=== PATIENT | female | born 1950 | race Caucasian/White ===

== ENCOUNTER 2020-01-25 13:22 | Outpatient (CLI) | payer MEDICARE, SELFPAY ==
--- NOTE | ~2020-01-25 | CT_ITS ---
EXAMINATION: CT abdomen pelvis w con INDICATION: Abdominal pain, other intestinal obstruction TECHNIQUE: Computed tomographic images of the abdomen and pelvis were obtained after the administrati on of 100 cc of Omnipaque 350 intravenous contrast. The dose-length product (DLP) was 259.13 mGy-cm. Automated exposure control and iterative reconstruction technique were employed. COMPARISON: 05/06/2018 FINDINGS: The lung bases are clear. The heart size is normal. The liver, spleen, pancreas, gallbladde r, and adrenal glands are normal. There is a 4 mm nonobstructing stone of the right kidney lower pole . The left kidney is unremarkable. There is calcified atherosclerosis of the aorta and many of the ot her arteries. No pathologically enlarged abdominal or pelvic lymph nodes are identified. There is no free intraperitoneal gas or evidence of bowel obstruction. There is a moderate volume of liquid stoo l in the colon. There is moderate lumbar spondylosis. A hemangioma is versus Paget's disease is again noted in T11 vertebral body. IMPRESSION: 1. Liquid stool in the colon which can be seen in the setting of diarrhea. 2. Nonobstructing right nephrolithiasis. Reviewed, dictated and finalized at location F.
[2020-01-25 14:03] LABS: Estimated Glomerular Filt Rate 50
== END 2020-01-25 13:23 | disposition home or self-care (01) ==
PROVIDERS: PCP Family Medicine; Visit Provider Obstetrics & Gynecology
DX: R10.9 Unspecified abdominal pain (principal); K56.699 Other intestinal obstruction unspecified as to partial versus complete obstruction; N20.0 Calculus of kidney
CPT/HCPCS: 36415; 74177; Q9967

== ENCOUNTER → 2020-03-23 10:51 | Outpatient (CLI) | payer MEDICARE, SELFPAY ==
--- NOTE | ~2020-03-23 | US_ITS ---
EXAMINATION: US renal BI DATE: 03/23/2020 11:19 INDICATION: Acute renal insufficiency. TECHNIQUE: Multiple ultrasound grayscale images of the kidneys were obtained. COMPARISON: CT abdomen and pelvis 01/25/2020 FINDINGS: The right kidney measures 8.0 x 4.3 x 5.4 cm. The left kidney measures 8.7 x 5.5 x 4.4 cm. The kidney s demonstrate normal parenchymal echogenicity. There is no hydronephrosis. The bladder is normal. IMPRESSION: 1. Mild atrophy of the kidneys. No hydronephrosis. Reviewed, dictated and finalized at location B.
--- NOTE | ~2020-03-23 | US_ITS ---
EXAMINATION: US thyroid DATE: 03/23/2020 11:19 INDICATION: Goiter. Hypothyroidism. TECHNIQUE: Multiple ultrasound images of the thyroid were obtained. COMPARISON: None. FINDINGS: The right thyroid lobe measures 3.3 x 1.2 x 1.1 cm. The left thyroid lobe measures 3.3 x 0.8 x 0.9 c m. In right thyroid lobe, there is a 6 mm solid, hypoechoic, [id number] nodule with ill-defined margin without echogenic foci (TI-RADS TR4). IMPRESSION: 1. Small thyroid nodule, likely not clinically significant. No follow-up is needed. Reviewed, dictated and finalized at location B. IMPRESSION: 1. Small thyroid nodule, likely not clinically significant. No follow-up is nee ded.
== END ==
PROVIDERS: Visit Provider Internal Medicine Endocrinology, Diabetes & Metabolism
DX: N28.9 Disorder of kidney and ureter, unspecified (principal); E04.1 Nontoxic single thyroid nodule
CPT/HCPCS: 76536; 76775

== ENCOUNTER 2020-12-20 12:28 | Outpatient (CLI) | payer MEDICARE, SELFPAY ==
--- NOTE | 2020-12-20 16:55 | WPDPFTINT ---
PFT Procedure Performed PFT Procedure Performed Spirometry with Pre/Post Bronchodilator Plethysmography (Lung Vol) Diffusing Cap (DLCO) Flow Vol Loop PFT Interpretation This is a pulmonary function test with pre and post-bronchodilator spirometry, plethysmography and diffusing capacity. The test was performed and results interpreted in accordance with the 2019 and 2005 ATS/ERS Task Force guidelines respectively using the Global Lung Function Initiative-2012 reference equations. Patient demonstrated good effort and cooperation. Reproducibility criteria were met. The quality of the pre bronchodilator spirometry maneuver was Grade A and post bronchodilator spirometry maneuver was Grade A. Findings: Spirometry: the contour the inspiratory and expiratory flow tracing are normal. The pre bronchodilator FVC is 2.81 L, 107% predicted. The pre bronchodilator FEV1 is 2.10, 102% predicted. The FEV1: FVC ratio is 75%. The post bronchodilator FVC is 2.79 L, representing no change. The post bronchodilator FEV1 is 2.19 L, representing a 4% increase. Plethysmography: The total lung capacity is 4.20 L, 91% predicted. The functional residual capacity is 1.69 L, 65% predicted. The residual volume is 1.40 L, 70% predicted. Diffusing capacity: The absolute diffusion capacity is 15.4, 79% predicted. The diffusing capacity corrected for alveolar volume is 3.85, 86% predicted. Impression: The spirometry is normal without evidence of an obstructive abnormality. There is no significant improvement after inhaling a single dose of albuterol. The lung volumes are normal. The diffusing capacity is normal. There are no prior studies for comparison
== END 2020-12-20 12:29 | disposition home or self-care (01) ==
PROVIDERS: PCP Family Medicine; Visit Provider Family Medicine
DX: J45.909 Unspecified asthma, uncomplicated (principal)
CPT/HCPCS: 94060; 94726; 94729

== ENCOUNTER 2021-01-30 15:10 | Outpatient (CLI) | payer MEDICARE, SELFPAY ==
--- NOTE | ~2021-01-30 | DEXA_ITS ---
Bone Density Report Name: Maria C Piña Age: 70 Sex: Female Ethnicity: White Date of : 1950 Indication: postmenopausal; inflammatory bowel disease; hysterectomy; Referring Provider: Shyanne Lepe Study: Bone densitometry was performed. Exam Date: January 30, 2021 Accession number: [id number] Bone Density: Region BMD T-score Z-score Classification AP Spine (L1-L4) 0.901 -1.3 0.7 Osteopenia Femoral Neck (Left) 0.558 -2.6 -0.9 Osteoporosis Total Hip (Left) 0.762 -1.5 -0.1 Osteopenia Total Hip Bilateral Avg 0.747 -1.6 -0.2 Osteopenia Femoral Neck (Right) 0.568 -2.5 -0.8 Osteoporosis Total Hip (Right) 0.730 -1.7 -0.3 Osteopenia World Health Organization criteria for BMD impression classify patients as: Normal (T-score at or above -1.0), Osteopenia (T-score between -1.0 and -2.5), or Osteoporosis (T-score at or below -2.5). 10-year Fracture Risk: FRAX not reported because: Some T-score for Spine Total or Hip Total or Femoral Neck at or below -2.5 Clinical Information Provided by Patient: Has used the following medications: Vitamin D, Calcium Has the following medical conditions: Inflammatory bowel diseases, Hysterectomy Patient maximum height was 61 Menopause Age: 35 No regular weight bearing exercise Drinks caffeinated beverages Onset of menses at age 5 Number of children 10 Impression: The patient has osteoporosis, based on the Left Femoral Neck T-score. Discussion: INCREASED RISK OF FRACTURE. BONE DENSITY IS UNDESIRABLY LOW AT ONE OR MORE SKELETAL SITES, CONSISTENT WITH POSTMENOPAUSAL OSTEOPOROSIS. This patient's lowest T-score meets the World Health Organization's (WHO) criteria for osteoporosis at one or more sites (T-score -2.5 or below). In untreated patients, the risk of osteoporotic fracture increases approximately two-fold for each 1.0 SD decrease in T-score. Low bone density is not the only risk factor for fracture; also consider factors such as patient's age, frailty or poor health, risk of falling, risk of injury, previous osteoporotic fracture, family history of osteoporosis, cigarette smoking, low body weight, etc. Not everyone with low bone mineral density has osteoporosis; osteomalacia and other metabolic bone disorders should also be considered. Patients who have osteoporosis should be evaluated for specific diseases and conditions (secondary causes) that may cause or contribute to bone loss. The [place] [employer] Clinical Endocrinologists (AACE) and National Osteoporosis Foundation (NOF) recommend pharmacologic intervention for all postmenopausal women whose T-score is in this range. The patient should follow a healthful lifestyle (good nutrition with adequate calcium and vitamin D, and appropriate weight-bearing exercise). Follow-Up: Consider a repeat BMD and Vertebral Fracture Ass
--- NOTE | ~2021-01-30 | MM_ITS ---
EXAMINATION: MM screening ramya BI w gene HISTORY: Screening mammogram TECHNIQUE: Craniocaudal and mediolateral oblique 3-D tomosynthesis images were obtained and synthetic 2-D images were generated. CAD analysis was submitted and interpreted. COMPARISON: No prior mammogram is available for comparison at this institution. BREAST PARENCHYMAL COMPOSITION: FINDINGS: There is no evidence of suspicious mass, calcification, or architectural distortion to sugg est malignancy in either breast. There has been no suspicious interval change. IMPRESSION: 1. No mammographic evidence of malignancy. 2. Recommend routine screening mammography in one year. BI-RADS Category 1: Negative Reviewed, dictated and finalized at location A.
== END 2021-01-30 15:11 | disposition home or self-care (01) ==
LOC: ANHIMG 15:13
PROVIDERS: PCP Family Medicine; Visit Provider Family Medicine
DX: Z12.31 Encounter for screening mammogram for malignant neoplasm of breast (principal); Z78.0 Asymptomatic menopausal state; M85.88 Other specified disorders of bone density and structure, other site; M81.0 Age-related osteoporosis without current pathological fracture; M85.852 Other specified disorders of bone density and structure, left thigh; M85.851 Other specified disorders of bone density and structure, right thigh
CPT/HCPCS: 77063; 77067; 77080

== ENCOUNTER → 2021-07-06 09:01 | Outpatient (CLI) | payer MEDICARE, SELFPAY ==
[2021-07-06 17:10] LABS: SARS-CoV-2 RNA PCR Negative
== END ==
PROVIDERS: PCP Family Medicine; Visit Provider Family Medicine
DX: R68.89 Other general symptoms and signs (principal); Z20.822 Contact with and (suspected) exposure to COVID-19
CPT/HCPCS: C9803; U0003; U0005

== ENCOUNTER 2021-07-10 14:42 | Outpatient (CLI) | payer MEDICARE, SELFPAY ==
--- NOTE | ~2021-07-10 | XR_ITS ---
EXAMINATION: XR chest 2V 07/10/2021 15:05 INDICATION: Cough PROCEDURE: 2 view chest COMPARISON: No prior studies for comparison. FINDINGS: The lungs are clear. The cardiomediastinal silhouette is within normal limits. There are no pleural effusions. There is no pneumothorax suspected. IMPRESSION: 1: NO ACUTE CARDIOPULMONARY DISEASE. Reviewed, dictated and finalized at location B. L PROGRAMMER
== END 2021-07-10 14:43 | disposition home or self-care (01) ==
PROVIDERS: PCP Family Medicine; Visit Provider Family Medicine
DX: R05.9 Cough, unspecified (principal)
CPT/HCPCS: 71046

== ENCOUNTER 2021-07-31 14:48 | Outpatient (CLI) | payer MEDICARE, SELFPAY ==
--- NOTE | ~2021-07-31 | CT_ITS ---
EXAMINATION: CT diagnostic chest wo con DATE: 07/31/2021 15:09 INDICATION: Cough. Shortness of breath. Asthma. TECHNIQUE: Computed tomography (CT) of the chest was performed without intravenous contrast. Automate d exposure control and iterative reconstruction technique were employed. Exam dose: 161.57 mGy-cm to leandro exam DLP. COMPARISON: 07/10/2021 2 view chest FINDINGS: No pulmonary infiltrate or consolidation or pulmonary mass lesion is detected. Normal heart size. No pericardial or pleural effusion. No hilar or mediastinal mass lesion or lymphadenopathy. No thoracic aortic aneurysm. There is atherosclerotic calcification of the thoracic aorta and great v essels and coronary artery calcification. Very small sliding hiatal hernia. Normal morphology of the adrenal glands. Status post anterior and posterior lower cervical spine surgical fusion. There is cortical thickening and patchy lucency and sclerosis with some accentuated trabecula of T11 which may be due to Paget's disease; differential diagnosis includes metastatic disease. IMPRESSION: No active pulmonary disease Very small sliding hiatal hernia Cortical thickening and patchy lucency and sclerosis and accentuated trabeculae of T11, possibly due to Paget's disease; differential diagnosis includes metastatic disease Reviewed, dictated and finalized at Location A. Reviewed, dictated and finalized at location B. SPORT ASSISTANT IMPRESSION: No active pulmonary disease Very small sliding hiatal hernia Cortical thickening and patchy lucency and sclerosis and accentuated trabeculae of T11, possibly due to Paget's disease; differential diagnosis includes metas tatic disease
== END 2021-07-31 14:49 | disposition home or self-care (01) ==
LOC: ANHIMG 14:53
PROVIDERS: PCP Family Medicine; Visit Provider Internal Medicine Critical Care Medicine
DX: R05.9 Cough, unspecified (principal); J45.909 Unspecified asthma, uncomplicated; K44.9 Diaphragmatic hernia without obstruction or gangrene; M89.9 Disorder of bone, unspecified
CPT/HCPCS: 71250

== ENCOUNTER 2021-10-16 08:03 | Outpatient (CLI) | payer MEDICARE, SELFPAY ==
--- NOTE | 2021-10-16 11:59 | WPDMETH ---
Methacholine Procedure Perform Procedure Performed Methacholine Challenge Methacholine Challenge Methacholine challenge testing was performed with increasing doses of nebulized methacholine according to ATS/ERS 2017 guidelines. Following administration of 7.26 mcg of nebulized methacholine (level 2 provocative dose), the measured FEV1 decreased by approximately 24% from the baseline measurement. Post administration of nebulized short-acting bronchodilator, the FEV1 returned back to baseline value. Impression: Positive methacholine challenge testing. Moderate airway hyperresponsiveness.
== END 2021-10-16 08:04 | disposition home or self-care (01) ==
LOC: ANHPFT 08:04
PROVIDERS: PCP Family Medicine; Visit Provider Internal Medicine Critical Care Medicine
DX: R05.9 Cough, unspecified (principal); R94.2 Abnormal results of pulmonary function studies
CPT/HCPCS: 94070; J7674

== ENCOUNTER 2021-10-23 08:25 | Outpatient (CLI) | payer MEDICARE, SELFPAY ==
--- NOTE | ~2021-10-23 | NM_ITS ---
EXAMINATION: NM chantel stress w perfusion DATE: 10/23/2021 10:56 INDICATION: Dyspnea on exertion. TECHNIQUE: Rest images were obtained following intravenous administration of 10.2 mCi Tc99m tetrofosm in (Myoview). The patient was infused intravenously with Lexiscan (regadenoson). Then, 32 mCi Tc99m t etrofosmin (Myoview) was administered intravenously, and stress images were obtained. Data was recons tructed into short axis and horizontal and vertical long axis SPECT images. Gated SPECT images were a lso obtained. COMPARISON: Myocardial perfusion imaging 01/24/2010, chest CT 07/31/2021 FINDINGS: There is no definite reversible or fixed perfusion abnormality to suggest ischemia or infar ction. There is no segmental wall motion abnormality. Left ventricular ejection fraction measures > 70%. IMPRESSION: 1. No definite ischemia or infarct. 2. Normal left ventricular ejection fraction measuring >70%. Reviewed, dictated and finalized at location A.
--- NOTE | 2021-10-23 08:50 | EST_ITS ---
Patient Info Name: Maria C Piña Age: 71 years : 1950 Gender: Female Ht: 61 in Wt: 150 lbs BSA: 1.73 m2 Exam Date: 10/23/2021 9:26 AM Exam Location: [facility] Stress Patient Status: Outpatient Admit Date: 10/23/2021 Staff Ordering Physician: Debbie White MD Attending Provider: Debbie White MD Exercise Technologist: Haven Ochoa RDCS Exercise Physician: Manjit Holcomb DO Exam Type: CA stress chantel w NM Study Info Indications R06.02 - Shortness of breath A regadenoson stress test was performed. Summary 1. 1. Negative lexiscan stress test for ischemic ST changes by ECG criteria. 2. 2. Baseline hypertension. 3. 3. Nuclear scan to follow and will be reported separately. Please correlate with it. 4. 4. Patient informed of the above results. Protocol: Lexiscan Stress ECG Details Stage: REST Duration (min): 1 min : 7 sec HR (bpm): 66 SBP (mmHg): 150 DBP (mmHg): 78 Stage: REST Duration (min): 9 min : 35 sec HR (bpm): 68 SBP (mmHg): 150 DBP (mmHg): 78 Stage: STAGE 1 Duration (min): 1 min : 0 sec HR (bpm): 91 SBP (mmHg): 149 DBP (mmHg): 67 Stage: RECOVERY Duration (min): 1 min : 0 sec HR (bpm): 92 SBP (mmHg): 160 DBP (mmHg): 70 Stage: RECOVERY Duration (min): 2 min : 0 sec HR (bpm): 87 SBP (mmHg): 160 DBP (mmHg): 70 Stage: RECOVERY Duration (min): 3 min : 0 sec HR (bpm): 84 SBP (mmHg): 151 DBP (mmHg): 71 Stage: RECOVERY Duration (min): 4 min : 0 sec HR (bpm): 84 SBP (mmHg): 151 DBP (mmHg): 71 Stage: RECOVERY Duration (min): 4 min : 49 sec HR (bpm): 81 SBP (mmHg): 134 DBP (mmHg): 73 Rest HR: 68 bpm Peak HR: 97 bpm Rest Sys BP: 150 mmHg Peak Sys BP: 160 mmHg Max Pred HR: 151 bpm % Max Pred HR: 64 % Target HR: 128 bpm Max RPP: 15,520 bpm*mmHg Termination Reason: Completed protocol Cardiac Symptoms: Shortness of breath, Headache Total Time: 1 min : 0 sec Rest Li BP: 78 mmHg Peak Li BP: 70 mmHg Total Dose: 0.4 mg Resting ECG Sinus rhythm. Stress ECG No ST changes. Arrhythmias None. Report Signatures
== END 2021-10-23 08:26 | disposition home or self-care (01) ==
LOC: ANHCARD 08:27
PROVIDERS: PCP Family Medicine; Visit Provider Internal Medicine Critical Care Medicine
DX: R06.02 Shortness of breath (principal)
CPT/HCPCS: 78452; 93017; A9502; J2785

== ENCOUNTER 2022-01-16 09:36 | Outpatient (CLI) | payer MEDICARE, SELFPAY ==
--- NOTE | ~2022-01-16 | NM_ITS ---
EXAMINATION: NM bone scan whole body DATE: 01/16/2022 13:28 INDICATION: Abnormal findings on diagnostic imaging. Abnormal T11. TECHNIQUE: 25 mCi Tc-99m HDP was administered intravenously. Delayed whole-body scintigrams were obt ained. COMPARISON: Chest CT 07/31/2021, CT abdomen and pelvis 05/05/2018 FINDINGS: There is increased activity at right first metatarsophalangeal joint without radiographic c omparison, likely osteoarthritis. There is joint-centered and disc-centered increased activity in lum bar spine correlating with spondylosis by CT. There is no abnormal activity in T11. IMPRESSION: 1. No abnormal activity in T11 to correlate with the chronic cortical and trabecular thickening invol ving the vertebral body and posterior elements, likely Paget disease. Reviewed, dictated and finalized at location A. IMPRESSION: 1. No abnormal activity in T11 to correlate with the chronic cortical and trabe cular thickening involving the vertebral body and posterior elements, likely Pa get disease.
== END 2022-01-16 09:37 | disposition home or self-care (01) ==
LOC: ANHIMG 09:38
PROVIDERS: PCP Family Medicine; Visit Provider Internal Medicine Critical Care Medicine
DX: R93.7 Abnormal findings on diagnostic imaging of other parts of musculoskeletal system (principal)
CPT/HCPCS: 78306; A9561

== ENCOUNTER 2022-02-07 10:09 | Outpatient (CLI) | payer MEDICARE, SELFPAY ==
--- NOTE | ~2022-02-07 | MM_ITS ---
EXAMINATION: MM screening ramay BI w gene HISTORY: Screening TECHNIQUE: Craniocaudal and mediolateral oblique 3-D tomosynthesis images were obtained and synthetic 2-D images were generated. CAD analysis was submitted and interpreted. COMPARISON: 01/30/2021 BREAST PARENCHYMAL COMPOSITION: There are scattered areas of fibroglandular density. FINDINGS: There is no evidence of suspicious mass, calcification, or architectural distortion to sugg est malignancy in either breast. There has been no suspicious interval change. IMPRESSION: 1. No mammographic evidence of malignancy. 2. Recommend routine screening mammography in one year. BI-RADS Category 1: Negative Reviewed, dictated and finalized at location A.
== END 2022-02-07 10:10 | disposition home or self-care (01) ==
PROVIDERS: PCP Family Medicine; Visit Provider Family Medicine
DX: Z12.31 Encounter for screening mammogram for malignant neoplasm of breast (principal)
CPT/HCPCS: 77063; 77067

== ENCOUNTER 2022-06-12 10:56 | Outpatient (CLI) | payer MEDICARE, SELFPAY ==
[2022-06-12 19:36] LABS: Alanine Aminotransferase 22 U/L (6-35); Albumin Level 4.4 g/dL (3.5-5.1); Alkaline Phosphatase 73 U/L (38-126); Anion Gap 12 mmol/L (8-16); Aspartate Amino Transferase 30 U/L (14-36); Bilirubin,Total 0.4 mg/dL (0.2-1.3); Blood Urea Nitrogen 32 mg/dL (7-17); Calcium 9.4 mg/dL (8.4-10.2); Carbon Dioxide 25 mmol/L (22-30); Chloride 101 mmol/L (98-107); Estimated Glomerular Filt Rate 41; Glucose 83 mg/dL (65-110); Potassium 4.1 mmol/L (3.4-5.0); Sodium 138 mmol/L (137-145)
== END 2022-06-12 10:57 | disposition home or self-care (01) ==
LOC: ANHGOSHLAB 11:04
PROVIDERS: PCP Family Medicine; Visit Provider Family Medicine
DX: E78.5 Hyperlipidemia, unspecified (principal); Z79.899 Other long term (current) drug therapy; E03.9 Hypothyroidism, unspecified
CPT/HCPCS: 36415; 80053; 84443

== ENCOUNTER → 2022-06-12 11:12 | Outpatient (CLI) | payer MEDICARE, SELFPAY ==
--- NOTE | ~2022-06-12 | XR_ITS ---
XR chest 2V DATE: 06/12/2022 11:23 INDICATION: Cough. History of asthma, Covid. TECHNIQUE: 2 views COMPARISON: 07/10/2021 2 view chest 07/31/2021 CT chest FINDINGS: Normal heart size. There is mild aortic calcification and unfolding. No hilar or mediastina l enlargement. No pulmonary infiltrate or consolidation, pleural effusion or pulmonary vascular congestion or pneumo thorax. Anterior and posterior lower cervical spine surgical fusion. There is mild levoscoliosis and degenerative spurring of the thoracic spine. Diffuse osteopenia. IMPRESSION: No active cardiopulmonary disease Reviewed, dictated and finalized at location A.
== END ==
PROVIDERS: PCP Family Medicine; Visit Provider Family Medicine
DX: R05.9 Cough, unspecified (principal)
CPT/HCPCS: 71046

== ENCOUNTER 2022-10-16 11:05 | Outpatient (CLI) | payer MEDICARE, SELFPAY ==
[2022-10-16 18:37] LABS: Alanine Aminotransferase 21 U/L (6-35); Albumin Level 4.6 g/dL (3.5-5.1); Alkaline Phosphatase 64 U/L (38-126); Anion Gap 6 mmol/L (8-16); Aspartate Amino Transferase 39 U/L (14-36); Bilirubin,Total 0.5 mg/dL (0.2-1.3); Blood Urea Nitrogen 28 mg/dL (7-17); Calcium 9.7 mg/dL (8.4-10.2); Carbon Dioxide 28 mmol/L (22-30); Chloride 104 mmol/L (98-107); Estimated Glomerular Filt Rate 40; Glucose 88 mg/dL (65-110); Potassium 4.9 mmol/L (3.4-5.0); Sodium 138 mmol/L (137-145)
== END 2022-10-16 11:06 | disposition home or self-care (01) ==
LOC: ANHGOSHLAB 11:06
PROVIDERS: PCP Family Medicine; Visit Provider Family Medicine
DX: N18.31 Chronic kidney disease, stage 3a (principal)
CPT/HCPCS: 36415; 80053

== ENCOUNTER → 2022-10-23 12:40 | Outpatient (CLI) | payer MEDICARE, SELFPAY ==
--- NOTE | ~2022-10-23 | MR_ITS ---
MRI of the right shoulder Technique: Axial proton-density fat-sat images, coronal proton density fat-sat and T2 fat-sat images, and sagittal T1-weighted and T2 fat-sat images were acquired. Clinical History: Pain Findings: There is mild degenerative change at the AC joint. Small subacromial spur present. Coracocl avicular, coracoacromial, and coracohumeral ligaments are intact. There is probable low-grade focal articular surface partial tearing at the distal supraspinatus tendo n insertion. There is background advanced supraspinatus and infraspinatus tendinosis. There is advanc ed subscapularis tendinosis, without partial or full-thickness tear. Tendon of the long head of the b iceps is intact, with probable intra-articular tendinosis. No labral tear identified. Inferior glenohumeral ligament is intact. No significant joint effusion or degenerative change seen a t the glenohumeral joint. There is fluid distention of the subacromial/subdeltoid bursa. No muscle at rophy or edema. Impression: Subacromial/subdeltoid bursitis. Advanced rotator cuff tendinosis with suspected focal, very low-grade partial thickness tear at the a rticular surface of the distal supraspinatus tendon insertion. Reviewed, dictated and finalized at location . Impression: Subacromial/subdeltoid bursitis. Advanced rotator cuff tendinosis with suspected focal, very low-grade partial t hickness tear at the articular surface of the distal supraspinatus tendon inser tion.
== END ==
PROVIDERS: PCP Family Medicine; Visit Provider Family Medicine
DX: M75.51 Bursitis of right shoulder (principal)
CPT/HCPCS: 73221

== ENCOUNTER 2023-01-02 08:44 | Outpatient (CLI) | payer MEDICARE, SELFPAY ==
[2023-01-02 19:28] LABS: Basophils Percent Auto 0.9 % (0.2-1.2); Eosinophils Absolute Auto 0.1 K/mm3 (0-0.3); Eosinophils Percent Auto 2.6 % (0-4.4); Hematocrit 41.4 % (37.0-47.0); Immature Granulocyte Absolute 0.01 K/mm3 (0.00-0.031); Immature Granulocyte Percent A 0.2 % (0-0.5); Lymphocytes Absolute Auto 1.72 K/mm3 (0.9-3.2); Lymphocytes Percent Auto 36.7 % (18.3-44.2); Mean Corpuscular HGB Conc 31.4 g/dl (32-36); Mean Corpuscular Hemoglobin 30.5 pg (26-34); Mean Corpuscular Volume 97.2 fl (80-100); Mean Platelet Volume 12.7 fl (7.4-10.4); Monocytes Absolute Auto 0.4 K/mm3 (0.1-0.6); Monocytes Percent Auto 9.2 % (2.6-8.5); Neutrophils Absolute Auto 2.4 K/mm3 (1.3-6.7); Neutrophils Percent Auto 50.4 % (45.5-73.1); Platelet Count Result 179 k/mm3 (150-375); Red Blood Count 4.26 M/mm3 (4.2-5.4); Red Cell Distribution Width 14.4 % (11.5-14.5); White Blood Count 4.7 K/mm3 (4.5-10.0)
[2023-01-02 19:37] LABS: Alanine Aminotransferase 21 U/L (6-35); Albumin Level 4.3 g/dL (3.5-5.1); Alkaline Phosphatase 68 U/L (38-126); Anion Gap 5 mmol/L (8-16); Aspartate Amino Transferase 34 U/L (14-36); Bilirubin,Total 0.6 mg/dL (0.2-1.3); Blood Urea Nitrogen 23 mg/dL (7-17); Calcium 8.9 mg/dL (8.4-10.2); Carbon Dioxide 32 mmol/L (22-30); Chloride 101 mmol/L (98-107); Cholesterol 215 mg/dL (0-200); Estimated Glomerular Filt Rate 55; Glucose 86 mg/dL (65-110); HDL Direct 54 mg/dL; Potassium 4.5 mmol/L (3.4-5.0); Sodium 138 mmol/L (137-145); Triglycerides 185 mg/dL (<150)
[2023-01-02 20:00] LABS: Vitamin D 25 Hydroxy 53.6 ng/mL
[2023-01-02 20:03] LABS: LDL Cholesterol Direct 104 mg/dL
== END 2023-01-02 08:45 | disposition home or self-care (01) ==
LOC: ANHGOSHLAB 08:45
PROVIDERS: PCP Family Medicine; Visit Provider Family Medicine
DX: E53.8 Deficiency of other specified B group vitamins (principal); E03.9 Hypothyroidism, unspecified; N18.30 Chronic kidney disease, stage 3 unspecified; E78.5 Hyperlipidemia, unspecified; E55.9 Vitamin D deficiency, unspecified
CPT/HCPCS: 36415; 80053; 80061; 82306; 82607; 85025

== ENCOUNTER → 2023-01-08 14:39 | Outpatient (CLI) | payer MEDICARE, SELFPAY ==
--- NOTE | ~2023-01-08 | XR_ITS ---
EXAM: XR lumbar spine 2-3V DATE: 01/08/2023 15:04 HISTORY: no injury lbp for 10 days . COMPARISON: CT abdomen pelvis 05/05/2018. FINDINGS: 5 nonrib-bearing lumbar-type vertebral bodies. Pedicles intact. 5 mm anterolisthesis at L4 -5. Mild concave endplate deformities as can be seen with osteoporosis. Multilevel degenerative disc narrowing and marginal osteophytosis, moderate at L3-4, L4-5, and severe at L5-S1. Moderate lower lum bar facet sclerosis and hypertrophy. No fracture or dislocation. Aortic calcification without evident aneurysm. Possible T11 vertebral body hemangioma. IMPRESSION: Grade 1 anterolisthesis at L4-5. Multilevel degenerative disc disease. Multilevel facet a rthropathy. Reviewed, dictated and finalized at location K. IMPRESSION: Grade 1 anterolisthesis at L4-5. Multilevel degenerative disc disea se. Multilevel facet arthropathy.
== END ==
PROVIDERS: PCP Family Medicine; Visit Provider Family Medicine
DX: M54.16 Radiculopathy, lumbar region (principal); M51.36 Other intervertebral disc degeneration, lumbar region
CPT/HCPCS: 72100

== ENCOUNTER → 2023-01-10 15:12 | Outpatient (CLI) | payer MEDICARE, SELFPAY ==
--- NOTE | ~2023-01-10 | CT_ITS ---
EXAMINATION: CT abdomen pelvis wo con DATE: 01/10/2023 15:35 INDICATION: Left flank pain TECHNIQUE: Computed tomography (CT) of the abdomen and pelvis was performed without intravenous contr ast. The dose-length product (DLP) was 705.00 mGy-cm. Automated exposure control and iterative recons truction technique were employed. COMPARISON: 01/25/2020 FINDINGS: The lung bases are clear. The heart size is normal. The liver, spleen, pancreas, gallbladde r, and adrenal glands are normal. Nonobstructing stones of the right kidney measure up to 5 mm. Nonob structing left kidney stones measure up to 2 mm. No stones are identified in the ureters or bladder. No hydronephrosis or hydroureter. No pathologically enlarged abdominal or pelvic lymph nodes are iden tified. No free intraperitoneal gas or evidence of bowel obstruction. A large volume of colonic stool is present. There is mild lumbar spondylosis. IMPRESSION: 1. Constipation. 2. Bilateral nonobstructing nephrolithiasis. Reviewed, dictated and finalized at location B.
== END ==
PROVIDERS: PCP Family Medicine; Visit Provider Nurse Practitioner Family
DX: K59.00 Constipation, unspecified (principal); N20.0 Calculus of kidney
CPT/HCPCS: 74176

== ENCOUNTER → 2023-01-27 12:17 | Outpatient (CLI) | payer MEDICARE, SELFPAY ==
--- NOTE | ~2023-01-27 | XR_ITS ---
XR abdomen/kub 1V 01/27/2023 12:33 INDICATION: Bilateral kidney stones TECHNIQUE: KUB COMPARISON: 05/03/2019 FINDINGS: Bowel gas pattern is normal. There is no evidence of free air, mass, organomegaly, ascites or obstruction. There are right renal stones. The bones appear intact. IMPRESSION: 1: Right nephrolithiasis. Reviewed, dictated and finalized at location [] IMPRESSION: 1: Right nephrolithiasis.
== END ==
PROVIDERS: PCP Family Medicine; Visit Provider Urology
DX: N20.0 Calculus of kidney (principal)
CPT/HCPCS: 74018

== ENCOUNTER 2023-02-07 10:35 | Outpatient (CLI) | payer MEDICARE, SELFPAY ==
--- NOTE | 2023-02-07 10:39 | ECG_ITS ---
Measurements Intervals [place] Rate: 80 P: 49 ND: 179 QRS: 25 QRSD: 94 T: 72 QT: 361 QTc: 419 Interpretive Statements BASELINE ARTIFACT/POOR DATA QUALITY SINUS RHYTHM GROSSLY NORMAL ECG NO PREVIOUS ECG AVAILABLE FOR COMPARISON Electronically Signed On 02-07-2023 17:14:23 CDT by Thierno Starks M.D.
== END 2023-02-07 10:36 | disposition home or self-care (01) ==
LOC: ANHSURGERY 10:38
PROVIDERS: PCP Family Medicine; Visit Provider Orthopaedic Surgery
DX: E78.00 Pure hypercholesterolemia, unspecified (principal); Z01.818 Encounter for other preprocedural examination
CPT/HCPCS: 93005

== ENCOUNTER 2023-02-12 06:30 | Day surgery (SDC) | payer MEDICARE, SELFPAY ==
--- NOTE | 2023-02-03 10:21 | PC.NURSE ---
Report to the Outpatient Waiting Room, entrance under the green pavilion located off [facility], at time 0830 on date02/12/23 . Planned Procedure Time: _1030 . Time changes happen often and if your time is changed the preop area will call you the afternoon before. - You and your visitor will be asked to self-screen and do not enter if you have any COVID symptoms. - A mask is optional within the hospital at this time. Patients may have clear liquids (water, carbonated beverages, clear teas, apple juice) until 3 hours prior to surgery with a maximum of 20 ounces. - No food from midnight until time of surgery - Infants may have breast milk until 4 hours before surgery, formula 6 hours prior to surgery. - Children will be allowed to drink immediately following surgery. If applicable, please bring a bottle or sippy cup to assist with drinking. Juice, water, soda, and popsicles are readily available. For infants on formula, please bring formula the day of surgery. Pacifiers are allowed. Take the following medications with a SIP of water the morning of surgery: ____SYNTHROID,INHALER IF NEEDED DO NOT STOP ANY OF YOUR OTHER PRESCRIPTION MEDICATIONS PRIOR TO SURGERY ?EXCEPT THE FOLLOWING Medications to discontinue per physician ALL VITAMINS 3 DAYS PRE OP.LAST DOSE02/08/23_.ALEVE PER DR BOOKER Please no make-up, nail urdu, hairspray, perfume, deodorant, or body powder the day of surgery. No jewelry (including any body piercings) or valuables the day of surgery, leave them at home. Please take a shower or bath the night before, or the morning of, surgery with an antibacterial soap. Wear comfortable, loose fitting clothing. Children are encouraged to wear pajamas. - Jewelry must be removed prior to entering the operating room. Rings and piercings that are not removed may be cut off. - The hospital will not accept responsibility for valuables. - Please leave all valuables, including medications, at home the day of surgery. If you are going home after surgery, a licensed concrete mixing truck driver must drive you home. - NO public transportation without another adult if you receive anesthesia. - We recommend that an adult stay with you for 24 hours following discharge. - We also recommend that you do not drive, make important decision, drink alcoholic beverages, or take any drugs that were not prescribed by your health care provider for at least 24 hours after your discharge time. For Pediatric surgeries, we recommend two adults accompany the child home. Follow any additional instructions given to you from your surgeon. If you or anyone in your household have experienced Covid symptoms in the past week, please notify your surgeon or the nurse liaison at the phone number below for possible testing. Telephone instructions given to __PATIENT and asked if any additional questions and then verbalized understanding. Patient advised to call surgeon office or pre surgery nurse liaison [phone] if any additional questions.
[2023-02-03 10:31] VITALS: BMI 29.1
[2023-02-12] VITALS (11 sets, daily range): BP systolic 108–140; BP diastolic 51–94; PULSE 65–78; RESP 11–19; TEMP 36.2; O2SAT 91–99
--- NOTE | 2023-02-12 07:22 | WPDHPUPDATE1 ---
History and Physical Update Update Date/Time: 02/12/23 07:22 History and Physical has been reviewed, including an updated exam of the patient. There are NO changes in the patient's condition. Risks, benefits, and alternatives have been discussed and questions answered. Patient agrees to proceed with procedure.
--- NOTE | 2023-02-12 08:04 | WPDANESEPPF ---
Anes - Initial Pre Proc Eval Procedure: Operation Date: 02/12/23 10:30 Proposed Procedures p Right Rotator Cuff Repair - Alexander Cabrera MD Date/Time: 02/12/23 08:04 Surgeon: Alexander Cabrera MD Pre Op Diagnosis: Right Rotator Cuff tear Patient Data Age: 72 Gender: F Height: 1.55 m Weight: 69.95 kg Allergies Allergy/AdvReac Type Severity Reaction Status Date / Time amoxicillin Allergy Unknown Anaphylaxis Verified 02/12/23 09:20 pecan nut Allergy Unknown Swelling Verified 02/12/23 09:20 of Lip/Tongue/Throat tree nut Allergy Unknown Swelling Verified 02/12/23 09:20 of Lip/Tongue/Throat Home Medications Medication Instructions Recorded Confirmed Type linaclotide 290 mcg capsule 290 mcg DAILY 08/01/19 02/12/23 History (Linzess) amitriptyline 25 mg tablet 25 mg PO QHS IBS 12/04/20 02/12/23 History fluticasone propionate 50 1 spray intranasal BID 12/04/20 02/12/23 History mcg/actuation nasal spray,suspension loratadine 10 mg tablet (Allergy 10 mg PO HS 12/04/20 02/12/23 History Relief (loratadine)) albuterol sulfate 90 mcg/actuation 1 puff inhalation Q4H PRN 08/06/21 02/12/23 Rx aerosol inhaler shortness of breath or wheezing #8.5 grams omeprazole 20 mg capsule,delayed 20 mg PO BID 11/19/21 02/12/23 History release calcium carbonate 600 mg-vitamin 1 tablet PO BID 12/12/21 02/12/23 History D3 10 mcg (400 unit) tablet (Calcium 600 + D(3)) zoledronic acid 5 mg/100 mL in 1 ea IV [id number] 12/12/21 02/12/23 History mannitol 5 %-water intravenous piggybck (Reclast) Synthroid 50 mcg tablet 50 mcg PO DAILY #90 tabs 08/26/22 02/12/23 Rx (levothyroxine) simvastatin 20 mg tablet 20 mg PO QHS #90 tabs 11/28/22 02/12/23 Rx chlorhexidine gluconate 4 % 1 applic topical ONCE #237 mL 01/28/23 02/12/23 Rx topical liquid (Hibiclens) clindamycin 1 %-benzoyl peroxide 5 1 applic topical DAILY #25 grams 01/28/23 02/12/23 Rx % topical gel naproxen sodium 220 mg capsule 220 mg PO BID PRN Pain 02/03/23 02/12/23 History (Matilde) Patient hx anesthesia problems: none Family hx anesthesia problems: none Results Review: All pre-operative results and documents have been reviewed as part of the pre-operative evaluation. [facility] Past Medical History Medical History Abnormal CT of thoracic spine (~10/2021) abnormality noted at T11 - ruled out with bone scan Adhesive capsulitis of shoulder CKD (chronic kidney disease) stage 3, GFR 30-59 ml/min Dyslipidemia Environmental allergies GERD without esophagitis History of COVID-19 (~05/2022) History of Helicobacter pylori infection History of small bowel obstruction Hypothyroidism (acquired) Irritable bowel syndrome with constipation Lumbar degenerative disc disease Numbness of right foot Right shoulder pain Rotator cuff tear Rotator cuff tendonitis Surgical History Surgical History History of arthroscopy of left knee (~2009) 2009 - meniscus repair History of 1977, 1983 History of cervical spinal surgery (~2011) 2010, 2011 - x3 History of hysterectomy (~1985) 1985 History of laparoscopy (~05/2018) 05/2018 - small bowel obstruction History of lumbosacral spine surgery (~2016) 2017 - numbness on the lateral side of right lower extremity since the L-spine surgery. Family History Family History Mother Acute myocardial infarction Cerebrovascular accident Family history of malignant neoplasm of breast in first degree relative Family history of hypercholesterolemia Sibling Family history of malignant neoplasm of breast in first degree relative Father Family history of kidney disease Family history of throat cancer Social History Social History Smoking status: Never smoker S
[2023-02-12] MEDS: LACTATED RINGERS 1,000 ML 30 ML IV CONT ×2 (09:08→12:29)
[2023-02-12] MEDS: CELECOXIB 200 MG CAPSULE PO (09:09)
[2023-02-12] MEDS: ACETAMINOPHEN 500 MG TABLET 1000 MG PO (09:09)
--- NOTE | 2023-02-12 10:23 | WPDANESPNB ---
Anes - Peripheral Nerve Block Date/Time: 02/12/23 10:23 I have discussed with the patient/family/POA the placement of a peripheral nerve block for post-operative pain management, including associated risks, benefits, complications, and side effects. Alternative methods of post-operative analgesia were detailed. Questions were solicited and answers provided to the satisfaction of the patient/family/POA. Time-Out: A pre-procedural Time-Out was completed immediately before starting the procedure and confirmed: Patient Identification, Site, Procedure, Patient Position and the Availability of Requisite Equipment. Clinical Indications: Acute post-operative pain management requested by the operative surgeon. Nerve Block Insertion Note Anes-nerve block: interscalene right Patient position: supine Skin prep: chlorhexidine Needle: 22 gauge, stimulating, insulated echogenic needle. Needle length: 50 mm Technique: ultrasound Injectate: bupivacaine 0.5% with epi 5 mcg/ml (30cc- no epi) Observations: tolerated well Complications: none Procedure start time:: 1033 Procedure end time:: 1038
[2023-02-12] MEDS: ceFAZolin 2 GM/D5W 50 ML 2 GM/50 ML BAG IVPB (10:44)
--- NOTE | 2023-02-12 12:44 | W.PM.PROC2 ---
Procedure Note - Detailed Date of Procedure 02/12/23 Pre-op Diagnosis Right Rotator Cuff tear Post-op Diagnosis Same Procedure Performed REPAIR RIGHT ROTATOR CUFF Surgeon Alexander Cabrera MD Anesthesia General Description of Procedure THE PATIENT WAS TAKEN TO THE OPERATING ROOM AND THEN INTUBATED AND PLACED IN THE BEACH CHAIR POSITION. THE RIGHT UPPER EXTREMITY WAS PREPPED AND DRAPED IN THE NORMAL STERILE FASHION. AN INCISION WAS MADE IN BETWEEN THE DEANA-LATERAL ACROMION AND THE AC JOINT. THE FASCIA WAS IDENTIFIED. NEXT A MINI OPEN INCISION WAS MADE THROUGH THE DELTOID MUSCLE EXPOSING THE SUBACROMIAL SPACE. A LIMITED ACROMIOPLASTY WAS PREFORMED. THE ROTATOR CUFF WAS IDENTIFIED. THERE WAS A FULL THICKNESS TEAR. IT MEASURED APPROXIMATELY 2 CM X 2 CM. THE GREATER TUBEROSITY WAS DEBRIDED TO BLEEDING BONE. 3 ARTHREX 5.5 SUTURE ANCHORS WERE PLACED IN TO GOOD BONE AND HAD VERY GOOD BITES. YINKA-REE TYPE REPAIRS WERE DONE TO THE ROTATOR CUFF AND THERE WAS GOOD APPROXIMATION TO THE GREATER TUBEROSITY. THE REPAIR WAS EXCELLENT. THERE WAS NO IMPINGEMENT ON THE REPAIR FROM THE ACROMION WITH RANGE OF MOTION. THE WOUND WAS IRRIGATED WITH COPIOUS AMOUNTS OF ANTIBIOTIC SOLUTION, STERILE BETADINE AND H2O2 SOLUTION. THE DELTOID MUSCLE WAS REPAIRED WITH #2 FIBER WIRE AND 0 VICRYL SUTURE. THE SUBCUTANEOUS LAYER WAS APPROXIMATED WITH 2-0 VICRYL. THE SKIN WAS APPROXIMATED WITH 3-0 QUIL AND DERMABOND. STERILE DRESSING WAS APPLIED. PATIENT WAS EXTUBATED. Estimated Blood Loss -25.0 Complications No immediate complications Condition Stable Disposition PACU
--- NOTE | 2023-02-12 13:15 | SUR.PHASEI ---
Addendum entered by Nicki Corona RN 02/12/23 13:16: pt o2 sats 99% on 6L simple mask Original Note: dr bass at bedside pt c/o sob. dr bass said it is from the [facility] and said to take deep breaths and use the incentive spirometer in OP
[2023-02-12] MEDS: fentaNYL CITRATE INJ (*CRX) 100 MCG/2 ML VIAL 25 MCG IV PUSH ×3 (13:33→13:39)
[2023-02-12] MEDS: oxyCODONE HCL (*CRX) 5 MG TAB IR PO (14:58)
[2023-02-12] MEDS: ONDANSETRON HCL ODT 4 MG TABLET PO (16:03)
== END 2023-02-12 16:04 | disposition home or self-care (01) ==
PROVIDERS: PCP Family Medicine; Visit Provider Orthopaedic Surgery
PROC: (CPT 23420; principal; 2023-02-12 10:30)
DX: M75.101 Unspecified rotator cuff tear or rupture of right shoulder, not specified as traumatic (principal); G89.18 Other acute postprocedural pain; E78.5 Hyperlipidemia, unspecified; N18.30 Chronic kidney disease, stage 3 unspecified; K21.9 Gastro-esophageal reflux disease without esophagitis; E03.9 Hypothyroidism, unspecified; K58.1 Irritable bowel syndrome with constipation; Z79.51 Long term (current) use of inhaled steroids
CPT/HCPCS: 23412; 64415; 93005; A9270; C1713; J0330; J0690; J1100; J2250; J2405; J2704; J3010; J7120

== ENCOUNTER 2023-04-07 14:50 | Outpatient (CLI) | payer MEDICARE, SELFPAY ==
--- NOTE | ~2023-04-07 | DEXA_ITS ---
Bone Density Report Name: VEENA LYONS Age: 72 Sex: Female Ethnicity: White Date of : 1950 Indication: postmenopausal; screening for osteoporosis; asthma or emphysema; hysterectomy; Referring Provider: SIMÓN ROMERO Study: Bone densitometry was performed. Exam Date: April 07, 2023 Accession number: [id number] Bone Density: Region BMD T-score Z-score Classification AP Spine(L1-L4) 1.009 -0.3 1.8 Normal Femoral Neck (Left) 0.619 -2.1 -0.3 Osteopenia Total Hip (Left) 0.812 -1.1 0.5 Osteopenia Femoral Neck (Right) 0.609 -2.2 -0.3 Osteopenia Total Hip (Right) 0.788 -1.3 0.3 Osteopenia Total Hip Mean 0.800 -1.2 0.4 Osteopenia World Health Organization criteria for BMD impression classify patients as: Normal (T-score at or above -1.0), Osteopenia (T-score between -1.0 and -2.5), or Osteoporosis (T-score at or below -2.5). 10-year Fracture Risk: FRAX not reported because: Treated for osteoporosis Clinical Information Provided by Patient: Is being treated for osteoporosis Has used the following medications: Prolia (i.e. denosumab), Vitamin D, Calcium Has the following medical conditions: Asthma or Emphysema, Hysterectomy Patient maximum height was 61 Menopause Age: 35 Drinks caffeinated beverages Onset of menses at age 12 Number of children 3 Impression: The patient has low bone mass, based on the Right Femoral Neck T-score. Discussion: It is important to ask patients whether they are taking their medications and to encourage continued and appropriate compliance with their osteoporosis therapies to reduce fracture risk. It is also important to review their risk factors and encourage appropriate calcium and vitamin D intakes, exercise, fall prevention and other lifestyle measures. Follow-Up: Consider a repeat BMD and Vertebral Fracture Assessment (VFA) exam in 2 years or sooner if medically necessary, to reassess this patient's status. Reported by: [facility] on 04/07/2023 3:24:00 PM. Reviewed, dictated and finalized at location AJuan RYAN
--- NOTE | ~2023-04-07 | MM_ITS ---
EXAMINATION: MM screening ramya BI w gene HISTORY: Screening mammogram, family history of breast cancer in her mother and sister. TECHNIQUE: Craniocaudal and mediolateral oblique 3-D tomosynthesis images were obtained and synthetic 2-D images were generated. CAD analysis was submitted and interpreted. COMPARISON: 02/07/2022, 01/30/2021 BREAST PARENCHYMAL COMPOSITION: The breasts are heterogeneously dense, which may obscure small masses . FINDINGS: No suspicious mass, calcification, or architectural distortion are identified in either micky ast to suggest malignancy. There has been no suspicious interval change. IMPRESSION: 1. No mammographic evidence of malignancy. 2. Recommend routine screening mammography in one year. BI-RADS Category 1: Negative Reviewed, dictated and finalized at location A.
== END 2023-04-07 14:51 | disposition home or self-care (01) ==
LOC: ANHIMG 14:54
PROVIDERS: PCP Family Medicine; Visit Provider Obstetrics & Gynecology
DX: Z12.31 Encounter for screening mammogram for malignant neoplasm of breast (principal); Z78.0 Asymptomatic menopausal state; M85.852 Other specified disorders of bone density and structure, left thigh; M85.851 Other specified disorders of bone density and structure, right thigh
CPT/HCPCS: 77063; 77067; 77080

== ENCOUNTER → 2023-05-21 11:03 | Outpatient (CLI) | payer MEDICARE, SELFPAY ==
--- NOTE | ~2023-05-21 | XR_ITS ---
Supine and upright views of the abdomen Clinical history: Bilateral kidney stones COMPARISON: 01/27/2023 Findings: Bowel gas pattern is nonspecific. No evidence for obstruction or free air. 4 mm right renal stone noted. No definite left renal stone seen. Osseous structures are intact. Impression: 4 mm right renal stone. No definite left renal stone seen. Reviewed, dictated and finalized at [facility]. Impression: 4 mm right renal stone. No definite left renal stone seen.
== END ==
PROVIDERS: PCP Family Medicine; Visit Provider Urology
DX: N20.0 Calculus of kidney (principal)
CPT/HCPCS: 74018

== ENCOUNTER 2023-06-26 12:31 | Outpatient (CLI) | payer MEDICARE, SELFPAY ==
[2023-06-26 19:16] LABS: Basophils Percent Auto 0.8 % (0.2-1.2); Eosinophils Absolute Auto 0.1 K/mm3 (0-0.3); Eosinophils Percent Auto 2.1 % (0-4.4); Hematocrit 41.5 % (37.0-47.0); Immature Granulocyte Absolute 0.02 K/mm3 (0.00-0.031); Immature Granulocyte Percent A 0.4 % (0-0.5); Lymphocytes Absolute Auto 1.45 K/mm3 (0.9-3.2); Lymphocytes Percent Auto 29.8 % (18.3-44.2); Mean Corpuscular HGB Conc 31.3 g/dl (32-36); Mean Corpuscular Hemoglobin 30.2 pg (26-34); Mean Corpuscular Volume 96.3 fl (80-100); Mean Platelet Volume 12.2 fl (7.4-10.4); Monocytes Absolute Auto 0.5 K/mm3 (0.1-0.6); Monocytes Percent Auto 10.9 % (2.6-8.5); Neutrophils Absolute Auto 2.7 K/mm3 (1.3-6.7); Platelet Count Result 177 k/mm3 (150-375); Red Blood Count 4.31 M/mm3 (4.2-5.4); Red Cell Distribution Width 13.8 % (11.5-14.5); White Blood Count 4.9 K/mm3 (4.5-10.0)
[2023-06-26 19:36] LABS: Alanine Aminotransferase 23 U/L (6-35); Albumin Level 4.5 g/dL (3.5-5.1); Alkaline Phosphatase 65 U/L (38-126); Anion Gap 12 mmol/L (8-16); Aspartate Amino Transferase 40 U/L (14-36); Bilirubin,Total 0.5 mg/dL (0.2-1.3); Blood Urea Nitrogen 20 mg/dL (7-17); Calcium 9.5 mg/dL (8.4-10.2); Carbon Dioxide 25 mmol/L (22-30); Chloride 104 mmol/L (98-107); Creatine Kinase 113 U/L (30-135); Estimated Glomerular Filt Rate 49; Glucose 77 mg/dL (65-110); Potassium 4.5 mmol/L (3.4-5.0); Sodium 141 mmol/L (137-145)
[2023-06-26 19:41] LABS: Erythrocyte Sedimentation Rate 19 mm/hr (0-20)
[2023-06-26 19:43] LABS: CRP 0.6 mg/dL (<1.0)
== END 2023-06-26 12:32 | disposition home or self-care (01) ==
LOC: ANHGOSHLAB 12:34
PROVIDERS: PCP Family Medicine; Visit Provider Family Medicine
DX: M79.10 Myalgia, unspecified site (principal); N18.30 Chronic kidney disease, stage 3 unspecified; E03.9 Hypothyroidism, unspecified
CPT/HCPCS: 36415; 80053; 82550; 84443; 85025; 85652; 86140

== ENCOUNTER 2023-07-07 15:52 | Outpatient (CLI) | payer MEDICARE, SELFPAY ==
[2023-07-07 17:01] LABS: Influenza A QL RT-PCR Negative (Negative); Influenza B QL RT-PCR Negative (Negative); RSV RNA, RT-PCR Negative (Negative); SARS-CoV-2 RNA PCR Negative (Negative)
== END 2023-07-07 15:53 | disposition home or self-care (01) ==
LOC: ANHLAB 15:53
PROVIDERS: PCP Family Medicine; Visit Provider Family Medicine
DX: J06.9 Acute upper respiratory infection, unspecified (principal); Z20.822 Contact with and (suspected) exposure to COVID-19
CPT/HCPCS: 87637

== ENCOUNTER 2023-12-22 10:30 | Outpatient (CLI) | payer MEDICARE, SELFPAY ==
[2023-12-22 14:07] LABS: Basophils Percent Auto 0.7 % (0.2-1.2); Eosinophils Absolute Auto 0.2 K/mm3 (0-0.3); Eosinophils Percent Auto 3.9 % (0-4.4); Hematocrit 39.6 % (37.0-47.0); Hemoglobin 12.4 g/dL (12.0-15.0); Immature Granulocyte Absolute 0.02 K/mm3 (0.00-0.031); Immature Granulocyte Percent A 0.4 % (0-0.5); Lymphocytes Percent Auto 30.7 % (18.3-44.2); Mean Corpuscular HGB Conc 31.3 g/dl (32-36); Mean Corpuscular Hemoglobin 30.6 pg (26-34); Mean Corpuscular Volume 97.8 fl (80-100); Mean Platelet Volume 12.6 fl (7.4-10.4); Monocytes Absolute Auto 0.6 K/mm3 (0.1-0.6); Monocytes Percent Auto 13.2 % (2.6-8.5); Neutrophils Absolute Auto 2.3 K/mm3 (1.3-6.7); Neutrophils Percent Auto 51.1 % (45.5-73.1); Platelet Count Result 154 k/mm3 (150-375); Red Blood Count 4.05 M/mm3 (4.2-5.4); Red Cell Distribution Width 13.9 % (11.5-14.5); White Blood Count 4.6 K/mm3 (4.5-10.0)
[2023-12-22 14:39] LABS: Alanine Aminotransferase 22 U/L (6-35); Albumin Level 4.5 g/dL (3.5-5.1); Alkaline Phosphatase 65 U/L (38-126); Anion Gap 7 mmol/L (4-12); Aspartate Amino Transferase 46 U/L (14-36); Bilirubin,Total 0.6 mg/dL (0.2-1.3); Blood Urea Nitrogen 22 mg/dL (7-17); Calcium 9.4 mg/dL (8.4-10.2); Carbon Dioxide 26 mmol/L (22-30); Chloride 103 mmol/L (98-107); Cholesterol 157 mg/dL (0-200); Estimated Glomerular Filt Rate 55; Glucose 75 mg/dL (65-110); HDL Direct 44 mg/dL; Potassium 4.1 mmol/L (3.4-5.0); Sodium 136 mmol/L (137-145); Triglycerides 214 mg/dL (<150)
[2023-12-22 14:50] LABS: LDL Cholesterol Direct 73 mg/dL
[2023-12-22 15:04] LABS: Creatinine Urine 166.4 mg/dL
[2023-12-22 15:09] LABS: Microalbumin Urine Random 8.4 mg/L (0-16.7)
== END 2023-12-22 10:31 | disposition home or self-care (01) ==
PROVIDERS: PCP Family Medicine; Visit Provider Nurse Practitioner Family
DX: E03.9 Hypothyroidism, unspecified (principal); E11.9 Type 2 diabetes mellitus without complications; E78.5 Hyperlipidemia, unspecified; N18.31 Chronic kidney disease, stage 3a; Z00.00 Encounter for general adult medical examination without abnormal findings
CPT/HCPCS: 36415; 80053; 80061; 82043; 84443; 85025

== ENCOUNTER 2024-02-16 12:37 | Outpatient (CLI) | payer MEDICARE, SELFPAY ==
--- NOTE | ~2024-02-16 | CT_ITS ---
Non-contrast CT scan of the Abdomen and Pelvis Clinical indication: Bilateral kidney stones Technique: 2.5 mm axial scans were obtained through the abdomen and pelvis without intravenous or or al contrast. Dose reduction technique was used on this scan by utilizing automated exposure control a nd iterative reconstruction technique. The dose-length product (DLP) was 320.38 mGy-cm. Findings: Images through the lung bases reveal no abnormalities. No definite renal calculi. Probable renal vascular calcifications. The kidneys and the ureters are no ndilated. The liver, spleen, pancreas, gallbladder, and adrenals appear normal. There are atherosclerotic calci fications of the aorta. There is no evidence of bowel obstruction. Images through the pelvis were performed. There is no evidence of ascites or lymphadenopathy. Urinary bladder unremarkable. No pelvic mass seen. No ascites. 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 Impression: Probable renal vascular calcifications rather than renal calculi. Paget's disease of T11. Reviewed, dictated and finalized at [facility]. Impression: Probable renal vascular calcifications rather than renal calculi. Paget's disease of T11.
== END 2024-02-16 12:38 ==
LOC: GOSHIMG 12:37
PROVIDERS: PCP Family Medicine; Visit Provider Urology
DX: N20.0 Calculus of kidney (principal); M88.1 Osteitis deformans of vertebrae
CPT/HCPCS: 74176

== ENCOUNTER 2024-07-29 00:48 | Day surgery (SDC) | payer MEDICARE, SELFPAY ==
[2024-07-28 11:55] VITALS: BMI 28.5
[2024-07-29] VITALS (27 sets, daily range): BP systolic 110–156; BP diastolic 52–119; PULSE 67–80; RESP 11–31; TEMP 36.3–37; O2SAT 93–100; BMI 28.5
--- NOTE | 2024-07-29 | ECHO_ITS ---
Patient Info Name: Maria C Piña Age: 73 years : 1950 Gender: Female Ht: 61 in Wt: 150 lbs BSA: 1.73 m2 HR: 79 bpm BP: 140 / 72 mmHg Technical Quality: Poor Exam Date: 07/29/2024 3:25 PM Exam Location: Echo Lab Patient Status: Outpatient Admit Date: 07/29/2024 Staff Ordering Physician: Daniel Logan MD (neha/juan a) Copy Chief: Hussain Izquierdo RDCS Attending Provider: Daniel Logan MD (louise) Exam Type: CA echo dop color flow w con Study Info Indications - CHEST PAIN Complete two-dimensional, color flow and Doppler transthoracic echocardiogram is performed with contrast to opacify the left ventricle and to improve the deliniation of the left ventricle endocardial borders. Contrast/Agitated Saline Contrast/Ag. Saline: Definity Amount: 2.00 ml Existing IV Access: Yes Reason for Poor Study: poor echocardiographic windows Summary 1. The left ventricle is normal in size and systolic function. The left ventricular ejection fraction is visually estimated to be 60-65%. 2. The right ventricle is normal in size and systolic. 3. No significant valvular disease in this study. 4. Technically difficult study as patient is nauseated. Left Ventricle The left ventricle is normal in size and systolic function. The left ventricular ejection fraction is visually estimated to be 60-65%. Right Ventricle The right ventricle is normal in size and systolic. Left Atria The left atrium is normal size. Right Atria The right atrium is normal size. Atrial Septum The atrial septum visually appears intact. Aortic Valve The aortic valve is trileaflet and opens well. There is no aortic regurgitation. Pulmonic Valve The pulmonic valve is not well visualized. There is no color Doppler evidence of pulmonic valve regurgitation. Mitral Valve The mitral valve is grossly normal. Tricuspid Valve The tricuspid valve is grossly normal. Pericardium/Pleural Pericardium is normal in appearance with no evidence for significant pericardial effusion. Inferior Vena Cava Normal inferior vena cava with <50% collapse upon inspiration consistent with elevated right atrial pressure, 10 mmHg. Aorta The aortic root at the sinus of Valsalva measures 2.7cm in diameter. Left Ventricular Outflow Tract Name Value Normal LVOT 2D LVOT Diameter 1.94 cm LVOT Doppler LVOT Peak Gradient 4 mmHg LVOT Mean Gradient 2 mmHg LVOT VTI 20.15 cm LVOT VTI/AV VTI Ratio 0.87 LVOT Stroke Volume 59.52 ml LVOT CO 4.27 l/min LVOT CI 2.46 L/min/m2 Pulmonic Valve Name Value Normal RVOT Doppler RVOT Peak Gradient 3 mmHg PV Doppler PV Peak Gradient 3 mmHg Mitral Valve Name Value Normal MV Doppler MV Decel [place] 297.30 cm/s2 MV PHT 0 s MV Area (PHT) 4.94 cm2 4.00-5.00 MV Diastolic Function MV E Peak Velocity 45.66 cm/s MV A Peak Velocity 77.75 cm/s MV E/A 0.59 MV Decel Time 0 s MV Annular TDI MV E/e' (Septal) 8.31 <=8.00 MV E/e' (Lateral) 5.00 <=8.00 MV E/e' (Average) 6.65 Tricuspid Valve Name Value Normal Estimated PAP/RSVP RA Pressure 10 mmHg <=5 Aorta Name Value Normal Ascending Aorta Ao Root Diameter (MM) 3.05 cm Ao Root Diam Index (MM) 1.76 cm/m2 Aortic Valve Name Value Normal AV Doppler AV Peak Velocity 123.30 cm/s AV Peak Gradient 6 mmHg AV Mean Gradient 4 mmHg AV VTI 23.21 cm AV Area (Cont Eq VTI) 2.57 cm2 >=3.00 AV Area (Cont Eq Branedn) 2.32 cm2 AV Regurgitation 2D LVOT Area 2.95 cm2 Ventricles Name Value Normal LV Dimensions 2D/MM IVS Diastolic Thickness (2D) 1.27 cm 0.60-1.00 LVID Diastole (2D) 4.06 cm 3.80-5.20 LVIW Diastolic Thickness (2D) 1.22 cm 0.60-0.90 LVID Systole (2D) 2.31 cm 2.20-3.50 LVOT Diameter 1.94 cm LV Mass (2D Cubed) 178.90 g 67.00-162.00 LV Mass Index (2D Cubed) 0.01 g/cm2 0.00-0.01 Relative Wall Thickness (2D) 0.60 LV Fractional Shortening/Ejection Fraction 2D/MM LV Fractional Shortening (2D) 36 % 27-45 LV EF (2D Te[place]) 65 % 54-74 LV Diastolic Volume (4C MOD) 74.22 ml LV EF (4C MOD) 74 % LV Diastolic Volume (2C MOD) 59.54 ml LV EF (2C MOD) 72 % LV Diastolic Volume (BP MOD) 67.13 ml 46.00-106.00 LV Diastolic Volume Index (BP MOD) 0.04 l/m2 0.03-0.06 LV Systolic Volume (BP MOD) 17.28 ml 14.00-42.00 LV Systolic Volume Index (BP MOD) 0.01 l/m2 0.01-0.02 LV EF (BP MOD) 74 % 54-74 LV Diastolic Length (4C) 6.65 cm LV Systolic Length (4C) 5.34 cm LV Stroke Volume (4C MOD) 55.13 ml Atria Name Value Normal LA Dimensions LA Dimension (MM) 3.92 cm 2.70-3.80 LA Volume (4C A-L) 38.43 ml LA Volume (BP A-L) 47.06 ml RA Dimensions RA Area (4C) 9.79 cm2 <=18.00 Report Signatures
[2024-07-29 10:06] LABS: Basophils Percent Auto 0.4 % (0.2-1.2); Eosinophils Absolute Auto 0.1 K/mm3 (0-0.3); Eosinophils Percent Auto 1.8 % (0-4.4); Hematocrit 38.6 % (37.0-47.0); Hemoglobin 12.5 g/dL (12.0-15.0); Immature Granulocyte Absolute 0.04 K/mm3 (0.00-0.031); Immature Granulocyte Percent A 0.5 % (0-0.5); Lymphocytes Absolute Auto 2.09 K/mm3 (0.9-3.2); Lymphocytes Percent Auto 27.2 % (18.3-44.2); Mean Corpuscular HGB Conc 32.4 g/dl (32-36); Mean Corpuscular Hemoglobin 31.9 pg (26-34); Mean Corpuscular Volume 98.5 fl (80-100); Mean Platelet Volume 11.5 fl (7.4-10.4); Monocytes Absolute Auto 0.7 K/mm3 (0.1-0.6); Monocytes Percent Auto 8.9 % (2.6-8.5); Neutrophils Absolute Auto 4.7 K/mm3 (1.3-6.7); Neutrophils Percent Auto 61.2 % (45.5-73.1); Platelet Count Result 180 k/mm3 (150-375); Red Blood Count 3.92 M/mm3 (4.2-5.4); Red Cell Distribution Width 14.5 % (11.5-14.5); White Blood Count 7.7 K/mm3 (4.5-10.0)
[2024-07-29 10:17] LABS: Anion Gap 5 mmol/L (4-12); Blood Urea Nitrogen 30 mg/dL (7-17); Calcium 9.5 mg/dL (8.4-10.2); Carbon Dioxide 31 mmol/L (22-30); Chloride 103 mmol/L (98-107); Estimated CRCL calculation 40 ml/min; Estimated Glomerular Filt Rate 55; Glucose 79 mg/dL (65-110); Potassium 3.7 mmol/L (3.4-5.0); Sodium 139 mmol/L (137-145)
--- NOTE | 2024-07-29 10:42 | WPDHPUPDATE1 ---
History and Physical Update Update Date/Time: 07/29/24 10:32 History and Physical has been reviewed, including an updated exam of the patient. There are NO changes in the patient's condition. Risks, benefits, and alternatives have been discussed and questions answered. Patient agrees to proceed with procedure.
--- NOTE | 2024-07-29 10:42 | WPDMODSED ---
Moderate Sedation Note-Pt Data Patient Data Allergies Allergy/AdvReac Type Severity Reaction Status Date / Time amoxicillin Allergy Severe Anaphylaxis Verified 07/29/24 09:52 pecan nut Allergy Unknown Swelling Verified 07/29/24 09:52 of Lip/Tongue/Throat tree nut Allergy Unknown Swelling Verified 07/29/24 09:52 of Lip/Tongue/Throat Home Medications ?Medication ?Instructions ?Recorded ?Confirmed ?Type amitriptyline 25 mg tablet 25 mg PO QHS IBS 12/04/20 07/28/24 History fluticasone propionate 50 1 spray intranasal BID 12/04/20 07/28/24 History mcg/actuation nasal spray,suspension loratadine 10 mg tablet (Allergy 10 mg PO HS 12/04/20 07/28/24 History Relief (loratadine)) omeprazole 20 mg capsule,delayed 20 mg PO BID 11/19/21 07/29/24 History release calcium 600 mg (as 1 tablet PO BID 12/12/21 07/28/24 History carbonate)-vitamin D3 10 mcg (400 unit) tablet (Calcium 600 + D(3)) Synthroid 50 mcg tablet 50 mcg PO DAILY #90 tabs 02/27/24 07/29/24 Rx (levothyroxine) aspirin 81 mg tablet,delayed 81 mg PO DAILY 07/28/24 07/28/24 History release methotrexate sodium 2.5 mg tablet 2.5 mg PO WEEKLY 07/28/24 07/28/24 History metoprolol succinate 25 mg 25 mg PO DAILY 07/28/24 07/28/24 History tablet,extended release 24 hr prednisone 5 mg tablet 5 mg PO DAILY 07/28/24 07/29/24 History rosuvastatin 5 mg tablet (Crestor) 20 mg PO DAILY 07/28/24 07/28/24 History Sedation/Anesthesia: No previous sedation/anesthesia problems (including family history). [facility] Past Medical History Medical History Abnormal CT of thoracic spine (~10/2021) abnormality noted at T11 - ruled out with bone scan Adhesive capsulitis of shoulder CKD (chronic kidney disease) stage 3, GFR 30-59 ml/min Dyslipidemia Environmental allergies GERD without esophagitis History of COVID-19 (~05/2022) History of Helicobacter pylori infection History of small bowel obstruction Hypothyroidism (acquired) Irritable bowel syndrome with constipation Lumbar degenerative disc disease Numbness of right foot Right shoulder pain Rotator cuff tear Rotator cuff tendonitis Surgical History Surgical History (Reviewed 06/25/24 @ 13:06 by Fabienne Gill [facility]) History of arthroscopy of left knee (~2009) 2009 - meniscus repair History of 1977, 1983 History of cervical spinal surgery (~2011) 2010, 2011 - x3 History of hysterectomy (~1985) 1985 History of laparoscopy (~05/2018) 05/2018 - small bowel obstruction History of lumbosacral spine surgery (~2016) 2016 - numbness on the lateral side of right lower extremity since the L-spine surgery. S/P right rotator cuff repair Family History Family History (Reviewed 06/25/24 @ 13:06 by Fabienne Gill [facility]) Mother Acute myocardial infarction Cerebrovascular accident Family history of malignant neoplasm of breast in first degree relative Family history of hypercholesterolemia Sibling Family history of malignant neoplasm of breast in first degree relative Father Family history of kidney disease Family history of throat cancer Social History Social History (Reviewed 06/25/24 @ 13:06 by Fabienne Gill [facility]) Smoking status: Never smoker Second hand tobacco smoke exposure: No Alcohol intake: never Substance use: never Substance use type: does not use Lack of Transportation: No Lack of Food: Never True Current Housing: I Have Housing Concerned About Future Housing: No Difficulty Paying Gas/Electric Bills: No Difficulty Paying for Meds: No Currently Unemployed: No Education: High School Diploma/GED Difficulty w/ Childcare or Family Care: No Living arrangements: with family Occupation/Education: retired Gender identity (if verbalized by the patient): Female Sexual Orientation (if Verbalized by the Patient): Straight or Heterosexual Spiritual care concerns: No Agree to blood products: Yes Mod Sed Physical Exam Physical Exam Pre Procedural Exam: Normal: Heart Rate and Heart Rhythm Hours since solid foods: 16 Hours since liquid intake: 16 Mallampati Classification: class II Internal Medicine - PN: Obj Da Vital Signs Vital Signs: Vital Signs - 24 hr 07/29/24 10:20 Temperature 37.0 C Pulse Rate 67 Respiratory Rate 14 Blood Pressure 130/64 Pulse Oximetry 98 Oxygen Delivery Room Air Labs 07/29/24 09:59 07/29/24 09:59 Labs: Laboratory Results - last 24 hr 07/29/24 09:59 WBC 7.7 RBC 3.92 L Hgb 12.5 Hct 38.6 MCV 98.5 MCH 31.9 MCHC 32.4 RDW 14.5 Plt Count 180 MPV 11.5 H Immature Gran % (Auto) 0.5 Neut % (Auto) 61.2 Lymph % (Auto) 27.2 [place] % (Auto) 8.9 H Eos % (Auto) 1.8 Baso % (Auto) 0.4 Lymph # (Auto) 2.09 [place] # (Auto) 0.7 H Eos # (Auto) 0.1 Baso # (Auto) 0.0 Abs Immat Gran (auto) 0.04 H Absolute Neuts (auto) 4.7 Absolute Nucleated RBC 0.000 Nucleated RBC % 0.0 Sodium 139 Potassium 3.7 Chloride 103 Carbon Dioxide 31 H Anion Gap 5 BUN 30 H Creatinine 1.00 Estim Creat Clear Calc 40 Estimated GFR 55 L Glucose 79 Calcium 9.5 ASA Classification/Sedation ASA Classification/Sedation ASA Class: III Emergent: No Risks: Risks, benefits and alternatives explained and patient/family accepted plan for sedation. Patient re-evaluated immediately prior to sedation.
[2024-07-29 12:20] LABS: Activated Clotting Time 285 SEC (74-137)
[2024-07-29] MEDS: NITROGLYCERIN SL 0.4 MG TABLET SUBLINGUAL ×2 (12:50→13:44)
[2024-07-29] MEDS: MORPHINE SULFATE (*CRX) 4 MG/ML INJ (12:55)
[2024-07-29] MEDS: NITROGLYCERIN SL 0.4 MG TABLET (12:59)
--- NOTE | 2024-07-29 12:59 | P.PCNCC_ITS ---
Cardiac Cath Procedure Note Date of procedure:: 07/29/24 Performing physician:: CATHETERIZATION LABORATORY REPORT Procedure Date: 07/29/2024 Referring Physician: Dr. Logan Anesthesia: Versed and Fentanyl were ordered and given in my presence at 1117, procedure ended at 1219. Supervision of nurse, Adebayo Alexander monitored moderate sedation with 2mg Versed and 150mcg Fentanyl was provided for 62 minutes. Pre-op Diagnosis: Angina CCS III Post-op Diagnosis: Angina CCS III Procedure(s): Left heart catheterization with coronary angiography Access Site: Right radial artery. Hemostasis with TR band Brief History and Clinical Indications: All risks, benefits and alternatives to left heart catheterization with or without percutaneous coronary intervention was discussed at length with the patient. Risk of complications including but not limited to bleeding, infection, arrhythmia, stroke, worsening kidney function, blood loss, groin hematoma, limb loss, emergency coronary artery bypass grafting, and even were discussed with the patient and all questions were answered. The patient understood and wished to proceed. 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 Findings: LEFT HEART CATHETERIZATION FINDINGS: 1. Left main: The left main coronary artery is widely patent without any significant obstructive disease. 2. Left anterior descending: The LAD provides 1 medium-sized diagonal branch. The diagonal branch has luminal irregularities. The LAD in its mid body trifurcates into a dual LAD system and a septal branch. The upper LAD system has luminal irregularities. The lower LAD system is a small caliber vessel that tapers in the apex and in its ostium there appears to be a 70% stenosis. IFR is 0.96 3. Left circumflex: The left circumflex artery provides 4 OM branches. OM1 and 2 are miniscule. OM3 is a large caliber vessel with luminal irregularities. OM4 is a large caliber vessel with 40-50% stenosis in its mid-body. The proximal left circumflex has a focal 80% stenosis. 4. Right coronary artery: The RCA is a large dominant vessel. There is diffuse calcific 20% stenosis throughout its body. In the distal vessel there is a 50- 60% stenosis leading into a right PDA that has a 80% stenosis in its ostium. 5. Left ventricle: A. End-diastolic pressure 31 mmHg. B. LV gram shows preserved LVEF. C. No significant gradient across aortic valve on catheter pullback. 6. Opening AO pressure 142/75 and closing AO pressure 133/85 Description of Procedure: Informed consent signed and placed in the chart. Patient transferred to stucco laborer room. Prepped and draped in usual sterile fashion. 2% lidocaine injected subcutaneously in right wrist area. 22-gauge venipuncture catheter used to access the right radial artery with the Seldinger technique. 6-FR slender sheath placed in right radial artery. Nitroglycerin 200mcg, Verapamil 2.5mg, and Heparin 5000U was given intraarterial through the sheath. J wire advanced under fluoroscopy 5F TIG diagnostic catheter engaged Left Main Coronary Artery. 5F TIG diagnostic catheter engaged Right Coronary Artery Multiple orthogonal angiogram obtained and reviewed 5F Pigtail diagnostic catheter crossed aortic valve to obtain LVEDP, LV angiogram deferred. Hemostasis was achieved by application of TR band. Procedure Description for PCI: Heparin was used for anticoagulation (ACT maintained above 250) Patient loaded with heparin at 70 units/kg. 6F EBU 3.0 guide catheter was used to intubate the LMCA 0.014 OmniWire coronary wire was passed in to the dital LMCA where it was normalized. The wire was then negotiated into the lower of the two LAD system where iFR was obtained and measured to be 0.96. The wire was pulled back and no drift was noted. The wire was then negotiated into the OM4 and the iFR was 0.78. The proximal left circumflex lesion was pre-dilated with a 3.0 x 10mm balloon inflated to high RENETTA A 4.0 x 15mm Abimael [place]'S JAVID was successfully deployed into proximal left circumflex. Post PCI IVUS image showed excellent apposition and expansion. No significant edge dissections were noted. Intracoronary NTG 400mcg was administered on two separate occasions. Follow-up angiograms showed an excellent result Coronary wire and guide-catheter were removed Pre-procedure - HERO 3 flow Post-procedure - HERO 3 flow No angiographic complications identified. Assessment: Successful IVUS guided PCI of the proximal left circumflex with a 4.0 x 15mm Abimael [place]S JAVID with excellent angiographic results. LAD lesion was interrogated and deemed insignificant with an iFR of 0.96 Post Operative Condition: Stable No significant blood loss Disposition: Home Plan: Patient experienced significant pain and is being monitored in the recovery unit at this time. Aspirin 81 mg p.o. daily indefinitely Ticagrelor 90 mg p.o. b.i.d. for a minimum of 6 months Continue rosuvastatin 20 mg every evening Would add isosorbide mononitrate 30 mg p.o. daily Daniel Logan Interventional Cardiology
[2024-07-29] MEDS: SODIUM CHLORIDE 0.9% IV 1,000 ML 125 ML IV CONT (13:44)
--- NOTE | 2024-07-29 15:14 | ECG_ITS ---
Test Date: 2024-07-29 15:18:56 Measurements Intervals [place] Rate: 79 P: 23 PA: 185 QRS: -5 QRSD: 88 T: 55 QT: 345 QTc: 397 Interpretive Statements SINUS RHYTHM MODERATE VOLTAGE CRITERIA FOR LVH, CONSIDER NORMAL VARIANT [MEETS CRITERIA IN ONE OF: R(aVL), S(V1), R(V5), R(V5/V6)+S(V1)] No previous ECG available for comparison Electronically Signed On 07-29-2024 16:00:17 CONSOLE OPERATOR by Daniel Logan M.D.
[2024-07-29] MEDS: PERFLUTREN LIPID MICROSPHERES 1.5 ML VIAL DILUTED TO 10 ML TOTAL VOLUME IV PUSH (16:05)
--- NOTE | 2024-07-29 16:18 | IVDEFINITY ---
Prior to administration of IV Definity the patient was educated on the risks and benefits of the imaging enhancing agent including potential adverse side effects. The patient verbalized understanding. Allergies were verified. No exclusion criteria were identified and at least one of the following inclusion criteria were met: 1) physician request, 2) patient technically difficult to image (per the [place] [employer] Echocardi[employer] guidelines of two or more segments not discernable within the apical view), or 3) questionable left ventricular function. ?
[2024-07-29] MEDS: ACETAMINOPHEN 325 MG TABLET 650 MG PO (16:45)
--- NOTE | 2024-07-29 17:02 | P.CONCA_ITS ---
Assessment and Plan Assessment and plan (1) Chest pain: Code(s): R07.9 - Chest pain, unspecified Status: Acute (2) CAD (coronary artery disease): Code(s): I25.10 - Atherosclerotic heart disease of [place] coronary artery without angina pectoris Status: Acute (3) Dyslipidemia: Code(s): E78.5 - Hyperlipidemia, unspecified Status: Acute Plan 73-year-old woman with hypertension and hyperlipidemia who presented for outpatient left heart catheterization secondary to refractory and progressive angina and found to have critical left circumflex stenosis that is IFR positive who is now status post PCI to the proximal left circumflex Chest pain -likely secondary to PCI and should resolve -if patient's chest discomfort persists and does not continue to improve, may warrant re-evaluation in cardiac catheterization lab CAD status post PCI to left circ with residual significant distal RCA into right PDA disease -on Toprol 25 mg p.o. daily and Imdur 30 mg p.o. daily -aspirin 81 mg p.o. daily indefinitely -ticagrelor 90 mg p.o. b.i.d. for minimum of 6 months Hypertension -continue Imdur 30 mg p.o. daily and Toprol 25 mg p.o. daily Hyperlipidemia -continue rosuvastatin 20 mg every evening History of Present Illness History of Present Illness Consult date/time: 07/29/24 17:02 Requesting physician: Alex Johnson MD Reason For Visit: Angina Narrative: 73-year-old woman with hypertension and hyperlipidemia who presented for outpatient left heart catheterization secondary to refractory and progressive angina and found to have critical left circumflex stenosis that is IFR positive who is now status post PCI to the proximal left circumflex. During the procedure she developed chest discomfort that continued on in recovery and manage with sublingual nitroglycerin and morphine with significant improvement of her chest discomfort and jaw pain. After she had her lunch, she went up to use the restroom and felt extreme nausea associated with vomiting. She received Zofran 4 mg IV push with resolution of her symptoms. Upon evaluation, her jaw pain pain has resolved and her chest discomfort has remained about the same. During this time, an electrocardiogram was performed which did not show any significant ST T wave abnormalities and is similar to her previous ECG in June. An echocardiogram was also performed showing preserved biventricular systolic function. At this time the decision was made to admit the patient for overnight observation. Review of Systems 2 Constitutional: Constitutional: Reports as per HPI Cardiovascular: Cardiovascular: Reports as per HPI Respiratory: Respiratory: Reports as per HPI [facility] Past Medical History Medical History Abnormal CT of thoracic spine (~10/2021) abnormality noted at T11 - ruled out with bone scan Adhesive capsulitis of shoulder CKD (chronic kidney disease) stage 3, GFR 30-59 ml/min Dyslipidemia Environmental allergies GERD without esophagitis History of COVID-19 (~05/2022) History of Helicobacter pylori infection History of small bowel obstruction Hypothyroidism (acquired) Irritable bowel syndrome with constipation Lumbar degenerative disc disease Numbness of right foot Right shoulder pain Rotator cuff tear Rotator cuff tendonitis Surgical History Surgical History History of arthroscopy of left knee (~2009) 2009 - meniscus repair History of 1977, 1983 History of cervical spinal surgery (~2011) 2010, 2011 - x3 History of hysterectomy (~1985) 1985 History of laparoscopy (~05/2018) 05/2018 - small bowel obstruction History of lumbosacral spine surgery (~2016) 2017 - numbness on the lateral side of right lower extremity since the L- spine surgery. S/P right rotator cuff repair Family History Family History Mother Acute myocardial infarction Cerebrovascular accident Family history of malignant neoplasm of breast in first degree relative Family history of hypercholesterolemia Sibling Family history of malignant neoplasm of breast in first degree relative Father Family history of kidney disease Family history of throat cancer Social History Social History Smoking status: Never smoker Second hand tobacco smoke exposure: No Alcohol intake: never Drinks per week: 1 Substance use: never Substance use type: does not use Lack of Transportation: No Lack of Food: Never True Current Housing: I Have Housing Concerned About Future Housing: No Difficulty Paying Gas/Electric Bills: No Difficulty Paying for Meds: No Currently Unemployed: No Education: High School Diploma/GED Difficulty w/ Childcare or Family Care: No Living arrangements: with family Occupation/Education: retired Gender identity (if verbalized by the patient): Female Sexual Orientation (if Verbalized by the Patient): Straight or Heterosexual Spiritual care concerns: No Agree to blood products: Yes Meds Home Medications and Allergies Home Medications ?Medication ?Instructions ?Recorded ?Confirmed ?Type amitriptyline 25 mg tablet 25 mg PO QHS IBS 12/04/20 07/28/24 History fluticasone propionate 50 1 spray intranasal BID 12/04/20 07/28/24 History mcg/actuation nasal spray,suspension loratadine 10 mg tablet (Allergy 10 mg PO HS 12/04/20 07/28/24 History Relief (loratadine)) omeprazole 20 mg capsule,delayed 20 mg PO BID 11/19/21 07/29/24 History release calcium 600 mg (as 1 tablet PO BID 12/12/21 07/28/24 History carbonate)-vitamin D3 10 mcg (400 unit) tablet (Calcium 600 + D(3)) Synthroid 50 mcg tablet 50 mcg PO DAILY #90 tabs 02/27/24 07/29/24 Rx (levothyroxine) aspirin 81 mg tablet,delayed 81 mg PO DAILY 07/28/24 07/28/24 History release methotrexate sodium 2.5 mg tablet 2.5 mg PO WEEKLY 07/28/24 07/28/24 History metoprolol succinate 25 mg 25 mg PO DAILY 07/28/24 07/28/24 History tablet,extended release 24 hr prednisone 5 mg tablet 5 mg PO DAILY 07/28/24 07/29/24 History rosuvastatin 5 mg tablet (Crestor) 20 mg PO DAILY 07/28/24 07/28/24 History isosorbide mononitrate 30 mg 30 mg PO DAILY #90 tabs 07/29/24 Rx tablet,extended release 24 hr ticagrelor 90 mg tablet 90 mg PO Q12H #90 tabs 07/29/24 Rx Allergies Allergy/AdvReac Type Severity Reaction Status Date / Time amoxicillin Allergy Severe Anaphylaxis Verified 07/29/24 09:52 pecan nut Allergy Unknown Swelling Verified 07/29/24 09:52 of Lip/Tongue/Throat tree nut Allergy Unknown Swelling Verified 07/29/24 09:52 of Lip/Tongue/Throat Vital Signs Vital Signs - 24 hr 07/29/24 10:20 07/29/24 12:45 07/29/24 12:45 Temperature 37.0 C Pulse Rate 67 78 Pulse Rate [Right Radial] 78 Respiratory Rate 14 31 H Blood Pressure 130/64 140/73 Pulse Oximetry 98 99 Oxygen Delivery Room Air Room Air 07/29/24 13:00 07/29/24 13:00 07/29/24 13:00 Temperature Pulse Rate 74 Pulse Rate [Right Radial] 79 71 Respiratory Rate 15 Blood Pressure 152/78 H Pulse Oximetry 98 Oxygen Delivery Room Air 07/29/24 13:15 07/29/24 13:15 07/29/24 13:30 Temperature Pulse Rate 71 73 Pulse Rate [Right Radial] 71 Respiratory Rate 14 11 L Blood Pressure 119/68 128/85 Pulse Oximetry 96 98 Oxygen Delivery Room Air Room Air 07/29/24 13:30 07/29/24 13:45 07/29/24 13:45 Temperature Pulse Rate 76 Pulse Rate [Right Radial] 70 76 Respiratory Rate 23 H Blood Pressure 114/76 Pulse Oximetry 98 Oxygen Delivery Room Air 07/29/24 14:00 07/29/24 14:00 07/29/24 14:15 Temperature Pulse Rate 80 Pulse Rate [Right Radial] 80 77 Respiratory Rate 19 Blood Pressure 110/68 Pulse Oximetry 99 Oxygen Delivery Room Air 07/29/24 14:15 07/29/24 14:30 07/29/24 14:30 Temperature Pulse Rate 77 79 Pulse Rate [Right Radial] 80 Respiratory Rate 17 14 Blood Pressure 137/64 125/72 Pulse Oximetry 97 96 Oxygen Delivery Room Air Room Air 07/29/24 14:45 07/29/24 14:45 07/29/24 15:00 Temperature Pulse Rate 79 Pulse Rate [Right Radial] 79 80 Respiratory Rate 20 Blood Pressure 128/73 Pulse Oximetry 97 Oxygen Delivery Room Air 07/29/24 15:00 07/29/24 15:15 07/29/24 15:15 Temperature Pulse Rate 79 80 Pulse Rate [Right Radial] 72 Respiratory Rate 13 16 Blood Pressure 140/72 138/75 Pulse Oximetry 97 95 Oxygen Delivery Room Air Room Air 07/29/24 15:30 07/29/24 15:30 07/29/24 15:45 Temperature Pulse Rate 75 72 Pulse Rate [Right Radial] 75 Respiratory Rate 16 20 Blood Pressure 136/73 141/70 H Pulse Oximetry 94 93 Oxygen Delivery Room Air Room Air 07/29/24 15:45 07/29/24 16:00 07/29/24 16:15 Temperature Pulse Rate Pulse Rate [Right Radial] 71 72 73 Respiratory Rate Blood Pressure Pulse Oximetry Oxygen Delivery 07/29/24 16:30 Temperature Pulse Rate Pulse Rate [Right Radial] 74 Respiratory Rate Blood Pressure Pulse Oximetry Oxygen Delivery Exam 2 Const: General: comfortable Eyes: EOM: EOMs intact bilaterally Neck: Neck: no JVD Resp: Effort & Inspection: normal respiratory effort Cardio: Rate: regular rate Rhythm: regular rhythm Neuro: Speech: normal speech Extrem: General: no edema Psych: Affect: normal affect Results Labs and Meds 07/29/24 09:59 07/29/24 09:59 Lab results: CBC 07/29/24 Range/Units 09:59 WBC 7.7 (4.5-10.0) K/mm3 RBC 3.92 L (4.2-5.4) M/mm3 Hgb 12.5 (12.0-15.0) g/dL Hct 38.6 (37.0-47.0) % Plt Count 180 (150-375) k/mm3 Lymph # (Auto) 2.09 (0.9-3.2) K/mm3 [place] # (Auto) 0.7 H (0.1-0.6) K/mm3 Eos # (Auto) 0.1 (0-0.3) K/mm3 Baso # (Auto) 0.0 (0.0-0.1) K/mm3 Comprehensive Metabolic Panel 07/29/24 Range/Units 09:59 Sodium 139 (137-145) mmol/L Potassium 3.7 (3.4-5.0) mmol/L Chloride 103 (98-107) mmol/L Carbon Dioxide 31 H (22-30) mmol/L BUN 30 H (7-17) mg/dL Creatinine 1.00 (0.7-1.0) mg/dL Glucose 79 (65-110) mg/dL Calcium 9.5 (8.4-10.2) mg/dL Patient Weight 07/29/24 23:59 Weight 68.4 kg
--- NOTE | 2024-07-29 17:55 | PC.NURSE ---
Pt received from clay processing labourer via wheelchair. Report received bedside by DESIREE Rojas
[2024-07-29] MEDS: PANTOPRAZOLE 40 MG TABLET PO (20:28)
[2024-07-29] MEDS: CALCIUM/VITAMIN D 500 MG/5 MCG (200 I.U.) TABLET PO (20:28)
[2024-07-29] MEDS: ROSUVASTATIN 20 MG TABLET PO (20:29)
[2024-07-29] MEDS: LORATADINE 10 MG TABLET PO (20:29)
[2024-07-29] MEDS: AMITRIPTYLINE HCL 25 MG TABLET PO (20:29)
[2024-07-29] MEDS: TICAGRELOR 90 MG TABLET PO (20:29)
[2024-07-30] VITALS: BP 122/57; PULSE 71; RESP 15; TEMP 36.6; O2SAT 99
[2024-07-30 04:00] VITALS: BP 146/67; PULSE 63; RESP 15; TEMP 36.7; O2SAT 100
[2024-07-30] MEDS: ACETAMINOPHEN 325 MG TABLET 650 MG PO (05:28)
[2024-07-30] MEDS: LEVOTHYROXINE SODIUM 50 MCG TABLET PO (05:29)
[2024-07-30] MEDS: MORPHINE SULFATE (*CRX) 2 MG/ML INJ IV PUSH ×2 (05:48→16:16)
[2024-07-30 06:43] LABS: Hematocrit 37.9 % (37.0-47.0); Hemoglobin 11.9 g/dL (12.0-15.0); Mean Corpuscular HGB Conc 31.4 g/dl (32-36); Mean Corpuscular Hemoglobin 31.6 pg (26-34); Mean Corpuscular Volume 100.8 fl (80-100); Mean Platelet Volume 11.6 fl (7.4-10.4); Platelet Count Result 164 k/mm3 (150-375); Red Blood Count 3.76 M/mm3 (4.2-5.4); Red Cell Distribution Width 14.7 % (11.5-14.5); White Blood Count 6.3 K/mm3 (4.5-10.0)
[2024-07-30 06:51] LABS: Anion Gap 4 mmol/L (4-12); Blood Urea Nitrogen 22 mg/dL (7-17); Calcium 9.3 mg/dL (8.4-10.2); Carbon Dioxide 25 mmol/L (22-30); Chloride 105 mmol/L (98-107); Estimated CRCL calculation 45 ml/min; Estimated Glomerular Filt Rate > 60; Glucose 75 mg/dL (65-110); Magnesium 2.5 mg/dL (1.6-2.3); Potassium 4.5 mmol/L (3.4-5.0); Sodium 134 mmol/L (137-145)
[2024-07-30 08:00] VITALS: BP 140/58; PULSE 64; RESP 16; TEMP 36.6; O2SAT 100
--- NOTE | 2024-07-30 09:02 | P.DS_ITS ---
DS: Admitting Diagnosis Discharge Date 07/30/2024 Admitting Diagnosis -Obstructive CAD (80% stenosis proximal LCX, 70% stenosis OM4, 50% stenosis distal RCA, 80% stenosis ostial RPDA, 70% stenosis mid to distal LAD with IFR negative) s/p PCI to proximal LCX (CCS class 3 angina) and -Chest pain post PCI: Most likely secondary to recent PCI, EKG without new ST-T changes normal troponins downtrending DS: Discharge Diagnosis Discharge Diagnosis Plan -Obstructive CAD (80% stenosis proximal LCX, 70% stenosis OM4, 50% stenosis distal RCA, 80% stenosis ostial RPDA, 70% stenosis mid to distal LAD with IFR negative) s/p PCI to proximal LCX (CCS class 3 angina) and -Chest pain post PCI: Most likely secondary to recent PCI, EKG without new ST-T changes normal troponins downtrending Plan: -Continue DAPT with aspirin 81 mg daily and ticagrelor 90 mg b.i.d. for 6 months post PCI. Then continue aspirin 81 mg daily indefinitely -Continue statin -Continue Imdur -Continue beta-ethan -Plan plan for staged PCI to distal RCA and RPDA on Friday with Dr. Logan -Discharge home today S patient wants to go home and return for PCI on Friday as outpatient DS: Summary Hospital Course Reason for hospitalization: -Obstructive CAD (80% stenosis proximal LCX, 70% stenosis OM4, 50% stenosis dis leandro RCA, 80% stenosis ostial RPDA, 70% stenosis mid to distal LAD with IFR negative) s/p PCI to proximal LCX (CCS class 3 angina) and -Chest pain post PCI: Most likely secondary to recent PCI, EKG without new ST-T changes normal troponins downtrending Hospital Course: Ms. Lombardi is a 73 year old female who presented as an outpatient for [facility] for abby luation of CCS class 3 anginal symptoms. Diagnostic catheterization on 07/29 showed obstructive multivessel disease with 80% stenosis in the proximal left circumflex, 70% stenosis in OM4, 70% stenosis in the mid to distal LAD with IFR 0.96, 50% stenosis in distal RCA, and 80% stenosis in ostial RPDA. PCI to proximal LCX was performed with placement of JAVID. Prior to discharge, patient reported pain in her left chest radiating to the left jaw of intensity 5/10. An EKG did not show any ST elevations. She was administered nitro and morphine for relief of her pain. She states that Nitro gave her a headache and morphine relieved her pain. She reports an ache in her left chest this morning without madai pain. She is scheduled for PCI to RCA on Friday with Dr. Logan. She was started on DAPT with asa and Ticagrelor post PCI which she should take for a minimum of 6 months post PCI. She is on statin, metoprolol which she will continue. Her TTE from 07/29 shows normal LVEF. On the day of discharge, she denied any chest pain. She reported a dull ache in the left chest which resolved. No nausea, emesis, SOB, diaphoresis, jaw pain, palpitations, dizziness, leg swelling, or syncope. Troponin (mildly elevated secondary to recent PCI) and confirmed to be downtrending. EKG showed SR without any new ST-T changes. Since chest pain is resolved patient opted to go home and come back for RCA PCI on Friday as outpatient. She was discharged in stable condition. Status at Discharge Cognitive/behavioral status at discharge: Stable. Time Spent with Patient Time attestation: Total time spent providing and/or coordinating discharge services: 30min Exam Narrative: General: Alert oriented x3 no acute distress Chest: bilateral clear to auscultation, no rhonchi or rales Cardiac: S1-S2+, regular rate and rhythm, no murmurs Extremities: No edema, no rash DS: Data Data Completed and Pending Labs on day of discharge: Labs from last 24 hours 07/30/24 07/29/24 07/29/24 05:45 12:03 09:59 WBC 6.3 7.7 RBC 3.76 L 3.92 L Hgb 11.9 L 12.5 Hct 37.9 38.6 MCV 100.8 H 98.5 MCH 31.6 31.9 MCHC 31.4 L 32.4 RDW 14.7 H 14.5 Plt Count 164 180 MPV 11.6 H 11.5 H Immature Gran % (Auto) 0.5 Neut % (Auto) 61.2 Lymph % (Auto) 27.2 Barron % (Auto) 8.9 H Eos % (Auto) 1.8 Baso % (Auto) 0.4 Lymph # (Auto) 2.09 [place] # (Auto) 0.7 H Eos # (Auto) 0.1 Baso # (Auto) 0.0 Abs Immat Gran (auto) 0.04 H Absolute Neuts (auto) 4.7 Absolute Nucleated RBC 0.000 Nucleated RBC % 0.0 Activ Coag Time Kaolin 285 H Sodium 134 L 139 Potassium 4.5 3.7 Chloride 105 103 Carbon Dioxide 25 31 H Anion Gap 4 5 BUN 22 H 30 H Creatinine 0.90 1.00 Estim Creat Clear Calc 45 40 Estimated GFR > 60 55 L Glucose 75 79 Calcium 9.3 9.5 Magnesium 2.5 H Discharge Plan Discharge Patient Disposition: Home, Self-Care Discharge Instructions: [facility] [address] [place] [address] DISCHARGE INSTRUCTIONS - POST PCI Activity 1. No driving until 24 hours. . 2. No lifting, pushing or pulling more than 10 pounds for 1 week. 3. No strenuous exercise or activity (including sexual activity) until you are released to do so. 4. May shower but no tub baths or swimming pool for 1 week. Avoid commercial hot tubs. They are too hot. Medications DO NOT STOP YOUR MEDICATIONS ONLY YOUR ASSISTANT PROFESSOR OF COMMUNICATION CAN STOP THE FOLLOWING MEDICATIONS - PLEASE CALL THE OFFICE WITH QUESTIONS. *Aspirin *Ticagrelor (Brilinta) *Atorvastatin *Lisinopril or ARB *Metoprolol tartrate or succinate *Clopidogrel (Plavix) *Prasugrel (Effient) Important Reminders 1. Keep your stent card in your wallet at all times 2. Follow a heart healthy diet paying extra attention to cholesterol and fats. 3. Stay hydrated. 4. If you have chest pain unrelieved by rest or nitroglycerin (if prescribed) call 911 immediately. 5. If you miss one dose of Brilinta (if prescribed) take a tablet at the next time due. If you miss 2 doses take a tablet when you remember and resume at the next time due. For you next cardiac cath on Friday08/02/24 Please come back to [facility] Entr[facility] on Friday08/02/24 @8:30am for another cardiac catheterization with Dr. Logan. Nothing to eat or drink after midnight on Friday. Please take your morning Aspirin and Brilinta before you come with a small sip of water. *For any other questions please call the office at [phone]. Office hours are 8AM 4:30PM Friday through Friday. Patient Language: Persian Stand Alone Forms: General Discharge Instructions Follow-up/Referrals: Daniel Logan MD [Physician] - (in 4 weeks) Discharge Medications: New ticagrelor 90 mg tablet 90 mg PO Q12H Qty: 90 3RF isosorbide mononitrate 30 mg tablet extended release 24 hr 30 mg PO DAILY Qty: 90 3RF Continued omeprazole 20 mg capsule,delayed release(DR/EC) 20 mg PO BID calcium carbonate-vitamin D3 [Calcium 600 + D(3)] 600 mg-10 mcg (400 unit) tablet 1 tablet PO BID loratadine [Allergy Relief (loratadine)] 10 mg tablet 10 mg PO HS amitriptyline 25 mg tablet 25 mg PO QHS fluticasone propionate 50 mcg/actuation spray,suspension 1 spray intranasal BID Rx Instructions: administer into each nostril aspirin 81 mg tablet,delayed release (DR/EC) 81 mg PO DAILY methotrexate sodium 2.5 mg tablet 15 mg PO WEEKLY metoprolol succinate 25 mg tablet extended release 24 hr 25 mg PO DAILY prednisone 5 mg tablet 5 mg PO DAILY rosuvastatin [Crestor] 5 mg tablet 20 mg PO DAILY levothyroxine [Synthroid] 50 mcg tablet 50 mcg PO DAILY Qty: 90 1RF No Action folic acid 1 mg tablet 1 mg PO WEEKLY
[2024-07-30 09:47] VITALS: PULSE 67
[2024-07-30] MEDS: METOPROLOL SUCCINATE EXT REL 25 MG TABCR PO (09:47)
[2024-07-30] MEDS: CALCIUM/VITAMIN D 500 MG/5 MCG (200 I.U.) TABLET PO (09:48)
[2024-07-30] MEDS: TICAGRELOR 90 MG TABLET PO (09:48)
[2024-07-30] MEDS: PANTOPRAZOLE 40 MG TABLET PO (09:48)
[2024-07-30] MEDS: ASPIRIN 81 MG ENTERIC TABLET PO (09:48)
[2024-07-30] MEDS: predniSONE 5 MG TABLET PO (09:49)
[2024-07-30] MEDS: ISOSORBIDE MONONITRATE 30 MG TAB.ER.24H PO (09:49)
--- NOTE | 2024-07-30 09:50 | ECG_ITS ---
Test Date: 2024-07-30 10:07:21 Measurements Intervals [place] Rate: 67 P: 26 DE: 183 QRS: 11 QRSD: 91 T: 60 QT: 388 QTc: 410 Interpretive Statements SINUS RHYTHM Compared to ECG 07/29/2024 15:18:56 No significant changes Electronically Signed On 07-30-2024 12:22:39 SECURITIES VAULT SUPERVISOR by Maddison De Leon M.D.
[2024-07-30 10:49] LABS: Troponin I 0.387 ng/mL (0.000-0.034)
[2024-07-30] MEDS: NITROGLYCERIN SL 0.4 MG TABLET SUBLINGUAL (11:21)
[2024-07-30 12:00] VITALS: BP 119/69; PULSE 79; RESP 16; TEMP 37.2; O2SAT 92
[2024-07-30 12:59] VITALS: PULSE 76
[2024-07-30 13:29] LABS: Troponin I 0.299 ng/mL (0.000-0.034)
--- NOTE | 2024-07-30 14:02 | PC.NURSE ---
care coordination has been in touch with [facility] for meds to beds program delivery, pt to pay copay over the phone, meds will be delivered after 3, pt and family notified
--- NOTE | 2024-07-30 15:36 | PC.NURSE ---
awaiting delivery of meds to beds medications
--- NOTE | 2024-07-30 16:33 | PC.NURSE ---
pt left ambulatory with belongings, son will drive her home, meds to beds medications reviewed, iv removed intact
== END 2024-07-30 16:34 | disposition home or self-care (01) ==
LOC: ANHCATHLAB 14:03 → ANHIMU 16:53
PROVIDERS: Internal Medicine Cardiovascular Disease; Internal Medicine Interventional Cardiology; PCP Family Medicine; Visit Provider Internal Medicine
PROC: 4A023N7 Measurement of Cardiac Sampling and Pressure, Left Heart, Percutaneous Approach (ICD-10-PCS; CPT 93452; principal; 2024-07-29 11:00)
PROC: 4A033BC Measurement of Arterial Pressure, Coronary, Percutaneous Approach (ICD-10-PCS; CPT 93571; 2024-07-29 11:00)
PROC: 4A033BC Measurement of Arterial Pressure, Coronary, Percutaneous Approach (ICD-10-PCS; CPT 75580; 2024-07-29 11:00)
PROC: (CPT 92928; 2024-07-29 11:00)
DX: I25.10 Atherosclerotic heart disease of native coronary artery without angina pectoris (principal); I97.88 Other intraoperative complications of the circulatory system, not elsewhere classified; I25.42 Coronary artery dissection; Y84.0 Cardiac catheterization as the cause of abnormal reaction of the patient, or of later complication, without mention of misadventure at the time of the procedure; E78.5 Hyperlipidemia, unspecified; E03.9 Hypothyroidism, unspecified; K21.9 Gastro-esophageal reflux disease without esophagitis; N18.30 Chronic kidney disease, stage 3 unspecified; M51.369 Other intervertebral disc degeneration, lumbar region without mention of lumbar back pain or lower extremity pain; Z79.82 Long term (current) use of aspirin; Z79.52 Long term (current) use of systemic steroids; Z98.890 Other specified postprocedural states; Z98.1 Arthrodesis status; Z87.19 Personal history of other diseases of the digestive system; Z80.3 Family history of malignant neoplasm of breast; Z80.1 Family history of malignant neoplasm of trachea, bronchus and lung; Z82.49 Family history of ischemic heart disease and other diseases of the circulatory system
CPT/HCPCS: 36415; 80048; 83735; 84484; 85025; 85027; 92978; 93005; 93458; 93571; 93572; A9270; C1753; C1769; C1874; C1887; C1894; C7532; C8929; C9600; J1644; J2003; J2250; J2270; J2305; J2405; J3010; J7030; J7040; J7512

== ENCOUNTER → 2024-08-02 00:51 | Day surgery (SDC) | payer MEDICARE, SELFPAY ==
[2024-08-02] VITALS (24 sets, daily range): BP systolic 112–178; BP diastolic 64–95; PULSE 64–87; RESP 14–20; TEMP 36.6–36.8; O2SAT 90–100; BMI 28.7
[2024-08-02 09:06] LABS: Mean Corpuscular HGB Conc 32.4 g/dl (32-36); Mean Corpuscular Hemoglobin 31.7 pg (26-34); Mean Corpuscular Volume 97.6 fl (80-100); Mean Platelet Volume 11.6 fl (7.4-10.4); Platelet Count Result 167 k/mm3 (150-375); Red Blood Count 3.79 M/mm3 (4.2-5.4); Red Cell Distribution Width 14.3 % (11.5-14.5)
[2024-08-02 09:16] LABS: Anion Gap 6 mmol/L (4-12); Blood Urea Nitrogen 25 mg/dL (7-17); Calcium 9.2 mg/dL (8.4-10.2); Carbon Dioxide 27 mmol/L (22-30); Chloride 104 mmol/L (98-107); Estimated CRCL calculation 37 ml/min; Estimated Glomerular Filt Rate 49; Glucose 88 mg/dL (65-110); Potassium 4.3 mmol/L (3.4-5.0); Sodium 137 mmol/L (137-145)
--- NOTE | 2024-08-02 10:29 | P.SEDATION_ITS ---
Moderate Sedation Note-Pt Data Patient Data Allergies Allergy/AdvReac Type Severity Reaction Status Date / Time amoxicillin Allergy Severe Anaphylaxis Verified 08/02/24 08:51 pecan nut Allergy Unknown Swelling Verified 08/02/24 08:51 of Lip/Tongue/Throat tree nut Allergy Unknown Swelling Verified 08/02/24 08:51 of Lip/Tongue/Throat Home Medications ?Medication ?Instructions ?Recorded ?Confirmed ?Type amitriptyline 25 mg tablet 25 mg PO QHS IBS 12/04/20 07/30/24 History fluticasone propionate 50 1 spray intranasal BID 12/04/20 07/30/24 History mcg/actuation nasal spray,suspension loratadine 10 mg tablet (Allergy 10 mg PO HS 12/04/20 07/30/24 History Relief (loratadine)) omeprazole 20 mg capsule,delayed 20 mg PO BID 11/19/21 08/02/24 History release calcium 600 mg (as 1 tablet PO BID 12/12/21 07/30/24 History carbonate)-vitamin D3 10 mcg (400 unit) tablet (Calcium 600 + D(3)) Synthroid 50 mcg tablet 50 mcg PO DAILY #90 tabs 02/27/24 08/02/24 Rx (levothyroxine) aspirin 81 mg tablet,delayed 81 mg PO DAILY 07/28/24 08/02/24 History release methotrexate sodium 2.5 mg tablet 15 mg PO WEEKLY 07/28/24 07/30/24 History metoprolol succinate 25 mg 25 mg PO DAILY 07/28/24 08/02/24 History tablet,extended release 24 hr prednisone 5 mg tablet 5 mg PO DAILY 07/28/24 07/30/24 History rosuvastatin 5 mg tablet (Crestor) 20 mg PO DAILY 07/28/24 08/02/24 History folic acid 1 mg tablet 1 mg PO WEEKLY 07/29/24 08/02/24 History isosorbide mononitrate 30 mg 30 mg PO DAILY #90 tabs 07/29/24 08/02/24 Rx tablet,extended release 24 hr ticagrelor 90 mg tablet 90 mg PO Q12H #90 tabs 07/29/24 08/02/24 Rx Sedation/Anesthesia: No previous sedation/anesthesia problems (including family history). [facility] Past Medical History Medical History Abnormal CT of thoracic spine (~10/2021) abnormality noted at T11 - ruled out with bone scan Adhesive capsulitis of shoulder CKD (chronic kidney disease) stage 3, GFR 30-59 ml/min Dyslipidemia Environmental allergies GERD without esophagitis History of COVID-19 (~05/2022) History of Helicobacter pylori infection History of small bowel obstruction Hypothyroidism (acquired) Irritable bowel syndrome with constipation Lumbar degenerative disc disease Numbness of right foot Right shoulder pain Rotator cuff tear Rotator cuff tendonitis Surgical History Surgical History History of arthroscopy of left knee (~2009) 2009 - meniscus repair History of 1977, 1983 History of cervical spinal surgery (~2011) 2010, 2011 - x3 History of hysterectomy (~1985) 1985 History of laparoscopy (~05/2018) 05/2018 - small bowel obstruction History of lumbosacral spine surgery (~2016) 2017 - numbness on the lateral side of right lower extremity since the L- spine surgery. S/P right rotator cuff repair Family History Family History Mother Acute myocardial infarction Cerebrovascular accident Family history of malignant neoplasm of breast in first degree relative Family history of hypercholesterolemia Sibling Family history of malignant neoplasm of breast in first degree relative Father Family history of kidney disease Family history of throat cancer Social History Social History Smoking status: Never smoker Second hand tobacco smoke exposure: No Alcohol intake: never Drinks per week: 1 Substance use: never Substance use type: does not use Lack of Transportation: No Lack of Food: Never True Current Housing: I Have Housing Concerned About Future Housing: No Difficulty Paying Gas/Electric Bills: No Difficulty Paying for Meds: No Currently Unemployed: No Education: High School Diploma/GED Difficulty w/ Childcare or Family Care: No Living arrangements: with family Occupation/Education: retired Gender identity (if verbalized by the patient): Female Sexual Orientation (if Verbalized by the Patient): Straight or Heterosexual Spiritual care concerns: No Agree to blood products: Yes Mod Sed Physical Exam Physical Exam Pre Procedural Exam: Normal: Heart Rate and Heart Rhythm Hours since solid foods: 15 Hours since liquid intake: 15 Mallampati Classification: class II Internal Medicine - PN: Obj Da Vital Signs Vital Signs: Vital Signs - 24 hr 08/02/24 09:08 Temperature 36.8 C Pulse Rate 87 Respiratory Rate 16 Blood Pressure 126/78 Pulse Oximetry 97 Oxygen Delivery Room Air Labs 08/02/24 08:58 08/02/24 08:58 Labs: Laboratory Results - last 24 hr 08/02/24 08:58 WBC 6.0 RBC 3.79 L Hgb 12.0 Hct 37.0 MCV 97.6 MCH 31.7 MCHC 32.4 RDW 14.3 Plt Count 167 MPV 11.6 H Sodium 137 Potassium 4.3 Chloride 104 Carbon Dioxide 27 Anion Gap 6 BUN 25 H Creatinine 1.10 H Estim Creat Clear Calc 37 Estimated GFR 49 L Glucose 88 Calcium 9.2 ASA Classification/Sedation ASA Classification/Sedation ASA Class: II Emergent: No Risks: Risks, benefits and alternatives explained and patient/family accepted plan for sedation. Patient re-evaluated immediately prior to sedation.
--- NOTE | 2024-08-02 10:29 | WPDHPUPDATE1 ---
History and Physical Update Update Date/Time: 08/02/24 09:29 History and Physical has been reviewed, including an updated exam of the patient. There are NO changes in the patient's condition. Risks, benefits, and alternatives have been discussed and questions answered. Patient agrees to proceed with procedure.
[2024-08-02 11:58] LABS: Activated Clotting Time 297 SEC (74-137)
[2024-08-02] MEDS: MORPHINE SULFATE (*CRX) 4 MG/ML INJ IV PUSH ×5 (12:50→18:20)
[2024-08-02] MEDS: SODIUM CHLORIDE 0.9% IV 1,000 ML 125 ML IV CONT (13:00)
--- NOTE | 2024-08-02 13:42 | WPDCARDPROC ---
Cardiac Cath Procedure Note Date of procedure:: 08/02/24 Performing physician:: CATHETERIZATION LABORATORY REPORT Procedure Date: 08/02/2024 Referring Physician: Dr. Lepe Anesthesia: Versed and Fentanyl were ordered and given in my presence at 1055, procedure ended at 1224. Supervision of nurse, Adebayo Alexander monitored moderate sedation with 4mg Versed and 300mcg Fentanyl was provided for 89 minutes. Pre-op Diagnosis: Obstructive CAD Post-op Diagnosis: Obstructive CAD Procedure(s): Left heart catheterization with coronary angiography Percutaneous Coronary Intervention IVUS Access Site: Right radial artery Brief History and Clinical Indications: All risks, benefits and alternatives to left heart catheterization with or without percutaneous coronary intervention was discussed at length with the patient. Risk of complications including but not limited to bleeding, infection, arrhythmia, stroke, worsening kidney function, blood loss, groin hematoma, limb loss, emergency coronary artery bypass grafting, and even were discussed with the patient and all questions were answered. The patient understood and wished to proceed. Time out called, patient name, date of , medical record number, allergies, procedure performed, identify Manager Food Beverage, patient and staff member concurred with accurate data, procedure carried on. Findings: LEFT HEART CATHETERIZATION FINDINGS: 1. Left main: The left main coronary artery is widely patent without any significant obstructive disease. 2. Left anterior descending: The LAD pressures off into a dual LAD system. There is a 70% stenosis at the ostium of smaller LAD which has been interrogated previously with IFR and shown to be negative for obstructive flow. The diagonal branches have luminal irregularities. 3. Left circumflex: The left circumflex artery has a patent stent. The first OM branch is small and insignificant. The 2nd OM branch has luminal irregularities. The 3rd OM branch is tortuous and has a eccentric 80% stenosis. 4. Right coronary artery: The RCA is a dominant vessel with 50% stenosis in the distal RCA leading into a 99% ostial RPDA stenosis. 5. Left ventricle: The aortic valve was not crossed 6. Opening AO pressure 126/77 and closing AO pressure 168/63 Description of Procedure: Informed consent signed and placed in the chart. Patient transferred to laboratory technology teacher room. Prepped and draped in usual sterile fashion. 2% lidocaine injected subcutaneously in right wrist area. 22-gauge venipuncture catheter used to access the right radial artery with the Seldinger technique. 6-FR slender sheath placed in right radial artery. Nitroglycerin 200mcg, Verapamil 2.5mg, and Heparin 5000U was given intraarterial through the sheath. J wire advanced under fluoroscopy 5F JL3.5 diagnostic catheter engaged Left Main Coronary Artery. 6F JR4 Guide catheter engaged Right Coronary Artery Multiple orthogonal angiogram obtained and reviewed Hemostasis was achieved by application of TR band. Procedure Description for PCI: Given patient's persistent symptoms and angiographically worsening OM stenosis, decision was made to interrogate the OM stenosis. Heparin was used for anticoagulation (ACT maintained above 250) Patient loaded with heparin at 70 units/kg. 6F EBU 3.0 guide catheter was unable to engage left main coronary artery and was switched out for EBU 3.5 guide catheter which successfully engaged the left main coronary artery. 0.014 Runthough coronary wire was not able to enter tortuous OM3 branch and after multiple times, decision was made to abandon interrogated the OM stenosis. At this time attention was turned to the distal RCA and ostial RPDA lesion. 6F JR4 Guide catheter was used to engage the right coronary artery. 0.014 Runthrough coronary wire traverse into the distal rPDA. A second coronary wire, Samurai wire, was used to protect the rPL vessel. The pre-dilation balloon was unable to cross the lesion and was only able to traverse the lesion once the 2nd coronary wire, Samurai wire, was removed. The lesion was pre-dilated with a 2.0 x 10 mm balloon inflated to high RENETTA A 2.5 x 15mm Abimael Love JAVID was successfully deployed into distal RCA into the right PDA with excellent angiographic results. Intracoronary NTG was administered Follow-up angiograms showed an excellent result Coronary wire and guide-catheter were removed under fluoroscopy. At this time, patient was still experiencing chest discomfort that started during wiring attempts of the OM branch. Therefore, a JL 3.5 diagnostic catheter was used was used to engage the left main coronary artery to ensure noted complications. Angiogram showed loss of OM2 branch. The diagnostic catheter was exchanged out for a JL 3.5 guide catheter and OM2 branch was wired initially with a run-through wire. We attempted to bring I this catheter into the vessel however this was met with resistance and aborted. Second run-through wire was reshaped and negotiated into the OM2 branch and there appeared to be mormonism of blood flow. The IVUS catheter was re-attempted with no success. At this time, there was concern that the wires may not be in the true lumen and thus the wires were removed under fluoroscopy. IC nitroglycerin was administered. Final angiography was performed revealing a dissection plane at ostium of the OM2 branch the most likely extends into the distal vessel. There is unobstructed flow into the distal vessel where it terminates. Assessment: Successful PCI to the distal RCA into the RPDA Coronary artery dissection the OM2 branch Post Operative Condition: Stable No significant blood loss Disposition: Transfer to high-level care Plan: Given patient's persistent pain and coronary artery dissection, the plan was made with patient and family to transfer to [facility] for treatment of coronary artery dissection. Daniel Logan Interventional Cardiology
[2024-08-02] MEDS: NITROGLYCERIN SL 0.4 MG TABLET SUBLINGUAL (14:00)
[2024-08-02] MEDS: ONDANSETRON INJ 4 MG/2 ML VIAL IV PUSH (14:00)
[2024-08-02] MEDS: hydrALAZINE HCL 20 MG/ML VIAL 10 MG IV PUSH (15:30)
--- NOTE | 2024-08-02 20:22 | SUR.PHASEII ---
1830: TRANSFER PACKET GIVEN TO [facility]. PT. LOADED UP ON STRETCHER BY [facility] AFTER REPORT GIVEN TO THEM AND PT. GIVEN PAIN MED. FAMILY PRESENT AT BEDSIDE. PT. TRANSFERRED TO [facility], ROOM 1310 FOR ADVANCED CARDIAC CARE PER DR. SUE'S ORDER. VSS. EMPTY TR BAND REMAINS OVER R. RADIAL PUNCTURE SITE. NO ACTIVE OOZE OR BLEEDING NOTED. FOLLOW UP REPORT UPDATE CALLED TO PAULIE RAMÍREZ AT [facility] AT [phone] SINCE REPORT WAS CALLED AT 1620. NOTIFIED BED CONTROL AT [phone] THAT PT. HAS JUST LEFT ENROUTE. FAMILY IN POSSESSION OF PT'S BELONGINGS.
--- NOTE | 2024-08-04 21:35 | P.TS_ITS ---
Transfer Discharge Sum: Prov Provider Date of admission: 08/02/2024 Primary care physician: Attila Lepe MD Attending physician on admission: Daniel Logan Attending physician on discharge: Daniel Logan Discharging clinician: Daniel Logan Anticipated date of transfer: 08/02/24 Receiving physician/facility: Dr. Billings at [facility] DS: Admitting Diagnosis Discharge Date 08/02/2024 Admitting Diagnosis Acute Coronary Syndrome DS: Discharge Diagnosis Discharge Diagnosis Plan 73-year-old woman with hypothyroidism who presented for staged PCI of the distal RCA/rPDA in setting of crescendo angina refractory to medical therapy and given concerns of an OM branch stenosis expressed by patient and family and would appear to be angiographic worsening of the stenosis, decision was made to interrogate and possibly stent the OM stenosis. She is now status post successful PCI to the distal RCA into the right PDA vessel however her cardiac catheterization was complicated by an OM branch dissection during attempts to navigate the tortuosity in the left circumflex system. Coronary dissection - given intermittent occlusive flow and persistent chest discomfort, decision was made to transfer to higher level of care - nitroglycerin and morphine for pain control Transfer Discharge Sum: Med Medications Active and Home Medications: Home Medications amitriptyline 25 mg tablet 25 mg PO QHS IBS 12/04/20 [History Confirmed 07/30/24] fluticasone propionate 50 mcg/actuation nasal spray,suspension 1 spray intranasal BID 12/04/20 [History Confirmed 07/30/24] loratadine 10 mg tablet (Allergy Relief (loratadine)) 10 mg PO HS 12/04/20 [History Confirmed 07/30/24] omeprazole 20 mg capsule,delayed release 20 mg PO BID 11/19/21 [History Confirmed 08/02/24] calcium 600 mg (as carbonate)-vitamin D3 10 mcg (400 unit) tablet (Calcium 600 + D(3)) 1 tablet PO BID 12/12/21 [History Confirmed 07/30/24] Synthroid 50 mcg tablet (levothyroxine) 50 mcg PO DAILY #90 tabs 02/27/24 [Rx Confirmed 08/02/24] aspirin 81 mg tablet,delayed release 81 mg PO DAILY 07/28/24 [History Confirmed 08/02/24] methotrexate sodium 2.5 mg tablet 15 mg PO WEEKLY 07/28/24 [History Confirmed 07/30/24] metoprolol succinate 25 mg tablet,extended release 24 hr 25 mg PO DAILY 07/28/24 [History Confirmed 08/02/24] prednisone 5 mg tablet 5 mg PO DAILY 07/28/24 [History Confirmed 07/30/24] rosuvastatin 5 mg tablet (Crestor) 20 mg PO DAILY 07/28/24 [History Confirmed 08/02/24] folic acid 1 mg tablet 1 mg PO WEEKLY 07/29/24 [History Confirmed 08/02/24] isosorbide mononitrate 30 mg tablet,extended release 24 hr 30 mg PO DAILY #90 tabs 07/29/24 [Rx Confirmed 08/02/24] ticagrelor 90 mg tablet 90 mg PO Q12H #90 tabs 07/29/24 [Rx Confirmed 08/02/24] Active Medications Morphine Sulfate (Morphine Sulfate (*Crx) 4 Mg/Ml Inj) 4 mg IV PUSH Q30M PRN PRN Reason: Pain Rated 7-10 Last Admin: 08/02/24 18:20 Dose: 4 mg Transfer Discharge Sum: Hosp Hospital Course Hospital course: Maria C Piña is a 73 year old female with hypothyroidism who presented for staged PCI of the distal RCA/rPDA in setting of crescendo angina refractory to medical therapy along with concerns of an OM lesions which may require further interrogation. Given her persistent anginal symptoms despite successful PCI of her left circumflex lesion, her left coronary system was evaluated first to ensure patency of previously placed stent. It was confirmed that the previously placed stent in the left circumflex is patent, further angiographic views of the left coronary system were obtained to ensure no other potential culprits to her refractory angina. Within the OM3 system, there is a distal obstructive lesion which seemed to be angiographically worsened compared to previous and given patient and her family's expressed concerns of this lesion, attempts were made to negotiate a coronary wire into the OM3 system and navigate through the stenosis. However, given the significant tortuosity at the bifurcation leading into the OM3 branch, the coronary wire continually took the course of the OM2 branch. At this point, patient developed angina and thus further attempts were aborted. Final angiography performed once wire was removed did not review any obstructive lesions or dissections. Attention was then turned to the right coronary system where the right coronary artery was engaged in the coronary wire was negotiated into the right PDA followed by successful PCI to a critical 99% ostial RPDA lesion. At this time, patient continued to have worsening angina and thus the left coronary system was re-evaluated. The OM2 system was occluded on re-evaluation. A guide catheter was used to engage the left main coronary artery and a coronary wire traversed into the OM2 system. The coronary wire was met with some resistance and thus a 2nd coronary wire was placed into the OM2 system with much less resistance and reached the distal end of the vessel. At this time and IVUS catheter was brought into the left circumflex system however would not pass into the OM2 vessel. A small 2.0 balloon was also not able to pass into the OM2 vessel. At this time, decision was made to transfer patient to a higher level of care at facility more capable of treating coronary dissections. Patient was brought into the cardiac cath recovery unit where she was given nitroglycerin and morphine for pain control. She was also given blood pressure medications for systolic blood pressure control. Time Spent with Patient Time attestation: Total time spent providing and/or coordinating transfer services: Total time spent: Greater than 30 minutes Exam Const: General: uncomfortable HENMT: Mouth: Yes moist mucous membranes Eyes: EOM: EOMs intact bilaterally Neck: Neck: no JVD Resp: Effort & Inspection: normal respiratory effort Auscultation: clear to auscultation bilaterally Cardio: Rate: regular rate Rhythm: regular rhythm GI: GI Palp: Yes Soft to palpation Extrem: General: no edema
--- OUTSIDE RECORDS SUMMARY | 2024-08-09 03:13 | XMS_ITS | Patient Health Summary ---
Author Organization [facility] Address [address] [place] [address] Care Team Providers Care Director Of Supply Chain Name Role Phone Unavailable Primary Care Provider Unavailabl e Note from [facility],non-owned Affiliates and Associated Physician Practices is amultiple site organization consisting of ambulatory clinics and hospital sitesin [place], [place], [place] and [place]. This disclosure is being madepursuant to the Care Everywhere program and may not contain all information available regarding this patient. Last updated 18.[facility] Social History Tobacco Use Types Packs/Day Years Used Date Smoking Tobacco: Never Assessed Sex and Gender Information Value Date Recorded Sex Assigned at Not on file Gender Identity Not on file Sexual Orientation Not on file Procedures * DERMATOPATHOLOGY(Performed 10/21/2023) Performed for Neoplasm of uncertain behavior of skin Results * DERMATOPATHOLOGY (10/21/2023 3:33 AM CDT) Case Report Dermatopathology Report ? Case: [id number] ? Authorizing Provider: ??Yannick Mckeon MD ? Collected: ? 10/21/2023 03:33 AM ? Ordering Location: ? [facility] - ??Received: ?10/22/2023 11:02 AM ? DermPath Lab ? Pathologist: ? Gabrielle Conde MD ? Specimens: ?? A) - Skin, right superior lateral buccal cheek ? B) - Skin, right superior upper back ? C) - Skin, left proximal dorsal forearm ? 4 3:25 PM CDT DERMATOPATHOLOGY LABORATORY Final Diagnosis Specimen A. SKIN, right superior lateral buccal cheek: HYPERPLASTIC (HYPERTROPHIC) ACTINIC KERATOSIS; EXTENDING TO THE BASE OF THE SPECIMEN (L57.0) EPIDERMAL NECROSIS SUGGESTIVE OF EXCORIATION (L98.499) (see microscopic description and comment) Specimen B. SKIN, right superior upper back: BASAL CELL CARCINOMA, NODULAR TYPE (C44.519) Specimen C. SKIN, left proximal dorsal forearm: SEBORRHEIC KERATOSIS, INFLAMED (L82.0) 4 3:25 PM CDT DERMATOPATHOLOGY LABORATORY Clinical History A: Irritated Seborrheic Keratosis vs Squamous Cell Carcinoma B: Basal Cell Carcinoma C: Seborrheic Keratoses vs Melanoma 4 3:25 PM CDT DERMATOPATHOLOGY LABORATORY Gross Description Specimen A: Received is one formalin filled container labeled with the patient's name and designated right superior lateral buccal cheek. The specimen consists of a shave biopsy measuring 5x4x1 mm. Jar 0. Specimen B: Received is one formalin filled container labeled with the patient's name and designated right superior upper back. The specimen consists of a shave biopsy measuring 5x5x1 mm. Jar 0. Specimen C: Received is one formalin filled container labeled with the patient's name and designated left proximal dorsal forearm. The specimen consists of a shave biopsy measuring 6x4x1 mm. Jar 0. 4 3:25 PM [facility] DERMATOPATHOLOGY LABORATORY Microscopic Description Specimen A. SKIN, right superior lateral buccal cheek: There is hyperkeratosis alternating with parakeratosis. There is epidermal hyperplasia with disorderly maturation of keratinocytes with nuclear pleomorphism confined to the lower half of the epidermis. This process extends to the base of the specimen. The epidermis is focally necrotic and covered with a scale-crust. There is fibrin at the base. COMMENT: A squamous cell carcinoma cannot be ruled out. Specimen B. SKIN, right superior upper back: Within the dermis there are aggregates of basaloid cells with a high nuclear to cytoplasmic ratio and peripheral palisading. Specimen C. SKIN, left proximal dorsal forearm: There is hyperkeratosis, parakeratosis, papillomatosis, and acanthosis of the epidermis. There is a lymphohistiocytic infiltrate within the papillary dermis that is focally lichenoid. 4 3:25 PM [facility] DERMATOPATHOLOGY LABORATORY Disclaimer An external and internal positive and negative controls are appropriate for the histochemical, immunohistochemical and immunofluorescence stain(s) in this case (if any), except where stated explicitly. The performance characteristics of the stain(s) cited in this report were developed and its performance characteristic determined by the Dermatopathology Laboratory at [facility], directed by Dr. Mary Carmen Alicia. These tests need not be, and therefore are not, approved by the [place] Food and Drug Administration. The tests are used for clinical purposes. Billing Codes Specimen Charges Stain Charges 77219 [id number] 25010 1 1 1 4 3:25 PM [facility] DERMATOPATHOLOGY LABORATORY Embedded Images 3:25 PM [facility] DERMATOPATHOLOGY LABORATORY Pathology/Cytology TISSUE SPECIMEN FROM SKIN / Unknown 10/21/2023 3:33 AM CDT 10/22/2023 11:02 AM CDT Miscellaneous samples (specimen) TISSUE SPECIMEN FROM SKIN / Unknown 10/21/2023 3:33 AM CDT 10/22/2023 11:02 AM CDT Miscellaneous samples (specimen) TISSUE SPECIMEN FROM SKIN / Unknown 10/21/2023 3:33 AM CDT 10/22/2023 11:02 AM CDT Yannick Mckeon MD LAB - PATHOLOGY/CYTO LOGY ORDERABLES DERMATOPATHOLOGY LABORATORY [facility] - Department of Dermatology [facility] Medicine [address] [place] [address]
--- OUTSIDE RECORDS SUMMARY | 2024-08-09 03:13 | XMS_ITS | Clinical Summary ---
Author Organization [facility] Address [address] [place] [address] Care Team Providers Care Television Station Manager Name Role Phone Unavailable Primary Care Provider Unavailabl e Source Comments [facility],non-owned Affiliates and Associated Physician Practices is amultiple site organization consisting of ambulatory clinics and hospital sitesin [place], [place]. This disclosure is being madepursuant to the Care Everywhere program and may not contain all information available regarding this patient. Last updated 18.[facility] Social History Tobacco Use Types Packs/Day Years Used Date Smoking Tobacco: Never Assessed Sex and Gender Information Value Date Recorded Sex Assigned at Not on file Gender Identity Not on file Sexual Orientation Not on file Plan of Treatment Health Maintenance Due Date Last Done Comments BONE DENSITY TESTING 1950 COLOGUARD (AGES 45-75) - COL ON CA SCREENING 1952 COLON MONITORING 1952 COLONOSCOPY - COLON CA SCREENING 1952 CT COLONOGRAPHY - COLON CA SCREENING 1952 Colorectal Cancer Screening 1952 FIT - COLON CA SCREENING 1952 FLEX SIG - COLON CA SCREENING 1952 LIPID TESTING 1952 MAMMOGRAM 1952 HEPATITIS C SCREENING 09/22/1970 DTAP/TDAP/TD VACCINES (1 - Tdap) 1971 ZOSTER VACCINE (1 of 2) 2002 PNEUMOCOCCAL VACCINE 65+ (1 of 1 - PCV) 2017 DEPRESSION SCREENING 08/11/2023 MEDICARE AWV ? CALENDAR YEAR 2023 COVID-19 VACCINE (1 - 2023-2 5 season) 2024 INFLUENZA VACCINE (#1) 2024 Respiratory Syncytial Virus (RSV) Vaccine Pt: or over 60 yrs (1 - 1-dose 75+ series) 2027 HEPATITIS B VACCINE Aged Out No longe r eligible based on patient's age to complete this topic HIB VACCINE Aged Out No longer eligi ble based on patient's age to complete this topic HPV VACCINE Aged Out No longer eligi ble based on patient's age to complete this topic MENINGOCOCCAL VACCINE Aged Out No campos shelby eligible based on patient's age to complete this topic
--- OUTSIDE RECORDS SUMMARY | 2024-08-09 03:13 | XMS_ITS | Referral Summary ---
Author Organization [facility] Address [address] [place] [address] Care Team Providers Care Stenographer Print Shop Name Role Phone Unavailable Primary Care Provider Unavailabl e Source Comments [facility],non-owned Affiliates and Associated Physician Practices is amultiple site organization consisting of ambulatory clinics and hospital sitesin [place], [place], [place] and [place]. This disclosure is being madepursuant to the Care Everywhere program and may not contain all information available regarding this patient. Last updated 18.[facility] [employer] Social History Tobacco Use Types Packs/Day Years Used Date Smoking Tobacco: Never Assessed Sex and Gender Information Value Date Recorded Sex Assigned at Not on file Gender Identity Not on file Sexual Orientation Not on file Plan of Treatment Not on file
--- OUTSIDE RECORDS SUMMARY | 2024-08-09 03:13 | XMS_ITS | Encounter Summary ---
Author Organization [facility] Address [address] [address] Care Team Providers Care Machine Lay Out Worker Name Role Phone Unavailable Primary Care Provider Unavailabl e Encounter Details Date Type Department Care Team (Late st Contact Info) Description 10/21/2023 Lab Requisition [facility] - DermPath Lab [address] [place] [address] Yannick Mckeon MD [facility] [address] [place] [id number] Neoplasm of uncertain behavior of skin Social History Tobacco Use Types Packs/Day Years Used Date Smoking Tobacco: Never Assessed Sex and Gender Information Value Date Recorded Sex Assigned at Not on file Gender Identity Not on file Sexual Orientation Not on file documented as of this encounter Plan of Treatment Not on file documented as of this encounter Procedures Procedure Name Priority Date/Time Associated Diagnosis Comments DERMATOPATHOLOGY Routine 10/21/2023 3:33 AM CDT Neoplasm of uncertain behavior of skin documented in this encounter Results * DERMATOPATHOLOGY (10/21/2023 3:33 AM CDT) Case Report Dermatopathology Report ? Case: [id number] ? Authorizing Provider: ??Yannick Mckeon MD ? [...] Cell Carcinoma C: Seborrheic Keratoses vs Melanoma 3:[address] [facility] Gross Description Specimen A: Received [...] shave biopsy measuring 6x4x1 mm. Jar 0. 3:[address] [facility] Microscopic Description Specimen A. SKIN, [...] the papillary dermis that is focally lichenoid. 3:[address] [facility] Disclaimer An external and internal positive and negative controls are appropriate for the histochemical, immunohistochemical and immunofluorescence stain(s) in this case (if any), except where stated explicitly. The performance characteristics of the stain(s) cited in this report were developed and its performance characteristic determined by the Dermatopathology Laboratory at [facility], directed by Dr. Mary Carmen Alicia. These tests need not be, and therefore are not, approved by the [place] Food and Drug Administration. The tests are used for clinical purposes. Billing Codes Specimen Charges Stain Charges 31789 27178 19202 1 1 1 4 3:25 PM CDT DERMATOPATHOLOGY LABORATORY Embedded Images 4 3:25 PM CDT DERMATOPATHOLOGY LABORATORY Pathology/Cytology TISSUE SPECIMEN FROM SKIN / Unknown 10/21/2023 3:33 AM CDT 10/22/2023 11:02 AM CDT Miscellaneous samples (specimen) TISSUE SPECIMEN FROM SKIN / Unknown 10/21/2023 3:33 AM CDT 10/22/2023 11:02 AM CDT Miscellaneous samples (specimen) TISSUE SPECIMEN FROM SKIN / Unknown 10/21/2023 3:33 AM CDT 10/22/2023 11:02 AM CDT Yannick Mckeon MD LAB - PATHOLOGY/CYTO LOGY ORDERABLES DERMATOPATHOLOGY LABORATORY [facility] - Department of Dermatology [facility] Medicine [address] [place] [address] [phone] documented in this encounter Visit Diagnoses Diagnosis Neoplasm of uncertain behavior of skin documented in this encounter
--- OUTSIDE RECORDS SUMMARY | 2024-08-09 03:13 | XMS_ITS ---
Author Organization [facility] Address Unknown Encounter Date(s): 10/01/22 - 10/01/22 [facility]
--- OUTSIDE RECORDS SUMMARY | 2024-08-09 03:15 | XMS_ITS | Continuity of Care Document ---
Author Organization [facility] Address [address] [place] [address] Phone Care Team Providers Care Rn Acls Name Role Phone Inman OD, Randolph Unavailable Unavailable Advance Directives Directive Yes / No Effective Date File Name No Information Encounters Encounter Description Practice Location Reason(s) For Visit Diagnoses Date Provider Providers Copied on Encounter [facility], [address], [place], [place], [id number], [place] tel:[phone] [facility] No Information [id number] 1 Inman OD Randolph. [address] , [address], [place], [address], [place]. tel:[phone] Family History Family Member Type Diagnosis Age At Onset No Information Payers Payer name Insurance type Covered democrat ID Authoriza tion(s) No Information Social History Type Description Quantity Date Captured Comments Sex Female Smoking Status No Information Chief Complaint And Reason For Visit No Information Reason For Referral Reason For Referral No Information History Of Present Illness Encounter Date Complaint History Of Prese nt Illness No Information Functional Status Date Functional Assessmen t No Information Instructions Date Instruction Additional Infor mation No Information Assessments Type Assessment Date No Information Patient Care Teams Name Effective Dates (start - stop) Status Members No Information
--- OUTSIDE RECORDS SUMMARY | 2024-08-09 03:15 | XMS_ITS | Encounter Summary ---
Author Organization [facility] Address [address] [place] [address] Care Team Providers Care City Route Driver Name Role Phone Attila Lepe MD Primary Care Provider Reason for Referral * Procedure (Routine) - Closed Specialty Diagnoses / Procedures Referred By Contac t Referred To Contact Cardiology Diagnoses Angina pectoris, unstable (CMS/HCC) (HCC) Daniel Logan MD [address] [place] [id number] Phone: tel: fax: [facility] Medical [facility] Cardiology [facility] State [address] [address] Phone: tel: fax: Referral ID Status Reason Start Date Expiration Date V isits Requested Visits Authorized [id number] Closed Specialty Services Required 07/29/2024 08/28/2025 1 1 Scheduling Instructions PROCEDURE/TEST ORDERED: planned pci LOCATION: DATE OF SERVICE:08/02 INSURANCE: [employer] Medicare DIAGNOSIS:CAD ORDERING PROVIDER: PERLA ADDITIONAL DETAILS: Question Answer Please select the performing region: [facility] Medical Group [[id number]] Please select the performing department: [facility] CARD CH MRYVL [[id number]] # of visits: 1 ORMANCE ANALYST * Procedure (Routine) - Closed Specialty Diagnoses / Procedures Referred By Contac t Referred To Contact Cardiology Diagnoses Angina pectoris, unstable (CMS/HCC) (HCC) Daniel Logan MD [address] [address] Phone: tel: fax: [facility] Cardiology [address] [place] [address] Phone: tel: fax: Referral ID Status Reason Start Date Expiration Date V isits Requested Visits Authorized [id number] Closed Specialty Services Required 07/23/2024 01/24/2025 1 1 Question Answer Please select the performing region: [facility] Medical Group [[id number]] Please select the performing department: [facility] MRYVL [[id number]] # of visits: 1 Comments PROCEDURE/TEST ORDERED:[facility] LOCATION: DATE OF SERVICE: 07/29 INSURANCE:medicare DIAGNOSIS:angina ORDERING PROVIDER:PERLA ADDITIONAL DETAILS: ORMANCE ANALYST Encounter Details Date Type Department Care Team (Late st Contact Info) Description 07/22/2024 Telephone [facility] Cardiology [facility] [address] [address] Daniel Logan MD [facility] [place] [address] Social History Tobacco Use Types Packs/Day Years Used Date Smoking Tobacco: Never Smokeless Tobacco: Never Alcohol Use Standard Drinks/Week Comments No 0 (1 standard drink = 0.6 oz pure alcohol) caffeine-diet coke, tea, and coffee Comments Unknown Sex and Gender Information Value Date Recorded Sex Assigned at Not on file Legal Sex Female 1:23 AM PERFORMANCE ANALYST Gender Identity Not on file Sexual Orientation Not on file documented as of this encounter Miscellaneous Notes * Addendum Note - Dipak Girard RN - 07/29/2024 3:11 PM CSTAddended by: DIPAK GIRARD on: 07/29/2024 03:11 PM Modules accepted: Orders ORMANCE ANALYST * Telephone Encounter - Dipak Girard RN - 07/29/2024 3:08 PM PERFORMANCE ANALYST Per WK, pt needs to be scheduled for planned PCI on 08/02 at with WK. Pt scheduled for 08/02 at 1000. Instructions faxed to lab aid to review with pt. Will forward to WK as FYI. ORMANCE ANALYST * Addendum Note - Trish Villarreal RN - 07/22/2024 2:12 PM CSTAddended by: TRISH VILLARREAL on: 07/22/2024 02:12 PM Modules accepted: Orders ORMANCE ANALYST * Telephone Encounter - Trish Villarreal RN - 07/22/2024 2:09 PM PERFORMANCE ANALYST WK-FYI Per WK scheduled pt for LHC at on 07/29 at 1100. Reviewed instructions and pt verbalized understanding. ORMANCE ANALYST documented in this encounter Plan of Treatment Scheduled Referrals Name Type Priority Associated Diagnoses Order Schedule Ambulatory referral to Cardiology Outpatient Referral Routine Angina pectoris, unstable (CMS/HCC) (HCC) Expected: 07/29/2024 (Approximate), Expires: 07/22/2025 Ambulatory referral to Cardiology Outpatient Referral Routine Angina pectoris, unstable (CMS/HCC) (HCC) Expected: 08/12/2024 (Approximate), Expires: 07/29/2025 documented as of this encounter Visit Diagnoses Diagnosis Angina pectoris, unstable (CMS/HCC) (HCC)- Primary Intermediate coronary syndrome documented in this encounter Care Teams City Route Driver Relationship Specialty Start Date End Date Attila Lepe MD [facility] [address] [place] [address] PCP - General Family Practice 07/22/24 documented as of this encounter
--- OUTSIDE RECORDS SUMMARY | 2024-08-09 03:15 | XMS_ITS | Encounter Summary ---
Author Organization [facility] Care Team Providers Care Acid Polymerization Operator Name Role Phone Daniel Wilson MD Primary Care Provider No, Physician Primary Care Provider [phone] Attila Lepe MD Primary Care Provider Attila Lepe MD Primary Care Provider Grover Wren MD Unavailable [phone] Encounter Details Date Type Department Care Team (Latest Contact Info) Description 02/01/2017 Orders Only [facility] CLINCONV ProviderObdulia MD [address] [place] [address] Social History Tobacco Use Types Packs/Day Years Used Date Smoking Tobacco: Never Alcohol Use Standard Drinks/Week Comments No 0 (1 standard drink = 0.6 oz pur e alcohol) Comments Unknown Sex and Gender Information Value Date Recorded Sex Assigned at Not on file Legal Sex Female 1:23 AM TECHNICAL SYSTEMS ARCHITECT Gender Identity Not on file Sexual Orientation Not on file documented as of this encounter Plan of Treatment Not on file documented as of this encounter Procedures Procedure Name Priority Date/Time Associated Diagnosis Comments SCAN - LABS 03/03/2017 12:00 AM CDT documented in this encounter Results * SCAN - LABS (03/03/2017 12:00 AM CDT) Narrative 03/03/2017 12:00 AM CDT Ordered by an unspecified provider. Historical Provider Final Res ult documented in this encounter Visit Diagnoses Not on filedocumented in this encounter Care Teams Acid Polymerization Operator Relationship Specialty Start Date End Date Daniel Wilson MD [address] [place] [address] PCP - General 12/05/16 05/12/17 No, Physician PCP - General 05/13/17 07/20/24 Attila Lepe MD [address] [facility] [address] [place] [address] PCP - General Family Practice 07/21/24 07/21/24 Attila Lepe MD [address] [facility] [address] [place] [address] PCP - General Family Practice 07/22/24 rGover Wren MD [address] [place] [address] Consulting Physician Cardiology 08/05/24 documented as of this encounter
--- OUTSIDE RECORDS SUMMARY | 2024-08-09 03:15 | XMS_ITS | Encounter Summary ---
Author Organization [facility] Healthcare Address [address] [place] [address] Care Team Providers Care Harbor Police Launch Commander Name Role Phone No, Physician Primary Care Provider [phone] Encounter Details Date Type Department Care Team (Late st Contact Info) Description 06/17/2017 6:30 PM CHIEF NURSE Lab [address] [address] Scleritis, unspecified laterality Social History Tobacco Use Types Packs/Day Years Used Date Smoking Tobacco: Never Smokeless Tobacco: Never Alcohol Use Standard Drinks/Week Comments No 0 (1 standard drink = 0.6 oz pure alcohol) caffeine-diet coke, tea, and coffee Comments Unknown Sex and Gender Information Value Date Recorded Sex Assigned at Not on file Legal Sex Female 1:23 AM CHIEF NURSE Gender Identity Not on file Sexual Orientation Not on file documented as of this encounter Plan of Treatment Not on file documented as of this encounter Procedures Procedure Name Priority Date/Time Associated Diagnosis Comments ANTI-NEUTROPHILIC CYTOPLASMIC ANTIBODY Routine 06/17/2017 6:41 PM CHIEF NURSE Scleritis, unspecified laterality documented in this encounter Results * ANCA (06/17/2017 6:41 PM CHIEF NURSE) C-ANCA Negative Negative [facility] P-ANCA Negative Negative [facility] Comment: Negative for cANCA and pANCA patterns by immunofluorescence. ADDITIONAL INFORMATION This test was developed and its performance characteristics determined by [facility] in a manner consistent with CLIA requirements. This test has not been cleared or approved by the U.S. Food and Drug Administration. Test Performed by: [facility] - [address] [address] Blood specimen (specimen) 06/17/2017 6:41 PM CHIEF NURSE 06/17/2017 6:56 PM CHIEF NURSE us Giacomo Black MD LAB BLOOD ORDERABLES [place] hyl[place] Result [facility] [address] [place] [address] documented in this encounter Visit Diagnoses Diagnosis Scleritis, unspecified laterality documented in this encounter Care Teams Harbor Police Launch Commander Relationship Specialty Start Date End Date No, Physician PCP - General 05/13/17 07/20/24 documented as of this encounter
--- OUTSIDE RECORDS SUMMARY | 2024-08-09 03:15 | XMS_ITS | Encounter Summary ---
Author Organization [facility] Address [address] [place] [address] Care Team Providers Care English And Reading Instructor Name Role Phone No, Physician Primary Care Provider [phone] Encounter Details Date Type Department Care Team (Late st Contact Info) Description 05/19/2017 Orders Only [facility] [address] [facility] [address] [place] [address] [facility] [address] [place] [address] Abnormal serum angiotensin-converting enzyme level (Primary Dx) Social History Tobacco Use Types Packs/Day Years Used Date Smoking Tobacco: Never Smokeless Tobacco: Never Alcohol Use Standard Drinks/Week Comments No 0 (1 standard drink = 0.6 oz pure alcohol) caffeine-diet coke, tea, and coffee Comments Unknown Sex and Gender Information Value Date Recorded Sex Assigned at Not on file Legal Sex Female 1:23 AM VARNISH MIXER Gender Identity Not on file Sexual Orientation Not on file documented as of this encounter Plan of Treatment Not on file documented as of this encounter Visit Diagnoses Diagnosis Abnormal serum angiotensin-converting enzyme level- Primary documented in this encounter Care Teams English And Reading Instructor Relationship Specialty Start Date End Date No, Physician PCP - General 05/13/17 07/20/24 documented as of this encounter
--- OUTSIDE RECORDS SUMMARY | 2024-08-09 03:15 | XMS_ITS | Encounter Summary ---
Author Organization [facility] Healthcare Address [address] [place] [address] Care Team Providers Care Energy Conservation Director Name Role Phone Attila Lepe MD Primary Care Provider Reason for Visit * Reason Onset Date Comments Medical Records Request 07/21/2024 Encounter Details Date Type Department Care Team (Late st Contact Info) Description 07/21/2024 Telephone [facility] Cardiology [address] [place] [address] Temitope Romano MA Medical Records Request Social History Tobacco Use Types Packs/Day Years Used Date Smoking Tobacco: Never Smokeless Tobacco: Never Alcohol Use Standard Drinks/Week Comments No 0 (1 standard drink = 0.6 oz pure alcohol) caffeine-diet coke, tea, and coffee Comments Unknown Sex and Gender Information Value Date Recorded Sex Assigned at Not on file Legal Sex Female 1:23 AM ASSET COORDINATOR Gender Identity Not on file Sexual Orientation Not on file documented as of this encounter Miscellaneous Notes * Telephone Encounter - Temitope Romano MA - 07/21/2024 3:25 PM CST Thank you. Fax sent requesting records from PCP T COORDINATOR * Telephone Encounter - Nani Lopez - 07/21/2024 1:34 PM CST Patient returning call. Updated PCP and patient has orders and records with her and will bring to her appt with WK tomorrow 07/22. Contact [phone] T COORDINATOR * Telephone Encounter - Temitope Romano MA - 07/21/2024 1:17 PM CST Left msg. Calling to see if pt has a PCP or if she can bring records to her appt tomorrow T COORDINATOR documented in this encounter Plan of Treatment Not on file documented as of this encounter Visit Diagnoses Not on filedocumented in this encounter Care Teams Energy Conservation Director Relationship Specialty Start Date End Date Attila Lepe MD [address] [facility] [address] [place] [address] PCP - General Family Practice 07/21/24 07/21/24 documented as of this encounter
--- OUTSIDE RECORDS SUMMARY | 2024-08-09 03:15 | XMS_ITS | Encounter Summary ---
Author Organization [facility] Healthcare Address [address] [place] [address] Care Team Providers Care Crane Follower Name Role Phone No, Physician Primary Care Provider [phone] Encounter Details Date Type Department Care Team (Late st Contact Info) Description 12/02/2017 3:45 PM CDT Lab [address] [address] Social History Tobacco Use Types Packs/Day Years Used Date Smoking Tobacco: Never Smokeless Tobacco: Never Alcohol Use Standard Drinks/Week Comments No 0 (1 standard drink = 0.6 oz pure alcohol) caffeine-diet coke, tea, and coffee Comments Unknown Sex and Gender Information Value Date Recorded Sex Assigned at Not on file Legal Sex Female 1:23 AM HEALTH PROMOTION EDUCATOR Gender Identity Not on file Sexual Orientation Not on file documented as of this encounter Plan of Treatment Not on file documented as of this encounter Visit Diagnoses Not on filedocumented in this encounter Care Teams Crane Follower Relationship Specialty Start Date End Date No, Physician PCP - General 05/13/17 07/20/24 documented as of this encounter
--- OUTSIDE RECORDS SUMMARY | 2024-08-09 03:15 | XMS_ITS | Encounter Summary ---
Author Organization [facility] Healthcare Address [address] [place] [address] Care Team Providers Care Division Engineer Name Role Phone Daniel Wilson MD Primary Care Provider [phone] Encounter Details Date Type Department Care Team (Late st Contact Info) Description 03/03/2017 3:47 PM CDT Hospital Encounter [facility] Jennifer Vann PA [address] [facility] [address] [place] [address] Melena; Lower abdominal pain; Calculus of kidney; Fatty (change of) liver, not elsewhere classified Social History Tobacco Use Types Packs/Day Years Used Date Smoking Tobacco: Never Alcohol Use Standard Drinks/Week Comments No 0 (1 standard drink = 0.6 oz pur e alcohol) Comments Unknown Sex and Gender Information Value Date Recorded Sex Assigned at Not on file 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 0 0 12/16/2016 8 fluticasone (FLONASE) 50 mcg/actuation nasal spray spray 1 spray by intranasal route every day in each nostril 1 spray 6 12/16/2016 7 gabapentin (NEURONTIN) 100 mg capsule 100 mg. 0 0 12/16/2016 7 methylPREDNISolo ne (MEDROL, KEYSHA,) 4 mg tablet Take per package instructions 1 0 12/16/2016 7 pilocarpine (SALAGEN, PILOCARPINE,) 5 mg tablet take 1 tablet by oral route 3 times every day 60 0 12/16/2016 7 documented as of this encounter Plan of Treatment Not on file documented as of this encounter Procedures Procedure Name Priority Date/Time Associated Diagnosis Comments CT ABDOMEN PELVIS W CONTRAST Routine 03/03/2017 12:00 AM CDT documented in this encounter Results * CT Abdomen Pelvis W Contrast (03/03/2017 12:00 AM CDT) Anatomical Region Laterality Modality Body N/A Computed Tomogra phy 03/03/2017 Impressions 03/03/2017 5:22 PM CDT ??3 mm nonobstructing stone lower right kidney. Negative appendix. T11 hemangioma Mild hepatic steatosis Automated exposure control was used as a dose optimization technique for this examination. THIS IS AN ELECTRONICALLY VERIFIED REPORT 03/03/2017 5:19 PM: ??Polly Thapa M.D. ?? Polly Thapa M.D. :as 05:19 PM 05:19 PM CALLI [EOD] Narrative 03/03/2017 5:22 PM CDT EXAMINATION: ??CT abdomen and pelvis with contrast HISTORY: ??Abdomen pain right lower quadrant left lower quadrant, hematochezia for 3 days TECHNIQUE: ??Axial CT images of the abdomen and pelvis obtained after administration of 100 mL Omnipaque 350 into the right antecubital fossa without complication.. ??No oral contrast. Comparison: ??None Findings: ??Visualized lung bases clear. ??Images of abdomen demonstrate mild hepatic steatosis. ??Gallbladder, pancreas, spleen, adrenal glands, left kidney have a normal appearance. 3 mL nonobstructing stone lower pole right kidney. ?? Aortic atherosclerosis. ??Loops of bowel normal in caliber. ??Negative appendix. No free fluid or free air. ??No destructive osseous lesion. ??Hemangioma T11 para Procedure Note Provider, MD Obdulia - 12/27/2020 EXAMINATION: CT abdomen and pelvis with contrast HISTORY: Abdomen pain right lower quadrant left lower quadrant,hematochezia for 3 days TECHNIQUE: Axial CT images of the abdomen and pelvis obtained after administration of 100 mL Omnipaque 350 into the right antecubital fossa without complication.. No oral contrast. Comparison: None Findings: Visualized lung bases clear. Images of abdomen demonstratemild hepatic steatosis. Gallbladder, pancreas, spleen, adrenal glands, leftkidney have a normal appearance. 3 mL nonobstructing stone lower pole rightkidney. Aortic atherosclerosis. Loops of bowel normal in caliber. Negativeappendix. No free fluid or free air. No destructive osseous lesion. [id number] para IMPRESSION: 3 mm nonobstructing stone lower right kidney. Negative appendix. T11 hemangioma Mild hepatic steatosis Automated exposure control was used as a dose optimization technique forthis examination. THIS IS AN ELECTRONICALLY VERIFIED REPORT 03/03/2017 5:19 PM: Polly Thapa M.D. Polly Thapa M.D. :as 05:19 PM 05:19 PM CALLI [EOD] Jennifer LAU IMG CT PROCEDURES Final Result documented in this encounter Visit Diagnoses Diagnosis Melena Blood in stool Lower abdominal pain Abdominal pain, other specified site Calculus of kidney Fatty (change of) liver, not elsewhere classified documented in this encounter Care Teams Division Engineer Relationship Specialty Start Date End Date Daniel Wilson MD [address] [facility] [address] [place] [address] PCP - General 12/05/16 05/12/17 documented as of this encounter
--- OUTSIDE RECORDS SUMMARY | 2024-08-09 03:15 | XMS_ITS | Encounter Summary ---
Author Organization [facility] Address [address] [place] [address] Phone Care Team Providers Care School Bus Attendant Name Role Phone No, Physician Primary Care Provider [phone] Attila Lepe MD Primary Care Provider Attila Lepe MD Primary Care Provider Grover Wren MD Unavailable [phone] Encounter Details Date Type Department Care Team (Late st Contact Info) Description 12/02/2017 Orders Only [facility] ProviderObdulia MD [address] [place] [id number] Social History Tobacco Use Types Packs/Day Years Used Date Smoking Tobacco: Never Smokeless Tobacco: Never Alcohol Use Standard Drinks/Week Comments No 0 (1 standard drink = 0.6 oz pure alcohol) caffeine-diet coke, tea, and coffee Comments Unknown Sex and Gender Information Value Date Recorded Sex Assigned at Not on file 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 us Historical Provider LAB BLOOD ORDERABLES Marion l Result documented in this encounter Visit Diagnoses Not on filedocumented in this encounter Care Teams School Bus Attendant Relationship Specialty Start Date End Date No, Physician PCP - General 05/13/17 07/20/24 Attila Lepe MD [address] [facility] [address] [place], [place] [id number] PCP - General Family Practice 07/21/24 07/21/24 Attila Lepe MD [address] [facility] [address] [place], [place] [id number] PCP - General Family Practice 07/22/24 Grover Wren MD [address] [facility] [address] [place] [address] Consulting Physician Cardiology 08/05/24 documented as of this encounter
--- OUTSIDE RECORDS SUMMARY | 2024-08-09 03:15 | XMS_ITS | Encounter Summary ---
Author Organization [facility] Address [address] [facility] [address] [place] [address] Care Team Providers Care Noteman Name Role Phone No, Physician Primary Care Provider [phone] Encounter Details Date Type Department Care Team (Late st Contact Info) Description 06/19/2017 Telephone [facility] [address] [facility] [address] [place] [address] Chastity Carrera MD [address] [facility] [address] [place] [address] Social History Tobacco Use Types Packs/Day Years Used Date Smoking Tobacco: Never Smokeless Tobacco: Never Alcohol Use Standard Drinks/Week Comments No 0 (1 standard drink = 0.6 oz pure alcohol) caffeine-diet coke, tea, and coffee Comments Unknown Sex and Gender Information Value Date Recorded Sex Assigned at Not on file 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 Frankie bhakta office called would like a copy of pts recent ANCA and MRI- I informed them the anca is in process and mri is ordered but not completed yet. They will call back in a week to follow up. If received request it to be faxed to [phone] office # is [phone] ATION THERAPIST documented in this encounter Plan of Treatment Not on file documented as of this encounter Visit Diagnoses Not on filedocumented in this encounter Care Teams Noteman Relationship Specialty Start Date End Date No, Physician PCP - General 05/13/17 07/20/24 documented as of this encounter
--- OUTSIDE RECORDS SUMMARY | 2024-08-09 03:15 | XMS_ITS | Encounter Summary ---
Author Organization [facility] Healthcare Address [address] [place] [address] Care Team Providers Care Print Decorator Name Role Phone No, Physician Primary Care Provider [phone] Encounter Details Date Type Department Care Team (Latest Contact Info) Description 05/13/2017 3:33 PM CDT - 05/13/2017 11:59 PM CDT Hospital Encounter [facility] INTERIM [phone] Damon Black MD [address] [facility] [address] [place] [address] Iritis; Positive BRANDIE (antinuclear antibody) Discharge Disposition: Discharge to home or self care Social History Tobacco Use Types Packs/Day Years Used Date Smoking Tobacco: Never Smokeless Tobacco: Never Alcohol Use Standard Drinks/Week Comments No 0 (1 standard drink = 0.6 oz pure alcohol) caffeine-diet coke, tea, and coffee Comments Unknown Sex and Gender Information Value Date Recorded Sex Assigned at Not on file Legal Sex Female 1:23 AM [employer] Gender Identity Not on file Sexual Orientation Not on file documented as of this encounter Medications at Time of Discharge pilocarpine (SALAGEN, PILOCARPINE,) 5 mg tablet 1 tablet (5 mg total) 2 (two) times a day for 12 days. 05/13/2017 05/25/2017 cyclobenzaprine ER (AMRIX) 15 mg 24 hr capsule 15 mg. 0 0 12/16/2016 12/02/2017 gabapentin (NEURONTIN) 100 mg capsule Take 3 capsules (300 mg total) by mouth nightly. 05/13/2017 06/02/2017 naproxen (NAPROSYN,ALEVE) 220 mg tablet Take by mouth 2 (two) times a day with meals. 08/02/2024 documented as of this encounter Discharge Disposition Disposition Code Departure Means Destination Discharge to home or self care documented in this encounter Plan of Treatment Not on file documented as of this encounter Procedures Procedure Name Priority Date/Time Associated Diagnosis Comments XR FOOT RIGHT 3 OR MORE VIEWS Schedule Routine, Read Routine (OP Routine) 05/13/2017 9:35 PM CDT Iritis Positive BRANDIE (antinuclear antibody) XR FOOT LEFT 3 OR MORE VIEWS Schedule Routine, Read Routine (OP Routine) 05/13/2017 9:35 PM CDT Iritis Positive BRANDIE (antinuclear antibody) XR HAND LEFT 3 OR MORE VIEWS Schedule Routine, Read Routine (OP Routine) 05/13/2017 9:35 PM CDT Iritis Positive BRANDIE (antinuclear antibody) XR SACROILIAC JOINTS 3 OR MORE VIEWS Schedule Routine, Read Routine (OP Routine) 05/13/2017 9:35 PM CDT Iritis XR CHEST PA LATERAL 2 VIEWS Schedule Routine, Read Routine (OP Routine) 05/13/2017 9:35 PM CDT Iritis Positive BRANDIE (antinuclear antibody) XR HAND RIGHT 3 OR MORE VIEWS Schedule Routine, Read Routine (OP Routine) 05/13/2017 9:34 PM CDT Iritis Positive BRANDIE (antinuclear antibody) documented in this encounter Results * XR Hand Left 3 or More Views (05/13/2017 9:35 PM CDT) Anatomical Region Laterality Modality Upper Extremities, Hand Left Radiogra psychiatricc Imaging 05/13/2017 9:35 PM CDT Narrative 05/13/2017 9:35 PM CDT EXAM: ??LEFT HAND 3 VIEWS CLINICAL HISTORY: Left hand pain. COMPARISON: None available. FINDINGS: There is generalized osteopenia. ??Moderate generalized osteoarthritic changes are appreciated. ??These are greatest in the distal interphalangeal joints. There is no evidence of acute fracture or malalignment. There is no evidence of bone destruction or erosion. ?? The overlying soft tissues are unremarkable. IMPRESSION: Degenerative changes as discussed above. Electronically signed by: Beto Roman M.D. Radiologist: BETO ROMAN M.D. ?? Attending: ??DAMON BLACK Requesting: DAMON BLACK Requesting Fax: ?? Requesting ID: [id number] Attending Fax: ?? Attending ID: ?? [id number] Completed Time: ?? 05/13/2017 4:35 PM Dictated Time: ?N/A Transcribed Time: 05/13/2017 5:53 PM Signed by: ?BETO ROMAN ??Carol on 05/13/2017 5:53 PM Report To 1 ID: Report To 1 Name: , Report To 1 FAX: Report To 2 ID: Report To 2 Name: , Report To 2 FAX: Report To 3 ID: Report To 3 Name: , Report To 3 FAX: NextGen Order #: [id number] Procedure Note Miscellaneous, Not In File / Provider, MD Obdulia - 05/13/2017 EXAM: LEFT HAND 3 VIEWS CLINICAL HISTORY: Left hand pain. COMPARISON: None available. FINDINGS: There is generalized osteopenia. Moderate generalized osteoarthritic changes are appreciated. These are greatest in the distal interphalangeal joints. There is no evidence of acute fracture or malalignment. There is no evidence of bone destruction or erosion. The overlying soft tissues are unremarkable. IMPRESSION: Degenerative changes as discussed above. Electronically signed by: Beto Roman M.D. Radiologist: BETO ROMAN M.D. Attending: DAMON BLACK Requesting: DAMON BLACK Requesting Requesting ID: [id number] Attending Attending ID: [id number] Completed Time: 05/13/2017 4:35 PM Dictated Time: N/A Transcribed Time: 05/13/2017 5:53 PM Signed by: BETO ROMAN M.D. on 05/13/2017 5:53 PM Report To 1 ID: Report To 1 Name: , Report To 1 FAX: Report To 2 ID: Report To 2 Name: , Report To 2 FAX: Report To 3 ID: Report To 3 Name: , Report To 3 FAX: Next[facility] Order #: [id number] Damon Black MD IMG XR PROCEDURES Edited Result - Final * XR Chest Pa Lateral 2 Views (05/13/2017 9:35 PM CDT) Anatomical Region Laterality Modality Body, Chest N/A Radiographic Melissa ging 05/13/2017 9:35 PM CDT Narrative 05/13/2017 9:35 PM CDT Two view chest radiograph CLINICAL HISTORY: Iritis. ??Positive antinuclear antibody. COMPARISON: None available. FINDINGS: The heart size and pulmonary vasculature are within normal limits. There is thoracic aortic atherosclerosis. The lungs are clear. No confluent infiltrates or effusions are seen. There is no evidence of pneumothorax. Mild degenerative changes are noted within the thoracic spine. ??The patient is status post anterior and posterior cervical spinal fusion procedure. IMPRESSION: No evidence of acute cardiopulmonary disease. Electronically signed by: Beto Roman M.D. Radiologist: BETO ROMAN M.D. ?? Attending: ??DAMON BLACK Requesting: DAMON BLACK Requesting Fax: ?? Requesting ID: [id number] Attending Fax: ?? Attending ID: ?? [id number] Completed Time: ?? 05/13/2017 4:35 PM Dictated Time: ?N/A Transcribed Time: 05/13/2017 5:50 PM Signed by: ?BETO ROMAN on 05/13/2017 5:50 PM Report To 1 ID: Report To 1 Name: , Report To 1 FAX: Report To 2 ID: Report To 2 Name: , Report To 2 FAX: Report To 3 ID: Report To 3 Name: , Report To 3 FAX: NextGen Order #: [id number] Procedure Note Miscellaneous, Not In File / Provider, MD Obdulia - 05/13/2017 Two view chest radiograph CLINICAL HISTORY: Iritis. Positive antinuclear antibody. COMPARISON: None available. FINDINGS: The heart size and pulmonary vasculature are within normal limits. There is thoracic aortic atherosclerosis. The lungs are clear. No confluent infiltrates or effusions are seen. There is no evidence of pneumothorax. Mild degenerative changes are noted within the thoracic spine. The patient is status post anterior and posterior cervical spinal fusion procedure. IMPRESSION: No evidence of acute cardiopulmonary disease. Electronically signed by: Beto Roman M.D. Radiologist: BETO ROMAN M.D. Attending: DAMON BLACK Requesting: DAMON BLACK Requesting Requesting ID: [id number] Attending Attending ID: [id number] Completed Time: 05/13/2017 4:35 PM Dictated Time: N/A Transcribed Time: 05/13/2017 5:50 PM Signed by: BETO ROMAN M.D. on 05/13/2017 5:50 PM Report To 1 ID: Report To 1 Name: , Report To 1 FAX: Report To 2 ID: Report To 2 Name: , Report To 2 FAX: Report To 3 ID: Report To 3 Name: , Report To 3 FAX: NextGen Order #: [id number] Damon Black MD IMG XR PROCEDURES Edited Result - Final * XR Sacroiliac Joints 3 or More Views (05/13/2017 9:35 PM CDT) Anatomical Region Laterality Modality Pelvis, Body N/A Radiographic Melissa ging 05/13/2017 9:35 PM CDT Narrative 05/13/2017 9:35 PM CDT EXAM: 4 view exam of the bilateral sacroiliac joints CLINICAL HISTORY: Iritis. ??Positive antinuclear antibody. ??Evaluate for sacroiliitis. COMPARISON: None available. FINDINGS: There is mild generalized osteopenia. ??There is mild bilateral sacroiliac joint degenerative change. ??There is no evidence of sacroiliitis. ??Lower lumbar spondylotic changes are noted. ?? There is no evidence of acute fracture or malalignment. There is no evidence of bone destruction or erosion. ?? The overlying soft tissues are unremarkable. IMPRESSION: Degenerative changes as above. Electronically signed by: Beto Roman M.D. Radiologist: BETO ROMAN M.D. ?? Attending: ??DAMON BLACK Requesting: DAMON BLACK Requesting Fax: ?? Requesting ID: [id number] Attending Fax: ?? Attending ID: ?? [id number] Completed Time: ?? 05/13/2017 4:35 PM Dictated Time: ?N/A Transcribed Time: 05/13/2017 5:48 PM Signed by: ?BETO ROMAN ??Carol on 05/13/2017 5:48 PM Report To 1 ID: Report To 1 Name: , Report To 1 FAX: Report To 2 ID: Report To 2 Name: , Report To 2 FAX: Report To 3 ID: Report To 3 Name: , Report To 3 FAX: NextGen Order #: [id number] Procedure Note Miscellaneous, Not In File / Provider, MD Obdulia - 05/13/2017 EXAM: 4 view exam of the bilateral sacroiliac joints CLINICAL HISTORY: Iritis. Positive antinuclear antibody. Evaluate for sacroiliitis. COMPARISON: None available. FINDINGS: There is mild generalized osteopenia. There is mild bilateral sacroiliac joint degenerative change. There is no evidence of sacroiliitis. Lower lumbar spondylotic changes are noted. There is no evidence of acute fracture or malalignment. There is no evidence of bone destruction or erosion. The overlying soft tissues are unremarkable. IMPRESSION: Degenerative changes as above. Electronically signed by: Beto Roman M.D. Radiologist: BETO ROMAN M.D. Attending: DAMON BLACK Requesting: DAMON BLACK Requesting Requesting ID: [id number] Attending Attending ID: [id number] Completed Time: 05/13/2017 4:35 PM Dictated Time: N/A Transcribed Time: 05/13/2017 5:48 PM Signed by: BETO ROMAN M.D. on 05/13/2017 5:48 PM Report To 1 ID: Report To 1 Name: , Report To 1 FAX: Report To 2 ID: Report To 2 Name: , Report To 2 FAX: Report To 3 ID: Report To 3 Name: , Report To 3 FAX: NextGen Order #: [id number] Damon Black MD IMG XR PROCEDURES Edited Result - Final * XR Foot Left 3 or More Views (05/13/2017 9:35 PM CDT) Anatomical Region Laterality Modality Lower Extremities, Foot Left Radiogra phic Imaging 05/13/2017 9:35 PM CDT Narrative 05/13/2017 9:35 PM CDT EXAM: ??LEFT FOOT 3 VIEWS CLINICAL HISTORY: Left foot pain. ??Iritis. ??Positive antinuclear antibody. COMPARISON: None available. FINDINGS: There is generalized osteopenia. ??There is mild to moderate 1st metatarsophalangeal joint space narrowing and hypertrophic spur formation. ??Mild degenerative changes are noted throughout the remainder of the left foot. ??Small plantar and posterior calcaneal spurs are noted. ?? There is no evidence of acute fracture or malalignment. There is no evidence of bone destruction or erosion. ?? The overlying soft tissues are unremarkable. IMPRESSION: Degenerative changes as above. Electronically signed by: Beto Roman M.D. Radiologist: BETO ROMAN M.D. ?? Attending: ??DAMON BLACK Requesting: DAMON BLACK Requesting Fax: ?? Requesting ID: [id number] Attending Fax: ?? Attending ID: ?? [id number] Completed Time: ?? 05/13/2017 4:35 PM Dictated Time: ?N/A Transcribed Time: 05/13/2017 5:47 PM Signed by: ?BETO ROMAN on 05/13/2017 5:47 PM Report To 1 ID: Report To 1 Name: , Report To 1 FAX: Report To 2 ID: Report To 2 Name: , Report To 2 FAX: Report To 3 ID: Report To 3 Name: , Report To 3 FAX: NextGen Order #: [id number] Procedure Note Miscellaneous, Not In File / Provider, MD Obdulia - 05/13/2017 EXAM: LEFT FOOT 3 VIEWS CLINICAL HISTORY: Left foot pain. Iritis. Positive antinuclear antibody. COMPARISON: None available. FINDINGS: There is generalized osteopenia. There is mild to moderate 1st metatarsophalangeal joint space narrowing and hypertrophic spur formation. Mild degenerative changes are noted throughout the remainder of the left foot. Small plantar and posterior calcaneal spurs are noted. There is no evidence of acute fracture or malalignment. There is no evidence of bone destruction or erosion. The overlying soft tissues are unremarkable. IMPRESSION: Degenerative changes as above. Electronically signed by: Beto Roman M.D. Radiologist: BETO ROMAN M.D. Attending: DAMON BLACK Requesting: DAMON BLACK Requesting Requesting ID: [id number] Attending Attending ID: [id number] Completed Time: 05/13/2017 4:35 PM Dictated Time: N/A Transcribed Time: 05/13/2017 5:47 PM Signed by: BETO ROMAN M.D. on 05/13/2017 5:47 PM Report To 1 ID: Report To 1 Name: , Report To 1 FAX: Report To 2 ID: Report To 2 Name: , Report To 2 FAX: Report To 3 ID: Report To 3 Name: , Report To 3 FAX: NextGen Order #: [id number] Damon Black MD IMG XR PROCEDURES Edited Result - Final * XR Foot Right 3 or More Views (05/13/2017 9:35 PM CDT) Anatomical Region Laterality Modality Lower Extremities, Foot Right Radiogra psychiatricc Imaging 05/13/2017 9:35 PM CDT Narrative 05/13/2017 9:35 PM CDT EXAM: ??RIGHT FOOT 3 VIEWS CLINICAL HISTORY: Iritis. ??Positive AMA anterior nuclear antibody. Foot pain. COMPARISON: None available. FINDINGS: There is generalized osteopenia. ??There is moderate to severe 1st metatarsophalangeal joint space narrowing and hypertrophic spur formation. ??Mild to moderate midfoot degenerative changes are noted. Mild degenerative changes are noted throughout the remainder of the right foot. ??Small plantar and posterior calcaneal spurs are noted. ?? There is no evidence of acute fracture or malalignment. There is no evidence of bone destruction or erosion. ?? The overlying soft tissues are unremarkable. IMPRESSION: Degenerative changes as above. Electronically signed by: Beto Roman M.D. Radiologist: BETO ROMAN M.D. ?? Attending: ??DAMON BLACK Requesting: DAMON BLACK Requesting Fax: ?? Requesting ID: [id number] Attending Fax: ?? Attending ID: ?? [id number] Completed Time: ?? 05/13/2017 4:35 PM Dictated Time: ?N/A Transcribed Time: 05/13/2017 5:45 PM Signed by: ?BETO ROMAN ??Carol on 05/13/2017 5:45 PM Report To 1 ID: Report To 1 Name: , Report To 1 FAX: Report To 2 ID: Report To 2 Name: , Report To 2 FAX: Report To 3 ID: Report To 3 Name: , Report To 3 FAX: NextGen Order #: [id number] Procedure Note Miscellaneous, Not In File / Provider, MD Obdulia - 05/13/2017 EXAM: RIGHT FOOT 3 VIEWS CLINICAL HISTORY: Iritis. Positive AMA anterior nuclear antibody. Foot pain. COMPARISON: None available. FINDINGS: There is generalized osteopenia. There is moderate to severe 1st metatarsophalangeal joint space narrowing and hypertrophic spur formation. Mild to moderate midfoot degenerative changes are noted. Mild degenerative changes are noted throughout the remainder of the right foot. Small plantar and posterior calcaneal spurs are noted. There is no evidence of acute fracture or malalignment. There is no evidence of bone destruction or erosion. The overlying soft tissues are unremarkable. IMPRESSION: Degenerative changes as above. Electronically signed by: Beto Roman M.D. Radiologist: BETO ROMAN M.D. Attending: DAMON BLACK Requesting: DAMON BLACK Requesting Requesting ID: [id number] Attending Attending ID: [id number] Completed Time: 05/13/2017 4:35 PM Dictated Time: N/A Transcribed Time: 05/13/2017 5:45 PM Signed by: BETO ROMAN M.D. on 05/13/2017 5:45 PM Report To 1 ID: Report To 1 Name: , Report To 1 FAX: Report To 2 ID: Report To 2 Name: , Report To 2 FAX: Report To 3 ID: Report To 3 Name: , Report To 3 FAX: NextGen Order #: [id number] Damon Black MD IMG XR PROCEDURES Edited Result - Final * XR Hand Right 3 or More Views (05/13/2017 9:34 PM CDT) Anatomical Region Laterality Modality Upper Extremities, Hand Right Radiogra psychiatricc Imaging 05/13/2017 9:34 PM CDT Narrative 05/13/2017 9:34 PM CDT EXAM: ??RIGHT HAND 3 VIEWS CLINICAL HISTORY: Right hand pain. ??Iritis. ??Positive anti-nuclear antibody. COMPARISON: None available. FINDINGS: There is generalized osteopenia. ??Moderate generalized osteoarthritic changes are appreciated. ?? There is no evidence of acute fracture or malalignment. There is no evidence of bone destruction or erosion. ?? The overlying soft tissues are unremarkable. IMPRESSION: Degenerative changes as discussed above. Electronically signed by: Beto Roman M.D. Radiologist: BETO ROMAN M.D. ?? Attending: ??DAMON BLACK Requesting: DAMON BLACK Requesting Fax: ?? Requesting ID: [id number] Attending Fax: ?? Attending ID: ?? [id number] Completed Time: ?? 05/13/2017 4:34 PM Dictated Time: ?N/A Transcribed Time: 05/13/2017 5:52 PM Signed by: ?BETO ROMAN?Carol on 05/13/2017 5:52 PM Report To 1 ID: Report To 1 Name: , Report To 1 FAX: Report To 2 ID: Report To 2 Name: , Report To 2 FAX: Report To 3 ID: Report To 3 Name: , Report To 3 FAX: NextGen Order #: [id number] Procedure Note Miscellaneous, Not In File / Provider, MD Obdulia - 05/13/2017 EXAM: RIGHT HAND 3 VIEWS CLINICAL HISTORY: Right hand pain. Iritis. Positive anti-nuclear antibody. COMPARISON: None available. FINDINGS: There is generalized osteopenia. Moderate generalized osteoarthritic changes are appreciated. There is no evidence of acute fracture or malalignment. There is no evidence of bone destruction or erosion. The overlying soft tissues are unremarkable. IMPRESSION: Degenerative changes as discussed above. Electronically signed by: Beto Roman M.D. Radiologist: BETO ROMAN M.D. Attending: DAMON BLACK Requesting: DAMON BLACK Requesting Requesting ID: [id number] Attending Attending ID: [id number] Completed Time: 05/13/2017 4:34 PM Dictated Time: N/A Transcribed Time: 05/13/2017 5:52 PM Signed by: BETO ROMAN M.D. on 05/13/2017 5:52 PM Report To 1 ID: Report To 1 Name: , Report To 1 FAX: Report To 2 ID: Report To 2 Name: , Report To 2 FAX: Report To 3 ID: Report To 3 Name: , Report To 3 FAX: NextGen Order #: [id number] Damon Black MD IMG XR PROCEDURES Edited Result - Final documented in this encounter Visit Diagnoses Diagnosis Iritis Unspecified iridocyclitis Positive BRANDIE (antinuclear antibody) Other and unspecified nonspecific immunological findings documented in this encounter Care Teams Print Decorator Relationship Specialty Start Date End Date No, Physician PCP - General 05/13/17 07/20/24 documented as of this encounter
--- OUTSIDE RECORDS SUMMARY | 2024-08-09 03:15 | XMS_ITS | Referral Summary ---
Author Organization [facility] Address [address] [place] [address] Care Team Providers Care Roofer Apprentice Name Role Phone Attila Lepe MD Primary Care Provider Grover Wren MD Unavailable Encounters Date Type Department Care Team Description 08/06/2024 Orders Only [facility] Medical [facility] Cardiology [address] [facility] [address] [place] [phone] Daniel Logan MD 08/06/2024 Telephone [facility] Cardiology [address] [facility] [address] [place] [address] Barbara العراقي NP Scheduling Appointments 08/05/2024 Orders Only [facility] Cardiology [address] [facility] [address] [place] [address] Keisha Dueñas MD 08/05/2024 Telephone [facility] Cardiology [address] [facility] [address] [place] [address] Daniel Logan MD follow up appt 08/02/2024 7:19 PM ROOM INSPECTOR - 08/05/2024 2:07 PM ROOM INSPECTOR Hospital Encounter [facility] [address] [place] [address] Ayesha Billings MD Shimotani, Dorian Genki, DO Li, Alex, MD 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); Coronary artery 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]; Retroperitoneal hemorrhage [R58]; S/P drug eluting coronary stent placement Discharge Disposition: Discharge to home or self care 08/02/2024 Surgery [facility] [place] [address] Grover Wren MD LEFT HEART CATHETERIZATION WITH CORONARY ANGIOGRAPHY AND WITH OR WITHOUT LEFT VENTRICULOGRAM [id number] 08/02/2024 Orders Only [place] [address] [place] [address] Ayesha Billings MD 07/22/2024 Telephone [facility] Cardiology [address] [place] [phone] Daniel Logan MD 07/22/2024 1:00 PM ROOM INSPECTOR Office Visit [facility] Cardiology [address] [facility] [address] [place] [address] Daniel Logan MD Angina pectoris, unstable (CMS/HCC) (HCC) (Primary Dx); Need for lipid screening 07/21/2024 Telephone [facility] Cardiology [address] [place] [address] Temitope Romano MA Medical Records Request from Last 3 Months Allergies Active Allergy Reactions Criticality Noted Date Comments Amoxicillin Nut - Unspecified Potassium Tree Nut Other (See comments) Low 07/22/2024 Reaction: Medications cyclobenzaprine (FLEXERIL) 10 mg tablet Take 1 tablet (10 mg total) by mouth nightly as needed. 8 Active levothyroxine (SYNTHROID) 50 mcg tablet Take 1 tablet (50 mcg total) by mouth dough catcher before breakfast Active amitriptyline (ELAVIL) 25 mg tablet Take 1 tablet (25 mg total) by mouth nightly Active loratadine 10 mg capsule Take 10 mg by mouth daily as needed Active fluticasone propionate (FLONASE) 50 mcg/actuation nasal spray Administer 1 spray into each nostril daily as needed Active cholecalciferol (VITAMIN D-3) 1,000 unit capsule Take 1 capsule (1,000 Units total) by mouth 2 (two) times a day Active omeprazole (PriLOSEC) 20 mg capsule Take 1 capsule (20 mg total) by mouth 2 (two) times a day Active traMADoL (ULTRAM) 50 mg tablet Take 1 tablet (50 mg total) by mouth every 6 (six) hours as needed for pain Active acetaminophen (TYLENOL) 325 mg suppository Insert 1 suppository (325 mg total) into the rectum every 4 (four) hours as needed for pain Active predniSONE (DELTASONE) 5 mg tablet Take 1 tablet (5 mg) by mouth daily as needed Active aspirin 81 mg enteric coated tablet Take 1 tablet (81 mg total) by mouth daily 90 tablet 3 4 025 Active metoprolol XL (TOPROL-XL) 25 mg extended release tablet Take 1 tablet (25 mg total) by mouth daily 90 tablet 3 4 025 Active rosuvastatin (CRESTOR) 20 mg tablet Take 1 tablet (20 mg total) by mouth nightly 90 tablet 3 4 025 Active folic acid (FOLVITE) 1 mg tablet Take 1 tablet (1 mg total) by mouth daily Active clopidogreL (PLAVIX) 75 mg tabletIndicatio ns:myocardial infarction prevention,card iovascular disease Take 1 tablet (75 mg total) by mouth daily 30 tablet 4 Active naproxen (NAPROSYN,ALEVE ) 220 mg tablet Take by mouth 2 (two) times a day with meals. Discontin ued(Thera py completed ) LINZESS 290 mcg capsule Take 290 mcg by mouth daily. 8 Discontin ued(Thera py completed ) gabapentin (NEURONTIN) 100 mg capsule Take 2 capsules (200 mg total) by mouth nightly. 90 capsule 1 8 Discontin ued(Thera py completed ) rosuvastatin (CRESTOR) 5 mg tablet Take 4 tablets (20 mg total) by mouth daily Discontin ued(Alter catia therapy) zoledronic wugn-yujffafT-s ater (RECLAST) 5 mg/100 mL piggyback Infuse 100 mL (5 mg total) into a venous catheter 12/23/2 024 Discontin ued(Thera py completed ) Active Problems Problem Noted Date Diagnosed Date Coronary artery dissection 08/04/2024 Retroperitoneal hemorrhage 08/04/2024 Occlusion of left circumflex coronary artery Primary osteoarthritis involving multiple joints 12/02/2017 DDD (degenerative disc disease), cervical 2017 DDD (degenerative disc disease), lumbar 12/03/19 18 Irritable bowel syndrome with constipation 12/02 Assessment & Plan (12/02/2017 9:20 PM CDT): See discussion above Pain of right orbit 06/17/2017 Class 1 obesity due to exces s calories without serious comorbidity with body mass index (BMI) of 30.0 to 30.9 in adult 05/13/2017 Assessment & Plan (12/02/2017 9:20 PM CDT): An optimal BMI (body mass index) is between 20 and 25. Encourage weight loss. Each pound of weight lost unloads 3-4 pounds per square inch pressure from weight bearing joints. Diet and exercise are the keys to weight management. Assessment & Plan (06/17/2017 8:38 PM ROOM INSPECTOR): An optimal BMI (body mass index) is between 20 and 25. Encourage weight loss. Each pound of weight lost unloads 3-4 pounds per square inch pressure from weight bearing joints. Diet and exercise are the keys to weight management. Assessment & Plan (05/13/2017 3:08 PM CDT): An optimal body mass index is between 20 and 25. Encourage weight loss. Each pound of weight lost unloads 3-4 pounds per square inch pressure from weight bearing joints. Diet and exercise are the keys to weight management. Positive BRANDIE (antinuclear antibody) 05/13/2017 Assessment & Plan (12/02/2017 9:19 PM CDT): History of positive BRANDIE (1:160) with remaining lab unrevealing. She was initially referred to our office with reported scleritis, though inflammatory eye findings were not confirmed when evaluated by Dr. Benny Coates ([facility]). Records have been requested. She has continued orbital pain (previous orbital imaging unrevealing), and now complains of increased facial pain and headache. She reports she was treated at some time in the past for similar symptoms with suspected trigeminal neuralgia (after diagnosis was suggested as possible here). She has chronic IBS with constipation treated with Linzess by Dr. Uday Tafoya. Repeated evaluations for inflammatory bowel disease have been unremarkable. Will update lab and imaging as per orders. Further therapeutic plans pend same. She may benefit from a neurology consultation pend same. Assessment & Plan (05/13/2017 3:08 PM CDT): See discussion above Scleritis 05/13/2017 Assessment & Plan (12/02/2017 9:21 PM CDT): See comments above. Assessment & Plan (06/17/2017 8:37 PM ROOM INSPECTOR): Patient with positive BRANDIE (1:160) and continued right orbital pain as well as generalized musculoskeletal pain. She has previous iritis/uveitis (improved on recent exam per ophthalmology, Dr. Leblanc). 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 She has continued right orbital tenderness (palpebral fissure). Recommend MRI brain/orbit (though previous CT sinus suggested no abnormalities). Will check ANCA. Further plans pend above. 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 Of note are her prominent complaints of diffuse arthralgias, chronic back and neck pain (with multiple previous surgical interventions), and recurrent rectal bleeding (colonoscopy documented ulcers terminal ileum with path NOT diagnostic of IBD: lymphoid hyperplasia without inflammation). Discussed with patient the nonspecificity of BRANDIE as an isolated marker as well as differential diagnosis of systemic inflammatory diseases associated with inflammatory eye issues. Will pursue comprehensive lab evaluation including BRANDIE Panel as per orders. Imaging of the chest (rule out sarcoidosis), hands and feet as well as sacroiliac joints (rule out spondyloarthropathy) are included. Further plans pend above. Multiple environmental allergies 12/16/2016 Overview (01/03/2017): Multiple environmental allergies Social History Tobacco Use Types Packs/Day Years Used Date Smoking Tobacco: Never Smokeless Tobacco: Never Alcohol Use Standard Drinks/Week Comments No 0 (1 standard drink = 0.6 oz pure alcohol) caffeine-diet coke, tea, and coffee [facility] Utilities Answer Date Recorded In the past 12 months has e [employer], [employer], oil, or water [employer] threatened to shut off services in your home? No 08/03/2024 Social Connection and Isolat ion Panel [NHANES] Answer Date Recorded In a typical week, how many times do you talk on the phone with family, friends, or neighbors? More than three times a week 08/03/2024 How often do you get togethe r with friends or relatives? More than three times a week 08/03/2024 How often do you attend chur ch or jainism services? More than 4 times per year 08/03/2024 Do you belong to any clubs o r organizations such as orthodox groups, unions, fraternal or athletic groups, or school groups? No 08/03/2024 How often do you attend meet ings of the clubs or organizations you belong to? Never 08/03/2024 Are you , , di vorced, , never , or living with a partner? 08/03/2024 Overall Financial Resource Strain (CARDIA) Answe r Date Recorded How hard is it for you to pa y for the very basics like food, housing, medical care, and heating? Not very hard 08/03/2024 Hunger Vital Sign Answer Date Recorded Within the past 12 months, y ou worried that your food would run out before you got the money to buy more. Never true 08/03/20 24 Within the past 12 months, t he food you bought just didn't last and you didn't have money to get more. Never true 08/03/2024 PRAPARE - Transportation Answer Date Re corded In the past 12 months, has l ack of transportation kept you from medical appointments or from getting medications? No 07/12 In the past 12 months, has l ack of transportation kept you from meetings, work, or from getting things needed for daily living? No 08/03/2024 Housing Stability Vital Sign Answer Humberto e Recorded In the last 12 months, was t here a time when you were not able to pay the mortgage or rent on time? No 08/03/2024 In the past 12 months, how m any times have you moved where you were living? 0 08/03/2024 At any time in the past 12 [facility], were you homeless or living in a snf (including now)? No 08/03/2024 Personal Safety Answer Date Recorded Have you ever been in or are you currently in a harmful physical or emotional relationship or is someone making you feel afraid or unsafe? Denies 08/03/2024 Comments Unknown Sex and Gender Information Value Date Recorded Sex Assigned at Not on file Legal Sex Female 1:23 AM ROOM INSPECTOR Gender Identity Not on file Sexual Orientation Not on file Last Filed Vital Signs Vital Sign Reading Time Taken Comments Blood Pressure 114/51 08/05/2024 12:15 PM ROOM INSPECTOR Pulse 97 08/05/2024 12:10 PM ROOM INSPECTOR Temperature 36.4 ??C (97.6 ??F) 08/05/2024 12:[address] Respiratory Rate 20 08/05/2024 12:10 PM ROOM INSPECTOR Oxygen Saturation 100% 08/05/2024 12:10 PM ROOM INSPECTOR Inhaled Oxygen Concentration - - Weight 69.9 kg (154 lb 1.6 oz) 08/05/2024 4:46 A M ROOM INSPECTOR Height 154.9 cm (5' 1 ) 08/02/2024 7:46 PM ROOM INSPECTOR Body Mass Index 29.12 08/02/2024 7:46 PM ROOM INSPECTOR Plan of Treatment Not on file Medical Devices Implanted Type Area Stitch Burnisher Device Identifier Shelf Expiration Date Model / Serial / Lot [employer]o Synergy Xd Monorail 2.25mm 32mm 144cm Delivery System 1 Access [id number] - S0 - [id number] Implanted:Qty: 1 on 08/02/2024 by Grover Wren MD at [facility] Stent [employer] 01/26/2026 [id number] / 0 / [id number] [employer] Angio-Seal Vip 6fr Closere Device [id number] - S0 - [id number] Implanted:Qty: 1 on 08/02/2024 by Grover Wren MD at [facility] Vascular Closure Device [employer] Wenceslao 03/15/2025 [id number] / 0 / [id number] Procedures Procedure Name Priority Date/Time Associated Diagnosis Comments EGFR Routine 08/05/2024 4:30 AM ROOM INSPECTOR DIFFERENTIAL AUTO Routine 08/05/2024 4:3 0 AM ROOM INSPECTOR BASIC METABOLIC PANEL Routine 08/05/2024 4:30 AM ROOM INSPECTOR CBC WITH AUTO DIFFERENTIAL Routine 08/05/2024 4:30 AM ROOM INSPECTOR HEMOGLOBIN A1C Routine 08/04/2024 8:14 AM ROOM INSPECTOR EGFR Routine 08/04/2024 8:14 AM ROOM INSPECTOR DIFFERENTIAL AUTO Routine 08/04/2024 8:1 4 AM ROOM INSPECTOR MAGNESIUM Routine 08/04/2024 8:14 AM ROOM INSPECTOR BASIC METABOLIC PANEL Routine 08/04/2024 8:14 AM ROOM INSPECTOR CBC WITH AUTO DIFFERENTIAL Routine 08/04/2024 8:14 AM ROOM INSPECTOR CBC WITHOUT DIFFERENTIAL Routine 10:[address] ABDOMEN PELVIS W WO CONTRAST ED Urgent/IP Urgent 08/03/2024 4:58 AM ROOM INSPECTOR EGFR Routine 08/03/2024 4:52 AM ROOM INSPECTOR DIFFERENTIAL AUTO STAT 08/03/2024 4:5 2 AM ROOM INSPECTOR CBC WITH AUTO DIFFERENTIAL STAT 08/03/2024 4:52 AM ROOM INSPECTOR BASIC METABOLIC PANEL Routine 08/03/2024 4:52 AM ROOM INSPECTOR LIPID PANEL Routine 08/03/2024 4:[address] CHEST ABDOMEN PELVIS WO CONTRAST ED Urgent/IP Urgent 08/03/2024 2:05 AM ROOM INSPECTOR TYPE AND SCREEN STAT 08/03/2024 1:29 AM ROOM INSPECTOR EGFR STAT 08/03/2024 1:12 AM ROOM INSPECTOR DIFFERENTIAL AUTO STAT 08/03/2024 1:1 2 AM ROOM INSPECTOR PROTIME-INR STAT 08/03/2024 1:12 AM ROOM INSPECTOR RENAL FUNCTION PANEL STAT 08/03/2024 1:12 AM ROOM INSPECTOR CBC WITH AUTO DIFFERENTIAL STAT 08/03/2024 1:12 AM ROOM INSPECTOR B CHECK SAMPLE STAT 08/03/2024 1:11 AM ROOM INSPECTOR ECG 12-LEAD Routine 08/03/2024 12:52 AM ROOM INSPECTOR PROTIME-INR Routine 08/02/2024 10:24 PM ROOM INSPECTOR LEFT HEART CATHETERIZATION WITH CORONARY ANGIOGRAPHY AND WITH AND WITHOUT LEFT VENTRICULOGRAM Routine 08/02/2024 9:48 PM ROOM INSPECTOR ECG 12-LEAD STAT 08/02/2024 7:38 PM ROOM INSPECTOR CARDIOLOGY DOCUMENT SCAN Routine 12:45 PM ROOM INSPECTOR CARDIOLOGY DOCUMENT SCAN Routine 024 1:11 PM ROOM INSPECTOR ELECTROCARDIOGRAM REPORT Routine 024 3:53 PM ROOM INSPECTOR Angina pectoris, unstable (CMS/HCC) (HCC) POCT LIPID PANEL Routine 07/22/2024 2:54 PM ROOM INSPECTOR Need for lipid screening from Last 3 Months Results * eGFR (08/05/2024 4:30 AM ROOM INSPECTOR) eGFR 71 >=60 mL/min/1. 73 m2 Comment: Interpretive Data Reference Interval Normal ?>/= 90 mL/min/1.73m2 Mildly decreased* ? 60 - 89 mL/min/1.73m2 Mildly to moderately decreased ?45 - 59 mL/min/1.73m2 Moderately to severely decreased ??30 - 44 mL/min/1.73m2 Severely decreased ?15 - 29 mL/min/1.73m2 Kidney Failure ?< 15 ??mL/min/1.73m2 *Relative to young adult level Estimated glomerular filtration rate is determined by the 2020 CKD-EPI equation recommended by the National Kidney Foundation (A Unifying Approach to GFR Estimation: Recommendations of the NKF-ASK Task Force on Reassessing the Inclusion of Race in Diagnosing Kidney Disease, JASN 2020). The CKD-EPI equation should not be used for patients with unstable renal function and has not been validated in children and those over 70. Current interpretive data was last reviewed 2021. Blood 08/05/2024 4:30 AM ROOM INSPECTOR 08/05/2024 6:17 AM ROOM INSPECTOR us Chilo Rodriguez NP LAB BLOOD ORDERABLES [facility] [address] Department [place] [address] * (ABNORMAL) Differential, auto (08/05/2024 4:30 AM ROOM INSPECTOR) Neutrophil abs 5.7 1.5 - 6.5 K/cumm Imm gran abs 0.0 0.0 - 0.1 K/cumm [facility] Lymphocyte abs 1.5 0.8 - 3.3 K/cumm [facility] Monocyte abs 0.9(H) 0.2 - 0.8 K/cumm [facility] Eosinophil abs 0.1 0.0 - 0.5 K/cumm [facility] Basophil abs 0.0 0.0 - 0.1 K/cumm [facility] Neutrophil pct 68.3 % [facility] Comment: Interpretive Data Percent cell count reference ranges are not reported, since discordance with absolute values may lead to misinterpretation of CBC data. Current Interpretive Data was last revised on 2017. Imm gran pct 0.5 % [facility] Comment: Interpretive Data Percent cell count reference ranges are not reported, since discordance with absolute values may lead to misinterpretation of CBC data. Current Interpretive Data was last revised on 2017. Lymphocyte pct 18.3 % [facility] Comment: Interpretive Data Percent cell count reference ranges are not reported, since discordance with absolute values may lead to misinterpretation of CBC data. Current Interpretive Data was last revised on 2017. Monocyte pct 11.0 % [facility] Comment: Interpretive Data Percent cell count reference ranges are not reported, since discordance with absolute values may lead to misinterpretation of CBC data. Current Interpretive Data was last revised on 2017. Eosinophil pct 1.7 % [facility] Comment: Interpretive Data Percent cell count reference ranges are not reported, since discordance with absolute values may lead to misinterpretation of CBC data. Current Interpretive Data was last revised on 2017. Basophil pct 0.2 % [facility] Comment: Interpretive Data Percent cell count reference ranges are not reported, since discordance with absolute values may lead to misinterpretation of CBC data. Current Interpretive Data was last revised on 2017. Blood 08/05/2024 4:30 AM ROOM INSPECTOR 08/05/2024 6:17 AM ROOM INSPECTOR us Chilo Rodriguez NP LAB BLOOD ORDERABLES Final Resul t [facility] [address] Department [place] [address] * (ABNORMAL) CBC with auto differential (08/05/2024 4:30 AM ROOM INSPECTOR) WBC 8.4 3.8 - 9.9 K/cumm Hgb 9.0(L) 11.9 - 15.5 g/dL [facility] Hct 28.6(L) 35.6 - 45.5 % [facility] Plt 158 150 - 400 K/cumm [facility] MPV 12.0 9.1 - 12.3 fL [facility] RBC 2.84(L) 3.90 - 5.20 M/cumm [facility] MCV 100.7(H) 81.3 - 96.4 fL [facility] MCH 31.7 27.1 - 33.3 pg [facility] MCHC 31.5(L) 32.3 - 35.7 g/dL [facility] RDW CV 14.8 11.1 - 14.9 % [facility] RDW SD 54.7(H) 35.7 - 48.1 fL [facility] NRBC abs 0.00 0.00 - 0.01 K/cumm [facility] Blood 08/05/2024 4:30 AM ROOM INSPECTOR 08/05/2024 6:17 AM ROOM INSPECTOR us Chilo Rodriguez NP LAB BLOOD ORDERABLES Final Resul t [facility] [address] Department [place] [address] * (ABNORMAL) Basic metabolic panel (08/05/2024 4:30 AM ROOM INSPECTOR) Sodium 140 135 - 145 mmol/L Potassium, pl 3.3 3.3 - 4.9 mmol/L [facility] Chloride 107 97 - 110 mmol/L [facility] CO2 21(L) 22 - 32 mmol/L [facility] Anion gap 12 2 - 15 mmol/L [facility] BUN 11 6 - 25 mg/dL [facility] Creatinine 0.87 0.60 - 1.10 mg/dL [facility] Glucose 95 70 - 199 mg/dL [facility] Comment: Interpretive Data Fasting glucose >/= 126 mg/dl is diagnostic for diabetes. ?? Fasting is defined as no caloric intake for at least 8 hours. Fasting glucose between 100 mg/dl to 125 mg/dl is diagnostic of prediabetes. In a patient with classic symptoms of hyperglycemia or hyperglycemic crisis, a random glucose >/= 200 mg/dl is diagnostic for diabetes. In the absence of unequivocal hyperglycemia, results should be confirmed by repeat testing. The classification and Diagnosis of Diabetes Diabetes Care 202; 46: S19-S40. Current interpretive data was last revised 2022. Calcium 8.2(L) 8.5 - 10.3 mg/dL [facility] Blood 08/05/2024 4:30 AM ROOM INSPECTOR 08/05/2024 6:17 AM ROOM INSPECTOR us Chilo Rodriguez NP LAB BLOOD ORDERABLES Final Resul t [facility] [address] Department [place] [address] * eGFR (08/04/2024 8:14 AM ROOM INSPECTOR) eGFR 75 >=60 mL/min/1. 73 m2 Comment: Interpretive Data Reference Interval Normal ?>/= 90 mL/min/1.73m2 Mildly decreased* ? 60 - 89 mL/min/1.73m2 Mildly to moderately decreased ?45 - 59 mL/min/1.73m2 Moderately to severely decreased ??30 - 44 mL/min/1.73m2 Severely decreased ?15 - 29 mL/min/1.73m2 Kidney Failure ?< 15 ??mL/min/1.73m2 *Relative to young adult level Estimated glomerular filtration rate is determined by the 2020 CKD-EPI equation recommended by the National Kidney Foundation (A Unifying Approach to GFR Estimation: Recommendations of the NKF-ASK Task Force on Reassessing the Inclusion of Race in Diagnosing Kidney Disease, JASN 2020). The CKD-EPI equation should not be used for patients with unstable renal function and has not been validated in children and those over 70. Current interpretive data was last reviewed 2021. Blood 08/04/2024 8:14 AM ROOM INSPECTOR 08/04/2024 8:32 AM ROOM INSPECTOR us Chilo Rodriguez NP LAB BLOOD ORDERABLES Final Resul t [facility] [address] Department [place] [address] * (ABNORMAL) Differential, auto (08/04/2024 8:14 AM ROOM INSPECTOR) Neutrophil abs 7.7(H) 1.5 - 6.5 K/cumm Imm gran abs 0.1 0.0 - 0.1 K/cumm [facility] Lymphocyte abs 1.0 0.8 - 3.3 K/cumm [facility] Monocyte abs 1.2(H) 0.2 - 0.8 K/cumm [facility] Eosinophil abs 0.1 0.0 - 0.5 K/cumm [facility] Basophil abs 0.0 0.0 - 0.1 K/cumm [facility] Neutrophil pct 76.9 % [facility] Comment: Interpretive Data Percent cell count reference ranges are not reported, since discordance with absolute values may lead to misinterpretation of CBC data. Current Interpretive Data was last revised on 2017. Imm gran pct 0.7 % [facility] Comment: Interpretive Data Percent cell count reference ranges are not reported, since discordance with absolute values may lead to misinterpretation of CBC data. Current Interpretive Data was last revised on 2017. Lymphocyte pct 9.5 % [facility] Comment: Interpretive Data Percent cell count reference ranges are not reported, since discordance with absolute values may lead to misinterpretation of CBC data. Current Interpretive Data was last revised on 2017. Monocyte pct 12.3 % [facility] Comment: Interpretive Data Percent cell count reference ranges are not reported, since discordance with absolute values may lead to misinterpretation of CBC data. Current Interpretive Data was last revised on 2017. Eosinophil pct 0.5 % [facility] Comment: Interpretive Data Percent cell count reference ranges are not reported, since discordance with absolute values may lead to misinterpretation of CBC data. Current Interpretive Data was last revised on 2017. Basophil pct 0.1 % [facility] Comment: Interpretive Data Percent cell count reference ranges are not reported, since discordance with absolute values may lead to misinterpretation of CBC data. Current Interpretive Data was last revised on 2017. Blood 08/04/2024 8:14 AM ROOM INSPECTOR 08/04/2024 8:33 AM ROOM INSPECTOR us Chilo Rodriguez NP LAB BLOOD ORDERABLES Final Resul t [facility] [address] Department [place] [address] * (ABNORMAL) CBC with auto differential (08/04/2024 8:14 AM ROOM INSPECTOR) WBC 10.0(H) 3.8 - 9.9 K/cumm Hgb 9.5(L) 11.9 - 15.5 g/dL [facility] Hct 29.9(L) 35.6 - 45.5 % [facility] Plt 153 150 - 400 K/cumm [facility] MPV 12.1 9.1 - 12.3 fL [facility] RBC 3.00(L) 3.90 - 5.20 M/cumm [facility] MCV 99.7(H) 81.3 - 96.4 fL [facility] MCH 31.7 27.1 - 33.3 pg [facility] MCHC 31.8(L) 32.3 - 35.7 g/dL [facility] RDW CV 14.6 11.1 - 14.9 % [facility] RDW SD 53.2(H) 35.7 - 48.1 fL [facility] NRBC abs 0.00 0.00 - 0.01 K/cumm [facility] Blood 08/04/2024 8:14 AM ROOM INSPECTOR 08/04/2024 8:33 AM ROOM INSPECTOR Chilo Rodriguez NP LAB BLOOD ORDERABLES Final Resul t Performing Organization Address [facility] de Phone Number [facility] [address] [place] [address] * Magnesium (08/04/2024 8:14 AM ROOM INSPECTOR) [facility] Magnesium 1.9 1.4 - 2.5 mg/dL Blood 08/04/2024 8:14 AM ROOM INSPECTOR 08/04/2024 8:32 AM ROOM INSPECTOR Deenasury Jennifer WHITFIELD LAB BLOOD ORDERABLES Final Resul t Performing Organization Address [facility] Phone Number [facility] [address] [place] [address] * Hemoglobin A1c (08/04/2024 8:14 AM ROOM INSPECTOR) [facility] Hgb A1C 4.9 4.0 - 5.6 % Estimated Average Glucose 94 mg/dL [facility] Comment: The ADA recommends reporting an estimated Average Glucose (eAG) with all Hemoglobin A1c results using the equation derived from a study of 507 normal and diabetic adults. ??Minority populations were underrepresented and children were not included. ?? (Diabetes Care 31:8630-5077, 2008). ??The eAG is not equivalent to a fasting glucose. Blood 08/04/2024 8:14 AM ROOM INSPECTOR 08/04/2024 10:08 AM ROOM INSPECTOR Charan Huggins MD LAB BLOOD ORDERABLES Final Resul t Performing Organization Address [facility] de Phone Number [facility] [address] [facility] [place] [address] * Basic metabolic panel (08/04/2024 8:14 AM ROOM INSPECTOR) Pathologist [facility] Sodium 135 135 - 145 mmol/L Potassium, pl 3.7 3.3 - 4.9 mmol/L [facility] Chloride 103 97 - 110 mmol/L [facility] CO2 22 22 - 32 mmol/L [facility] Anion gap 10 2 - 15 mmol/L [facility] BUN 12 6 - 25 mg/dL [facility] Creatinine 0.83 0.60 - 1.10 mg/dL [facility] Glucose 109 70 - 199 mg/dL [facility] Comment: Interpretive Data Fasting glucose >/= 126 mg/dl is diagnostic for diabetes. ?? Fasting is defined as no caloric intake for at least 8 hours. Fasting glucose between 100 mg/dl to 125 mg/dl is diagnostic of prediabetes. In a patient with classic symptoms of hyperglycemia or hyperglycemic crisis, a random glucose >/= 200 mg/dl is diagnostic for diabetes. In the absence of unequivocal hyperglycemia, results should be confirmed by repeat testing. The classification and Diagnosis of Diabetes Diabetes Care 2021; 46: S19-S40. Current interpretive data was last revised 2022. Calcium 8.6 8.5 - 10.3 mg/dL [facility] Blood 08/04/2024 8:14 AM ROOM INSPECTOR 08/04/2024 8:32 AM ROOM INSPECTOR us Chilo Rodriguez NP LAB BLOOD ORDERABLES Final Resul t [facility] [address] Department [place] [address] * (ABNORMAL) CBC without differential (08/03/2024 10:00 AM ROOM INSPECTOR) WBC 9.6 3.8 - 9.9 K/cumm Hgb 10.4(L) 11.9 - 15.5 g/dL [facility] Hct 32.8(L) 35.6 - 45.5 % [facility] Plt 183 150 - 400 K/cumm [facility] MPV 11.9 9.1 - 12.3 fL [facility] RBC 3.26(L) 3.90 - 5.20 M/cumm [facility] MCV 100.6(H) 81.3 - 96.4 fL [facility] MCH 31.9 27.1 - 33.3 pg [facility] MCHC 31.7(L) 32.3 - 35.7 g/dL [facility] RDW CV 14.9 11.1 - 14.9 % [facility] RDW SD 54.3(H) 35.7 - 48.1 fL [facility] NRBC abs 0.00 0.00 - 0.01 K/cumm [facility] Blood 08/03/2024 10:0 0 AM ROOM INSPECTOR 08/03/2024 10:14 AM ROOM INSPECTOR us Grover Wren MD LAB BLOOD ORDERABLES Marion l Result [facility] [address] Department [place] [address] * CT Abdomen Pelvis W WO Contrast (08/03/2024 4:58 AM ROOM INSPECTOR) Anatomical Region Laterality Modality Body N/A Computed Tomogra phy 08/03/2024 4:47 AM ROOM INSPECTOR Impressions 08/03/2024 8:44 AM ROOM INSPECTOR 1. ??Unchanged moderate amount of infiltrative hemorrhage in the proximal right thigh and right groin region dissecting superiorly in the right retroperitoneum. ??No evidence of active extravasation or pseudoaneurysm. 2. ??Ill-defined 1.3 cm hypodensity in the region the pancreatic head is incompletely assessed. ??This could represent a pancreatic cystic lesion or a solid mass. ??There is no upstream pancreatic duct dilation. ??This finding can be further evaluated with a routine outpatient MRCP examination. 3. ??Images disease of the T11 vertebra. ADDENDUM - This addendum is being placed on the report for a discrepancy on an inpatient (2B). Indeterminate 1.3 cm hypodense lesion in the pancreatic head warrants further evaluation with outpatient MRCP examination. These findings were communicated to ROSEANN Rodriguez on 08/03/2024 at 8:43 AM. Electronically signed by: See Doan M.D. Narrative 08/03/2024 8:44 AM ROOM INSPECTOR EXAMINATION: ??Computed tomography of the abdomen and pelvis without and with intravenous contrast HISTORY: Retroperitoneal hematoma following cardiac catheterization TECHNIQUE: ??Computed tomographic images of the abdomen and pelvis were obtained prior to and following the uneventful administration of 125 mL Opti-Ray 350 intravenous contrast intravenous contrast according to the standard protocol. COMPARISON: 08/03/2024 at 2:03 AM FINDINGS: ?? Coronary artery calcifications. ??Normal heart size. ??No pericardial effusion. ??Clear lung bases. Vicarious excretion of contrast material in the gallbladder. ??Patent hepatic arteries. ??No focal hepatic lesions. ??Ill-defined 1.3 cm hypodense focus in the pancreatic head (series 13, image 198), not definitely seen on prior portal venous phase CT of the abdomen/pelvis from 12/21/2017. ??No upstream pancreatic duct dilation. ??Normal spleen, adrenal glands, and kidneys. ??Singh catheter in the urinary bladder, which also contains some gas. ??Surgically absent uterus. ??No adnexal masses. No dilated loops of small or large bowel. Irregularity of the common femoral artery along its posterior wall with tiny intraluminal filling defect (series 6, image 125), likely representing expected puncture site findings. ??No pseudoaneurysm. Unchanged moderate amount of infiltrative hemorrhage anterior proximal right thigh and dissecting superiorly in the right retroperitoneum to the right perinephric region. ??No definite evidence of active extravasation on delayed images. ??Hemorrhage extrinsically compresses the right external iliac and common femoral veins, though these vessels appear to remain patent. No suspicious osseous lesions. 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 Procedure Note See Doan MD - 08/03/2024 EXAMINATION: Computed tomography of the abdomen and pelvis without and with intravenous contrast HISTORY: Retroperitoneal hematoma following cardiac catheterization TECHNIQUE: Computed tomographic images of the abdomen and pelvis were obtained prior to and following the uneventful administration of 125 mL Opti-Ray 350 intravenous contrast intravenous contrast according to the standard protocol. COMPARISON: 08/03/2024 at 2:03 AM FINDINGS: Coronary artery calcifications. Normal heart size. No pericardial effusion. Clear lung bases. Vicarious excretion of contrast material in the gallbladder. Patent hepatic arteries. No focal hepatic lesions. Ill-defined 1.3 cm hypodense focus in the pancreatic head (series 13, image 198), not definitely seen on prior portal venous phase CT of the abdomen/pelvis from 12/21/2017. No upstream pancreatic duct dilation. Normal spleen, adrenal glands, and kidneys. Singh catheter in the urinary bladder, which also contains some gas. Surgically absent uterus. No adnexal masses. No dilated loops of small or large bowel. Irregularity of the common femoral artery along its posterior wall with tiny intraluminal filling defect (series 6, image 125), likely representing expected puncture site findings. No pseudoaneurysm. Unchanged moderate amount of infiltrative hemorrhage anterior proximal right thigh and dissecting superiorly in the right retroperitoneum to the right perinephric region. No definite evidence of active extravasation on delayed images. Hemorrhage extrinsically compresses the right external iliac and common femoral veins, though these vessels appear to remain patent. No suspicious osseous lesions. 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 IMPRESSION: 1. Unchanged moderate amount of infiltrative hemorrhage in the proximal right thigh and right groin region dissecting superiorly in the right retroperitoneum. No evidence of active extravasation or pseudoaneurysm. 2. Ill-defined 1.3 cm hypodensity in the region the pancreatic head is incompletely assessed. This could represent a pancreatic cystic lesion or a solid mass. There is no upstream pancreatic duct dilation. This finding can be further evaluated with a routine outpatient MRCP examination. 3. Images disease of the T11 vertebra. ADDENDUM - This addendum is being placed on the report for a discrepancy on an inpatient (2B). Indeterminate 1.3 cm hypodense lesion in the pancreatic head warrants further evaluation with outpatient MRCP examination. These findings were communicated to ROSEANN Rodriguez on 08/03/2024 at 8:43 AM. Electronically signed by: See Doan M.D. Joselito LAU G CT PROCEDURES Final Result * eGFR (08/03/2024 4:52 AM ROOM INSPECTOR) eGFR 67 >=60 mL/min/1. 73 m2 Comment: Interpretive Data Reference Interval Normal ?>/= 90 mL/min/1.73m2 Mildly decreased* ? 60 - 89 mL/min/1.73m2 Mildly to moderately decreased ?45 - 59 mL/min/1.73m2 Moderately to severely decreased ??30 - 44 mL/min/1.73m2 Severely decreased ?15 - 29 mL/min/1.73m2 Kidney Failure ?< 15 ??mL/min/1.73m2 *Relative to young adult level Estimated glomerular filtration rate is determined by the 2020 CKD-EPI equation recommended by the National Kidney Foundation (A Unifying Approach to GFR Estimation: Recommendations of the NKF-ASK Task Force on Reassessing the Inclusion of Race in Diagnosing Kidney Disease, JASN 2020). The CKD-EPI equation should not be used for patients with unstable renal function and has not been validated in children and those over 70. Current interpretive data was last reviewed 2021. Blood 08/03/2024 4:52 AM ROOM INSPECTOR 08/03/2024 4:52 AM ROOM INSPECTOR us Ayesha Billings MD LAB BLOOD ORDERABLES Final Res ult [facility] [address] Department [place] [address] * (ABNORMAL) Differential, auto (08/03/2024 4:52 AM ROOM INSPECTOR) Neutrophil abs 9.9(H) 1.5 - 6.5 K/cumm Imm gran abs 0.1 0.0 - 0.1 K/cumm [facility] Lymphocyte abs 0.7(L) 0.8 - 3.3 K/cumm [facility] Monocyte abs 1.0(H) 0.2 - 0.8 K/cumm [facility] Eosinophil abs 0.0 0.0 - 0.5 K/cumm [facility] Basophil abs 0.0 0.0 - 0.1 K/cumm [facility] Neutrophil pct 84.6 % [facility] Comment: Interpretive Data Percent cell count reference ranges are not reported, since discordance with absolute values may lead to misinterpretation of CBC data. Current Interpretive Data was last revised on 2017. Imm gran pct 0.5 % [facility] Comment: Interpretive Data Percent cell count reference ranges are not reported, since discordance with absolute values may lead to misinterpretation of CBC data. Current Interpretive Data was last revised on 2017. Lymphocyte pct 5.6 % [facility] Comment: Interpretive Data Percent cell count reference ranges are not reported, since discordance with absolute values may lead to misinterpretation of CBC data. Current Interpretive Data was last revised on 2017. Monocyte pct 8.8 % [facility] Comment: Interpretive Data Percent cell count reference ranges are not reported, since discordance with absolute values may lead to misinterpretation of CBC data. Current Interpretive Data was last revised on 2017. Eosinophil pct 0.3 % [facility] Comment: Interpretive Data Percent cell count reference ranges are not reported, since discordance with absolute values may lead to misinterpretation of CBC data. Current Interpretive Data was last revised on 2017. Basophil pct 0.2 % [facility] Comment: Interpretive Data Percent cell count reference ranges are not reported, since discordance with absolute values may lead to misinterpretation of CBC data. Current Interpretive Data was last revised on 2017. Blood 08/03/2024 4:52 AM ROOM INSPECTOR 08/03/2024 4:52 AM ROOM INSPECTOR Joselito LAU LAB BLOOD ORDERABLES Final Resu lt [facility] [address] Department [place] [address] * (ABNORMAL) CBC with auto differential (08/03/2024 4:52 AM ROOM INSPECTOR) WBC 11.7(H) 3.8 - 9.9 K/cumm Hgb 11.1(L) 11.9 - 15.5 g/dL [facility] Hct 34.4(L) 35.6 - 45.5 % [facility] Plt 199 150 - 400 K/cumm [facility] MPV 11.9 9.1 - 12.3 fL [facility] RBC 3.36(L) 3.90 - 5.20 M/cumm [facility] MCV 102.4(H) 81.3 - 96.4 fL [facility] MCH 33.0 27.1 - 33.3 pg [facility] MCHC 32.3 32.3 - 35.7 g/dL [facility] RDW CV 14.7 11.1 - 14.9 % [facility] RDW SD 54.5(H) 35.7 - 48.1 fL [facility] NRBC abs 0.00 0.00 - 0.01 K/cumm [facility] Blood 08/03/2024 4:52 AM ROOM INSPECTOR 08/03/2024 4:52 AM ROOM INSPECTOR us Joselito LAU LAB BLOOD ORDERABLES Final Resu lt [facility] [address] Department [place] [address] * Lipid panel (08/03/2024 4:52 AM ROOM INSPECTOR) Cholesterol 137 30 - 199 mg/dL Comment: Interpretive Data Ages < or = 19 years ??Acceptable: ? <170 mg/dL ??Borderline high: ??170-199 mg/dL ??High: ? >or= 200 mg/dL Ages > or = 20 years ??Desirable: ?<200 mg/dL ??Borderline high: ??200-239 mg/dL ??High: ? >or= 240 mg/dL Literature References: 1. Expert Panel on Integrated Guidelines for Cardiovascular Health and Risk Reduction in Children and Adolescents. Pediatrics 2011;128:S213 2. NCEP Expert Panel. Circulation 2004;110:227 Current Interpretive Data was last revised on 2018. Triglycerides 135 <=149 mg/dL [facility] Comment: Interpretive Data Ages < or = 9 years ??Acceptable: ? <75 mg/dL ??Borderline high: ??75-99 mg/dL ??High: ? >or= 100 mg/dL Ages 10 to 20 years ??Acceptable: ? <90 mg/dL ??Borderline high: ??90-129 mg/dL ??High: ? >or= 130 mg/dL Ages > or = 20 years ??Desirable: ?<150 mg/dL ??Borderline high: ??150-199 mg/dL ??High: ? 200-499 mg/dL ?Very high: ?? >or= 499 mg/dL Literature References: 1. Expert Panel on Integrated Guidelines for Cardiovascular Health and Risk Reduction in Children and Adolescents. Pediatrics 2011;128:S213 2. NCEP Expert Panel. Circulation 2004;110:227 Current Interpretive Data was last revised on 2018. HDL 53 >=40 mg/dL [facility] Comment: Interpretive Data Ages < or = 19 years ??Acceptable: ? >45 mg/dL ??Borderline low: ?? 40-45 mg/dL ??Low: ? <40 mg/dL Ages > or = 20 years ??Desirable: ?>or= 60 mg/dL ??Low: ? <40 mg/dL Literature References: 1. Expert Panel on Integrated Guidelines for Cardiovascular Health and Risk Reduction in Children and Adolescents. Pediatrics 2011;128:S213 2. NCEP Expert Panel. Circulation 2004;110:227 Current Interpretive Data was last revised on 2018. LDL, calculated 61 <=129 mg/dL [facility] Comment: Interpretive Data Ages < or = 19 years ??Acceptable: ? <110 mg/dL ??Borderline high: ??110-129 mg/dL ??High: ?>or= 130 mg/dL Ages > or = 20 years ??Optimal: ? <100 mg/dL ??Near optimal: ?100-129 mg/dL ??Borderline high: ?? 130-159 mg/dL ??High: ?>160 mg/dL Calculated using the Beny LDL-C estimating equation. This equation was implemented on 2024. Prior to this date LDL-C was estimated using the Friedewald equation. Literature References: 1. Expert Panel on Integrated Guidelines for Cardiovascular Health and Risk Reduction in Children and Adolescents. Pediatrics 2011;128:S213 2. NCEP Expert Panel. Circulation 2004;110:227 3. Beny Cedillo et al. BRIANA Cardiol. 2020 December 09;5(5):540-548. doi: 10.1001/jamacardio.2020.0013 Current Interpretive Data was last revised on 2024. Non-HDL Cholesterol 84 mg/dL [facility] Comment: Interpretive Data Ages < or = 19 years ??Acceptable: ?<120 mg/dL ??Borderline high: ??120-144 mg/dL ??High: ?>145 mg/dL Ages > or = 20 years ??When triglycerides are >200 mg/dL, Non-HDL cholesterol is a secondary target of ? therapy with treatment goals that are 30 mg/dL greater than the LDL cholesterol target. ? Literature References: 1. Expert Panel on Integrated Guidelines for Cardiovascular Health and Risk Reduction in Children and Adolescents. Pediatrics 2011;128:S213 2. NCEP Expert Panel. Circulation 2004;110:227 Current Interpretive Data was last revised on 2018. Chol/HDL ratio 3 [facility] Blood 08/03/2024 4:52 AM ROOM INSPECTOR 08/03/2024 4:52 AM ROOM INSPECTOR us Grover Wren MD LAB BLOOD ORDERABLES Marion hylton Result [facility] [address] Department [place] [address] * (ABNORMAL) Basic metabolic panel (08/03/2024 4:52 AM ROOM INSPECTOR) Sodium 136 135 - 145 mmol/L Potassium, pl 4.7 3.3 - 4.9 mmol/L [facility] Chloride 105 97 - 110 mmol/L [facility] CO2 18(L) 22 - 32 mmol/L [facility] Anion gap 13 2 - 15 mmol/L [facility] BUN 16 6 - 25 mg/dL [facility] Creatinine 0.92 0.60 - 1.10 mg/dL [facility] Glucose 105 70 - 199 mg/dL [facility] Comment: Interpretive Data Fasting glucose >/= 126 mg/dl is diagnostic for diabetes. ?? Fasting is defined as no caloric intake for at least 8 hours. Fasting glucose between 100 mg/dl to 125 mg/dl is diagnostic of prediabetes. In a patient with classic symptoms of hyperglycemia or hyperglycemic crisis, a random glucose >/= 200 mg/dl is diagnostic for diabetes. In the absence of unequivocal hyperglycemia, results should be confirmed by repeat testing. The classification and Diagnosis of Diabetes Diabetes Care 2021; 46: S19-S40. Current interpretive data was last revised 2022. Calcium 8.4(L) 8.5 - 10.3 mg/dL [facility] Blood 08/03/2024 4:52 AM ROOM INSPECTOR 08/03/2024 4:52 AM ROOM INSPECTOR us Grover Wren MD LAB BLOOD ORDERABLES Marion hylton Result [facility] [address] Department [place] [address] * CT Chest Abdomen Pelvis WO Contrast (08/03/2024 2:05 AM ROOM INSPECTOR) Anatomical Region Laterality Modality Body N/A Computed Tomogra phy 08/03/2024 2:02 AM ROOM INSPECTOR Impressions 08/03/2024 8:51 AM ROOM INSPECTOR Moderate volume of infiltrative hemorrhage involving the right proximal thigh, right groin region, and right retroperitoneum, related to recent cardiac catheterization via the right femoral artery. ??It is not possible to assess for active extravasation or pseudoaneurysm on this noncontrast examination. Electronically signed by: See Doan M.D. Narrative 08/03/2024 8:51 AM ROOM INSPECTOR EXAMINATION: ??Computed tomography of the chest, abdomen, and pelvis without intravenous contrast HISTORY: Groin pain/swelling following cardiac catheterization TECHNIQUE: ??Computed tomographic images of the chest, abdomen, and pelvis were obtained without intravenous contrast according to the standard protocol. COMPARISON: 12/21/2017, 05/25/2017 FINDINGS: ?? Chest: Normal heart size. ??Coronary calcifications. ??Normal heart size. ??No pericardial effusion. ??Small hiatal hernia. ??Normal thoracic esophagus. ??No axillary, supraclavicular, mediastinal, or hilar lymphadenopathy. ??4 mm groundglass pulmonary nodule at the left lung apex (series 3, image 25). ??Similar additional subcentimeter groundglass pulmonary nodules are the apices. ??These are new from 2017. ??No consolidation, pleural effusion, or pneumothorax. Atelectasis adjacent to the descending thoracic aorta. Abdomen/Pelvis: No suspicious focal liver lesions. ??No biliary duct dilation. Vicarious contrast excretion in the gallbladder. ??Retained contrast material in the kidneys and collecting systems. ??No biliary duct dilation. ??Unremarkable noncontrast appearance of the pancreas, spleen, end adrenal glands. ??No suspicious renal lesions. ??Singh catheter and gas within the urinary bladder lumen. ??Surgically absent uterus. No dilated loops of small or large bowel. ??Atherosclerotic calcifications of the abdominal aorta and its branches. ??Normal stomach and duodenum. ??No abdominal, pelvic, or inguinal lymphadenopathy. Infiltrative moderate volume hemorrhage in the proximal right thigh, right groin region, and right retroperitoneum dissecting up to the level of the right kidney inferior pole. ??Pagetoid changes of the T11 vertebra. ??Incompletely imaged combined anterior posterior instrumented fusion of the cervical spine. ??Grade 1 anterolisthesis of L4 and L5. Procedure Note See Doan MD - 08/03/2024 EXAMINATION: Computed tomography of the chest, abdomen, and pelvis without intravenous contrast HISTORY: Groin pain/swelling following cardiac catheterization TECHNIQUE: Computed tomographic images of the chest, abdomen, and pelvis were obtained without intravenous contrast according to the standard protocol. COMPARISON: 12/21/2017, 05/25/2017 FINDINGS: Chest: Normal heart size. Coronary calcifications. Normal heart size. No pericardial effusion. Small hiatal hernia. Normal thoracic esophagus. No axillary, supraclavicular, mediastinal, or hilar lymphadenopathy. 4 mm groundglass pulmonary nodule at the left lung apex (series 3, image 25). Similar additional subcentimeter groundglass pulmonary nodules are the apices. These are new from 2017. No consolidation, pleural effusion, or pneumothorax. Atelectasis adjacent to the descending thoracic aorta. Abdomen/Pelvis: No suspicious focal liver lesions. No biliary duct dilation. Vicarious contrast excretion in the gallbladder. Retained contrast material in the kidneys and collecting systems. No biliary duct dilation. Unremarkable noncontrast appearance of the pancreas, spleen, end adrenal glands. No suspicious renal lesions. Singh catheter and gas within the urinary bladder lumen. Surgically absent uterus. No dilated loops of small or large bowel. Atherosclerotic calcifications of the abdominal aorta and its branches. Normal stomach and duodenum. No abdominal, pelvic, or inguinal lymphadenopathy. Infiltrative moderate volume hemorrhage in the proximal right thigh, right groin region, and right retroperitoneum dissecting up to the level of the right kidney inferior pole. Pagetoid changes of the T11 vertebra. Incompletely imaged combined anterior posterior instrumented fusion of the cervical spine. Grade 1 anterolisthesis of L4 and L5. IMPRESSION: Moderate volume of infiltrative hemorrhage involving the right proximal thigh, right groin region, and right retroperitoneum, related to recent cardiac catheterization via the right femoral artery. It is not possible to assess for active extravasation or pseudoaneurysm on this noncontrast examination. Electronically signed by: See Doan M.D. Joselito LAU [facility] [place] PROCEDURES Final Result * Type and screen (08/03/2024 1:29 AM ROOM INSPECTOR) ABO Rh A Negative David, indirect Negative [facility] Blood 08/03/2024 1:29 AM ROOM INSPECTOR 08/03/2024 1:38 AM ROOM INSPECTOR N[facility]ative [facility] - 08/03/2024 2:26 AM ROOM INSPECTOR Has the patient had Daratumumab or Isatuximab in the past 6 months?->Unknown Joselito LAU LAB BLOOD BANK TEST ORDERABLES Final Result Performing Organization Address [facility] Co de Phone Number [facility] [address] [place] [address] * (ABNORMAL) eGFR (08/03/2024 1:12 AM ROOM INSPECTOR) eGFR 59(L) >=60 mL/min/1. 73 m2 Comment: Interpretive Data Reference Interval Normal ?>/= 90 mL/min/1.73m2 Mildly decreased* ? 60 - 89 mL/min/1.73m2 Mildly to moderately decreased ?45 - 59 mL/min/1.73m2 Moderately to severely decreased ??30 - 44 mL/min/1.73m2 Severely decreased ?15 - 29 mL/min/1.73m2 Kidney Failure ?< 15 ??mL/min/1.73m2 *Relative to young adult level Estimated glomerular filtration rate is determined by the 2020 CKD-EPI equation recommended by the National Kidney Foundation (A Unifying Approach to GFR Estimation: Recommendations of the NKF-ASK Task Force on Reassessing the Inclusion of Race in Diagnosing Kidney Disease, JASN 2020). The CKD-EPI equation should not be used for patients with unstable renal function and has not been validated in children and those over 70. Current interpretive data was last reviewed 2021. Blood 08/03/2024 1:12 AM ROOM INSPECTOR 08/03/2024 1:38 AM ROOM INSPECTOR Joselito LAU LAB BLOOD ORDERABLES Final Resu lt Performing Organization Address [facility] Co de Phone Number [facility] [address] Department [place] [address] * (ABNORMAL) Differential, auto (08/03/2024 1:12 AM ROOM INSPECTOR) Neutrophil abs 9.4(H) 1.5 - 6.5 K/cumm Imm gran abs 0.1 0.0 - 0.1 K/cumm [facility] Lymphocyte abs 0.5(L) 0.8 - 3.3 K/cumm [facility] Monocyte abs 0.6 0.2 - 0.8 K/cumm [facility] Eosinophil abs 0.0 0.0 - 0.5 K/cumm [facility] Basophil abs 0.0 0.0 - 0.1 K/cumm [facility] Neutrophil pct 88.8 % [facility] Comment: Interpretive Data Percent cell count reference ranges are not reported, since discordance with absolute values may lead to misinterpretation of CBC data. Current Interpretive Data was last revised on 2017. Imm gran pct 0.7 % [facility] Comment: Interpretive Data Percent cell count reference ranges are not reported, since discordance with absolute values may lead to misinterpretation of CBC data. Current Interpretive Data was last revised on 2017. Lymphocyte pct 5.0 % [facility] Comment: Interpretive Data Percent cell count reference ranges are not reported, since discordance with absolute values may lead to misinterpretation of CBC data. Current Interpretive Data was last revised on 2017. Monocyte pct 5.2 % [facility] Comment: Interpretive Data Percent cell count reference ranges are not reported, since discordance with absolute values may lead to misinterpretation of CBC data. Current Interpretive Data was last revised on 2017. Eosinophil pct 0.1 % [facility] Comment: Interpretive Data Percent cell count reference ranges are not reported, since discordance with absolute values may lead to misinterpretation of CBC data. Current Interpretive Data was last revised on 2017. Basophil pct 0.2 % [facility] Comment: Interpretive Data Percent cell count reference ranges are not reported, since discordance with absolute values may lead to misinterpretation of CBC data. Current Interpretive Data was last revised on 2017. Blood 08/03/2024 1:12 AM ROOM INSPECTOR 08/03/2024 1:38 AM ROOM INSPECTOR Joselito LAU LAB BLOOD ORDERABLES Final Resu lt Performing Organization Address [facility] Co de Phone Number [facility] [address] [place] [address] * (ABNORMAL) CBC with auto differential (08/03/2024 1:12 AM ROOM INSPECTOR) WBC 10.5(H) 3.8 - 9.9 K/cumm Hgb 10.8(L) 11.9 - 15.5 g/dL [facility] Hct 34.2(L) 35.6 - 45.5 % [facility] Plt 198 150 - 400 K/cumm [facility] MPV 11.7 9.1 - 12.3 fL [facility] RBC 3.36(L) 3.90 - 5.20 M/cumm [facility] MCV 101.8(H) 81.3 - 96.4 fL [facility] MCH 32.1 27.1 - 33.3 pg [facility] MCHC 31.6(L) 32.3 - 35.7 g/dL [facility] RDW CV 14.8 11.1 - 14.9 % [facility] RDW SD 54.9(H) 35.7 - 48.1 fL [facility] NRBC abs 0.00 0.00 - 0.01 K/cumm [facility] Blood 08/03/2024 1:12 AM ROOM INSPECTOR 08/03/2024 1:38 AM ROOM INSPECTOR Joselito LAU LAB BLOOD ORDERABLES Final Resu lt [facility] [address] Department of the grafter [place], [place] [id number] * (ABNORMAL) Protime-INR (08/03/2024 1:12 AM ROOM INSPECTOR) PT 13.4(H) 9.7 - 13.0 sec INR 1.24(H) 0.90 - 1.20 [facility] Comment: Interpretive data Oral anticoagulant therapeutic ranges: Venous thromboembolism prophylaxis or treatment: 2.0-3.0 CARDIOLOGY Standard range: 2.0-3.0 High-intensity range: 2.5-3.5 Refer to indication-specific guidelines for appropriate target ranges for prosthetic heart valve replacement. Current interpretive data was last revised on 2019. Blood 08/03/2024 1:12 AM ROOM INSPECTOR 08/03/2024 1:39 AM ROOM INSPECTOR us Joselito LAU LAB BLOOD ORDERABLES Final Resu lt [facility] [address] Department [place] [address] * (ABNORMAL) Renal function panel (08/03/2024 1:12 AM ROOM INSPECTOR) Sodium 135 135 - 145 mmol/L Potassium, pl 4.1 3.3 - 4.9 mmol/L [facility] Chloride 105 97 - 110 mmol/L [facility] CO2 16(L) 22 - 32 mmol/L [facility] Anion gap 14 2 - 15 mmol/L [facility] BUN 16 6 - 25 mg/dL [facility] Creatinine 1.02 0.60 - 1.10 mg/dL [facility] Glucose 173 70 - 199 mg/dL [facility] Comment: Interpretive Data Fasting glucose >/= 126 mg/dl is diagnostic for diabetes. ?? Fasting is defined as no caloric intake for at least 8 hours. Fasting glucose between 100 mg/dl to 125 mg/dl is diagnostic of prediabetes. In a patient with classic symptoms of hyperglycemia or hyperglycemic crisis, a random glucose >/= 200 mg/dl is diagnostic for diabetes. In the absence of unequivocal hyperglycemia, results should be confirmed by repeat testing. The classification and Diagnosis of Diabetes Diabetes Care 202; 46: S19-S40. Current interpretive data was last revised 2022. Calcium 8.1(L) 8.5 - 10.3 mg/dL [facility] Phosphorus, pl 4.7(H) 2.3 - 4.5 mg/dL [facility] Albumin 3.8 3.5 - 5.0 g/dL [facility] Blood 08/03/2024 1:12 AM ROOM INSPECTOR 08/03/2024 1:38 AM ROOM INSPECTOR Joselito LAU LAB BLOOD ORDERABLES Final Resu lt Performing Organization Address [facility] Co de Phone Number [facility] [address] [place] [address] * Check Sample (08/03/2024 1:11 AM ROOM INSPECTOR) ABO Rh A Negative [facility] OTHER 08/03/2024 1:11 AM ROOM INSPECTOR 08/03/2024 2:42 AM ROOM INSPECTOR Michael Thomas DO LAB BLOOD ORDERABLES F inal Result Performing Organization Address [facility] de Phone Number [facility] [address] [place] [address] [facility] * ECG 12 lead (08/03/2024 12:52 AM ROOM INSPECTOR) 08/03/2024 12:5 2 AM ROOM INSPECTOR Narrative [facility] - 08/03/2024 3:47 PM ROOM INSPECTOR Vent Rate: 91 bpm RR Interval: 656 msec [place] Interval: 167 msec QRS Duration: 88 msec QT Interval: 345 msec QTC Interval: 394 msec P-R-T [place]: 43 - 17 - 99 degrees IMPRESSION: SINUS RHYTHM ST DEVIATION AND MODERATE T-WAVE ABNORMALITY, CONSIDER LATERAL ISCHEMIA ABNORMAL ECG Electronically Signed By: Beto Richmond MD Joselito LAU ECG ORDERABLES Final Result Performing Organization Address [facility] Co de Phone Number [facility] [employer] [facility] * (ABNORMAL) Protime-INR (08/02/2024 10:24 PM ROOM INSPECTOR) PT 14.0(H) 9.7 - 13.0 sec INR 1.29(H) 0.90 - 1.20 [facility] Comment: Interpretive data Oral anticoagulant therapeutic ranges: Venous thromboembolism prophylaxis or treatment: 2.0-3.0 CARDIOLOGY Standard range: 2.0-3.0 High-intensity range: 2.5-3.5 Refer to indication-specific guidelines for appropriate target ranges for prosthetic heart valve replacement. Current interpretive data was last revised on 2019. Blood 08/02/2024 10:2 4 PM ROOM INSPECTOR 08/02/2024 11:15 PM ROOM INSPECTOR us Grover Wren MD LAB BLOOD ORDERABLES Marion hylton Result [facility] [address] Department [place] [address] * LEFT HEART CATHETERIZATION WITH CORONARY ANGIOGRAPHY AND WITH AND WITHOUT LEFT VENTRICULOGRAM (08/02/2024 9:48 PM ROOM INSPECTOR) Anatomical Region Laterality Modality X-Ray Angiograph y Impressions 08/02/2024 9:50 PM ROOM INSPECTOR Iatrogenic coronary artery dissection status post recanalization and placement of a 2.25 x 32 synergy drug-eluting stent with proximal post dilation to 2.75 mm. THERAPEUTIC RECOMMENDATIONS: Continue aspirin 81 mg daily indefinitely. Continue ?? Plavix 75 mg daily for at least 1 year. Hemostasis was achieved using a TR band. Aggressive risk factor modification and medical therapy for secondary prevention of coronary artery disease. The case was reviewed and discussed with the referring physician and patient. [facility] PCI RISK CALCULATOR PCI INDICATIONS NSTEMI or ACS PCI STATUS [] ??Elective ??[] ??Urgent ?? [x] ??Emergency ??[] ??Salvage CARDIOVASCULAR INSTABILITY [x] ??Persistent Ischemic Symptoms (Chest Pain, STEMI) [] ??Hemodynamic Instability [] ??Ventricular Arrhythmias [] ??Acute Heart Failure [] ??Cardiogenic Shock [] ??Salvage or Refractory Cardiogenic Shock CARDIAC ARREST [x] ??NO ??[] ??YES AND RESPONSIVE [] ??YES AND UNRESPONSIVE FRAILTY [] ??Moderately Frail ?? [] ??Severely Frail ? [] ??Very Severely Frail ?? [] Terminally Ill OTHER PATIENT CHARACTERISTICS [] ??At Least Moderate Aortic Stenosis [] ??Surgical Turn Down CONGESTIVE HEART FAILURE (NYHA Classification) [] ??I ?[] ??II ??[] ??III ??[] ??IV ?? STRESS TEST: EXTENT OF ISCHEMIA [] ??Low Risk (<1% annual risk of or PA) [] ??Intermediate Risk (1-3% annual risk of or PA [] ??High Risk (>3% annual risk of or PA) LESION CHARACTERISTICS (HIGH RISK Type C LESIONS) [x] ??Diffuse Length (> 2 cm) [x] ??Excessive Tortuosity of Proximal Segment [] ??Extremely Angulated Segments > 90 degrees [x] ??Bifurcation Lesion (with the inability to protect major side branches) [] ??Degenerated Vein Grafts with Friable Segments [] ??Chronic Total Occlusion (> 3 mos) and/or bridging collaterals OTHER HIGH RISK CHARACTERISTICS [] ??In-Stent Thrombosis [] ??Heavily Calciified [] ??High Risk Coronary Segment (LEFT MAIN OR PROX LAD) Narrative 08/02/2024 9:50 PM ROOM INSPECTOR PERCUTANEOUS CORONARY INTERVENTION REPORT Patient: Maria C Piña : ?? 1950 Date of Service: 08/02/2024 Attending: ??Grover Wren MD PATIENT CLINICAL PROFILE: ??Maria C Piña is a 73 y.o. female Who had an iatrogenic coronary artery dissection ??of the obtuse marginal branchduring an intervention at an outside facility and is transferred for attempted recanalization. PROCEDURE: The risks, benefits and alternatives of the procedures and moderate sedation were explained to the patient and informed consent was obtained. The patient was brought to the paint laboratory technician and placed on the table. Right radial site and bilateral groins were prepped and draped in the usual sterile fashion. The right radial artery site was infiltrated with 2 % lidocaine. The vessel was accessed using a Cook needle and the modified Seldinger technique and a 6 Fr slender sheath was advanced over the wire into the vessel. Unfractionated heparin was administered to a goal ACT of 250-300 seconds and maintained at this level throughout the procedure. Left Coronary Artery Angiogram was performed using a EBU 3.5 Catheter. Coronary Intervention performed on lesion #1 ??obtuse marginal branch At the end of the procedure, hemostasis was obtained via TR band Patient was transferred to [place] [facility] in stable condition. CORONARY INTERVENTION REPORT: The left main was engaged using an extra backup 3.5 guide catheter. ??Using a corsair XS microcatheter for support, a bibiana blue ??wire was advanced distally in the obtuse marginal branch. ??Angioplasty was performed using a 2.0 x 30 balloon for a prolonged inflation. ?? A 6 Icelandic GuideLiner coast was advanced in the vessel for additional support. ??Intravascular ultrasound was performed for vessel assessment. ??A 2.25 x ??32 synergy drug-eluting stent was advanced and deployed. ??The proximal portion of the stent was then post dilated using a 2.75 x 15 noncompliant balloon. ?? Nitroglycerin was administered intracoronary. ??This yielded a good angiographic result. COMPLICATIONS: none Estimated Blood Loss: 10 cc Specimens: none DIAGNOSTIC Grover Wren MD CV CARDIAC CATH PROCEDURE S Final Result * ECG 12 lead (08/02/2024 7:38 PM ROOM INSPECTOR) 08/02/2024 7:38 PM ROOM INSPECTOR Narrative [facility] - 08/03/2024 3:40 PM ROOM INSPECTOR Vent Rate: 79 bpm RR Interval: 758 msec [place] Interval: 182 msec QRS Duration: 87 msec QT Interval: 361 msec QTC Interval: 395 msec P-R-T [place]: 32 - 12 - 70 degrees IMPRESSION: SINUS RHYTHM NONSPECIFIC T-WAVE ABNORMALITY BORDERLINE ECG Electronically Signed By: Beto Richmond MD Grover Wren MD ECG ORDERABLES Final Res ult [facility] * Cardiology Document Scan (08/02/2024 12:45 PM ROOM INSPECTOR) Anatomical Region Laterality Modality Other Daniel Logan MD CV CARDIAC SERVICES PROCEDURES F inal Result * Cardiology Document Scan (07/30/2024 1:11 PM ROOM INSPECTOR) Anatomical Region Laterality Modality Other Keisha Dueñas MD CV CARDIAC SERVICES PROCEDU RES Final Result * Electrocardiogram Report (07/22/2024 3:53 PM ROOM INSPECTOR) Daniel Logan MD ECG ORDERABLES Final Result * POCT lipid panel (07/22/2024 2:54 PM ROOM INSPECTOR) Cholesterol, POC 204 mg/dL Comment:GLU = 84 HDL, POC 52 mg/dL Triglycerides, POC 277 mg/dL LDL Cholesterol POC 97 mg/dL Chol/HDL Ratio, POC 1.9 Non-HDL Cholesterol, POC 152 mg/dL Cholesterol Total, POC 204 mg/dL Capillary blood 07/22/2024 2 :54 PM ROOM INSPECTOR Daniel Logan MD POINT OF CARE TEST ORDERABLES Fi nal Result from Last 3 Months Insurance MEDICARE [facility] MEDIC[facility] Address: [address] [address] [place] [address] [facility] MEDICARE [facility] MEDICARE Address: [address] [place] [address] [employer] MEDICARE Advance Directives For more information, please contact: [phone] * Full Code (Latest Code Status on File) Date Activated Date Inactivated Comments 08/02/2024 7:29 PM 08/05/2024 6:07 PM Care Teams Roofer Apprentice Relationship Specialty Start Date End Date Attila Lepe MD [address] [facility] [address] [place] [address] PCP - General Family Practice 07/22/24 Grover Wren MD [address] [place] [address] Consulting Physician Cardiology 08/05/24
--- OUTSIDE RECORDS SUMMARY | 2024-08-09 03:15 | XMS_ITS | Encounter Summary ---
Author Organization [facility] Address [address] [place] [address] Care Team Providers Care Basting Marker Name Role Phone No, Physician Primary Care Provider [phone] Encounter Details Date Type Department Care Team (Late st Contact Info) Description 06/27/2017 Telephone [facility] [address], [place] [address] Denise Rowley MA Social History Tobacco Use Types Packs/Day Years Used Date Smoking Tobacco: Never Smokeless Tobacco: Never Alcohol Use Standard Drinks/Week Comments No 0 (1 standard drink = 0.6 oz pure alcohol) caffeine-diet coke, tea, and coffee Comments Unknown Sex and Gender Information Value Date Recorded Sex Assigned at Not on file Legal Sex Female 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
--- OUTSIDE RECORDS SUMMARY | 2024-08-09 03:15 | XMS_ITS | Encounter Summary ---
Author Organization [facility] Healthcare Address [address] [place] [address] Care Team Providers Care Retail Cosmetics Sales Beauty Advisor Name Role Phone Daniel Wilson MD Primary Care Provider Encounter Details Date Type Department Care Team (Latest Contact Info) Description 12/16/2016 1:21 PM CDT - 12/16/2016 11:59 PM CDT Hospital Encounter [facility] [phone] Jacob Bustillo MD [address] [place] [address] Discharge Disposition: Discharge to home or self care Social History Tobacco Use Types Packs/Day Years Used Date Smoking Tobacco: Never Alcohol Use Standard Drinks/Week Comments No 0 (1 standard drink = 0.6 oz pur e alcohol) Comments Unknown Sex and Gender Information Value Date Recorded Sex Assigned at Not on file Legal Sex Female 1:23 AM [employer] Gender Identity Not on file Sexual Orientation [...] 12/16/2016 7 documented as of this encounter Discharge Disposition Disposition Code Departure Means Destination Discharge to home or self care documented in this encounter Plan of Treatment Not on file documented as of this encounter Procedures Procedure Name Priority Date/Time Associated Diagnosis Comments CT FACIAL BONES W CONTRAST Routine 12/16/2016 6:53 PM CDT documented in this encounter Results * CT Facial Bones W Contrast (12/16/2016 6:53 PM CDT) Anatomical Region Laterality Modality Head and Neck N/A Computed Tomogra phy 12/16/2016 6:53 PM CDT Narrative 12/16/2016 6:[address] maxillofacial stealth without contrast, 12/16/2016 HISTORY: Right sinus and facial pain including the right ear, allergic rhinitis COMPARISON: None Axial high-resolution images and coronal reconstructions are reviewed. Sinuses: clear, except for a small right inferior maxillary mucus retention cyst. ??No air-fluid levels. Ostiomeatal units/nasal cavity and septum: There is mild leftward nasal septal deviation with a small spur, a small right arielle bullosa but patent ostiomeatal units without Shantel cells. Brain/Orbits: No asymmetry. Skull base/Mastoids: Clear mastoids. No lytic or sclerotic bony abnormality. ??There is no asymmetry or abnormality of the external auditory canals, middle ear cavities or inner ear structures. Other included structures: No asymmetry. IMPRESSION: Small inferior right maxillary sinus mucus retention cyst. ??No air-fluid levels. ??Clear appearance of the right ureter and mastoid region. ??Bony variant anatomy as above. Electronically signed by: Angelito West M.D. Radiologist: ANGELITO WEST ?? Attending: ??JACOB BUSTILLO M.D. Requesting: JACOB BUSTILLO M.D. Requesting Fax: ?? Requesting ID: [id number] Attending Fax: ?? Attending ID: ?? [id number] Completed Time: ?? 12/16/2016 1:53 PM Dictated Time: ?N/A Transcribed Time: 12/16/2016 2:17 PM Signed by: ?ANGELITO WEST ?? on 12/16/2016 2:17 PM Report To 1 ID: Report To 1 Name: , Report To 1 FAX: Report To 2 ID: Report To 2 Name: , Report To 2 FAX: Report To 3 ID: Report To 3 Name: , Report To 3 FAX: NextGen Order #: [id number] Procedure Note Miscellaneous, Not In File / Provider, MD Obdulia - 01/04/2017 CT maxillofacial stealth without contrast, 12/16/2016 HISTORY: Right sinus and facial pain including the right ear, allergic rhinitis COMPARISON: None Axial high-resolution images and coronal reconstructions are reviewed. Sinuses: clear, except for a small right inferior maxillary mucus retention cyst. No air-fluid levels. Ostiomeatal units/nasal cavity and septum: There is mild leftward nasal septal deviation with a small spur, a small right arielle bullosa but patent ostiomeatal units without Shantel cells. Brain/Orbits: No asymmetry. Skull base/Mastoids: Clear mastoids. No lytic or sclerotic bony abnormality. There is no asymmetry or abnormality of the external auditory canals, middle ear cavities or inner ear structures. Other included structures: No asymmetry. IMPRESSION: Small inferior right maxillary sinus mucus retention cyst. No air-fluid levels. Clear appearance of the right ureter and mastoid region. Bony variant anatomy as above. Electronically signed by: Angelito West M.D. Radiologist: ANGELITO WEST Attending: JACOB BUSTILLO M.D. Requesting: JACOB BUSTILLO M.D. Requesting Requesting ID: [id number] Attending Attending ID: [id number] Completed Time: 12/16/2016 1:53 PM Dictated Time: N/A Transcribed Time: 12/16/2016 2:17 PM Signed by: ANGELITO WEST on 12/16/2016 2:17 PM Report To 1 ID: Report To 1 Name: , Report To 1 FAX: Report To 2 ID: Report To 2 Name: , Report To 2 FAX: Report To 3 ID: Report To 3 Name: , Report To 3 FAX: NextGen Order #: [id number] Jacob Bustillo MD IMG CT PROCEDURES Final Re sult documented in this encounter Visit Diagnoses Not on filedocumented in this encounter Care Teams Retail Cosmetics Sales Beauty Advisor Relationship Specialty Start Date End Date Daniel Wilson MD [address] [facility] [address] [address] PCP - General 12/05/16 05/12/17 documented as of this encounter
--- OUTSIDE RECORDS SUMMARY | 2024-08-09 03:15 | XMS_ITS | Encounter Summary ---
Author Organization [facility] Address [address] [facility] [address] [place] [address] Care Team Providers Care Cableman Name Role Phone No, Physician Primary Care Provider [phone] Encounter Details Date Type Department Care Team (Late st Contact Info) Description 12/29/2017 Telephone [facility] [address] [facility] [address] [place] [address] Giacomo Black MD [address] [place] [address] [address] [place] [address] Social History Tobacco Use Types Packs/Day Years Used Date Smoking Tobacco: Never Smokeless Tobacco: Never Alcohol Use Standard Drinks/Week Comments No 0 (1 standard drink = 0.6 oz pure alcohol) caffeine-diet coke, tea, and coffee Comments Unknown Sex and Gender Information Value Date Recorded Sex Assigned at Not on file Legal Sex Female 1:23 AM CORPORATE CONTROLLER Gender Identity Not on file Sexual Orientation Not on file documented as of this encounter Miscellaneous Notes * Telephone Encounter - Giacomo Black MD - 12/29/2017 2:15 PM CDT Noted - see me in 6 months or sooner if needed * Telephone Encounter - Deysi Morillo - 12/29/2017 11:26 AM CDT Patient aware. She does not want to take Prednisone at this time. * Telephone Encounter - Deysi Morillo - 12/29/2017 10:47 AM CDT LMOVM to CB * Telephone Encounter - Deysi Morillo - 12/29/2017 10:47 AM CDT ----- Message from Giacomo Black MD sent at 12/28/2017 3:18 PM CDT ----- MRI brain scan as well as CT abdomen and pelvis both unremarkable. Reports from Dr. Coates indicatehe saw no ongoing evidence of inflammation. BRANDIE 1:80 is nonspecific finding especially with all of the other nuclear antibody markers negative. We could consider a brief steroid trial to see if it alleviates her headache (orbital and facial pain). documented in this encounter Plan of Treatment Not on file documented as of this encounter Visit Diagnoses Not on filedocumented in this encounter Care Teams Cableman Relationship Specialty Start Date End Date No, Physician PCP - General 05/13/17 07/20/24 documented as of this encounter
--- OUTSIDE RECORDS SUMMARY | 2024-08-09 03:15 | XMS_ITS | Encounter Summary ---
Author Organization [facility] Facility Care Team Providers Care Field Broomer Name Role Phone Daniel Wilson MD Primary Care Provider No, Physician Primary Care Provider [phone] Attila Lepe MD Primary Care Provider Attila Lepe MD Primary Care Provider Grover Wren MD Unavailable Encounter Details Date Type Department Care Team (Latest Contact Info) Description 03/17/2017 Orders Only [facility] ProviderObdulia MD [address] [place] [id number] Social History Tobacco Use Types Packs/Day Years Used Date Smoking Tobacco: Never Alcohol Use Standard Drinks/Week Comments No 0 (1 standard drink = 0.6 oz pur e alcohol) Comments Unknown Sex and Gender Information Value Date Recorded Sex Assigned at Not on file 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 Historical Provider Final Res ult documented in this encounter Visit Diagnoses Not on filedocumented in this encounter Care Teams Field Broomer Relationship Specialty Start Date End Date Daniel Wilson MD [address] [place] [address] PCP - General 12/05/16 05/12/17 No, Physician PCP - General 05/13/17 07/20/24 Attila Lepe MD [address] [facility] [address] [place] [address] PCP - General Family Practice 07/21/24 07/21/24 Attila Lepe MD [address] [facility] [address] [place] [address] PCP - General Family Practice 07/22/24 Grover Wren MD [address] [place] [address] Consulting Physician Cardiology 08/05/24 documented as of this encounter
--- OUTSIDE RECORDS SUMMARY | 2024-08-09 03:15 | XMS_ITS | Encounter Summary ---
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 - 06/28/2017 11:59 PM EXPELLER OPERATOR Hospital Encounter [facility] [phone] Damon Black MD [address] [facility] [address] [place] [address] Pain of right orbit; Scleritis, unspecified laterality Discharge Disposition: Discharge to home or self care Social History Tobacco Use Types Packs/Day Years Used Date Smoking Tobacco: Never Smokeless Tobacco: Never Alcohol Use Standard Drinks/Week Comments No 0 (1 standard drink = 0.6 oz pure alcohol) caffeine-diet coke, tea, and coffee Comments Unknown Sex and Gender Information Value Date Recorded Sex Assigned at Not on file Legal Sex Female 1:23 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 0 0 12/16/2016 12/02/2017 gabapentin (NEURONTIN) 100 mg capsule Take 3 capsules (300 mg total) by mouth nightly. 90 capsule 1 06/02/2017 09/05/2017 naproxen (NAPROSYN,ALEVE) 220 mg tablet Take by mouth 2 (two) times a day with meals. 08/02/2024 documented as of this encounter Discharge Disposition Disposition Code Departure Means Destination Discharge to home or self care documented in this encounter Plan of Treatment Not on file documented as of this encounter Procedures Procedure Name Priority Date/Time Associated Diagnosis Comments MRI FACE W WO CONTRAST Schedule Routine, Read Routine (OP Routine) 06/28/2017 5:24 PM EXPELLER OPERATOR documented in this encounter Results * MRI Face W WO Contrast (06/28/2017 5:24 PM EXPELLER OPERATOR) Anatomical Region Laterality Modality Head and Neck N/A Magnetic Resonan ce 06/28/2017 5:24 PM EXPELLER OPERATOR Narrative 06/28/2017 7:53 PM EXPELLER OPERATOR EXAMINATION: Magnetic resonance imaging (MRI) of the orbits without and with contrast HISTORY: Scleritis. ??Right eye pain. TECHNIQUE: Multiplanar multi-weighted MRI of the orbits was performed without and with intravenous contrast using the standard orbital protocol. Contrast information: 15 mL Dotarem COMPARISON: None FINDINGS: Symmetric globes without proptosis. Normal size and signal of extraocular muscles. No intra- or extraconal mass. Normal intraconal fat. No abnormal enhancement. Intact orbital flores. Normal lacrimal glands. Normal Meckel's cave bilaterally. Normal carotid flow voids. Normal optic chiasm. Normal suprasellar cistern. There are scattered T2 FLAIR hyperintensities within the bilateral hemispheric white matter, which are nonspecific but compatible with chronic small vessel ischemic changes. ??No hydrocephalus or evidence of intracranial mass effect. IMPRESSION: No acute abnormality involving the bilateral orbits. Electronically signed by: LISHA ANDERSON MD Radiologist: LISHA ANDERSON ?? Attending: ??DAMON BLACK Requesting: DAMON BLACK Requesting Fax: ?? Requesting ID: [id number] Attending Fax: ?? Attending ID: ?? [id number] Completed Time: ?? 06/28/2017 11:24 AM Dictated Time: ?N/A Transcribed Time: 06/28/2017 1:53 PM Signed by: ?LISHA ANDERSON ?? on 06/28/2017 1:53 PM Report To 1 ID: Report To 1 Name: , Report To 1 FAX: Report To 2 ID: Report To 2 Name: , Report To 2 FAX: Report To 3 ID: Report To 3 Name: , Report To 3 FAX: NextGen Order #: [id number] Procedure Note Miscellaneous, Not In File - 06/28/2017 EXAMINATION: Magnetic resonance imaging (MRI) of the orbits without and with contrast HISTORY: Scleritis. Right eye pain. TECHNIQUE: Multiplanar multi-weighted MRI of the orbits was performed without and with intravenous contrast using the standard orbital protocol. Contrast information: 15 mL Dotarem COMPARISON: None FINDINGS: Symmetric globes without proptosis. Normal size and signal of extraocular muscles. No intra- or extraconal mass. Normal intraconal fat. No abnormal enhancement. Intact orbital flores. Normal lacrimal glands. Normal Meckel's cave bilaterally. Normal carotid flow voids. Normal optic chiasm. Normal suprasellar cistern. There are scattered T2 FLAIR hyperintensities within the bilateral hemispheric white matter, which are nonspecific but compatible with chronic small vessel ischemic changes. No hydrocephalus or evidence of intracranial mass effect. IMPRESSION: No acute abnormality involving the bilateral orbits. Electronically signed by: LISHA ANDERSON MD Radiologist: LISHA ANDERSON Attending: DAMON BLACK Requesting: DAMON BLACK Requesting Requesting ID: [id number] Attending Attending ID: [id number] Completed Time: 06/28/2017 11:24 AM Dictated Time: N/A Transcribed Time: 06/28/2017 1:53 PM Signed by: LISHA ANDERSON on 06/28/2017 1:53 PM Report To 1 ID: Report To 1 Name: , Report To 1 FAX: Report To 2 ID: Report To 2 Name: , Report To 2 FAX: Report To 3 ID: Report To 3 Name: , Report To 3 FAX: NextGen Order #: [id number] Damon Black MD IMG MRI PROCEDURES Edited Result - Final documented in this encounter Visit Diagnoses Diagnosis Pain of right orbit Scleritis, unspecified laterality documented in this encounter Care Teams Risk Management Manager Relationship Specialty Start Date End Date No, Physician PCP - General 05/13/17 07/20/24 documented as of this encounter
--- OUTSIDE RECORDS SUMMARY | 2024-08-09 03:15 | XMS_ITS | Encounter Summary ---
Author Organization [facility] Address [address] [place] [address] Care Team Providers Care Registered Client Associate Name Role Phone No, Physician Primary Care Provider [phone] Reason for Referral * Diagnostic Imaging (Routine) - Closed Specialty Diagnoses / Procedures Referred By Contac t Referred To Contact Radiology Diagnoses Scleritis, unspecified laterality Procedures MRI Brain W WO Contrast Giacomo Black MD Phone: tel: fax: Referral ID Status Reason Start Date Expiration Date Visits Re quested Visits Authorized [id number] Closed 12/02/2017 05/31/2018 1 1 Reason for Visit * Diagnostic Imaging (Routine) - Closed Specialty Diagnoses / Procedures Referred By Contac t Referred To Contact Radiology Diagnoses Scleritis, unspecified laterality Procedures MRI Brain W WO Contrast Giacomo Black MD Phone: tel: fax: Referral ID Status Reason Start Date Expiration Date Visits Re quested Visits Authorized [id number] Closed 12/02/2017 05/31/2018 1 1 Encounter Details Date Type Department Care Team (Latest Contact Info) Description 12/21/2017 10:15 AM CDT - 12/21/2017 11:59 PM CDT Hospital Encounter [facility] [address] [place] [address] Giacomo Black MD [address] [facility] [address] [place] [address] Scleritis, unspecified laterality Discharge Disposition: Discharge to [...] on file Legal Sex 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 12/02/2017 gabapentin (NEURONTIN) 100 mg capsule Take 2 capsules (200 mg total) by mouth nightly. 90 capsule 1 12/02/2017 08/02/2024 LINZESS 290 mcg capsule Take 290 mcg by mouth daily. 11/28/2017 07/22/2024 naproxen (NAPROSYN,ALEVE) 220 mg tablet Take by mouth 2 (two) times a day with meals. 08/02/2024 documented as of this encounter Discharge Disposition Disposition Code Departure Means Destination Discharge to home or self care documented in this encounter Plan of Treatment Not on file documented as of this encounter Procedures Procedure Name Priority Date/Time Associated Diagnosis Comments MRI BRAIN W WO CONTRAST Schedule Routine, Read Routine (OP Routine) 12/21/2017 11:36 AM CDT Scleritis, unspecified laterality documented in this encounter Results * MRI Brain W WO Contrast (12/21/2017 11:36 AM CDT) Anatomical Region Laterality Modality Head and Neck N/A Magnetic Resonan ce Impressions 12/22/2017 8:57 AM CDT No acute intracranial abnormality. Electronically signed by: Sam Avila MD Narrative 12/22/2017 8:57 AM CDT EXAMINATION: Magnetic resonance imaging (MRI) of the brain without and with contrast HISTORY: Scleritis. ??Orbital pain. ??Facial pain. ??Headache. TECHNIQUE: Multiplanar multi-weighted MRI of the brain was performed without and with intravenous contrast using the standard protocol. Contrast information: 15 mL Dotarem COMPARISON: 06/28/2017. FINDINGS: Generalized cerebral volume loss. ??Appropriate ventricular size. Mild degree of patchy FLAIR hyperintensity in the hemispheric white matter, nonspecific but likely related to chronic small vessel ischemia. ??All of these findings are unchanged. No midline shift or mass effect. No acute or chronic intracranial hemorrhage. No parenchymal restricted diffusion. No abnormal extra-axial collections. No abnormal enhancement. Normal scalp and calvaria. Unremarkable pituitary and sella. ??Minimal degree of right maxillary sinus mucosal thickening. ??Clear mastoid air cells. Major vascular flow voids are preserved. ??Bilateral lens replacements. ??Otherwise unremarkable orbits. Procedure Note Sam Avila MD - 12/22/2017 EXAMINATION: Magnetic resonance imaging (MRI) of the brain without and with contrast HISTORY: Scleritis. Orbital pain. Facial pain. Headache. TECHNIQUE: Multiplanar multi-weighted MRI of the brain was performed without and with intravenous contrast using the standard protocol. Contrast information: 15 mL Dotarem COMPARISON: 06/28/2017. FINDINGS: Generalized cerebral volume loss. Appropriate ventricular size. Mild degree of patchy FLAIR hyperintensity in the hemispheric white matter, nonspecific but likely related to chronic small vessel ischemia. All of these findings are unchanged. No midline shift or mass effect. No acute or chronic intracranial hemorrhage. No parenchymal restricted diffusion. No abnormal extra-axial collections. No abnormal enhancement. Normal scalp and calvaria. Unremarkable pituitary and sella. Minimal degree of right maxillary sinus mucosal thickening. Clear mastoid air cells. Major vascular flow voids are preserved. Bilateral lens replacements. Otherwise unremarkable orbits. IMPRESSION: No acute intracranial abnormality. Electronically signed by: Sam Avila MD Giacomo Black MD [facility] [place] PROCEDURES Final Result documented in this encounter Visit Diagnoses Diagnosis Scleritis, unspecified laterality documented in this encounter Administered Medications Inactive Administered Medications - up to 3 most recent administrations Medication Order MAR Action Action Date Dose Rate Site gadoterate meglumine (DOTAREM) 0.5 mmol/mL injection 15 mL 15 mL, intravenous, Once in imaging, contrast, Starting on 12/21/17 at 1136, For 1 dose Given 12/21/2017 11:37 AM CDT 15 mL documented in this encounter Orders Medications Ordered That Pedrito ht Not Have Been Administered Count Last Ordered Date First Ordered Date gadoterate meglumine (DOTARE M) 0.5 mmol/mL injection 15 mL 1 12/21/2017 documented in this encounter Care Teams Registered Client Associate Relationship Specialty Start Date End Date No, Physician PCP - General 05/13/17 07/20/24 documented as of this encounter
--- OUTSIDE RECORDS SUMMARY | 2024-08-09 03:15 | XMS_ITS | Encounter Summary ---
Author Organization [facility] Address [address] [facility] [address] [place] [address] Care Team Providers Care Payment Specialist Name Role Phone No, Physician Primary Care Provider [phone] Reason for Visit * Reason Onset Date Comments Test Results 05/20/2017 Encounter Details Date Type Department Care Team (Late st Contact Info) Description 05/20/2017 Telephone [facility] [address] [facility] [address] [place] [id number] Giacomo Black MD [address] [facility] [address] [place] [address] Test Results Social History Tobacco Use Types Packs/Day Years Used Date Smoking Tobacco: Never Smokeless Tobacco: Never Alcohol Use Standard Drinks/Week Comments No 0 (1 standard drink = 0.6 oz pure alcohol) caffeine-diet coke, tea, and coffee Comments Unknown Sex and Gender Information Value Date Recorded Sex Assigned at Not on file 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 CT faxed to scheduling. * Telephone Encounter - Deysi Morillo - 05/20/2017 10:29 AM CDT LMOVM to CB * Telephone Encounter - Deysi Morillo - 05/20/2017 10:29 AM CDT ----- Message from Giacomo Black MD sent at 05/19/2017 6:25 PM CDT ----- BRANDIE again positive (1:160) - other labs are all satisfactory - LALITHA test (which is a marker for sarcoidosis) is borderline high but this is very nonspecific and chest x-ray did not suggest sarcoid - recommend ct chest to better exclude sarcoidosis (autoimmune disease of lymph nodes) - after ct will schedule followup ov documented in this encounter Plan of Treatment Not on file documented as of this encounter Visit Diagnoses Not on filedocumented in this encounter Care Teams Payment Specialist Relationship Specialty Start Date End Date No, Physician PCP - General 05/13/17 07/20/24 documented as of this encounter
--- OUTSIDE RECORDS SUMMARY | 2024-08-09 03:15 | XMS_ITS | Encounter Summary ---
Author Organization [facility] Address [address] [facility] [address] [place] [address] Care Team Providers Care Shortage Worker Name Role Phone No, Physician Primary Care Provider [phone] Reason for Visit * Reason Comments Abnormal Antibody Titer Scleritis/Positi ve BRANDIE Encounter Details Date Type Department Care Team (Late st Contact Info) Description 05/13/2017 1:30 PM CDT Office Visit [facility] [address] [facility] [address] [place] [address] Damon Black MD [address] [facility] [address] [place] [address] Scleritis, unspecified laterality (Primary Dx); Positive BRANDIE (antinuclear antibody); Class 1 obesity without serious comorbidity with body mass index (BMI) of 30.0 to 30.9 in adult, unspecified obesity type Social History Tobacco Use Types Packs/Day Years Used Date Smoking Tobacco: Never Smokeless Tobacco: Never Alcohol Use Standard Drinks/Week Comments No 0 (1 standard drink = 0.6 oz pure alcohol) caffeine-diet coke, tea, and coffee Comments Unknown Sex and Gender Information Value Date Recorded Sex Assigned at Not on file 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 Gender Identity Not on file Sexual Orientation Not on file documented as of this encounter Last Filed Vital Signs Vital Sign Reading Time Taken Comments Blood Pressure 150/88 05/13/2017 1:50 PM CDT Pulse 80 05/13/2017 1:50 PM CDT Temperature 37 ??C (98.6 ??F) 05/13/2017 1:50 PM CDT Respiratory Rate 16 05/13/2017 1:50 PM CDT Oxygen Saturation - - Inhaled Oxygen Concentration - - Weight 74.4 kg (164 lb) 05/13/2017 1:50 PM CDT Height 154.9 cm (5' 1 ) 05/13/2017 1:50 PM CDT Body Mass Index 30.99 05/13/2017 1:50 PM CDT documented in this encounter Patient Instructions * Patient Instructions* Damon Black MD - 05/13/2017 1:30 PM CDT Diagnoses and all orders for this visit: 1. 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 Of note are her prominent complaints of diffuse arthralgias, chronic back and neck pain (with multiple previous surgical interventions), and recurrent rectalbleeding (colonoscopy documented ulcers terminal ileum with path NOT diagnostic of IBD: lymphoid hyperplasia without inflammation). Discussed with patient the nonspecificity of BRANDIE as an isolated marker as well as differential diagnosis of systemic inflammatory diseases associated with inflammatoryeye issues. Will pursue comprehensive lab evaluation including BRANDIE Panel as per orders. Imaging of the chest (rule out sarcoidosis), hands and feet as well as sacroiliac joints (rule out spondyloarthropathy) are included. Further plans pend above. Orders: - PABLO BRANDIE PANEL, CARDIOLIPIN ANTIBODY PANEL, PROMETHIUS INFLAMMATORY BOWEL DISEASE PANEL, CELIAC DISEASE PANEL, QUANTITATIVE IMMUNOGLUBULINS, SERUM IMMUNOFIXATION, hla b27 - Miscellaneous Test; Future - C3 complement; Future - C4 complement; Future - CBC with auto differential; Future - Comprehensive metabolic panel; Future - CRP (acute phase); Future - Cyclic citrul peptide antibody, IgG; Future - Creatine kinase (CK), total; Future - Erythrocyte sedimentation rate; Future - Rheumatoid factor; Future - TB test, quantiferon gold; Future - Uric acid; Future - Urinalysis reflex to microscopic and culture; Future - Angiotensin converting enzyme; Future - XR Chest Pa Lateral 2 Views; Future - XR Hand Left 3 or More Views; Future - XR Hand Right 3 or More Views; Future - XR Foot Left 3 or More Views; Future - XR Foot Right 3 or More Views; Future - XR Sacroiliac Joints 3 or More Views; Future 2. Positive BRANDIE (antinuclear antibody) Assessment & Plan: See discussion above Orders: - PABLO BRANDIE PANEL, CARDIOLIPIN ANTIBODY PANEL, PROMETHIUS INFLAMMATORY BOWEL DISEASE PANEL, CELIAC DISEASE PANEL, QUANTITATIVE IMMUNOGLUBULINS, SERUM IMMUNOFIXATION, hla b27 - Miscellaneous Test; Future - C3 complement; Future - C4 complement; Future - CBC with auto differential; Future - Comprehensive metabolic panel; Future - CRP (acute phase); Future - Cyclic citrul peptide antibody, IgG; Future - Creatine kinase (CK), total; Future - Erythrocyte sedimentation rate; Future - Rheumatoid factor; Future - TB test, quantiferon gold; Future - Uric acid; Future - Urinalysis reflex to microscopic and culture; Future - Angiotensin converting enzyme; Future - XR Chest Pa Lateral 2 Views; Future - XR Hand Left 3 or More Views; Future - XR Hand Right 3 or More Views; Future - XR Foot Left 3 or More Views; Future - XR Foot Right 3 or More Views; Future 3. Class 1 obesity without serious comorbidity with body mass index (BMI) of 30.0 to 30.9 in adult,unspecified obesity type Assessment & Plan: An optimal body mass index is between 20 and 25. Encourage weight loss. Each pound of weight lost unloads 3-4 pounds per square inch pressure from weight bearing joints. Diet and exercise are the keys to weight management. Other orders - pilocarpine (SALAGEN, PILOCARPINE,) 5 mg tablet; 1 tablet (5 mg total) 2 (two) times a day for 12days. - gabapentin (NEURONTIN) 100 mg capsule; Take 3 capsules (300 mg total) by mouth nightly. documented in this encounter Ordered Prescriptions Prescription Sig Dispense Quantity Refills Last Filled Start Date End Date gabapentin (NEURONTIN) 100 mg capsule Take 3 capsules (300 mg total) by mouth nightly. 05/13/2017 pilocarpine (SALAGEN, PILOCARPINE,) 5 mg tablet 1 tablet (5 mg total) 2 (two) times a day for 12 days. 05/13/2017 7 documented in this encounter Progress Notes * Damon Black MD - 05/13/2017 1:30 PM CDT Images from the original note were not included. [facility] Damon Black MD [facility] [address] 05/13/2017 Maria C Pat 1950 Abnormal Antibody Titer (Scleritis/Positive BRANDIE ) HPI: Mraia C Pat is a 66 y.o. female patient being seen as a Rheumatology consultation requested by Frankie Leblanc MD with a chief complaint of Abnormal Antibody Titer (Scleritis/Positive BRANDIE ) Patient with dry eyes and dry mouth referred by Dr. Frankie eLblanc for rheumatology evaluation after shewas noted to have positive BRANDIE (1:160). She has had a colonoscopy 03/2017 with several ulcers terminal ileum suspicious for possible Crohn's Disease. Her iritis was treated with topical corticosteroids (discontinued) with marginal response. She has continued to note blood in bowel movement. She denies diarrhea. She describes musculoskeletal pain with occasional swelling PIP hands and feet. No rash, mouth sores, chest pain, dysuria/hematuria. She notes intermittent nausea/vomiting. No Raynaud's. No seizures or syncope. MEDICATIONS Current Outpatient Prescriptions Medication Sig Dispense Refill ??? cyclobenzaprine ER (AMRIX) 15 mg 24 hr capsule 15 mg. 0 0 ??? gabapentin (NEURONTIN) 100 mg capsule Take 3 capsules (300 mg total) by mouth nightly. ??? naproxen (NAPROSYN,ALEVE) 220 mg tablet Take by mouth 2 (two) times a day with meals. ??? pilocarpine (SALAGEN, PILOCARPINE,) 5 mg tablet 1 tablet (5 mg total) 2 (two) times a day for 12 days. No current facility-administered medications for this visit. ALLERGIES Amoxicillin; Nut - unspecified; and Potassium Patient Active Problem List Diagnosis ??? Multiple environmental allergies ??? Class 1 obesity without serious comorbidity with body mass index (BMI) of 30.0 to 30.9 in adult ??? Positive BRANDIE (antinuclear antibody) ??? Scleritis PAST MEDICAL HISTORY Past Medical History: Diagnosis Date ??? HX OTHER MEDICAL PUD; Comments: TITI 08/09/2015 - Past Surgical History: Procedure Laterality Date ??? SECTION x2 ??? DISCECTOMY Discectomy ??? HYSTERECTOMY Hysterectomy ??? OTHER SURGICAL HISTORY PUD: hospitalization ??? OTHER SURGICAL HISTORY Neck surgery x3 ??? OTHER SURGICAL HISTORY Left 2011 laproscopic knee Social History Social History ??? Marital status: Spouse name: N/A ??? Number of children: N/A ??? Years of education: N/A Occupational History ??? Not on file. Social History Main Topics ??? Smoking status: Never Smoker ??? Smokeless tobacco: Never Used ??? Alcohol use No Comment: caffeine-diet coke, tea, and coffee ??? Drug use: No ??? Sexual activity: Not on file Other Topics Concern ??? Not on file Social History Narrative ??? No narrative on file Review of Systems Constitutional: Positive for diaphoresis. Negative for activity change, fatigue, fever and unexpected weight change. HENT: Negative for congestion, mouth sores (dry mouth), sinus pressure and tinnitus. Voice change: hoarseness. Eyes: Positive for pain (dry eyes). Negative for visual disturbance. Respiratory: Negative for cough, chest tightness, shortness of breath and wheezing. Cardiovascular: Negative for chest pain, palpitations and leg swelling. Gastrointestinal: Positive for abdominal pain (heartburn), blood in stool and constipation. Negative for nausea and vomiting. Genitourinary: Negative for dysuria, hematuria and urgency. Musculoskeletal: Positive for arthralgias (2 hour AM stiffness). Negative for back pain, joint swelling and myalgias. Skin: Negative for rash. Neurological: Positive for dizziness. Negative for tremors and headaches. Hematological: Negative for adenopathy. Bruises/bleeds easily. Psychiatric/Behavioral: Negative for dysphoric mood. The patient is not nervous/anxious. Vitals: 05/13/17 1350 BP: 150/88 BP Location: Right arm Patient Position: Sitting Pulse: 80 Resp: 16 Temp: 37 ??C (98.6 ??F) TempSrc: Oral Weight: 74.4 kg (164 lb) Height: 154.9 cm (5' 1 ) Body mass index is 30.99 kg/m??. Physical Exam Constitutional: She is oriented to person, place, and time. She appears well- developed and well-nourished. HENT: Head: Normocephalic and atraumatic. Right Ear: External ear normal. Left Ear: External ear normal. Nose: Nose normal. Mouth/Throat: Oropharynx is clear and moist. Eyes: Conjunctivae and EOM are normal. Pupils are equal, round, and reactive to light. Fundoscopic exam: The right eye shows no exudate, no hemorrhage and no papilledema. The left eye shows no exudate, no hemorrhage and no papilledema. Neck: Normal range of motion. Neck supple. No thyromegaly present. Cardiovascular: Normal rate and regular rhythm. Exam reveals no gallop and no friction rub. No murmur heard. Pulmonary/Chest: Effort normal and breath sounds normal. She has no wheezes. She has no rales. Abdominal: Soft. Bowel sounds are normal. She exhibits no mass. There is no tenderness. There is norebound. Musculoskeletal: She exhibits tenderness (30 joint exam with mild tenderness PIP and hypertrophic DIP without synovitis). She exhibits no edema. Lymphadenopathy: She has no cervical adenopathy. Neurological: She is alert and oriented to person, place, and time. She has normal reflexes. No cranial nerve deficit. Skin: Skin is warm and dry. No rash noted. Psychiatric: She has a normal mood and affect. Vitals reviewed. LABS: Lab Results Component Value Date GLUCOSE 142 07/02/2016 CALCIUM 9.9 07/02/2016 CO2 23 07/02/2016 CREATININE 0.95 07/02/2016 Lab Results Component Value Date ALT 17 09/09/2015 AST 27 09/09/2015 ALKPHOS 109 09/09/2015 BILITOT 0.6 09/09/2015 Lab Results Component Value Date HGB 13.9 07/02/2016 HCT 40.9 07/02/2016 MCV 91.7 07/02/2016 Diagnoses and all orders for this visit: 1. 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 Of note are her prominent complaints of diffuse arthralgias, chronic back and neck pain (with multiple previous surgical interventions), and recurrent rectalbleeding (colonoscopy documented ulcers terminal ileum with path NOT diagnostic of IBD: lymphoid hyperplasia without inflammation). Discussed with patient the nonspecificity of BRANDIE as an isolated marker as well as differential diagnosis of systemic inflammatory diseases associated with inflammatoryeye issues. Will pursue comprehensive lab evaluation including BRANDIE Panel as per orders. Imaging of the chest (rule out sarcoidosis), hands and feet as well as sacroiliac joints (rule out spondyloarthropathy) are included. Further plans pend above. Orders: - PABLO BRANDIE PANEL, CARDIOLIPIN ANTIBODY PANEL, PROMETHIUS INFLAMMATORY BOWEL DISEASE PANEL, CELIAC DISEASE PANEL, QUANTITATIVE IMMUNOGLUBULINS, SERUM IMMUNOFIXATION, hla b27 - Miscellaneous Test; Future - C3 complement; Future - C4 complement; Future - CBC with auto differential; Future - Comprehensive metabolic panel; Future - CRP (acute phase); Future - Cyclic citrul peptide antibody, IgG; Future - Creatine kinase (CK), total; Future - Erythrocyte sedimentation rate; Future - Rheumatoid factor; Future - TB test, quantiferon gold; Future - Uric acid; Future - Urinalysis reflex to microscopic and culture; Future - Angiotensin converting enzyme; Future - XR Chest Pa Lateral 2 Views; Future - XR Hand Left 3 or More Views; Future - XR Hand Right 3 or More Views; Future - XR Foot Left 3 or More Views; Future - XR Foot Right 3 or More Views; Future - XR Sacroiliac Joints 3 or More Views; Future - Differential, auto 2. Positive BRANDIE (antinuclear antibody) Assessment & Plan: See discussion above Orders: - PABLO BRANDIE PANEL, CARDIOLIPIN ANTIBODY PANEL, PROMETHIUS INFLAMMATORY BOWEL DISEASE PANEL, CELIAC DISEASE PANEL, QUANTITATIVE IMMUNOGLUBULINS, SERUM IMMUNOFIXATION, hla b27 - Miscellaneous Test; Future - C3 complement; Future - C4 complement; Future - CBC with auto differential; Future - Comprehensive metabolic panel; Future - CRP (acute phase); Future - Cyclic citrul peptide antibody, IgG; Future - Creatine kinase (CK), total; Future - Erythrocyte sedimentation rate; Future - Rheumatoid factor; Future - TB test, quantiferon gold; Future - Uric acid; Future - Urinalysis reflex to microscopic and culture; Future - Angiotensin converting enzyme; Future - XR Chest Pa Lateral 2 Views; Future - XR Hand Left 3 or More Views; Future - XR Hand Right 3 or More Views; Future - XR Foot Left 3 or More Views; Future - XR Foot Right 3 or More Views; Future - Differential, auto 3. 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 Of note are her prominent complaints of diffuse arthralgias, chronic back and neck pain (with multiple previous surgical interventions), and recurrent rectalbleeding (colonoscopy documented ulcers terminal ileum with path NOT diagnostic of IBD: lymphoid hyperplasia without inflammation). Discussed with patient the nonspecificity of BRANDIE as an isolated marker as well as differential diagnosis of systemic inflammatory diseases associated with inflammatoryeye issues. Will pursue comprehensive lab evaluation including BRANDIE Panel as per orders. Imaging of the chest (rule out sarcoidosis), hands and feet as well as sacroiliac joints (rule out spondyloarthropathy) are included. Further plans pend above. Other orders - pilocarpine (SALAGEN, PILOCARPINE,) 5 mg tablet; 1 tablet (5 mg total) 2 (two) times a day for 12days. - gabapentin (NEURONTIN) 100 mg capsule; Take 3 capsules (300 mg total) by mouth nightly. documented in this encounter Miscellaneous Notes * Assessment & Plan Note - Damon Black MD - 05/13/2017 3:08 PM CDT Associated Problem(s): Class 1 obesity due to excess calories without serious comorbidity with bodymass index (BMI) of 30.0 to 30.9 in adult An optimal body mass index is between 20 and 25. Encourage weight loss. Each pound of weight lost unloads 3-4 pounds per square inch pressure from weight bearing joints. Diet and exercise are the keys to weight management. 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 Of note are her prominent complaints of diffuse arthralgias, chronic back and neck pain (with multiple previous surgical interventions), and recurrent rectalbleeding (colonoscopy documented ulcers terminal ileum with path NOT diagnostic of IBD: lymphoid hyperplasia without inflammation). Discussed with patient the nonspecificity of BRANDIE as an isolated marker as well as differential diagnosis of systemic inflammatory diseases associated with inflammatoryeye issues. Will pursue comprehensive lab evaluation including BRANDIE Panel as per orders. Imaging of the chest (rule out sarcoidosis), hands and feet as well as sacroiliac joints (rule out spondyloarthropathy) are included. Further plans pend above. documented in this encounter Plan of Treatment Not on file documented as of this encounter Procedures Procedure Name Priority Date/Time Associated Diagnosis Comments EGFR Routine 05/13/2017 3:07 PM CDT Scleritis, unspecified laterality Positive BRANDIE (antinuclear antibody) DIFFERENTIAL AUTO Routine 05/13/2017 3:0 7 PM CDT Scleritis, unspecified laterality Positive BRANDIE (antinuclear antibody) C4 COMPLEMENT Routine 05/13/2017 3:07 PM CDT Scleritis, unspecified laterality Positive BRANDIE (antinuclear antibody) TB TEST, QUANTIFERON GOLD Routine 05/13/2017 3:07 PM CDT Scleritis, unspecified laterality Positive BRANDIE (antinuclear antibody) URINALYSIS AND REFLEX TO MICROSCOPIC AND CULTURE Routine 05/13/2017 3:07 PM CDT Scleritis, unspecified laterality Positive BRANDIE (antinuclear antibody) CBC WITH AUTO DIFFERENTIAL Routine 05/13/2017 3:07 PM CDT Scleritis, unspecified laterality Positive BRANDIE (antinuclear antibody) CYCLIC CITRUL PEPTIDE ANTIBODY, IGG Routine 05/13/2017 3:07 PM CDT Scleritis, unspecified laterality Positive BRANDIE (antinuclear antibody) URINALYSIS, MICROSCOPIC ONLY Routine 05/13/2017 3:07 PM CDT Scleritis, unspecified laterality Positive BRANDIE (antinuclear antibody) ERYTHROCYTE SEDIMENTATION RATE Routine 05/13/2017 3:07 PM CDT Scleritis, unspecified laterality Positive BRANDIE (antinuclear antibody) RHEUMATOID FACTOR Routine 05/13/2017 3:0 7 PM CDT Scleritis, unspecified laterality Positive BRANDIE (antinuclear antibody) ANGIOTENSIN CONVERTING ENZYME Routine 05/13/2017 3:07 PM CDT Scleritis, unspecified laterality Positive BRANDIE (antinuclear antibody) C3 COMPLEMENT Routine 05/13/2017 3:07 PM CDT Scleritis, unspecified laterality Positive BRANDIE (antinuclear antibody) CRP (ACUTE PHASE) Routine 05/13/2017 3:0 7 PM CDT Scleritis, unspecified laterality Positive BRANDIE (antinuclear antibody) URIC ACID Routine 05/13/2017 3:07 PM CDT Scleritis, unspecified laterality Positive BRANDIE (antinuclear antibody) CREATINE KINASE (CK), TOTAL Routine 05/13/2017 3:07 PM CDT Scleritis, unspecified laterality Positive BRANDIE (antinuclear antibody) COMPREHENSIVE METABOLIC PANEL Routine 05/13/2017 3:07 PM CDT Scleritis, unspecified laterality Positive BRANDIE (antinuclear antibody) documented in this encounter Results * XR Sacroiliac Joints 3 or More [...] Degenerative changes as above. Electronically signed by: Jacque Roman M.D. Radiologist: JACQUE ROMAN M.D. ?? Attending: ??DAMON BLACK Requesting: DAMON BLACK Requesting Fax: ?? Requesting ID: [id number] Attending Fax: ?? Attending ID: ?? [id number] Completed Time: ?? 05/13/2017 4:35 PM Dictated Time: ?N/A Transcribed Time: 05/13/2017 5:48 PM Signed by: ?JACQUE ROMAN ??Carol on 05/13/2017 5:48 PM Report To 1 ID: Report To 1 Name: , Report To 1 FAX: Report To 2 ID: Report To 2 Name: , Report To 2 FAX: Report To 3 ID: Report To 3 Name: , Report To 3 FAX: NextGen Order #: [id number] Procedure Note Miscellaneous, Not In File / [...] Degenerative changes as above. Electronically signed by: Jacque Roman M.D. Radiologist: JACQUE ROMAN M.D. Attending: DAMON BLACK Requesting: DAMON BLACK Requesting Requesting ID: [id number] Attending Attending ID: [id number] Completed Time: 05/13/2017 4:35 PM Dictated Time: N/A Transcribed Time: 05/13/2017 5:48 PM Signed by: JACQUE ROMAN M.D. on 05/13/2017 5:48 PM Report To 1 ID: Report To 1 Name: , Report To 1 FAX: Report To 2 ID: Report To 2 Name: , Report To 2 FAX: Report To 3 ID: Report To 3 Name: , Report To 3 FAX: NextGen Order #: [id number] Damon Black MD IMG XR PROCEDURES Edited Result - Final * XR Foot Right 3 or More Views (05/13/2017 9:35 PM CDT) Anatomical Region Laterality Modality Lower Extremities, Foot Right [facility] 05/13/2017 9:35 PM CDT Narrative 05/13/2017 [...] Degenerative changes as above. Electronically signed by: Jacque Roman M.D. Radiologist: JACQUE ROMAN M.D. ?? Attending: ??DAMON BLACK Requesting: DAMON BLACK Requesting Fax: ?? Requesting ID: [id number] Attending Fax: ?? Attending ID: ?? [id number] Completed Time: ?? 05/13/2017 4:35 PM Dictated Time: ?N/A Transcribed Time: 05/13/2017 5:45 PM Signed by: ?JACQUE ROMAN ?Donnell on 05/13/2017 5:45 PM Report To 1 ID: Report To 1 Name: , Report To 1 FAX: Report To 2 ID: Report To 2 Name: , Report To 2 FAX: Report To 3 ID: Report To 3 Name: , Report To 3 FAX: NextGen Order #: [id number] Procedure Note Miscellaneous, Not In File / Provider, Obdulia, - 05/13/2017 EXAM: RIGHT FOOT 3 VIEWS [...] Degenerative changes as above. Electronically signed by: Jacque Roman M.D. Radiologist: JACQUE ROMAN M.D. Attending: DAMON BLACK Requesting: DAMON BLACK Requesting Requesting ID: [id number] Attending Attending ID: [id number] Completed Time: 05/13/2017 4:35 PM Dictated Time: N/A Transcribed Time: 05/13/2017 5:45 PM Signed by: JACQUE ROMAN M.D. on 05/13/2017 5:45 PM Report To 1 ID: Report To 1 Name: , Report To 1 FAX: Report To 2 ID: Report To 2 Name: , Report To 2 FAX: Report To 3 ID: Report To 3 Name: , Report To 3 FAX: NextGen Order #: [id number] Damon Black MD IMG XR PROCEDURES Edited Result - Final * XR Foot Left 3 or More Views (05/13/2017 9:35 PM CDT) Anatomical Region Laterality Modality Lower Extremities, Foot Left [facility] 05/13/2017 9:35 PM CDT Narrative 05/13/2017 [...] Degenerative changes as above. Electronically signed by: Jacque Roman M.D. Radiologist: JACQUE ROMAN M.D. ?? Attending: ??DAMON BLACK Requesting: DAMON BLACK Requesting Fax: ?? Requesting ID: [id number] Attending Fax: ?? Attending ID: ?? [id number] Completed Time: ?? 05/13/2017 4:35 PM Dictated Time: ?N/A Transcribed Time: 05/13/2017 5:47 PM Signed by: ?JACQUE ROMAN on 05/13/2017 5:47 PM Report To 1 ID: Report To 1 Name: , Report To 1 FAX: Report To 2 ID: Report To 2 Name: , Report To 2 FAX: Report To 3 ID: Report To 3 Name: , Report To 3 FAX: NextGen Order #: [id number] Procedure Note Miscellaneous, Not In File / [...] Degenerative changes as above. Electronically signed by: Jacque Roman M.D. Radiologist: JACQUE ROMAN M.D. Attending: DAMON BLACK Requesting: DAMON BLACK Requesting Requesting ID: [id number] Attending Attending ID: [id number] Completed Time: 05/13/2017 4:35 PM Dictated Time: N/A Transcribed Time: 05/13/2017 5:47 PM Signed by: JACQUE ROMAN M.D. on 05/13/2017 5:47 PM Report To 1 ID: Report To 1 Name: , Report To 1 FAX: Report To 2 ID: Report To 2 Name: , Report To 2 FAX: Report To 3 ID: Report To 3 Name: , Report To 3 FAX: NextGen Order #: [id number] Damon Black MD IMG XR PROCEDURES Edited Result - Final * XR Hand Left 3 or More Views (05/13/2017 9:35 PM CDT) Anatomical Region Laterality Modality Upper Extremities, Hand Left Radiogra [facility] Imaging 05/13/2017 9:35 PM CDT Narrative 05/13/2017 [...] changes as discussed above. Electronically signed by: Jacque Roman M.D. Radiologist: JACQUE ROMAN M.D. ?? Attending: ??DAMON BLACK Requesting: DAMON BLACK Requesting Fax: ?? Requesting ID: [id number] Attending Fax: ?? Attending ID: ?? [id number] Completed Time: ?? 05/13/2017 4:35 PM Dictated Time: ?N/A Transcribed Time: 05/13/2017 5:53 PM Signed by: ?JACQUE ROMAN ??Carol on 05/13/2017 5:53 PM Report To 1 ID: Report To 1 Name: , Report To 1 FAX: Report To 2 ID: Report To 2 Name: , Report To 2 FAX: Report To 3 ID: Report To 3 Name: , Report To 3 FAX: NextGen Order #: [id number] Procedure Note Miscellaneous, Not In File / [...] changes as discussed above. Electronically signed by: Jacque Roman M.D. Radiologist: JACQUE ROAMN M.D. Attending: DAMON BLACK Requesting: DAMON BLACK Requesting Requesting ID: [id number] Attending Attending ID: [id number] Completed Time: 05/13/2017 4:35 PM Dictated Time: N/A Transcribed Time: 05/13/2017 5:53 PM Signed by: JACQUE ROMAN M.D. on 05/13/2017 5:53 PM Report To 1 ID: Report To 1 Name: , Report To 1 FAX: Report To 2 ID: Report To 2 Name: , Report To 2 FAX: Report To 3 ID: Report To 3 Name: , Report To 3 FAX: NextGen Order #: [id number] us Damon Black MD IMG XR PROCEDURES [...] of acute cardiopulmonary disease. Electronically signed by: Jacque Roman M.D. Radiologist: JACQUE ROMAN M.D. ?? Attending: ??DAMON BLACK Requesting: DAMON BLACK Requesting Fax: ?? Requesting ID: [id number] Attending Fax: ?? Attending ID: ?? [id number] Completed Time: ?? 05/13/2017 4:35 PM Dictated Time: ?N/A Transcribed Time: 05/13/2017 5:50 PM Signed by: ?JACQUE ROMAN on 05/13/2017 5:50 PM Report To 1 ID: Report To 1 Name: , Report To 1 FAX: Report To 2 ID: Report To 2 Name: , Report To 2 FAX: Report To 3 ID: Report To 3 Name: , Report To 3 FAX: NextGen Order #: [id number] Procedure Note Miscellaneous, Not In File / [...] of acute cardiopulmonary disease. Electronically signed by: Jacque Roman M.D. Radiologist: JACQUE ROMNA M.D. Attending: DAMON BLACK Requesting: DAMON BLACK Requesting Requesting ID: [id number] Attending Attending ID: [id number] Completed Time: 05/13/2017 4:35 PM Dictated Time: N/A Transcribed Time: 05/13/2017 5:50 PM Signed by: JACQUE ROMAN M.D. on 05/13/2017 5:50 PM Report To 1 ID: Report To 1 Name: , Report To 1 FAX: Report To 2 ID: Report To 2 Name: , Report To 2 FAX: Report To 3 ID: Report To 3 Name: , Report To 3 FAX: NextGen Order #: [id number] Damon Black MD IMG XR PROCEDURES Edited Result - Final * XR Hand Right 3 or More Views (05/13/2017 9:34 PM CDT) Anatomical Region Laterality Modality Upper Extremities, Hand Right [facility] 05/13/2017 9:34 PM CDT Narrative 05/13/2017 [...] changes as discussed above. Electronically signed by: Jacque Roman M.D. Radiologist: JACQUE ROMAN M.D. ?? Attending: ??DAMON BLACK Requesting: DAMON BLACK Requesting Fax: ?? Requesting ID: [id number] Attending Fax: ?? Attending ID: ?? [id number] Completed Time: ?? 05/13/2017 4:34 PM Dictated Time: ?N/A Transcribed Time: 05/13/2017 5:52 PM Signed by: ?JACQUE ROMAN ??Carol on 05/13/2017 5:52 PM Report To 1 ID: Report To 1 Name: , Report To 1 FAX: Report To 2 ID: Report To 2 Name: , Report To 2 FAX: Report To 3 ID: Report To 3 Name: , Report To 3 FAX: NextGen Order #: [id number] Procedure Note Miscellaneous, Not In File / [...] changes as discussed above. Electronically signed by: Jacque Roman M.D. Radiologist: JACQUE ROMAN M.D. Attending: DAMON BLACK Requesting: DAMON BLACK Requesting Requesting ID: [id number] Attending Attending ID: [id number] Completed Time: 05/13/2017 4:34 PM Dictated Time: N/A Transcribed Time: 05/13/2017 5:52 PM Signed by: JACQUE ROMAN M.D. on 05/13/2017 5:52 PM Report To 1 ID: Report To 1 Name: , Report To 1 FAX: Report To 2 ID: Report To 2 Name: , Report To 2 FAX: Report To 3 ID: Report To 3 Name: , Report To 3 FAX: NextGen Order #: [id number] us Damon Black MD IMG XR PROCEDURES Edited Result - Final * eGFR (05/13/2017 3:07 PM CDT) eGFR 61 mL/min/1.7 3 m2 [facility] Comment: Interpretive Data Reference Interval Normal ?>/= 90 mL/min/1.73m2 Mildly decreased* ? 60 - 89 mL/min/1.73m2 Mildly to moderately decreased ?45 - 59 mL/min/1.73m2 Moderately to severely decreased ??30 - 44 mL/min/1.73m2 Severely decreased ?15 - 29 mL/min/1.73m2 Kidney Failure ?< 15 ??mL/min/1.73m2 *Relative to young adult level If -[place] multiply value by 1.16. Estimated glomerular filtration rate is determined by the CKD-EPI equation recommended by the National Kidney Foundation (KDIGO 2012 Clinical Practice Guideline for the Evaluation and Management of Chronic Kidney Disease. Kidney Intnl Suppl Aug 2012;3:1). The CKD-EPI equation should not be used for patients with unstable renal function and has not been validated in children and those over 70. Current interpretive data was last reviewed 2016. Blood specimen (specimen) 05/13/2017 3:07 PM CDT 05/13/2017 8:35 PM CDT us Damon Black MD LAB BLOOD ORDERABLES Marion hylton Result [facility] [address] [place] [address] * (ABNORMAL) Urinalysis, microscopic only (05/13/2017 3:07 PM CDT) Amorphous crystals, ur None Seen None Seen /HPF [facility] Bacteria, ur None Seen None Seen /HPF [facility] Yeast, ur None Seen None Seen /HPF [facility] Calcium carbonate crystals, ur None Seen /HPF [facility] Calcium oxalate crystals, ur None Seen None Seen /HPF [facility] Calcium phosphate crystals, ur None Seen /HPF [facility] Cystine crystals, ur None Seen /HPF [facility] Epithelial casts, ur None Seen None Seen /LPF [facility] Granular casts, ur None Seen None Seen /LPF [facility] Hyaline casts, ur None Seen None Seen /LPF [facility] Hyphae yeast, ur None Seen None Seen /HPF [facility] Leucine crystals, ur None Seen None Seen /HPF [facility] Mucous, ur None Seen None Seen /LPF [facility] Erythrocyte casts, ur None Seen None Seen [facility] RBC Clumps None Seen None Seen /LPF [facility] RBC, ur 0-2 0 - 2 /HPF [facility] Epithelial cells, renal, ur None Seen None Seen /LPF [facility] Sperm, ur None Seen None Seen /HPF [facility] Epithelial cells, squamous, ur Too Numerous to Count(A) None Seen /LPF [facility] Epithelial cells, transitional None Seen None Seen /LPF [facility] Trichomonas, ur None Seen None Seen /HPF [facility] Triple phosphate crystals, ur None Seen None Seen /HPF [facility] Tyrosine crystals, ur None Seen None Seen /HPF [facility] Uric acid crystals, ur None Seen None Seen /HPF [facility] Waxy casts, ur None Seen None Seen /LPF [facility] WBC casts, ur None Seen None Seen /LPF [facility] Leukocyte clumps, ur None Seen None Seen /HPF [facility] WBC, ur 3-5(A) 0 - 2 /HPF [facility] Urine 05/13/2017 3:07 PM CDT 05/13/2017 7:46 PM CDT Narrative [facility] - 05/13/2017 9:01 PM CDT Urine Microscopic was reflexed by expert rule. us Damon Black MD LAB URINE ORDERABLES Marion hylton Result [facility] [address] [place] [place] [address] * Differential, auto (05/13/2017 3:07 PM CDT) Neutrophil pct 56.5 44.0 - 80.0 % [facility] Imm gran pct 0.4 0.0 - 1.0 % [facility] Lymphocyte pct 32.6 13.0 - 44.0 % [facility] Monocyte pct 7.5 2.0 - 11.0 % [facility] Eosinophil pct 2.6 0.0 - 6.0 % [facility] Basophil pct 0.4 0.0 - 3.0 % [facility] Neutrophil abs 3.11 1.70 - 6.50 K/cumm [facility] Imm gran abs 0.02 0.00 - 0.10 K/cumm [facility] Lymphocyte abs 1.79 0.80 - 3.30 K/cumm [facility] Monocyte abs 0.41 0.20 - 0.80 K/cumm [facility] Eosinophil abs 0.14 0.00 - 0.50 K/cumm [facility] Basophil abs 0.02 0.00 - 0.10 K/cumm [facility] Blood specimen (specimen) 05/13/2017 3:07 PM CDT 05/13/2017 7:46 PM CDT Damon lBack MD LAB BLOOD ORDERABLES Marion l Result [facility] [address] [place] [address] * (ABNORMAL) Angiotensin converting enzyme (05/13/2017 3:07 PM CDT) LALITHA 61(H) 10 - 55 Units/L [facility] Comment:Testing performed by : [facility], [address] [facility], [place]., [address] Blood specimen (specimen) 05/13/2017 3:07 PM CDT 05/14/2017 11:33 AM CDT Damon Black MD LAB BLOOD ORDERABLES Marion l Result Performing Organization Address [facility] Co de Phone Number [facility] [address] [place] [place] [address] * (ABNORMAL) Urinalysis reflex to microscopic and culture (05/13/2017 3:07 PM CDT) Color, ur Yellow Colorless [facility] Clarity, ur Clear Clear [facility] Specific gravity, ur 1.011 1.005 - 1.030 [facility] pH, ur 6.0 5.0 - 8.0 [facility] Protein, ur ql Negative Negative [facility] Glucose, ur ql Normal Normal [facility] Ketones, ur Negative Negative [facility] Bilirubin, ur Negative Negative [facility] Blood, ur Negative Negative [facility] Urobilinogen, ur Normal Normal [facility] Nitrites, ur Negative Negative [facility] Leukocyte esterase, ur 25(A) Negative [facility] Urine 05/13/2017 3:07 PM CDT 05/13/2017 7:46 PM CDT us Damon Black MD LAB MICROBIOLOGY - GENERA L ORDERABLES Final Result Performing Organization Address [facility] de Phone Number [facility] [address] [place] [place] [address] * Uric acid (05/13/2017 3:07 PM CDT) [facility] Uric acid 4.8 2.5 - 7.0 mg/dL [facility] Blood specimen (specimen) 05/13/2017 3:07 PM CDT 05/13/2017 7:46 PM CDT us Damon Black MD LAB BLOOD ORDERABLES Marion l Result Performing Organization Address [facility] Co de Phone Number [facility] [address] [place] [employer] [place] [address] * TB test, quantiferon gold (05/13/2017 3:07 PM CDT) [facility] Quantiferon TB Gold Negative Negative [facility] Comment: No interferon-gamma response to M. tuberculosis antigens was detected. Infection with M. tuberculosis is unlikely. A negative result alone does not exclude infection with M. tuberculosis. For detailed information regarding test interpretation see: [email or web address] [email or web address] TB-Nil 0.00 IUnits/mL [facility] Mitogen-Nil >10.00 IUnits/mL [facility] NIL 0.04 IUnits/mL [facility] Comment: Test Performed by: [facility] [address] [place] [address] Blood specimen (specimen) 05/13/2017 3:07 PM CDT 05/13/2017 7:46 PM CDT Damon Black MD LAB BLOOD ORDERABLES Marion l Result Performing Organization Address City/[facility]/ZIP Co de Phone Number [facility] [address] [employer] [place], [place] [id number] * Rheumatoid factor (05/13/2017 3:07 PM CDT) [facility] Rheumatoid Factor <14 <14 [facility] Comment: Lab test performed by: Lab [facility]: [facility] [place] [address] [place] [address] Blood specimen (specimen) 05/13/2017 3:07 PM CDT 05/13/2017 8:35 PM CDT Damon Black MD LAB BLOOD ORDERABLES Marion l Result [facility] [address] [place] [address] * Erythrocyte sedimentation rate (05/13/2017 3:07 PM CDT) [facility] Erythrocyte sedimentation rate 11 0 - 20 mm/hr [facility] Blood specimen (specimen) 05/13/2017 3:07 PM CDT 05/13/2017 7:46 PM CDT Damon Black MD LAB BLOOD ORDERABLES Marion hylton Result Performing Organization Address City/[facility] Co de Phone Number [facility] [address] [place] [place] [address] * Creatine kinase (CK), total (05/13/2017 3:07 PM CDT) Pathologist [facility] CK 188 26 - 192 Units/L [facility] Blood specimen (specimen) 05/13/2017 3:07 PM CDT 05/13/2017 7:46 PM CDT us Damon Black MD LAB BLOOD ORDERABLES Marion l Result Performing Organization Address [facility] de Phone Number [facility] [address] Department [employer] [place], [place] [id number] * Cyclic citrul peptide antibody, IgG (05/13/2017 3:07 PM CDT) Pathologist [facility] CCP Ab <0.5 <=2.9 units/mL [facility] Comment: Interpretive data Negative: <3 units/mL Positive: > or equal to 3 units/mL Current interpretive data was last revised on 2016. Testing performed by: [facility], [address] [facility], [place]., [address] Blood specimen (specimen) 05/13/2017 3:07 PM CDT 05/14/2017 11:32 AM CDT Damon Black MD LAB BLOOD ORDERABLES Marion l Result Performing Organization Address [facility] Co de Phone Number [facility] [address] Department [employer] [place], [place] [id number] * CRP (acute phase) (05/13/2017 3:07 PM CDT) Pathologist [facility] CRP 2.60 0.00 - 9.90 mg/L [facility] Blood specimen (specimen) 05/13/2017 3:07 PM CDT 05/13/2017 7:46 PM CDT us Damon Black MD LAB BLOOD ORDERABLES Marion l Result Performing Organization Address [facility]/ZIP Co de Phone Number [facility] [address] [place] [address] * (ABNORMAL) Comprehensive metabolic panel (05/13/2017 3:07 PM CDT) Pathologist [facility] Sodium 141 135 - 145 mmol/L [facility] Potassium, pl 4.1 3.6 - 5.2 mmol/L [facility] CO2 24 22 - 32 mmol/L [facility] BUN 13.0 8.0 - 25.0 mg/dL [facility] Glucose 81 70 - 199 mg/dL [facility] Comment: Interpretive Data Glucose is assumed to be non-fasting. Current interpretive data was last revised 2016. Creatinine 0.98 0.60 - 1.10 mg/dL [facility] Calcium 9.8 8.5 - 10.3 mg/dL [facility] Chloride 101 97 - 110 mmol/L [facility] Albumin 4.6 3.5 - 5.0 g/dL [facility] AST 35 10 - 45 Units/L [facility] ALT 28 7 - 45 Units/L [facility] Alk phos 114 40 - 130 Units/L [facility] Bilirubin, total 0.30 0.00 - 1.20 mg/dL [facility] Protein, pl 7.9 6.5 - 8.5 g/dL [facility] Anion gap 16(H) 2 - 15 mmol/L [facility] Blood specimen (specimen) 05/13/2017 3:07 PM CDT 05/13/2017 7:46 PM CDT us Damon Black MD LAB BLOOD ORDERABLES Marion l Result Performing Organization Address [facility]/ZIP Co de Phone Number [facility] [address] [place] [address] * CBC with auto differential (05/13/2017 3:07 PM CDT) WBC 5.49 3.80 - 9.90 K/cumm [facility] RBC 4.27 3.90 - 5.20 M/cumm [facility] Hgb 13.1 11.9 - 15.5 g/dL [facility] Hct 40.4 35.6 - 45.5 % [facility] MCV 94.6 81.3 - 96.4 fL [facility] MCH 30.7 27.1 - 33.3 pg [facility] MCHC 32.4 32.3 - 35.7 g/dL [facility] RDW CV 13.2 11.1 - 14.9 % [facility] RDW SD 45.9 35.7 - 48.1 fL [facility] Plt 219 150 - 400 K/cumm [facility] MPV 12.2 9.1 - 12.3 fL [facility] NRBC 0.00 0.00 - 0.20 % [facility] NRBC abs 0.00 0.00 - 0.01 K/cumm [facility] Blood specimen (specimen) 05/13/2017 3:07 PM CDT 05/13/2017 7:46 PM CDT us Damon Black MD LAB BLOOD ORDERABLES Marion l Result Performing Organization Address [facility] Co de Phone Number [facility] [address] [facility] [place] [address] * C4 complement (05/13/2017 3:07 PM CDT) Pathologist [facility] Complement C4 38 10 - 40 mg/dL [facility] Blood specimen (specimen) 05/13/2017 3:07 PM CDT 05/13/2017 7:46 PM CDT Damon Black MD LAB BLOOD ORDERABLES Marion l Result Performing Organization Address City/[facility] Co de Phone Number [facility] [address] [place] [address] * C3 complement (05/13/2017 3:07 PM CDT) Complement C3 149 90 - 180 mg/dL [facility] Blood specimen (specimen) 05/13/2017 3:07 PM CDT 05/13/2017 7:46 PM CDT us Damon Black MD LAB BLOOD ORDERABLES [place] hylton Result [facility] [address] [place] [address] documented in this encounter Visit Diagnoses Diagnosis Scleritis, unspecified laterality- Primary Positive BRANDIE (antinuclear antibody) Other and unspecified nonspecific immunological findings Class 1 obesity without serious comorbidity with body mass index (BMI) of 30.0 to 30.9 in adult, unspecified obesity type Iritis Unspecified iridocyclitis Positive BRANDIE (antinuclear antibody) Other and unspecified nonspecific immunological findings documented in this encounter Discontinued Medications Medication Sig Discontinue Reason Start Date End Da te methylPREDNISolone (MEDROL, KEYSHA,) 4 mg tablet Take per package instructions Discontinued by another clinician 12/16/2016 05/13/2017 fluticasone (FLONASE) 50 mcg/actuation nasal spray spray 1 spray by intranasal route every day in each nostril Discontinued by another clinician 12/16/2016 05/13/2017 pilocarpine (SALAGEN, PILOCARPINE,) 5 mg tablet take 1 tablet by oral route 3 times every day 12/16/2016 05/13/2017 gabapentin (NEURONTIN) 100 mg capsule 100 mg. 12/16/2016 05/13/2017 documented as of this encounter Historical Medications * This list may reflect changes made after this encounter. naproxen (NAPROSYN,ALEVE) 220 mg tablet Take by mouth 2 (two) times a day with meals. 08/02/2024 added in this encounter Orders Lab Orders Without Results Count Last Ordered D ate First Ordered Date MISCELLANEOUS LAB TEST 1 05/13/2017 documented in this encounter Care Teams Shortage Worker Relationship Specialty Start Date End Date No, Physician PCP - General 05/13/17 07/20/24 documented as of this encounter
--- OUTSIDE RECORDS SUMMARY | 2024-08-09 03:15 | XMS_ITS | Encounter Summary ---
Author Organization [facility] Healthcare Address [address] [place] [address] Care Team Providers Care Formation Testing Operator Name Role Phone Attila Lepe MD Primary Care Provider Reason for Referral * Cardiology (Routine) - Pending Review Specialty Diagnoses / Procedures Referred By Contac t Referred To Contact Diagnoses Angina pectoris, unstable (CMS/HCC) (HCC) Procedures Transthoracic Echo (TTE) Complete W Doppler/CF Daniel Logan MD [address] [place] [id number] Phone: tel: fax: [facility] Medical [facility] Cardiology [address] [place] [phone] Phone: tel: fax: Referral ID Status Reason Start Date Expiration Date V isits Requested Visits Authorized [id number] Pending Review 07/22/2024 08/21/2025 1 1 MILL OPERATOR Reason for Visit * Reason Comments New Patient Chest Pain Shortness of Breath Encounter Details Date Type Department Care Team (Late st Contact Info) Description 07/22/2024 1:00 PM BALL MILL OPERATOR Office Visit [facility] Medical Group Cardiology [address] [place] [phone] Daniel Logan MD [address] [place] [address] [address] Angina pectoris, unstable (CMS/HCC) (HCC) (Primary Dx); Need for lipid screening Social History Tobacco Use Types Packs/Day Years Used Date Smoking Tobacco: Never Smokeless Tobacco: Never Alcohol Use Standard Drinks/Week Comments No 0 (1 standard drink = 0.6 oz pure alcohol) caffeine-diet coke, tea, and coffee Comments Unknown Sex and Gender Information Value Date Recorded Sex Assigned at Not on file Legal Sex Female 1:23 AM BALL MILL OPERATOR Gender Identity Not on file Sexual Orientation Not on file documented as of this encounter Last Filed Vital Signs Vital Sign Reading Time Taken Comments Blood Pressure 120/72 07/22/2024 1:18 PM BALL MILL OPERATOR Pulse - - Temperature - - Respiratory Rate - - Oxygen Saturation - - Inhaled Oxygen Concentration - - Weight 71.4 kg (157 lb 8 oz) 07/22/2024 1:18 PM BALL MILL OPERATOR Height 154.9 cm (5' 1 ) 07/22/2024 1:18 PM BALL MILL OPERATOR Body Mass Index 29.76 07/22/2024 1:18 PM BALL MILL OPERATOR documented in this encounter Ordered Prescriptions Prescription Sig Dispense Quantity Refills Last Filled Start Date End Date rosuvastatin (CRESTOR) 20 mg tablet Take 1 tablet (20 mg total) by mouth nightly 90 tablet 3 07/22/2024 5 metoprolol XL (TOPROL-XL) 25 mg extended release tablet Take 1 tablet (25 mg total) by mouth daily 90 tablet 3 07/22/2024 5 aspirin 81 mg enteric coated tablet Take 1 tablet (81 mg total) by mouth daily 90 tablet 3 07/22/2024 5 documented in this encounter Progress Notes * Daniel Logan MD - 07/22/2024 1:00 PM CST [facility] CARDIOLOGY CHIEF COMPLAINT / REASON FOR CONSULT: Chest pain HISTORY: Maria C Piña is a 73 y.o. female with hypothyroidism presents with ongoing chest discomfort for the last 4 months now. It is described as substernal and left-sided chest discomfort of pressure-like sensation as if bricks are on top of her chest. Initially she attributed this to her being in and out of the hospital with critical condition leading to significant stress for her. Now that her is feeling much better and out of the hospital, her stress level has decreased however the chest discomfort has not subsided. In fact this chest discomfort has continued to increaseand she noted that when she walks up an incline, the chest discomfort significantly worsens. When she sits down to rest, the chest discomfort would resolve. Exercise Tolerance: Able to ambulate within the confines of her home and has significant chest discomfort when ambulating up 1 flight of stairs Social: denies tobacco use Family History: mother had coronary artery disease Medications: Rosuvastatin 5 mg every evening REVIEW OF SYSTEMS: GENERAL: As per HPI CVS: As per HPI HEME: No bruising, no bleeding PHYSICAL EXAMINATION: BP 120/72 (BP Location: Left arm, Patient Position: Sitting) Ht 154.9 cm (5' 1 ) Wt 71.4 kg (157 lb 8 oz) BMI 29.76 kg/m?? GENERAL: Alert, in no distress HEAD: Normocephalic and atraumatic EYES: Extraocular movement intact ENT: Unremarkable NECK: no jugular venous distention CHEST: Clear to auscultation, no wheezes, rales or rhonchi, symmetric air entry CARDIAC: Regular rate and rhythm, S1 S2 normal, no murmur, rub, heaves, thrills or gallops ABDOMEN: soft, nontender, no bruit EXTREMITIES: No edema PERIPHERAL PULSES: Peripheral pulses symmetrical SKIN: Warm and dry NEURO: Alert and oriented x 3 LABS: Lab Results Component Value Date CHOL 298 (H) 02/01/2017 Lab Results Component Value Date HDL 48 02/01/2017 No results found for: LDLCALC Lab Results Component Value Date TRIG 282 (H) 02/01/2017 No results found for: CHOLHDL No results found for: HGBA1C EK07/22/2024 EKG done in clinic today shows sinus rhythm with a ventricular rate of 70 beats per minute. No significant ST-T wave changes. CARDIAC IMAGING RESULTS REVIEW: Echo Cardiac CT Stress Test Cardiac Monitors Cath ASSESSMENT/PLAN: 73 y.o. female with hypothyroidism presents with ongoing chest discomfort Crescendo angina - given the progressive nature and severity, she is at significant risk of developing unstable angina and would forego noninvasive ischemic evaluation - would recommend proceeding straight to left heart catheterization with possible PCI - the risks and benefits and alternatives of left heart catheterization with possible PCI has been discussed with the patient and she agrees to proceed forward - patient is started on aspirin 81 mg every day and metoprolol 25 mg daily - her rosuvastatin was increased to 20 mg every evening as she would benefit from high-intensity statins - obtain a transthoracic echocardiogram Return to clinic in 3 weeks Daniel Logan MD MILL OPERATOR documented in this encounter Miscellaneous Notes * Addendum Note - Dipak Romano MA - 07/22/2024 1:00 PM CSTAddended by: DIPAK ROMANO on: 07/22/2024 02:56 PM Modules accepted: Orders MILL OPERATOR * Addendum Note - Dipak Romano MA - 07/22/2024 1:00 PM CSTAddended by: DIPAK ROMANO on: 07/22/2024 03:54 PM Modules accepted: Orders MILL OPERATOR documented in this encounter Plan of Treatment Scheduled Orders Name Type Priority Associated Diagnoses Order Schedule Transthoracic Echo (TTE) Complete W Doppler/CF Echocardiography Routine Angina pectoris, unstable (CMS/HCC) (HCC) Expected: 07/22/2024 (Approximate), Expires: 10/20/2024 documented as of this encounter Procedures Procedure Name Priority Date/Time Associated Diagnosis Comments ELECTROCARDIOGRAM REPORT Routine 3:53 PM BALL MILL OPERATOR Angina pectoris, unstable (CMS/HCC) (HCC) POCT LIPID PANEL Routine 07/22/2024 2:54 PM BALL MILL OPERATOR Need for lipid screening documented in this encounter Results * Electrocardiogram Report (07/22/2024 3:53 PM BALL MILL OPERATOR) us Daniel Logan MD ECG ORDERABLES Final Result * POCT lipid panel (07/22/2024 2:54 PM BALL MILL OPERATOR) Cholesterol, POC 204 mg/dL Comment:GLU = 84 HDL, POC 52 mg/dL Triglycerides, POC 277 mg/dL LDL Cholesterol POC 97 mg/dL Chol/HDL Ratio, POC 1.9 Non-HDL Cholesterol, POC 152 mg/dL Cholesterol Total, POC 204 mg/dL Capillary blood 07/22/2024 2 :54 PM BALL MILL OPERATOR Daniel Logan MD POINT OF CARE TEST ORDERABLES Fi nal Result documented in this encounter Visit Diagnoses Diagnosis Angina pectoris, unstable (CMS/HCC) (HCC)- Primary Intermediate coronary syndrome Need for lipid screening Screening for lipoid disorders documented in this encounter Discontinued Medications Medication Sig Discontinue Reason Start Date End Da te LINZESS 290 mcg capsule Take 290 mcg by mouth daily. Therapy completed 11/28/2017 07/22/2024 rosuvastatin (CRESTOR) 5 mg tablet Take 4 tablets (20 mg total) by mouth daily Alternate therapy 07/22/2024 documented as of this encounter Historical Medications * This list may reflect changes made after this encounter. predniSONE (DELTASONE) 5 mg tablet Take 1 tablet (5 mg) by mouth daily as needed acetaminophen (TYLENOL) 325 mg suppository Insert 1 suppository (325 mg total) into the rectum every 4 (four) hours as needed for pain traMADoL (ULTRAM) 50 mg tablet Take 1 tablet (50 mg total) by mouth every 6 (six) hours as needed for pain omeprazole (PriLOSEC) 20 mg capsule Take 1 capsule (20 mg total) by mouth 2 (two) times a day cholecalciferol (VITAMIN D-3) 1,000 unit capsule Take 1 capsule (1,000 Units total) by mouth 2 (two) times a day fluticasone propionate (FLONASE) 50 mcg/actuation nasal spray Administer 1 spray into each nostril daily as needed loratadine 10 mg capsule Take 10 mg by mouth daily as needed amitriptyline (ELAVIL) 25 mg tablet Take 1 tablet (25 mg total) by mouth nightly levothyroxine (SYNTHROID) 50 mcg tablet Take 1 tablet (50 mcg total) by mouth small products i assembler before breakfast zoledronic dxbz-yiboggqC-yft er (RECLAST) 5 mg/100 mL piggyback Infuse 100 mL (5 mg total) into a venous catheter rosuvastatin (CRESTOR) 5 mg tablet Take 4 tablets (20 mg total) by mouth daily 4 added in this encounter Care Teams Formation Testing Operator Relationship Specialty Start Date End Date Attila Lepe MD [address] [facility] [address] [place] [address] PCP - General Family Practice 07/22/24 documented as of this encounter
--- OUTSIDE RECORDS SUMMARY | 2024-08-09 03:15 | XMS_ITS | Encounter Summary ---
Author Organization [facility] Healthcare Address [address] [place] [address] Care Team Providers Care Gel Coater Name Role Phone No, Physician Primary Care Provider [phone] Encounter Details Date Type Department Care Team (Latest Contact Info) Description 05/25/2017 8:40 AM CDT - 05/25/2017 11:59 PM CDT Hospital Encounter [facility] INTERIM [phone] Damon Black MD [address] [facility] [address] [place] [address] Discharge Disposition: Discharge to home or self care Social History Tobacco Use Types Packs/Day Years Used Date Smoking Tobacco: Never Smokeless Tobacco: Never Alcohol Use Standard Drinks/Week Comments No 0 (1 standard drink = 0.6 oz pure alcohol) caffeine-diet coke, tea, and coffee Comments Unknown Sex and Gender Information Value Date Recorded Sex Assigned at Not on file Legal Sex Female 1:23 AM WELDER SHIELDED METAL ARC Gender Identity Not on file Sexual Orientation [...] Name Priority Date/Time Associated Diagnosis Comments CT CHEST W CONTRAST Routine 05/25/2017 2 :28 PM CDT documented in this encounter Results * CT Chest W Contrast (05/25/2017 2:28 PM CDT) Anatomical Region Laterality Modality Body N/A Computed Tomogra phy 05/25/2017 2:28 PM CDT Narrative 05/25/2017 9:[address] Chest with contrast HISTORY: Abnormal levels of serum enzymes, abnormal serum angiotensin converting enzyme R74.8 COMPARISON: 09/09/[address] examination of the chest with contrast was performed during the infusion of 70 of Optiray 350. There is no evidence of immediate reaction or complication. SKELETAL: Hardware fixation is noted in the lower cervical spine. ??A limited overview of the bone windows of the chest reveals a no gross evidence of a region of bone destruction. Lower neck: The included portion of the thyroid and lower neck are within expected limits. CHEST WALL: The axillary lymph nodes and chest wall are within expected limits. Mediastinum: The mediastinal lymph nodes are within expected limits. Deborah: The hilar lymph nodes are within expected limits. Pleura: No pleural effusions. Upper abdomen: The included portions of upper abdominal organs are within expected limits. Lungs: No evidence of confluent infiltrate, mass or dominant nodule. There is no evidence of emphysema. ??There is also no evidence of interstitial lung disease. IMPRESSION: 1. Negative CT of the chest Please see above for additional findings. Electronically signed by: Davy De Anda M.D. Radiologist: DAVY DE ANDA MD ?? Attending: ??DAMON BLACK Requesting: DAMON BLACK Requesting Fax: ?? Requesting ID: [id number] Attending Fax: ?? Attending ID: ?? [id number] Completed Time: ?? 05/25/2017 09:28 AM Dictated Time: ?N/A Transcribed Time: 05/25/2017 4:48 PM Signed by: ?DAVY DE ANDA MD ?? on 05/25/2017 4:48 PM Report To 1 ID: Report To 1 Name: , Report To 1 FAX: Report To 2 ID: Report To 2 Name: , Report To 2 FAX: Report To 3 ID: Report To 3 Name: , Report To 3 FAX: NextGen Order #: Procedure Note Miscellaneous, Not In File - 05/25/2017 CT Chest with contrast HISTORY: Abnormal levels of serum enzymes, abnormal serum angiotensin converting enzyme R74.8 COMPARISON: 09/09/[address] examination of the chest with contrast was performed during the infusion of 70 of Optiray 350. There is no evidence of immediate reaction or complication. SKELETAL: Hardware fixation is noted in the lower cervical spine. A limited overview of the bone windows of the chest reveals a no gross evidence of a region of bone destruction. Lower neck: The included portion of the thyroid and lower neck are within expected limits. CHEST WALL: The axillary lymph nodes and chest wall are within expected limits. Mediastinum: The mediastinal lymph nodes are within expected limits. Deborah: The hilar lymph nodes are within expected limits. Pleura: No pleural effusions. Upper abdomen: The included portions of upper abdominal organs are within expected limits. Lungs: No evidence of confluent infiltrate, mass or dominant nodule. There is no evidence of emphysema. There is also no evidence of interstitial lung disease. IMPRESSION: 1. Negative CT of the chest Please see above for additional findings. Electronically signed by: Davy De Anda M.D. Radiologist: DAVY DE ANDA MD Attending: DAMON BLACK Requesting: DAMON BLACK Requesting Requesting ID: [id number] Attending Attending ID: [id number] Completed Time: 05/25/2017 09:28 AM Dictated Time: N/A Transcribed Time: 05/25/2017 4:48 PM Signed by: DAVY DE ANDA MD on 05/25/2017 4:48 PM Report To 1 ID: Report To 1 Name: , Report To 1 FAX: Report To 2 ID: Report To 2 Name: , Report To 2 FAX: Report To 3 ID: Report To 3 Name: , Report To 3 FAX: NextGen Order #: us Damon Black MD IMG CT PROCEDURES Edited Result - Final documented in this encounter Visit Diagnoses Not on filedocumented in this encounter Care Teams Gel Coater Relationship Specialty Start Date End Date No, Physician PCP - General 05/13/17 07/20/24 documented as of this encounter
--- OUTSIDE RECORDS SUMMARY | 2024-08-09 03:15 | XMS_ITS | Encounter Summary ---
Author Organization [facility] Address [address] [facility] [address] [place] [address] Care Team Providers Care Painter Shipyard Name Role Phone No, Physician Primary Care Provider [phone] Reason for Visit * Reason Onset Date Comments MRI results 07/01/2017 Encounter Details Date Type Department Care Team (Late st Contact Info) Description 07/01/2017 Telephone [facility] [facility] [address], [place] [address] Denise Rowley MA MRI results Social History Tobacco Use Types Packs/Day Years Used Date Smoking Tobacco: Never Smokeless Tobacco: Never Alcohol Use Standard Drinks/Week Comments No 0 (1 standard drink = 0.6 oz pure alcohol) caffeine-diet coke, tea, and coffee Comments Unknown Sex and Gender Information Value Date Recorded Sex Assigned at Not on file Legal Sex Female 1:23 AM SALES AND DISTRIBUTION CLERK Gender Identity Not on file Sexual Orientation Not on file documented as of this encounter Miscellaneous Notes * Telephone Encounter - Denise Rowley MA - 07/02/2017 9:10 AM SALES AND DISTRIBUTION CLERK Pt aware of results S AND DISTRIBUTION CLERK * Telephone Encounter - Denise Rowley MA - 07/01/2017 5:41 PM SALES AND DISTRIBUTION CLERK LMOM for pt to call back for results yin S AND DISTRIBUTION CLERK * Telephone Encounter - Denise Rowley MA - 07/01/2017 5:41 PM SALES AND DISTRIBUTION CLERK ----- Message from Giacomo Black MD sent at 06/30/2017 10:02 PM SALES AND DISTRIBUTION CLERK ----- MRI of the orbit is normal - unless she has recurrent inflammatory eye issues we do not need to start any immune modulatory medications immediately - be sure to follow up with the radio time salesperson andlet us know if they have any new findings - see me Aug 2017 S AND DISTRIBUTION CLERK documented in this encounter Plan of Treatment Not on file documented as of this encounter Visit Diagnoses Not on filedocumented in this encounter Care Teams Painter Shipyard Relationship Specialty Start Date End Date No, Physician PCP - General 05/13/17 07/20/24 documented as of this encounter
--- OUTSIDE RECORDS SUMMARY | 2024-08-09 03:15 | XMS_ITS | Encounter Summary ---
Author Organization [facility] Medical Group Address [address] [facility] [address] [place] [address] Care Team Providers Care Plate Cleaner Name Role Phone No, Physician Primary Care Provider [phone] Reason for Visit * Reason Onset Date Comments CT results 05/27/2017 Encounter Details Date Type Department Care Team (Late st Contact Info) Description 05/27/2017 Telephone [facility] [address] [facility] [address] [place] [address] Giacomo Black MD [address] [facility] [address] [place] [address] CT results Social History Tobacco Use Types Packs/Day Years Used Date Smoking Tobacco: Never Smokeless Tobacco: Never Alcohol Use Standard Drinks/Week Comments No 0 (1 standard drink = 0.6 oz pure alcohol) caffeine-diet coke, tea, and coffee Comments Unknown Sex and Gender Information Value Date Recorded Sex Assigned at Not on file Legal Sex Female 1:23 AM CONSULTING SYSTEMS ENGINEER Gender Identity Not on file Sexual Orientation Not on file documented as of this encounter Miscellaneous Notes * Telephone Encounter - Amy Varghese LPN - 05/27/2017 1:44 PM CDT pt is aware * Telephone Encounter - Amy Varghese LPN - 05/27/2017 1:44 PM CDT ----- Message from Giacomo Black MD sent at 05/26/2017 8:23 PM CDT ----- Chest CT is unremarkable. Lt us know when Dr. Tafoya has performed your colon exam. documented in this encounter Plan of Treatment Not on file documented as of this encounter Visit Diagnoses Not on filedocumented in this encounter Care Teams Plate Cleaner Relationship Specialty Start Date End Date No, Physician PCP - General 05/13/17 07/20/24 documented as of this encounter
--- OUTSIDE RECORDS SUMMARY | 2024-08-09 03:15 | XMS_ITS | Encounter Summary ---
Author Organization [facility] Medical Group Address [address] [address] Care Team Providers Care Fruit Peeler Name Role Phone No, Physician Primary Care Provider [phone] Reason for Visit * Reason Onset Date Comments lab results 06/24/2017 Encounter Details Date Type Department Care Team (Late st Contact Info) Description 06/24/2017 Telephone [facility] [facility] [address] [address] Denise Rowley MA lab results Social History Tobacco Use Types Packs/Day Years Used Date Smoking Tobacco: Never Smokeless Tobacco: Never Alcohol Use Standard Drinks/Week Comments No 0 (1 standard drink = 0.6 oz pure alcohol) caffeine-diet coke, tea, and coffee Comments Unknown Sex and Gender Information Value Date Recorded Sex Assigned at Not on file Legal Sex Female 1:23 AM PHOTOGRAPHIC PLATEMAKER Gender Identity Not on file Sexual Orientation Not on file documented as of this encounter Miscellaneous Notes * Telephone Encounter - Denise Rowley MA - 06/24/2017 2:07 PM PHOTOGRAPHIC PLATEMAKER Pt aware OGRAPHIC PLATEMAKER * Telephone Encounter - Denise Rowley MA - 06/24/2017 12:04 PM PHOTOGRAPHIC PLATEMAKER LMOM for pt to call back for results yin OGRAPHIC PLATEMAKER * Telephone Encounter - Denise Rowley MA - 06/24/2017 12:03 PM PHOTOGRAPHIC PLATEMAKER ----- Message from Giacomo Black MD sent at 06/23/2017 9:19 PM PHOTOGRAPHIC PLATEMAKER ----- ANCA vasculitis blood test is negative. We are working on obtaining approval for your brain MRI scan. OGRAPHIC PLATEMAKER documented in this encounter Plan of Treatment Not on file documented as of this encounter Visit Diagnoses Not on filedocumented in this encounter Care Teams Fruit Peeler Relationship Specialty Start Date End Date No, Physician PCP - General 05/13/17 07/20/24 documented as of this encounter
--- OUTSIDE RECORDS SUMMARY | 2024-08-09 03:15 | XMS_ITS | Encounter Summary ---
Author Organization [facility] Healthcare Address [address] [place] [address] Care Team Providers Care Print Color Matcher Name Role Phone No, Physician Primary Care Provider [phone] Reason for Visit * Diagnostic Imaging (Routine) - Closed Specialty Diagnoses / Procedures Referred By Contac t Referred To Contact Radiology Diagnoses Irritable bowel syndrome with constipation Procedures CT Abdomen Pelvis W Contrast CT Abdomen Pelvis W WO Contrast Giacomo Black MD Phone: tel: fax: [address] [place] [address] Referral ID Status Reason Start Date Expiration Date Visits Re quested Visits Authorized [id number] Closed 12/02/2017 05/31/2018 1 1 Encounter Details Date Type Department Care Team (Latest Contact Info) Description 12/21/2017 9:53 AM CDT - 12/21/2017 10:14 AM CDT Hospital Encounter [facility] - Imaging [address] [place] [address] Giacomo Black MD [address] 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 ??No evidence for active disease within the abdomen or pelvis. 2. ??Large amount of stool throughout the colon compatible with constipation. 3. ??Small stone in the lower pole of the right kidney. ??No obstructive uropathy. Electronically signed by: Vinny Hernandez M.D. Narrative 12/21/2017 11:[address] abdomen pelvis with intravenous contrast HISTORY: Irritable bowel syndrome with constipation. ??Abdominal pain. CT examination of the abdomen and pelvis is performed with the injection of 95 mL of Optiray 350 IV. ??Comparison is made to prior study of 09/09/2015. CT ABDOMEN: The lung bases and pleural spaces are clear. ??The liver, spleen, adrenals, and pancreas are within normal limits. ??Small nonobstructing calculus is noted in the lower pole the right kidney. No other urinary calculi are identified. ??No retroperitoneal lymphadenopathy is present. ??No mesenteric masses or fluid collections are identified. ??The bowel pattern is within normal limits. ??A large amount of stool is noted throughout the colon. CT PELVIS: No pelvic free fluid or inflammation is identified. ??No pelvic lymphadenopathy is identified. ??No pelvic masses are identified. ??The bowel pattern is within normal limits. Procedure Note Vinny Hernandez MD - 12/21/2017 CT abdomen pelvis with intravenous contrast HISTORY: Irritable bowel syndrome with constipation. Abdominal pain. CT examination of the abdomen and pelvis is performed with the injection of 95 mL of Optiray 350 IV. Comparison is made to prior study of 09/09/2015. CT ABDOMEN: The lung bases and pleural spaces are clear. The liver, spleen, adrenals, and pancreas are within normal limits. Small nonobstructing calculus is noted in the lower pole the right kidney. No other urinary calculi are identified. No retroperitoneal lymphadenopathy is present. No mesenteric masses or fluid collections are identified. The bowel pattern is within normal limits. A large amount of stool is noted throughout the colon. CT PELVIS: No pelvic free fluid or inflammation is identified. No pelvic lymphadenopathy is identified. No pelvic masses are identified. The bowel pattern is within normal limits. IMPRESSION: 1. No evidence for active disease within the abdomen or pelvis. 2. Large amount of stool throughout the colon compatible with constipation. 3. Small stone in the lower pole of the right kidney. No obstructive uropathy. Electronically signed by: Vinny Hernandez M.D. Giacomo Black MD IMG CT PROCEDURES Final R esult documented in this encounter Visit Diagnoses Diagnosis Irritable bowel syndrome with constipation Irritable bowel syndrome documented in this encounter Administered Medications Inactive Administered Medications - up to 3 most recent administrations Medication Order MAR Action Action Date Dose Rate Site ioversol (OPTIRAY 350) syringe syringe 100 mL 100 mL, intravenous, Once in imaging, contrast, Starting on 12/21/17 at 1018, For 1 dose Given 12/21/2017 10:42 AM CDT 95 mL sodium chloride 0.9% flush 125 mL 125 mL, intravenous, Once in imaging, line care, Starting on 12/21/17 at 1018, For 1 dose Given 12/21/2017 10:42 AM CDT 100 mL documented in this encounter Care Teams Print Color Matcher Relationship Specialty Start Date End Date No, Physician PCP - General 05/13/17 07/20/24 documented as of this encounter
--- OUTSIDE RECORDS SUMMARY | 2024-08-09 03:15 | XMS_ITS | Encounter Summary ---
Author Organization [facility] Address [address] [facility] [address] [place] [address] Care Team Providers Care Science Teacher Name Role Phone No, Physician Primary Care Provider [phone] Reason for Visit * Reason Comments Follow-up Scleritis Encounter Details Date Type Department Care Team (Late st Contact Info) Description 06/17/2017 4:00 PM BUILDING MECHANIC Office Visit [facility] [address] [facility] [address] [place] [address] Damon Black MD [address] [place] [address] [address] [place] [address] Scleritis, unspecified laterality (Primary Dx); Positive BRANDIE (antinuclear antibody); Pain of right orbit; Class 1 obesity without serious comorbidity with [...] on file Legal Sex Female 1:23 AM BUILDING MECHANIC Gender Identity Not on file Sexual Orientation Not on file documented as of this encounter Last Filed Vital Signs Vital Sign Reading Time Taken Comments Blood Pressure 128/82 06/17/2017 4:42 PM BUILDING MECHANIC Pulse 72 06/17/2017 4:42 PM BUILDING MECHANIC Temperature 36.9 ??C (98.5 ??F) 06/17/2017 4:42 PM CS T Respiratory Rate 16 06/17/2017 4:42 PM BUILDING MECHANIC Oxygen Saturation - - Inhaled Oxygen Concentration - - Weight 73.3 kg (161 lb 8 oz) 06/17/2017 4:42 PM BUILDING MECHANIC Height 154.9 cm (5' 1 ) 06/17/2017 4:42 PM BUILDING MECHANIC Body Mass Index 30.52 06/17/2017 4:42 PM BUILDING MECHANIC documented in this encounter Patient Instructions * Patient Instructions* Damon Black MD - 06/17/2017 4:00 PM BUILDING MECHANIC Diagnoses and all orders for this visit: 1. Scleritis, unspecified laterality (Primary) Assessment & Plan: Patient with positive BRANDIE (1:160) and continued [...] Will check ANCA. Further plans pend above. Orders: - ANCA; Future - MRI Brain Incl Orbits W Contrast; Future 2. Positive BRANDIE (antinuclear antibody) Comments: see comments above 3. Pain of right orbit Comments: see comments above Orders: - MRI Brain Incl Orbits W Contrast; Future 4. Class 1 obesity without serious comorbidity with body mass index (BMI) of 30.0 to 30.9 in adult,unspecified obesity type Assessment & Plan: An optimal BMI (body mass index) is between 20 and 25. Encourage weight loss. Each pound of weight lost unloads 3-4 pounds per square inch pressure from weight bearing joints. Diet and exercise are the keys to weight management. DING MECHANIC documented in this encounter Progress Notes * Damon Black MD - 06/17/2017 4:00 PM CST Images from the original note were not included. [facility] Damon Black MD [facility] [address] 06/17/2017 Maria C Pat 1950 Follow-up (Scleritis) HPI: Maria C Pat is a 66 y.o. female patient presenting with a chief complaint of Follow-up (Scleritis) Patient with history of inflammatory eye disease in the setting of positive BRANDIE (1:160). She has had negative Chest CT (after LALITHA mildly elevated). She has had negative screening for inflammatory bowel disease. She has recurrent rectal bleeding for which she is scheduled to see Dr. Tafoya next month. A video capsule study is anticipated. She has continued orbital eye pain with follow up eye exam per Dr. Leblanc last week without evident inflammation. Patient was referred to an orbitologist but insurance was not accepted. She is unsure where to turn. She continues to have dry eyes and dry mouth. She notes continued hyperacuity of smell. Previous CTfacial bones per ENT unremarkable ( Denise) with comment unremarkable brain/orbit. Diagnoses and all orders for this visit: 1. Scleritis, unspecified laterality (Primary) Assessment & Plan: Patient with positive BRANDIE (1:160) and continued [...] Will check ANCA. Further plans pend above. Orders: - ANCA; Future - MRI Brain Incl Orbits W Contrast; Future 2. Positive BRANDIE (antinuclear antibody) Comments: see comments above 3. Pain of right orbit Comments: see comments above Orders: - MRI Brain Incl Orbits W Contrast; Future 4. Class 1 obesity without serious comorbidity with body mass index (BMI) of 30.0 to 30.9 in adult,unspecified obesity type Assessment & Plan: An optimal BMI (body mass index) is between 20 and 25. Encourage weight loss. Each pound of weight lost unloads 3-4 pounds per square inch pressure from weight bearing joints. Diet and exercise are the keys to weight management. MEDICATIONS Current Outpatient Prescriptions Medication Sig Dispense Refill ??? cyclobenzaprine ER (AMRIX) 15 mg 24 hr capsule 15 mg. 0 0 ??? gabapentin (NEURONTIN) 100 mg capsule Take 3 capsules (300 mg total) by mouth nightly. 90 capsule 1 ??? naproxen (NAPROSYN,ALEVE) 220 mg tablet Take by mouth 2 (two) times a day with meals. No current facility-administered medications for this visit. ALLERGIES Amoxicillin; Nut - unspecified; and Potassium Patient Active Problem List Diagnosis ??? Multiple environmental allergies ??? Class 1 obesity without serious comorbidity with body mass index (BMI) of 30.0 to 30.9 in adult ??? Positive BRANDIE (antinuclear antibody) ??? Scleritis ??? Pain of right orbit PAST MEDICAL HISTORY Past Medical History: Diagnosis [...] narrative on file Review of Systems Constitutional: Negative for activity change, appetite change, fatigue and fever. HENT: Negative for mouth sores and postnasal drip. Eyes: Positive for pain (right orbital pain, tenderness). Respiratory: Negative for cough and shortness of breath. Cardiovascular: Negative for chest pain. Gastrointestinal: Negative for abdominal pain, nausea and vomiting. Genitourinary: Negative for dysuria and hematuria. Musculoskeletal: Positive for arthralgias. Negative for joint swelling. Skin: Negative for rash. Neurological: Negative for dizziness and headaches. Hematological: Negative for adenopathy. Vitals: 06/17/17 1642 BP: 128/82 BP Location: Right arm Patient Position: Sitting Pulse: 72 Resp: 16 Temp: 36.9 ??C (98.5 ??F) TempSrc: Oral Weight: 73.3 kg (161 lb 8 oz) Height: 154.9 cm (5' 1 ) Body mass index is 30.52 kg/m??. Physical Exam Constitutional: She is oriented to person, place, and time. She appears well- developed and well-nourished. HENT: Head: Normocephalic and atraumatic. Mouth/Throat: Oropharynx is clear and moist. Eyes: Conjunctivae and EOM are normal. Pupils are equal, round, and reactive to light. Orbital tenderness Neck: Normal range of motion. Neck supple. No tracheal deviation present. No thyromegaly present. Cardiovascular: Normal rate and regular rhythm. Exam reveals no gallop and no friction rub. No murmur heard. Pulmonary/Chest: Effort normal and breath sounds normal. She has no wheezes. She has no rales. Abdominal: Soft. She exhibits no mass. There is no tenderness. There is no rebound. Musculoskeletal: She exhibits no tenderness or deformity. Lymphadenopathy: She has no cervical adenopathy. Neurological: She is alert and oriented to person, place, and time. Skin: Skin is warm and dry. No rash noted. Psychiatric: She has a normal mood and affect. Vitals reviewed. LABS: Lab Results Component Value Date GLUCOSE 81 05/13/2017 CALCIUM 9.8 05/13/2017 CO2 24 05/13/2017 CREATININE 0.98 05/13/2017 Lab Results Component Value Date ALT 28 05/13/2017 AST 35 05/13/2017 ALKPHOS 114 05/13/2017 BILITOT 0.30 05/13/2017 Lab Results Component Value Date WBC 5.49 05/13/2017 HGB 13.1 05/13/2017 HCT 40.4 05/13/2017 MCV 94.6 05/13/2017 Lab Results Component Value Date RF <14 05/13/2017 SEDRATE 11 05/13/2017 IMAGING: Results for orders placed during the hospital encounter of 05/13/17 XR Hand Left 3 or More Views Narrative EXAM: LEFT HAND 3 VIEWS CLINICAL HISTORY: [...] BLACK Requesting: DAMON BLACK Requesting Requesting ID: [id number] Attending Attending ID: [id number] Completed Time: 05/13/2017 4:35 PM Dictated Time: N/A Transcribed Time: 05/13/2017 5:53 PM Signed by: BETO ROMAN M.D. on 05/13/2017 5:53 PM Report To 1 ID: Report To 1 Name: , Report To 1 FAX: Report To 2 ID: Report To 2 Name: , Report To 2 FAX: Report To 3 ID: Report To 3 Name: , Report To 3 FAX: [facility] Order #: [id number] Results for orders placed during the hospital encounter of 05/13/17 XR Hand Right 3 or More Views Narrative EXAM: RIGHT HAND 3 VIEWS CLINICAL HISTORY: [...] BLACK Requesting: DAMON BLACK Requesting Requesting ID: [id number] Attending Attending ID: [id number] Completed Time: 05/13/2017 4:34 PM Dictated Time: N/A Transcribed Time: 05/13/2017 5:52 PM Signed by: BETO ROMAN M.D. on 05/13/2017 5:52 PM Report To 1 ID: Report To 1 Name: , Report To 1 FAX: Report To 2 ID: Report To 2 Name: , Report To 2 FAX: Report To 3 ID: Report To 3 Name: , Report To 3 FAX: [facility] Order #: [id number] DING MECHANIC documented in this encounter Miscellaneous Notes * Assessment & Plan Note - Damon Black MD - 06/17/2017 8:38 PM BUILDING MECHANIC Associated Problem(s): Class 1 obesity due to excess calories without serious comorbidity with bodymass index (BMI) of 30.0 to 30.9 in adult An optimal BMI (body mass index) is between 20 and 25. Encourage weight loss. Each pound of weight lost unloads 3-4 pounds per square inch pressure from weight bearing joints. Diet and exercise are the keys to weight management. DING MECHANIC * Assessment & Plan Note - Damon Black MD - 06/17/2017 8:35 PM BUILDING MECHANIC Associated Problem(s): Scleritis Patient with positive BRANDIE (1:160) and continued [...] Will check ANCA. Further plans pend above. DING MECHANIC documented in this encounter Plan of Treatment Not on file documented as of this encounter Results * ANCA (06/17/2017 6:41 PM BUILDING MECHANIC) C-ANCA Negative Negative [facility] P-ANCA Negative Negative [facility] Comment: Negative for cANCA and pANCA patterns by immunofluorescence. ADDITIONAL INFORMATION This test was developed and its performance characteristics determined by [facility] in a manner consistent with CLIA requirements. This test has not been cleared or approved by the U.S. Food and Drug Administration. Test Performed by: [facility] - [address] [address] Blood specimen (specimen) 06/17/2017 6:41 PM BUILDING MECHANIC 06/17/2017 6:56 PM BUILDING MECHANIC us Damon Black MD LAB BLOOD ORDERABLES [place] [facility] Result [facility] [address] Department [place] [address] documented in this encounter Visit Diagnoses Diagnosis Scleritis, unspecified laterality- Primary Positive BRANDIE (antinuclear antibody) Other and unspecified nonspecific immunological findings Pain of right orbit Class 1 obesity without serious comorbidity with body mass index (BMI) of 30.0 to 30.9 in adult, unspecified obesity type documented in this encounter Care Teams Science Teacher Relationship Specialty Start Date End Date No, Physician PCP - General 05/13/17 07/20/24 documented as of this encounter
--- OUTSIDE RECORDS SUMMARY | 2024-08-09 03:15 | XMS_ITS | Encounter Summary ---
Author Organization [facility] Address [address] [facility] [address] [place] [address] Care Team Providers Care Airline Dispatcher Name Role Phone No, Physician Primary Care Provider [phone] Encounter Details Date Type Department Care Team (Late st Contact Info) Description 05/21/2017 Telephone [facility] [address] 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 Gender Identity Not on file Sexual Orientation Not on file documented as of this encounter Miscellaneous Notes * Telephone Encounter - Mabel Salazar - 05/23/2017 10:46 AM CDT Orders sent * Addendum Note - Damon Black MD - 05/23/2017 9:48 AM CDTAddended by: DAMON BLACK on: 05/23/2017 09:48 AM Modules accepted: Orders * Telephone Encounter - Mabel Salazar - 05/23/2017 9:[address] Tafoya is requesting an order to do the test P:[phone] * Telephone Encounter - Mabel Salazar - 05/23/2017 8:56 AM CDT Patient aware * Telephone Encounter - Damon Black MD - 05/22/2017 5:38 PM CDT I think she should contact her medical i d sales and have them do a sigmoidoscopy to check - low volume bleeding is more often than not hemorrhoidal but because of previous question of inflammatory bowel disease it should be evaluated * Telephone Encounter - Mabel Salazar - 05/21/2017 8:53 AM CDT Patient wanted to let you know after the day she saw you, 3 times out her day she had went to the bathroom and notice blood in her stool or just blood period when she wipes. documented in this encounter Plan of Treatment Not on file documented as of this encounter Visit Diagnoses Diagnosis Rectal bleeding- Primary Hemorrhage of rectum and anus documented in this encounter Care Teams Airline Dispatcher Relationship Specialty Start Date End Date No, Physician PCP - General 05/13/17 07/20/24 documented as of this encounter
--- OUTSIDE RECORDS SUMMARY | 2024-08-09 03:15 | XMS_ITS | Clinical Summary ---
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 8 Active levothyroxine (SYNTHROID) 50 mcg tablet Take 1 tablet (50 mcg total) by mouth tip mender before breakfast Active amitriptyline (ELAVIL) 25 mg [...] mouth daily Discontin ued(Alter catia therapy) zoledronic rzyj-xbgymxzP-v ater (RECLAST) 5 mg/100 mL piggyback Infuse 100 mL (5 mg total) into a venous catheter Discontin ued(Thera py completed ) Active Problems [...] management. Assessment & Plan (06/17/2017 8:38 PM BIOMEDICAL SERVICE ENGINEER): An optimal BMI (body mass index) is [...] confirmed when evaluated by Dr. Benny Coates ([facility]). Records have been requested. She has [...] above. Assessment & Plan (06/17/2017 8:37 PM BIOMEDICAL SERVICE ENGINEER): Patient with positive BRANDIE (1:160) and continued [...] allergies 12/16/2016 Overview (01/03/2017): Multiple environmental allergies Encounters Date Type Department Care Team Description 08/06/2024 Orders Only [facility] Cardiology [address] [place] [address] Daniel Logan MD 08/06/2024 Telephone [facility] Cardiology [address] [place] [address] Barbara العراقي NP Scheduling Appointments 08/05/2024 Orders Only [facility] Cardiology [address] [place] [address] [address] [place] [address] Keisha Dueñas MD 08/05/2024 Telephone [facility]iology [address] [place] [address] [address] [place] [address] Daniel Logan MD follow up appt 08/02/2024 7:19 PM BIOMEDICAL SERVICE ENGINEER - 08/05/2024 2:07 PM BIOMEDICAL SERVICE ENGINEER Hospital Encounter [address] [address] Ayesha Billings MD Shimotani, Dorian Genki, DO Li, Alex, MD 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); Coronary artery 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]; Retroperitoneal hemorrhage [R58]; S/P drug eluting coronary stent placement Discharge Disposition: Discharge to home or self care 08/02/2024 Surgery [facility] [address] [place] [phone] Grover Wren MD LEFT HEART CATHETERIZATION WITH CORONARY ANGIOGRAPHY AND WITH OR WITHOUT LEFT VENTRICULOGRAM [id number] 08/02/2024 Orders Only [address] [address] Ayesha Billings MD 07/22/2024 1:00 PM BIOMEDICAL SERVICE ENGINEER Office Visit [facility]iology [address] [place] [address] [address] [place] [phone] Daniel Loagn MD Angina pectoris, unstable (CMS/HCC) (HCC) (Primary Dx); Need for lipid screening 07/22/2024 Telephone [facility]iology [address] [place] [address] [address] [place] [phone] Daniel Logan MD 07/21/2024 Telephone [facility]iology [address] [place] [phone] Temitope Romano MA Medical Records Request from Last 3 Months Surgical History Surgery Date Site/Laterality Comments OTHER SURGICAL HISTORY PUD: hospitalization OTHER SURGICAL HISTORY Neck surgery x3 HYSTERECTOMY Hysterectomy SECTION x2 DISCECTOMY Discectomy OTHER SURGICAL HISTORY 08/11/2010 - 08/10/2011 Left laproscopic knee OTHER SURGICAL HISTORY 10/09/2017 - 11/08/2017 Myelogram Medical History Medical History Date Comments Hx Other Medical PUD; Comments: TITI 08/09/2015 - Thyroid disease Chest pain Family History Medical History Relation Name Comments Cancer Father throat Kidney disease Father Stroke Father Cancer Mother breast Heart attack Mother Heart disease Mother Hypertension Mother Stroke Mother Cancer Other Family history of Cancer, unknown; Cancer Sister breast Relation Name Status Comments Father (Age 86) Mother (Age 83) Other Sister Social History Tobacco Use Types Packs/Day Years Used Date Smoking Tobacco: Never Smokeless Tobacco: Never Alcohol Use Standard Drinks/Week Comments No 0 (1 standard drink = 0.6 oz pure alcohol) caffeine-diet coke, tea, and coffee [employer]Cino Utilities Answer Date Recorded In the past 12 months has [employer], gas, oil, or water [employer] threatened to shut off services in your [...] 08/03/2024 How often do you attend chur or episcopal services? More than 4 times per year 08/03/2024 Do you belong to any clubs o r organizations such as yazidi groups, unions, fraternal or athletic groups, or [...] any time in the past 12 m [facility], were you homeless or living in a longterm (including now)? No 08/03/2024 Personal Safety Answer Date Recorded Have you ever been in or are you currently in a harmful physical or emotional relationship or is someone making you feel afraid or unsafe? Denies 08/03/2024 Comments Unknown Sex and Gender Information Value Date Recorded Sex Assigned at Not on file Legal Sex Female 1:23 AM BIOMEDICAL SERVICE ENGINEER Gender Identity Not on file Sexual Orientation Not on file Obstetrics History Last Filed Vital Signs Vital Sign Reading Time Taken Comments Blood Pressure 114/51 08/05/2024 12:15 PM BIOMEDICAL SERVICE ENGINEER Pulse 97 08/05/2024 12:10 PM BIOMEDICAL SERVICE ENGINEER Temperature 36.4 ??C (97.6 ??F) 08/05/2024 12:[address] Respiratory Rate 20 08/05/2024 12:10 PM BIOMEDICAL SERVICE ENGINEER Oxygen Saturation 100% 08/05/2024 12:10 PM BIOMEDICAL SERVICE ENGINEER Inhaled Oxygen Concentration - - Weight 69.9 kg (154 lb 1.6 oz) 08/05/2024 4:46 A M BIOMEDICAL SERVICE ENGINEER Height 154.9 cm (5' 1 ) 08/02/2024 7:46 PM BIOMEDICAL SERVICE ENGINEER Body Mass Index 29.12 08/02/2024 7:46 PM BIOMEDICAL SERVICE ENGINEER Plan of Treatment Health Maintenance Due Date Last Done Comments Breast Cancer Screening-Mammogram 1952 Colon Cancer Screening-Colonoscopy 1950 Depression Screening 1950 Hepatitis C Screening 1952 Osteoporosis Screening-Bone Density Scan 1952 DTaP/Tdap/Td Vaccine (1 - Tdap) 1963 Hepatitis B Screening 1970 Zoster Vaccine (1 of 2) 2002 Well Visit 65+ 2017 Influenza Vaccine (#1) 2024 9, 04/05/2018, 05/15/2017, Additional history exists Fall Risk Assessment 08/05/2025 08/05/2024 Pneumococcal vaccine 65+ Completed 04/07/2019, 03/12 Medical Devices Implanted Type Area Inside Sales Trainer Device Identifier Shelf Expiration Date Model / Serial / Lot [employer] Synergy Xd Monorail 2.25mm 32mm 144cm Delivery System 1 Access [id number] - S0 - [id number] Implanted:Qty: 1 on 08/02/2024 by Grover Wren MD at [facility] Stent [employer] 01/26/2026 [id number] / 0 / [id number] [employer] Angio-Seal Vip 6fr Closere Device [id number] - S0 - [id number] Implanted:Qty: 1 on 08/02/2024 by Grover Wren MD at [facility] Vascular Closure Device [employer] 03/15/2025 [id number] / 0 / [id number] Procedures Procedure Name Priority Date/Time Associated Diagnosis Comments EGFR Routine 08/05/2024 4:30 AM BIOMEDICAL SERVICE ENGINEER DIFFERENTIAL AUTO Routine 08/05/2024 4:3 0 AM BIOMEDICAL SERVICE ENGINEER BASIC METABOLIC PANEL Routine 08/05/2024 4:30 AM BIOMEDICAL SERVICE ENGINEER CBC WITH AUTO DIFFERENTIAL Routine 08/05/2024 4:30 AM BIOMEDICAL SERVICE ENGINEER HEMOGLOBIN A1C Routine 08/04/2024 8:14 AM BIOMEDICAL SERVICE ENGINEER EGFR Routine 08/04/2024 8:14 AM BIOMEDICAL SERVICE ENGINEER DIFFERENTIAL AUTO Routine 08/04/2024 8:1 4 AM BIOMEDICAL SERVICE ENGINEER MAGNESIUM Routine 08/04/2024 8:14 AM BIOMEDICAL SERVICE ENGINEER BASIC METABOLIC PANEL Routine 08/04/2024 8:14 AM BIOMEDICAL SERVICE ENGINEER CBC WITH AUTO DIFFERENTIAL Routine 08/04/2024 8:14 AM BIOMEDICAL SERVICE ENGINEER CBC WITHOUT DIFFERENTIAL Routine 024 10:00 AM BIOMEDICAL SERVICE ENGINEER CT ABDOMEN PELVIS W WO CONTRAST ED Urgent/IP Urgent 08/03/2024 4:58 AM BIOMEDICAL SERVICE ENGINEER EGFR Routine 08/03/2024 4:52 AM BIOMEDICAL SERVICE ENGINEER DIFFERENTIAL AUTO STAT 08/03/2024 4:5 2 AM BIOMEDICAL SERVICE ENGINEER CBC WITH AUTO DIFFERENTIAL STAT 08/03/2024 4:52 AM BIOMEDICAL SERVICE ENGINEER BASIC METABOLIC PANEL Routine 08/03/2024 4:52 AM BIOMEDICAL SERVICE ENGINEER LIPID PANEL Routine 08/03/2024 4:52 AM BIOMEDICAL SERVICE ENGINEER CT CHEST ABDOMEN PELVIS WO CONTRAST ED Urgent/IP Urgent 08/03/2024 2:05 AM BIOMEDICAL SERVICE ENGINEER TYPE AND SCREEN STAT 08/03/2024 1:29 AM BIOMEDICAL SERVICE ENGINEER EGFR STAT 08/03/2024 1:12 AM BIOMEDICAL SERVICE ENGINEER DIFFERENTIAL AUTO STAT 08/03/2024 1:1 2 AM BIOMEDICAL SERVICE ENGINEER PROTIME-INR STAT 08/03/2024 1:12 AM BIOMEDICAL SERVICE ENGINEER RENAL FUNCTION PANEL STAT 08/03/2024 1:12 AM BIOMEDICAL SERVICE ENGINEER CBC WITH AUTO DIFFERENTIAL STAT 08/03/2024 1:12 AM BIOMEDICAL SERVICE ENGINEER B CHECK SAMPLE STAT 08/03/2024 1:11 AM BIOMEDICAL SERVICE ENGINEER ECG 12-LEAD Routine 08/03/2024 12:52 AM BIOMEDICAL SERVICE ENGINEER PROTIME-INR Routine 08/02/2024 10:24 PM BIOMEDICAL SERVICE ENGINEER LEFT HEART CATHETERIZATION WITH CORONARY ANGIOGRAPHY AND WITH AND WITHOUT LEFT VENTRICULOGRAM Routine 08/02/2024 9:48 PM BIOMEDICAL SERVICE ENGINEER ECG 12-LEAD STAT 08/02/2024 7:38 PM BIOMEDICAL SERVICE ENGINEER CARDIOLOGY DOCUMENT SCAN Routine 12:45 PM BIOMEDICAL SERVICE ENGINEER CARDIOLOGY DOCUMENT SCAN Routine 024 1:11 PM BIOMEDICAL SERVICE ENGINEER ELECTROCARDIOGRAM REPORT Routine 3:53 PM BIOMEDICAL SERVICE ENGINEER Angina pectoris, unstable (CMS/HCC) (HCC) POCT LIPID PANEL Routine 07/22/2024 2:54 PM BIOMEDICAL SERVICE ENGINEER Need for lipid screening from Last 3 Months Results * eGFR (08/05/2024 4:30 AM BIOMEDICAL SERVICE ENGINEER) eGFR 71 >=60 mL/min/1. 73 m2 Comment: [...] of Race in Diagnosing Kidney Disease, JASN 202). The CKD-EPI equation should not be used for patients with unstable renal function and has not been validated in children and those over 70. Current interpretive data was last reviewed 2021. Blood 08/05/2024 4:30 AM BIOMEDICAL SERVICE ENGINEER 08/05/2024 6:17 AM BIOMEDICAL SERVICE ENGINEER us Chilo Rodriguez NP LAB BLOOD ORDERABLES Final Resul t [facility] [address] [place] [address] * (ABNORMAL) Differential, auto (08/05/2024 4:30 AM BIOMEDICAL SERVICE ENGINEER) Neutrophil abs 5.7 1.5 - 6.5 K/cumm Imm gran abs 0.0 0.0 - 0.1 K/cumm [facility] Lymphocyte abs 1.5 0.8 - 3.3 K/cumm [facility] Monocyte abs 0.9(H) 0.2 - 0.8 K/cumm [facility] Eosinophil abs 0.1 0.0 - 0.5 K/cumm [facility] Basophil abs 0.0 0.0 - 0.1 K/cumm [facility] Neutrophil pct 68.3 % [facility] Comment: Interpretive Data Percent cell count reference ranges are not reported, since discordance with absolute values may lead to misinterpretation of CBC data. Current Interpretive Data was last revised on 2017. Imm gran pct 0.5 % [facility] Comment: Interpretive Data Percent cell count reference ranges are not reported, since discordance with absolute values may lead to misinterpretation of CBC data. Current Interpretive Data was last revised on 2017. Lymphocyte pct 18.3 % [facility] Comment: Interpretive Data Percent cell count reference ranges are not reported, since discordance with absolute values may lead to misinterpretation of CBC data. Current Interpretive Data was last revised on 2017. Monocyte pct 11.0 % [facility] Comment: Interpretive Data Percent cell count reference ranges are not reported, since discordance with absolute values may lead to misinterpretation of CBC data. Current Interpretive Data was last revised on 2017. Eosinophil pct 1.7 % [facility] Comment: Interpretive Data Percent cell count reference ranges are not reported, since discordance with absolute values may lead to misinterpretation of CBC data. Current Interpretive Data was last revised on 2017. Basophil pct 0.2 % [facility] Comment: Interpretive Data Percent cell count reference ranges are not reported, since discordance with absolute values may lead to misinterpretation of CBC data. Current Interpretive Data was last revised on 2017. Blood 08/05/2024 4:30 AM BIOMEDICAL SERVICE ENGINEER 08/05/2024 6:17 AM BIOMEDICAL SERVICE ENGINEER Chilo Rodriguez NP LAB BLOOD ORDERABLES Final Resul t [facility] [address] [place] [address] * (ABNORMAL) CBC with auto differential (08/05/2024 4:30 AM BIOMEDICAL SERVICE ENGINEER) WBC 8.4 3.8 - 9.9 K/cumm Hgb 9.0(L) 11.9 - 15.5 g/dL [facility] Hct 28.6(L) 35.6 - 45.5 % [facility] Plt 158 150 - 400 K/cumm [facility] MPV 12.0 9.1 - 12.3 fL [facility] RBC 2.84(L) 3.90 - 5.20 M/cumm [facility] MCV 100.7(H) 81.3 - 96.4 fL [facility] MCH 31.7 27.1 - 33.3 pg [facility] MCHC 31.5(L) 32.3 - 35.7 g/dL [facility] RDW CV 14.8 11.1 - 14.9 % [facility] RDW SD 54.7(H) 35.7 - 48.1 fL [facility] NRBC abs 0.00 0.00 - 0.01 K/cumm [facility] Blood 08/05/2024 4:30 AM BIOMEDICAL SERVICE ENGINEER 08/05/2024 6:17 AM BIOMEDICAL SERVICE ENGINEER us Chilo Rodriguez NP LAB BLOOD ORDERABLES Final Resul t Performing Organization Address [facility] Co de Phone Number [facility] [address] [place] [address] * (ABNORMAL) Basic metabolic panel (08/05/2024 4:30 AM BIOMEDICAL SERVICE ENGINEER) Sodium 140 135 - 145 mmol/L Potassium, pl 3.3 3.3 - 4.9 mmol/L [facility] Chloride 107 97 - 110 mmol/L [facility] CO2 21(L) 22 - 32 mmol/L [facility] Anion gap 12 2 - 15 mmol/L [facility] BUN 11 6 - 25 mg/dL [facility] Creatinine 0.87 0.60 - 1.10 mg/dL [facility] Glucose 95 70 - 199 mg/dL [facility] Comment: Interpretive Data Fasting glucose >/= 126 [...] 2022. Calcium 8.2(L) 8.5 - 10.3 mg/dL [facility] Blood 08/05/2024 4:30 AM BIOMEDICAL SERVICE ENGINEER 08/05/2024 6:17 AM BIOMEDICAL SERVICE ENGINEER Chilo Rodriguez NP LAB BLOOD ORDERABLES Final Resul t Performing Organization Address [facility]/State/ZIP Co de Phone Number [facility] [address] [place] [address] * eGFR (08/04/2024 8:14 AM BIOMEDICAL SERVICE ENGINEER) eGFR 75 >=60 mL/min/1. 73 m2 Comment: [...] last reviewed 2021. Blood 08/04/2024 8:14 AM BIOMEDICAL SERVICE ENGINEER 08/04/2024 8:32 AM BIOMEDICAL SERVICE ENGINEER us Chilo Rodriguez NP LAB BLOOD ORDERABLES Final Resul t [facility] [address] Department of Laboratories [place], [place] [id number] * (ABNORMAL) Differential, auto (08/04/2024 8:14 AM BIOMEDICAL SERVICE ENGINEER) Neutrophil abs 7.7(H) 1.5 - 6.5 K/cumm Imm gran abs 0.1 0.0 - 0.1 K/cumm [facility] Lymphocyte abs 1.0 0.8 - 3.3 K/cumm [facility] Monocyte abs 1.2(H) 0.2 - 0.8 K/cumm [facility] Eosinophil abs 0.1 0.0 - 0.5 K/cumm [facility] Basophil abs 0.0 0.0 - 0.1 K/cumm [facility] Neutrophil pct 76.9 % [facility] Comment: Interpretive Data Percent cell count reference ranges are not reported, since discordance with absolute values may lead to misinterpretation of CBC data. Current Interpretive Data was last revised on 2017. Imm gran pct 0.7 % [facility] Comment: Interpretive Data Percent cell count reference ranges are not reported, since discordance with absolute values may lead to misinterpretation of CBC data. Current Interpretive Data was last revised on 2017. Lymphocyte pct 9.5 % [facility] Comment: Interpretive Data Percent cell count reference ranges are not reported, since discordance with absolute values may lead to misinterpretation of CBC data. Current Interpretive Data was last revised on 2017. Monocyte pct 12.3 % [facility] Comment: Interpretive Data Percent cell count reference ranges are not reported, since discordance with absolute values may lead to misinterpretation of CBC data. Current Interpretive Data was last revised on 2017. Eosinophil pct 0.5 % [facility] Comment: Interpretive Data Percent cell count reference ranges are not reported, since discordance with absolute values may lead to misinterpretation of CBC data. Current Interpretive Data was last revised on 2017. Basophil pct 0.1 % [facility] Comment: Interpretive Data Percent cell count reference ranges are not reported, since discordance with absolute values may lead to misinterpretation of CBC data. Current Interpretive Data was last revised on 2017. Blood 08/04/2024 8:14 AM BIOMEDICAL SERVICE ENGINEER 08/04/2024 8:33 AM BIOMEDICAL SERVICE ENGINEER us Chilo Rodriguez NP LAB BLOOD ORDERABLES Final Resul t [facility] [address] [place] [address] * (ABNORMAL) CBC with auto differential (08/04/2024 8:14 AM BIOMEDICAL SERVICE ENGINEER) WBC 10.0(H) 3.8 - 9.9 K/cumm Hgb 9.5(L) 11.9 - 15.5 g/dL [facility] Hct 29.9(L) 35.6 - 45.5 % [facility] Plt 153 150 - 400 K/cumm [facility] MPV 12.1 9.1 - 12.3 fL [facility] RBC 3.00(L) 3.90 - 5.20 M/cumm [facility] MCV 99.7(H) 81.3 - 96.4 fL [facility] MCH 31.7 27.1 - 33.3 pg [facility] MCHC 31.8(L) 32.3 - 35.7 g/dL [facility] RDW CV 14.6 11.1 - 14.9 % [facility] RDW SD 53.2(H) 35.7 - 48.1 fL [facility] NRBC abs 0.00 0.00 - 0.01 K/cumm [facility] Blood 08/04/2024 8:14 AM BIOMEDICAL SERVICE ENGINEER 08/04/2024 8:33 AM BIOMEDICAL SERVICE ENGINEER us Chilo Rodriguez NP LAB BLOOD ORDERABLES Final Resul t Performing Organization Address [facility] Co de Phone Number [facility] [address] [place] [address] * Magnesium (08/04/2024 8:14 AM BIOMEDICAL SERVICE ENGINEER) Pathologist [facility] Magnesium 1.9 1.4 - 2.5 mg/dL Blood 08/04/2024 8:14 AM BIOMEDICAL SERVICE ENGINEER 08/04/2024 8:32 AM BIOMEDICAL SERVICE ENGINEER Chilo Rodriguez NP LAB BLOOD ORDERABLES Final Resul t Performing Organization Address [facility] de Phone Number [facility] [address] [place] [address] * Hemoglobin A1c (08/04/2024 8:14 AM BIOMEDICAL SERVICE ENGINEER) [facility] Hgb A1C 4.9 4.0 - 5.6 % Estimated Average Glucose 94 mg/dL [facility] Comment: The ADA recommends reporting an estimated Average Glucose (eAG) with all Hemoglobin A1c results using the equation derived from a study of 507 normal and diabetic adults. ??Minority populations were underrepresented and children were not included. ?? (Diabetes Care 31:6602-2041, 2008). ??The eAG is not equivalent to a fasting glucose. Blood 08/04/2024 8:14 AM BIOMEDICAL SERVICE ENGINEER 08/04/2024 10:08 AM BIOMEDICAL SERVICE ENGINEER Charan Huggins MD LAB BLOOD ORDERABLES Final Resul t Performing Organization Address [facility] de Phone Number [facility] [address] Department [place] [address] * Basic metabolic panel (08/04/2024 8:14 AM BIOMEDICAL SERVICE ENGINEER) [facility] Sodium 135 135 - 145 mmol/L Potassium, pl 3.7 3.3 - 4.9 mmol/L [facility] Chloride 103 97 - 110 mmol/L [facility] CO2 22 22 - 32 mmol/L [facility] Anion gap 10 2 - 15 mmol/L [facility] BUN 12 6 - 25 mg/dL [facility] Creatinine 0.83 0.60 - 1.10 mg/dL [facility] Glucose 109 70 - 199 mg/dL [facility] Comment: Interpretive Data Fasting glucose >/= 126 [...] 2022. Calcium 8.6 8.5 - 10.3 mg/dL [facility] Blood 08/04/2024 8:14 AM BIOMEDICAL SERVICE ENGINEER 08/04/2024 8:32 AM BIOMEDICAL SERVICE ENGINEER us Chilo Rodriguez NP LAB BLOOD ORDERABLES Final Resul t Performing Organization Address City/[facility]/ZIP Co de Phone Number [facility] [address] [place] [address] * (ABNORMAL) CBC without differential (08/03/2024 10:00 AM BIOMEDICAL SERVICE ENGINEER) WBC 9.6 3.8 - 9.9 K/cumm Hgb 10.4(L) 11.9 - 15.5 g/dL [facility] Hct 32.8(L) 35.6 - 45.5 % [facility] Plt 183 150 - 400 K/cumm [facility] MPV 11.9 9.1 - 12.3 fL [facility] RBC 3.26(L) 3.90 - 5.20 M/cumm [facility] MCV 100.6(H) 81.3 - 96.4 fL [facility] MCH 31.9 27.1 - 33.3 pg [facility] MCHC 31.7(L) 32.3 - 35.7 g/dL [facility] RDW CV 14.9 11.1 - 14.9 % [facility] RDW SD 54.3(H) 35.7 - 48.1 fL [facility] NRBC abs 0.00 0.00 - 0.01 K/cumm [facility] Blood 08/03/2024 10:0 0 AM BIOMEDICAL SERVICE ENGINEER 08/03/2024 10:14 AM BIOMEDICAL SERVICE ENGINEER us Grover Wren MD LAB BLOOD ORDERABLES [place] l Result [facility] [address] [place] [address] * CT Abdomen Pelvis W WO Contrast (08/03/2024 4:58 AM BIOMEDICAL SERVICE ENGINEER) Anatomical Region Laterality Modality Body N/A Computed Tomogra phy 08/03/2024 4:47 AM BIOMEDICAL SERVICE ENGINEER Impressions 08/03/2024 8:44 AM BIOMEDICAL SERVICE ENGINEER 1. ??Unchanged moderate amount of infiltrative hemorrhage [...] See Doan M.D. Narrative 08/03/2024 8:44 AM BIOMEDICAL SERVICE ENGINEER EXAMINATION: ??Computed tomography of the abdomen and [...] signed by: See Doan M.D. Joselito LAU IMG CT PROCEDURES Final Result * eGFR (08/03/2024 4:52 AM BIOMEDICAL SERVICE ENGINEER) eGFR 67 >=60 mL/min/1. 73 m2 Comment: [...] last reviewed 2021. Blood 08/03/2024 4:52 AM BIOMEDICAL SERVICE ENGINEER 08/03/2024 4:52 AM BIOMEDICAL SERVICE ENGINEER us Ayesha Billings MD LAB BLOOD ORDERABLES Final Res ult [facility] [address] [place] [address] * (ABNORMAL) Differential, auto (08/03/2024 4:52 AM BIOMEDICAL SERVICE ENGINEER) Neutrophil abs 9.9(H) 1.5 - 6.5 K/cumm Imm gran abs 0.1 0.0 - 0.1 K/cumm [facility] Lymphocyte abs 0.7(L) 0.8 - 3.3 K/cumm [facility] Monocyte abs 1.0(H) 0.2 - 0.8 K/cumm [facility] Eosinophil abs 0.0 0.0 - 0.5 K/cumm [facility] Basophil abs 0.0 0.0 - 0.1 K/cumm [facility] Neutrophil pct 84.6 % [facility] Comment: Interpretive Data Percent cell count reference ranges are not reported, since discordance with absolute values may lead to misinterpretation of CBC data. Current Interpretive Data was last revised on 2017. Imm gran pct 0.5 % [facility] Comment: Interpretive Data Percent cell count reference ranges are not reported, since discordance with absolute values may lead to misinterpretation of CBC data. Current Interpretive Data was last revised on 2017. Lymphocyte pct 5.6 % [facility] Comment: Interpretive Data Percent cell count reference ranges are not reported, since discordance with absolute values may lead to misinterpretation of CBC data. Current Interpretive Data was last revised on 2017. Monocyte pct 8.8 % [facility] Comment: Interpretive Data Percent cell count reference ranges are not reported, since discordance with absolute values may lead to misinterpretation of CBC data. Current Interpretive Data was last revised on 2017. Eosinophil pct 0.3 % [facility] Comment: Interpretive Data Percent cell count reference ranges are not reported, since discordance with absolute values may lead to misinterpretation of CBC data. Current Interpretive Data was last revised on 2017. Basophil pct 0.2 % [facility] Comment: Interpretive Data Percent cell count reference ranges are not reported, since discordance with absolute values may lead to misinterpretation of CBC data. Current Interpretive Data was last revised on 2017. Blood 08/03/2024 4:52 AM BIOMEDICAL SERVICE ENGINEER 08/03/2024 4:52 AM BIOMEDICAL SERVICE ENGINEER us Joselito LAU LAB BLOOD ORDERABLES Final Resu lt [facility] [address] [place] [address] * (ABNORMAL) CBC with auto differential (08/03/2024 4:52 AM BIOMEDICAL SERVICE ENGINEER) WBC 11.7(H) 3.8 - 9.9 K/cumm Hgb 11.1(L) 11.9 - 15.5 g/dL [facility] Hct 34.4(L) 35.6 - 45.5 % [facility] Plt 199 150 - 400 K/cumm [facility] MPV 11.9 9.1 - 12.3 fL [facility] RBC 3.36(L) 3.90 - 5.20 M/cumm [facility] MCV 102.4(H) 81.3 - 96.4 fL [facility] MCH 33.0 27.1 - 33.3 pg [facility] MCHC 32.3 32.3 - 35.7 g/dL [facility] RDW CV 14.7 11.1 - 14.9 % [facility] RDW SD 54.5(H) 35.7 - 48.1 fL [facility] NRBC abs 0.00 0.00 - 0.01 K/cumm [facility] Blood 08/03/2024 4:52 AM BIOMEDICAL SERVICE ENGINEER 08/03/2024 4:52 AM BIOMEDICAL SERVICE ENGINEER us Joselito LAU LAB BLOOD ORDERABLES Final Resu lt [facility] [address] [place] [address] * Lipid panel (08/03/2024 4:52 AM BIOMEDICAL SERVICE ENGINEER) Cholesterol 137 30 - 199 mg/dL Comment: [...] revised on 2018. Triglycerides 135 <=149 mg/dL [facility] Comment: Interpretive Data Ages < or = [...] revised on 2018. HDL 53 >=40 mg/dL [facility] Comment: Interpretive Data Ages < or = 19 years ??Acceptable: ? >45 mg/dL ??Borderline low: ?? 40-45 mg/dL ??Low: ? <40 mg/dL Ages > or = 20 years ??Desirable: ?>or= 60 mg/dL ??Low: ? <40 mg/dL Literature References: 1. Expert Panel on Integrated Guidelines for Cardiovascular Health and Risk Reduction in Children and Adolescents. Pediatrics 2011;128:S213 2. GAEP Expert Panel. Circulation 2004;110:227 Current Interpretive Data was last revised on 2018. LDL, calculated 61 <=129 mg/dL [facility] Comment: Interpretive Data Ages < or = [...] revised on 2024. Non-HDL Cholesterol 84 mg/dL [facility] Comment: Interpretive Data Ages < or = [...] last revised on 2018. Chol/HDL ratio 3 [facility] Blood 08/03/2024 4:52 AM BIOMEDICAL SERVICE ENGINEER 08/03/2024 4:52 AM BIOMEDICAL SERVICE ENGINEER us Grover Wren MD LAB BLOOD ORDERABLES Marion l Result [facility] [address] [place] [address] * (ABNORMAL) Basic metabolic panel (08/03/2024 4:52 AM BIOMEDICAL SERVICE ENGINEER) Sodium 136 135 - 145 mmol/L Potassium, pl 4.7 3.3 - 4.9 mmol/L [facility] Chloride 105 97 - 110 mmol/L [facility] CO2 18(L) 22 - 32 mmol/L [facility] Anion gap 13 2 - 15 mmol/L [facility] BUN 16 6 - 25 mg/dL [facility] Creatinine 0.92 0.60 - 1.10 mg/dL [facility] Glucose 105 70 - 199 mg/dL [facility] Comment: Interpretive Data Fasting glucose >/= 126 [...] 2022. Calcium 8.4(L) 8.5 - 10.3 mg/dL [facility] Blood 08/03/2024 4:52 AM BIOMEDICAL SERVICE ENGINEER 08/03/2024 4:52 AM BIOMEDICAL SERVICE ENGINEER us Grover Wren MD LAB BLOOD ORDERABLES Marion l Result [facility] [address] [place] [address] * CT Chest Abdomen Pelvis WO Contrast (08/03/2024 2:05 AM BIOMEDICAL SERVICE ENGINEER) Anatomical Region Laterality Modality Body N/A Computed Tomogra phy 08/03/2024 2:02 AM BIOMEDICAL SERVICE ENGINEER Impressions 08/03/2024 8:51 AM BIOMEDICAL SERVICE ENGINEER Moderate volume of infiltrative hemorrhage involving the right proximal thigh, right groin region, and right retroperitoneum, related to recent cardiac catheterization via the right femoral artery. ??It is not possible to assess for active extravasation or pseudoaneurysm on this noncontrast examination. Electronically signed by: See Doan M.D. Narrative 08/03/2024 8:51 AM BIOMEDICAL SERVICE ENGINEER EXAMINATION: ??Computed tomography of the chest, abdomen, [...] examination. Electronically signed by: See Doan M.D. us Joselito LAU IMG CT PROCEDURES Final Result * Type and screen (08/03/2024 1:29 AM BIOMEDICAL SERVICE ENGINEER) Pathologist [facility] ABO Rh A Negative David, indirect Negative [facility] Blood 08/03/2024 1:29 AM BIOMEDICAL SERVICE ENGINEER 08/03/2024 1:38 AM BIOMEDICAL SERVICE ENGINEER Narrative [facility] - 08/03/2024 2:26 AM BIOMEDICAL SERVICE ENGINEER Has the patient had Daratumumab or Isatuximab in the past 6 months?->Unknown Joselito LAU LAB BLOOD BANK TEST ORDERABLES Final Result [facility] [address] [place] [address] * (ABNORMAL) eGFR (08/03/2024 1:12 AM BIOMEDICAL SERVICE ENGINEER) Pathologist [facility] eGFR 59(L) >=60 mL/min/1. 73 m2 Comment: [...] last reviewed 2021. Blood 08/03/2024 1:12 AM BIOMEDICAL SERVICE ENGINEER 08/03/2024 1:38 AM BIOMEDICAL SERVICE ENGINEER us Joselito LAU LAB BLOOD ORDERABLES Final Resu lt [facility] [address] [place] [address] * (ABNORMAL) Differential, auto (08/03/2024 1:12 AM BIOMEDICAL SERVICE ENGINEER) Neutrophil abs 9.4(H) 1.5 - 6.5 K/cumm Imm gran abs 0.1 0.0 - 0.1 K/cumm [facility] Lymphocyte abs 0.5(L) 0.8 - 3.3 K/cumm [facility] Monocyte abs 0.6 0.2 - 0.8 K/cumm [facility] Eosinophil abs 0.0 0.0 - 0.5 K/cumm [facility] Basophil abs 0.0 0.0 - 0.1 K/cumm [facility] Neutrophil pct 88.8 % [facility] Comment: Interpretive Data Percent cell count reference ranges are not reported, since discordance with absolute values may lead to misinterpretation of CBC data. Current Interpretive Data was last revised on 2017. Imm gran pct 0.7 % [facility] Comment: Interpretive Data Percent cell count reference ranges are not reported, since discordance with absolute values may lead to misinterpretation of CBC data. Current Interpretive Data was last revised on 2017. Lymphocyte pct 5.0 % [facility] Comment: Interpretive Data Percent cell count reference ranges are not reported, since discordance with absolute values may lead to misinterpretation of CBC data. Current Interpretive Data was last revised on 2017. Monocyte pct 5.2 % [facility] Comment: Interpretive Data Percent cell count reference ranges are not reported, since discordance with absolute values may lead to misinterpretation of CBC data. Current Interpretive Data was last revised on 2017. Eosinophil pct 0.1 % [facility] Comment: Interpretive Data Percent cell count reference ranges are not reported, since discordance with absolute values may lead to misinterpretation of CBC data. Current Interpretive Data was last revised on 2017. Basophil pct 0.2 % [facility] Comment: Interpretive Data Percent cell count reference ranges are not reported, since discordance with absolute values may lead to misinterpretation of CBC data. Current Interpretive Data was last revised on 2017. Blood 08/03/2024 1:12 AM BIOMEDICAL SERVICE ENGINEER 08/03/2024 1:38 AM BIOMEDICAL SERVICE ENGINEER Joselito LAU LAB BLOOD ORDERABLES Final Resu lt [facility] [address] [place] [address] * (ABNORMAL) CBC with auto differential (08/03/2024 1:12 AM BIOMEDICAL SERVICE ENGINEER) WBC 10.5(H) 3.8 - 9.9 K/cumm Hgb 10.8(L) 11.9 - 15.5 g/dL [facility] Hct 34.2(L) 35.6 - 45.5 % [facility] Plt 198 150 - 400 K/cumm [facility] MPV 11.7 9.1 - 12.3 fL [facility] RBC 3.36(L) 3.90 - 5.20 M/cumm [facility] MCV 101.8(H) 81.3 - 96.4 fL [facility] MCH 32.1 27.1 - 33.3 pg [facility] MCHC 31.6(L) 32.3 - 35.7 g/dL [facility] RDW CV 14.8 11.1 - 14.9 % [facility] RDW SD 54.9(H) 35.7 - 48.1 fL [facility] NRBC abs 0.00 0.00 - 0.01 K/cumm [facility] Blood 08/03/2024 1:12 AM BIOMEDICAL SERVICE ENGINEER 08/03/2024 1:38 AM BIOMEDICAL SERVICE ENGINEER Joselito LAU LAB BLOOD ORDERABLES Final Resu lt Performing Organization Address [facility] de Phone Number [facility] [address] [place] [address] * (ABNORMAL) Protime-INR (08/03/2024 1:12 AM BIOMEDICAL SERVICE ENGINEER) PT 13.4(H) 9.7 - 13.0 sec INR 1.24(H) 0.90 - 1.20 [facility] Comment: Interpretive data Oral anticoagulant therapeutic ranges: Venous thromboembolism prophylaxis or treatment: 2.0-3.0 CARDIOLOGY Standard range: 2.0-3.0 High-intensity range: 2.5-3.5 Refer to indication-specific guidelines for appropriate target ranges for prosthetic heart valve replacement. Current interpretive data was last revised on 2019. Blood 08/03/2024 1:12 AM BIOMEDICAL SERVICE ENGINEER 08/03/2024 1:39 AM BIOMEDICAL SERVICE ENGINEER Joselito LAU LAB BLOOD ORDERABLES Final Resu lt Performing Organization Address [facility]/ZIP Co de Phone Number [facility] [address] [place] [address] * (ABNORMAL) Renal function panel (08/03/2024 1:12 AM BIOMEDICAL SERVICE ENGINEER) Pathologist [facility] Sodium 135 135 - 145 mmol/L Potassium, pl 4.1 3.3 - 4.9 mmol/L [facility] Chloride 105 97 - 110 mmol/L [facility] CO2 16(L) 22 - 32 mmol/L [facility] Anion gap 14 2 - 15 mmol/L [facility] BUN 16 6 - 25 mg/dL [facility] Creatinine 1.02 0.60 - 1.10 mg/dL [facility] Glucose 173 70 - 199 mg/dL [facility] Comment: Interpretive Data Fasting glucose >/= 126 [...] 2022. Calcium 8.1(L) 8.5 - 10.3 mg/dL [facility] Phosphorus, pl 4.7(H) 2.3 - 4.5 mg/dL [facility] Albumin 3.8 3.5 - 5.0 g/dL [facility] Blood 08/03/2024 1:12 AM BIOMEDICAL SERVICE ENGINEER 08/03/2024 1:38 AM BIOMEDICAL SERVICE ENGINEER us Joselito LAU LAB BLOOD ORDERABLES Final [facility]u [facility] [address] [place] [address] * Check Sample (08/03/2024 1:11 AM BIOMEDICAL SERVICE ENGINEER) Pathologist [facility] ABO Rh A Negative MBC HCLL OTHER 08/03/2024 1:11 AM BIOMEDICAL SERVICE ENGINEER 08/03/2024 2:42 AM BIOMEDICAL SERVICE ENGINEER Michael Thomas DO LAB BLOOD ORDERABLES F inal Result Performing Organization Address [facility] Co de Phone Number [facility] [address] [place] [address] [facility] [place] ECG 12 lead (08/03/2024 12:52 AM BIOMEDICAL SERVICE ENGINEER) 08/03/2024 12:5 2 AM BIOMEDICAL SERVICE ENGINEER Narrative [facility] - 08/03/2024 3:47 PM BIOMEDICAL SERVICE ENGINEER Vent Rate: 91 bpm RR Interval: 656 msec [place] Interval: 167 msec QRS Duration: 88 msec QT Interval: 345 msec QTC Interval: 394 msec P-R-T Chaplin: 43 - 17 - 99 degrees IMPRESSION: SINUS RHYTHM ST DEVIATION AND MODERATE T-WAVE ABNORMALITY, CONSIDER LATERAL ISCHEMIA ABNORMAL ECG Electronically Signed By: Beto Richmond MD Joselito LAU ECG ORDERABLES Final Result Performing Organization Address [facility] de Phone Number [facility] [employer] [facility] * (ABNORMAL) Protime-INR (08/02/2024 10:24 PM BIOMEDICAL SERVICE ENGINEER) PT 14.0(H) 9.7 - 13.0 sec INR 1.29(H) 0.90 - 1.[address] [facility] Comment: Interpretive data Oral anticoagulant therapeutic ranges: Venous thromboembolism prophylaxis or treatment: 2.0-3.0 CARDIOLOGY Standard range: 2.0-3.0 High-intensity range: 2.5-3.5 Refer to indication-specific guidelines for appropriate target ranges for prosthetic heart valve replacement. Current interpretive data was last revised on 2019. Blood 08/02/2024 10:2 4 PM BIOMEDICAL SERVICE ENGINEER 08/02/2024 11:15 PM BIOMEDICAL SERVICE ENGINEER Grover Wren MD LAB BLOOD ORDERABLES Marion l Result Performing Organization Address City/[facility]/ZIP Co de Phone Number [facility] [address] [place] [address] * LEFT HEART CATHETERIZATION WITH CORONARY ANGIOGRAPHY AND WITH AND WITHOUT LEFT VENTRICULOGRAM (08/02/2024 9:48 PM BIOMEDICAL SERVICE ENGINEER) Anatomical Region Laterality Modality X-Ray Angiograph y Impressions 08/02/2024 9:50 PM BIOMEDICAL SERVICE ENGINEER 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 [facility] PCI RISK CALCULATOR PCI INDICATIONS NSTEMI or [...] ??Low Risk (<1% annual risk of or NM) [] ??Intermediate Risk (1-3% annual risk of or NM [] ??High Risk (>3% annual risk of or NM) LESION CHARACTERISTICS (HIGH RISK Type C LESIONS) [...] OR PROX LAD) Narrative 08/02/2024 9:50 PM BIOMEDICAL SERVICE ENGINEER PERCUTANEOUS CORONARY INTERVENTION REPORT Patient: Maria C [...] obtained. The patient was brought to the veterinarian laboratory animal care and placed on the table. Right radial [...] via TR band Patient was transferred to [facility] in stable condition. CORONARY INTERVENTION REPORT: The left main was engaged using an extra backup 3.5 guide catheter. ??Using a corsair XS microcatheter for support, a bibiana blue ??wire was advanced distally in the obtuse marginal branch. ??Angioplasty was performed using a 2.0 x 30 balloon for a prolonged inflation. ?? A 6 [place] GuideLiner coast was advanced in the vessel [...] Blood Loss: 10 cc Specimens: none DIAGNOSTIC Result Binu Wren MD CV CARDIAC CATH PROCEDURE S Final Result * ECG 12 lead (08/02/2024 7:38 PM BIOMEDICAL SERVICE ENGINEER) 08/02/2024 7:38 PM BIOMEDICAL SERVICE ENGINEER Narrative [facility] - 08/03/2024 3:40 PM BIOMEDICAL SERVICE ENGINEER Vent Rate: 79 bpm RR Interval: 758 msec MO Interval: 182 msec QRS Duration: 87 msec QT Interval: 361 msec QTC Interval: 395 msec P-R-T Chaplin: 32 - 12 - 70 degrees IMPRESSION: SINUS RHYTHM NONSPECIFIC T-WAVE ABNORMALITY BORDERLINE ECG Electronically Signed By: Beto Richmond MD Result Binu Wren MD ECG ORDERABLES Final Res ult [facility] * Cardiology Document Scan (08/02/2024 12:45 PM BIOMEDICAL SERVICE ENGINEER) Anatomical Region Laterality Modality Other Result Binu Logan MD CV CARDIAC SERVICES PROCEDURES F inal Result * Cardiology Document Scan (07/30/2024 1:11 PM BIOMEDICAL SERVICE ENGINEER) Anatomical Region Laterality Modality Other us Keisha Dueñas MD CV CARDIAC SERVICES PROCEDU RES Final Result * Electrocardiogram Report (07/22/2024 3:53 PM BIOMEDICAL SERVICE ENGINEER) Result Binu Logan MD ECG ORDERABLES Final Result * POCT lipid panel (07/22/2024 2:54 PM BIOMEDICAL SERVICE ENGINEER) Cholesterol, POC 204 mg/dL Comment:GLU = 84 HDL, POC 52 mg/dL Triglycerides, POC 277 mg/dL LDL Cholesterol POC 97 mg/dL Chol/HDL Ratio, POC 1.9 Non-HDL Cholesterol, POC 152 mg/dL Cholesterol Total, POC 204 mg/dL Capillary blood 07/22/2024 2 :54 PM BIOMEDICAL SERVICE ENGINEER Daniel Logan MD POINT OF CARE TEST ORDERABLES Fi nal Result from Last 3 Months Insurance MEDICARE [facility] MEDICARE Address: [facility] [address] [place] [address] [facility] MEDICARE [facility] MEDICARE Advance Directives For more information, please contact: [phone] * Full Code (Latest Code Status on File) Date Activated Date Inactivated Comments 08/02/2024 7:29 PM 08/05/2024 6:07 PM Care Teams Automotive Airconditioning Mechanic Relationship Specialty Start Date End Date Attila Lepe MD [address] [facility] [address] [place] [address] PCP - General Family Practice 07/22/24 Grover Wren MD [address] [facility] [address] [place] [address] Consulting Physician Cardiology 08/05/24
--- OUTSIDE RECORDS SUMMARY | 2024-08-09 03:15 | XMS_ITS | Encounter Summary ---
Author Organization [facility] Address [address] [facility] [address] [place] [address] Care Team Providers Care Inspector Glass Or Mirror Name Role Phone No, Physician Primary Care Provider Reason for Referral * MRI/CAT/PET Scan (Routine) - Closed Specialty Diagnoses / Procedures Referred By Contac t Referred To Contact Radiology Diagnoses Pain of right orbit Scleritis, unspecified laterality Procedures MRI Orbit W WO Contrast Giacomo Black MD Phone: tel: fax: Referral ID Status Reason Start Date Expiration Date Visits Re quested Visits Authorized [id number] Closed 06/27/2017 12/24/2017 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 Encounter Details Date Type Department Care Team (Late st Contact Info) Description 06/27/2017 Orders Only [facility] [facility] [address], [place] [address] Denise Rowley MA Pain of right orbit (Primary Dx); Scleritis, unspecified laterality Social History Tobacco Use Types Packs/Day Years Used Date Smoking Tobacco: Never Smokeless Tobacco: Never Alcohol Use Standard Drinks/Week Comments No 0 (1 standard drink = 0.6 oz pure alcohol) caffeine-diet coke, tea, and coffee Comments Unknown Sex and Gender Information Value Date Recorded Sex Assigned at Not on file Legal Sex 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
--- OUTSIDE RECORDS SUMMARY | 2024-08-09 03:15 | XMS_ITS | Encounter Summary ---
Author Organization [facility] Healthcare Address [address] [place] [address] Care Team Providers Care Dynamo Tender Name Role Phone No, Physician Primary Care Provider [phone] Encounter Details Date Type Department Care Team (Latest Contact Info) Description 05/13/2017 6:53 PM CDT - 05/13/2017 11:59 PM CDT Hospital Encounter [facility] OP INTERIM [phone] Giacomo Black MD [address] [place] [address] Discharge Disposition: Discharge to home or self care Social History Tobacco Use Types Packs/Day Years Used Date Smoking Tobacco: Never Smokeless Tobacco: Never Alcohol Use Standard Drinks/Week Comments No 0 (1 standard drink = 0.6 oz pure alcohol) caffeine-diet coke, tea, and coffee Comments Unknown Sex and Gender Information Value Date Recorded Sex Assigned at Not on file 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 Gender Identity Not on file Sexual Orientation [...] or self care documented in this encounter Progress Notes * Giacomo Black MD - 05/13/2017 11:59 PM CDT Labs incomplete * Giacomo Black MD - 05/13/2017 11:59 PM CDT BRANDIE titer pend documented in this encounter Plan of Treatment Not on file documented as of this encounter Procedures Procedure Name Priority Date/Time Associated Diagnosis Comments HLSPECIMEN SOURCE Routine 05/13/2017 3:0 7 PM CDT SCL 70 ANTIBODIES Routine 05/13/2017 3:0 7 PM CDT IMMUNOGLOBULIN PROFILE Routine 7 3:07 PM CDT IBD SEROLOGY 7 Routine 05/13/2017 3:07 PM CDT HLA B27 ANTIGEN Routine 05/13/2017 3:07 PM CDT CELIAC SEROLOGY Routine 05/13/2017 3:07 PM CDT ANTI-DOUBLE STRANDED DNA ANTIBODIES Routine 05/13/2017 3:07 PM CDT REFLEX ANTINUCLEAR ANTIBODIES (BRANDIE) HEP-2 SUBSTRATE PHC Routine 05/13/2017 3:07 PM CDT SM & SM/WOOD POLE TREATER ABS Routine 05/13/2017 3:07 PM CDT CARDIOLIPIN ANTIBODY, IGG AND IGM Routine 05/13/2017 3:07 PM CDT SJOGRENS SYNDROME-B ANTIBODY Routine 05/13/2017 3:07 PM CDT SJOGRENS SYNDROME-A ANTIBODY Routine 05/13/2017 3:07 PM CDT IMMUNOFIXATION ELECTROPHORESIS Routine 05/13/2017 3:07 PM CDT BRANDIE SCREEN Routine 05/13/2017 3:07 PM CDT IBD SEROLOGY 7 05/13/2017 12:00 AM CDT CELIAC DISEASE SEROLOGY 05/13/20 12:00 AM CDT DISCHARGE LABORATORY CUMULATIVE REPORT 05/13/2017 12:00 AM CDT documented in this encounter Results * IBD Serology 7 (05/13/2017 3:07 PM CDT) IBD Serology 7 Result See scanned report [facility] Comment: Testing performed by: [facility] [address] [place] [address] Blood specimen (specimen) 05/13/2017 3:07 PM CDT 05/20/2017 7:50 AM CDT us Giacomo Black MD LAB BLOOD ORDERABLES Marion l Result Performing Organization Address [facility] Co de Phone Number [facility] [address] [facility] [employer] [place] [address] * Celiac Serology (05/13/2017 3:07 PM CDT) Celiac serology See scanned report [facility] Blood specimen (specimen) 05/13/2017 3:07 PM CDT 05/19/2017 7:56 AM CDT us Giacomo Black MD LAB BLOOD ORDERABLES Marion l Result Performing Organization Address City/[facility]/ZIP Co de Phone Number [facility] [address] Department [place] [address] * HLA B27 Antigen (05/13/2017 3:07 PM CDT) HLA-B27 ag HLA-B*27 is Negative [facility] Comment: Methodology comments: HLA-B typing is performed using the reverse sequence specific oligonucleotide (r-SSO) method, which is based on an FDA approved IVD kit and validated by the [facility] HLA laboratory. Interpretive comments: HLA-B*27 positivity confers increased risk for ankylosing spondylitis or nonradiographic axial spondyloarthritis. The absence of HLA-B*27 may help rule out these diagnoses. Expected: ?? HLA-B*27 has been found in 74% to 89% of patients with either nonradiographic axial spondyloarthritis or ankylosing spondylitis. The absolute risk of spondyloarthritis in persons with HLA-B*27 is 2% to 10%. (N Engl J Med 2016;374:2563-74) Current methodology and interpretive comments were last revised on 03/03/2017. Testing performed by: [facility], [address] [place] [address]., [id number] HLA SPECIMEN 05/13/2017 3:07 PM CDT 05/14/2017 12:32 PM CDT us Giacomo Black MD LAB BLOOD ORDERABLES Marion hylton Result [facility] [address] Department [place] [address] * (ABNORMAL) Reflex Antinuclear Antibodies (BRANDIE) HEP-2 Substrate (05/13/2017 3:07 PM CDT) BRANDIE, quant 1:160(H) titer [facility] Comment: ?Reference Range ?<1:40 ?Negative ?1:40-1:80 ?Low Antibody Level ?>1:80 ?Elevated Antibody Level Lab test performed by: Lab Mnemonic: [facility] [address] RADHA FRAZIER [address] BRANDIE, interp HOMOGENEOU S(A) [facility] Comment: Homogeneous pattern is associated with systemic lupus erythematosus (SLE), drug induced lupus and juvenile idiopathic arthritis. Blood specimen (specimen) 05/13/2017 3:07 PM CDT 05/14/2017 11:32 AM CDT Giacomo Black MD LAB BLOOD ORDERABLES Marion l Result Performing Organization Address [facility] Co de Phone Number [facility] [address] [place] [address] * (ABNORMAL) BRANDIE screen (05/13/2017 3:07 PM CDT) Pathologist [facility] BRANDIE, qual POSITIVE( A) NEGATIVE [facility] Comment: BRANDIE IFA is a first line screen for detecting the presence of up to approximately 150 autoantibodies in various autoimmune diseases. A positive BRANDIE IFA result is suggestive of autoimmune disease and reflexes to titer and pattern. Further laboratory testing may be considered if clinically indicated. Visit Physician FAQs for interpretation of all antibodies in the [place], prevalence, and association with diseases at http://education.AimWith/ faq/AQC019 ?? Lab test performed by: Lab Mnemonic: [facility] [address] [facility] 6621 Blood specimen (specimen) 05/13/2017 3:07 PM CDT 05/13/2017 8:35 PM CDT Giacomo Black MD LAB BLOOD ORDERABLES Marion l Result Performing Organization Address [facility] Co de Phone Number [facility] [address] Department [employer] [place], [place] [id number] * HL Specimen source (05/13/2017 3:07 PM CDT) Specimen Source Peripheral Blood [facility] Comment:Testing performed by : [facility], [address] [facility], [place] [address] HLA SPECIMEN 05/13/2017 3:07 PM CDT 05/14/2017 12:32 PM CDT Giacomo Black MD LAB BLOOD ORDERABLES Marion l Result Performing Organization Address [facility] Co de Phone Number [facility] [address] [facility] [place] [address] * Sjogrens syndrome-B antibody (05/13/2017 3:07 PM CDT) Anti-JUANY, SS-B <1.0 NEG <1.0 NEG Ab Index [facility] Comment: Lab test performed by: Lab Mnemonic: [facility] [place] [address] [employer] 6621 Blood specimen (specimen) 05/13/2017 3:07 PM CDT 05/13/2017 8:35 PM CDT Giacomo Black MD LAB BLOOD ORDERABLES Marion l Result Performing Organization Address [facility] Co de Phone Number [facility] [address] [facility] [place] [address] * Sjogrens syndrome-A antibody (05/13/2017 3:07 PM CDT) Anti-JUANY, SS-A <1.0 NEG <1.0 NEG Ab Index [facility] Comment: Lab test performed by: Lab Mnemonic: [facility] [place] [address] [address] Blood specimen (specimen) 05/13/2017 3:07 PM CDT 05/13/2017 8:35 PM CDT Giacomo Black MD LAB BLOOD ORDERABLES Marion l Result Performing Organization Address City/[facility] Co de Phone Number [facility] [address] Department [place] [address] * SM & SM/WOOD POLE TREATER ABS (05/13/2017 3:07 PM CDT) [facility] Anti-JUANY, SM <1.0 NEG <1.0 NEG Ab Index [facility] JUANY, SM/WOOD POLE TREATER Ab <1.0 NEG <1.0 NEG Ab Index [facility] Comment: Lab test performed by: Lab Mnemonic: [facility]IN[facility] Rewards[facility] [address] [facility] RAD[facility] 6621 Blood specimen (specimen) 05/13/2017 3:07 PM CDT 05/13/2017 8:35 PM CDT us Giacomo Black MD LAB BLOOD ORDERABLES Marion hylton Result [facility] [address] Department [place] [address] * ds DNA (05/13/2017 3:07 PM CDT) [facility] dsDNA Ab 1 [facility] Comment: ? IU/mL ? Interpretation ? < or = 4 ?Negative ? 5-9 ? Indeterminate ? > or = 10 ?? Positive Lab test performed by: Lab Mnemonic: [facility] MARTINJack[facility] [employer]ards[facility] [address] [facility] BOBRADHA 6621 Blood specimen (specimen) 05/13/2017 3:07 PM CDT 05/13/2017 8:35 PM CDT us Giacomo Black MD LAB BLOOD ORDERABLES Marion l Result Performing Organization Address [facility] Co de Phone Number [facility] [address] [place] [address] * Scl 70 antibodies (05/13/2017 3:07 PM CDT) [facility] Anti-Scl-70 <1.0 NEG <1.0 NEG Ab Index [facility] Comment: Lab test performed by: Lab Mnemonic: [facility] [place] [address] [facility] [place] [address] Blood specimen (specimen) 05/13/2017 3:07 PM CDT 05/13/2017 8:35 PM CDT Giacomo Black MD LAB BLOOD ORDERABLES Marion l Result Performing Organization Address [facility] Co de Phone Number [facility] [address] [place] [address] * Immunofixation (05/13/2017 3:07 PM CDT) [facility] Immunofixation No monoclonal protein detected. [facility] Comment:Testing performed by : [facility], [address] [place]., [address] Blood specimen (specimen) 05/13/2017 3:07 PM CDT 05/14/2017 11:32 AM CDT Giacomo Black MD LAB BLOOD ORDERABLES Marion l Result Performing Organization Address [facility] Co de Phone Number [facility] [address] Department of [employer] [place], [place] [address] * Cardiolipin antibody, IgG and IgM (05/13/2017 3:07 PM CDT) [facility] Cardiolipin, IgG <1.6 <=19.9 GPL U/mL [facility] Comment: Interpretive Data Negative: <20 GPL U/mL Positive: > or = 20 GPL U/mL Anticardiolipin antibodies are associated with certain clinical events including unexplained arterial and venous thromboemboli, and unexplained morbidity. However, detection of low levels of anticardiolipin antibodies occurs in both healthy individuals and patients with co-morbidities not associated with the antiphospholipid antibody (APA) syndrome including inflammatory and infectious conditions. In order to improve specificity, the International Congress on Antiphospholipid Antibodies recommends ACL antibodies of IgG or IgM isotype present in medium or high titer (e.g. > 40 GPL, or >the 99th percentile), on two or more occasions, at least 12 weeks apart, to support a diagnosis of antiphospholipid syndrome. The cutoff for this assay was developed from data based on the 99th percentile. In addition, the International Congress on Antiphospholipid Antibodies does not recommend testing for IgA FLO. These results were obtained with the Bevy 2200 System. Cardiolipin IgG values obtained with different manufacturers' assay methods may not be used interchangeably. Current interpretive data was last revised on 2017. Cardiolipin, IgM 0.8 <=19.9 MPL U/mL [facility] Comment: Interpretive Data Negative: <20 MPL U/mL Positive: > or = 20 MPL U/mL Anticardiolipin antibodies are associated with certain clinical events including unexplained arterial and venous thromboemboli, and unexplained morbidity. However, detection of low levels of anticardiolipin antibodies occurs in both healthy individuals and patients with co-morbidities not associated with the antiphospholipid antibody (APA) syndrome including inflammatory and infectious conditions. In order to improve specificity, the International Congress on Antiphospholipid Antibodies recommends ACL antibodies of IgG or IgM isotype present in medium or high titer (e.g. > 40 MPL, or >the 99th percentile), on two or more occasions, at least 12 weeks apart, to support a diagnosis of antiphospholipid syndrome. The cutoff for this assay was developed from data based on the 99th percentile. ?? In addition, the International Congress on Antiphospholipid Antibodies does not recommend testing for IgA FLO. The ACL IgM test can produce false positive results due to cross- reactivity with Rheumatoid factor, dsDNA or certain infectious disease antibodies. ??These results were obtained with the Bevy 2200 System. Cardiolipin IgM values obtained with different manufacturers' assay methods may not be used interchangeably. Current interpretive data was last revised on 2017. Blood specimen (specimen) 05/13/2017 3:07 PM CDT 05/14/2017 11:33 AM CDT Result [facility] Giacomo Black MD LAB BLOOD ORDERABLES Marion l Result Performing Organization Address [facility] Co de Phone Number [facility] [address] [facility] [place] [address] * Immunoglobulin profile (05/13/2017 3:07 PM CDT) Pathologist [facility] Immunoglobulin G 872 700 - 1,600 mg/dL [facility] Immunoglobulin A 155 70 - 400 mg/dL [facility] Immunoglobulin M 105 40 - 230 mg/dL [facility] Blood specimen (specimen) 05/13/2017 3:07 PM CDT 05/13/2017 7:46 PM CDT Result [facility] Giacomo Black MD LAB BLOOD ORDERABLES Marion l Result Performing Organization Address [facility] de Phone Number [facility] [address] [place] [address] * CELIAC DISEASE SEROLOGY (05/13/2017 12:00 AM CDT) Narrative 05/13/2017 12:00 AM CDT Ordered by an unspecified provider. Result [facility] Provider LAB BLOOD ORDERABLES Marion l Result * DISCHARGE LABORATORY CUMULATIVE REPORT (05/13/2017 12:00 AM CDT) Narrative 05/13/2017 12:00 AM CDT Ordered by an unspecified provider. Historical Provider LAB BLOOD ORDERABLES Marion l Result * IBD SEROLOGY 7 (05/13/2017 12:00 AM CDT) Narrative 05/13/2017 12:00 AM CDT Ordered by an unspecified provider. Historical Provider LAB BLOOD ORDERABLES Marion l Result documented in this encounter Visit Diagnoses Not on filedocumented in this encounter Care Teams Dynamo Tender Relationship Specialty Start Date End Date No, Physician PCP - General 05/13/17 07/20/24 documented as of this encounter
--- OUTSIDE RECORDS SUMMARY | 2024-08-09 03:15 | XMS_ITS | Encounter Summary ---
Author Organization [facility] Healthcare Address [address] [place] [address] Care Team Providers Care Paper Box Cutter Name Role Phone No, Physician Primary Care Provider [phone] Reason for Referral * Diagnostic Imaging (Routine) - Closed Specialty Diagnoses / Procedures Referred By Contac t Referred To Contact Diagnoses Chest pain, unspecified type Procedures XR Chest Pa Lateral [address] [place] [address] [place] [address] Phone: tel: fax: [place] [id number] [place] [address] Referral ID Status Reason Start Date Expiration Date Visits Re quested Visits Authorized [id number] Closed 02/28/2020 03/29/2021 1 1 Reason for Visit * Diagnostic Imaging (Routine) - Closed Specialty Diagnoses / Procedures Referred By Contac t Referred To Contact Diagnoses Chest pain, unspecified type Procedures XR Chest Pa Lateral [address] [place] [address] [place] [address] Phone: tel: fax: [place] [address] [place] [address] Referral ID Status Reason Start Date Expiration Date Visits Re quested Visits Authorized [id number] Closed 02/28/2020 03/29/2021 1 1 Encounter Details Date Type Department Care Team (Latest Contact Info) Description 02/28/2020 2:07 PM CDT - 02/28/2020 11:59 PM CDT Hospital Encounter [facility] [address] [place] [address] [place] [address] [place] [address] Chest pain, unspecified type Discharge Disposition: Discharge to home or self care Social History Tobacco Use Types Packs/Day Years Used Date Smoking Tobacco: Never Smokeless Tobacco: Never Alcohol Use Standard Drinks/Week Comments No 0 (1 standard drink = 0.6 oz pure alcohol) caffeine-diet coke, tea, and coffee Comments Unknown Sex and Gender Information Value Date Recorded Sex Assigned at Not on file 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 Subtle rotary scoliosis of the visualized thoracic and lumbar spine region. Patient status post multilevel lower cervical spinal surgical intervention. No concerning changes compared to 05/13/2017. Electronically signed by: Giacomo Lyles M.D. Narrative 02/28/2020 3:33 PM CDT Exam: Chest 2 views HISTORY: 69-year-old female with complaints of chest pain. Comparison study dated 05/13/2017. FINDINGS: PA and lateral views of the chest are obtained and demonstrates the peripheral lung martinez to be clear. ??Heart, pleura, kimberly, mediastinum and pulmonary vascular lung markings appeared within normal limits. Procedure Note Giacomo Lyles MD - 02/28/2020 Exam: Chest 2 views HISTORY: 69-year-old female with complaints of chest pain. Comparison study dated 05/13/2017. FINDINGS: PA and lateral views of the chest are obtained and demonstrates the peripheral lung martinez to be clear. Heart, pleura, kimberly, mediastinum and pulmonary vascular lung markings appeared within normal limits. IMPRESSION: No active cardiac or pulmonary disease. Subtle rotary scoliosis of the visualized thoracic and lumbar spine region. Patient status post multilevel lower cervical spinal surgical intervention. No concerning changes compared to 05/13/2017. Electronically signed by: Giacomo Lyles M.D. [facility] IMG XR PROCEDURES Marion l Result documented in this encounter Visit Diagnoses Diagnosis Chest pain, unspecified type documented in this encounter Care Teams Paper Box Cutter Relationship Specialty Start Date End Date No, Physician PCP - General 05/13/17 07/20/24 documented as of this encounter
--- OUTSIDE RECORDS SUMMARY | 2024-08-09 03:15 | XMS_ITS | Encounter Summary ---
Author Organization [facility] Address [address] [place] [address] Care Team Providers Care Mellowing Machine Operator Name Role Phone No, Physician Primary Care Provider [phone] Encounter Details Date Type Department Care Team (Late st Contact Info) Description 12/02/2017 Orders Only [facility] [address] [place] [address] Giacomo Black MD [address] [place] [address] [address] [place] [address] Social History Tobacco Use Types Packs/Day Years Used Date Smoking Tobacco: Never Smokeless Tobacco: Never Alcohol Use Standard Drinks/Week Comments No 0 (1 standard drink = 0.6 oz pure alcohol) caffeine-diet coke, tea, and coffee Comments Unknown Sex and Gender Information Value Date Recorded Sex Assigned at Not on file 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 Gender Identity Not on file Sexual Orientation Not on file documented as of this encounter Plan of Treatment Not on file documented as of this encounter Procedures Procedure Name Priority Date/Time Associated Diagnosis Comments SCL 70 ANTIBODIES Routine 12/02/2017 12: 19 PM CDT ANTI-DOUBLE STRANDED DNA ANTIBODIES Routine 12/02/2017 12:19 PM CDT REFLEX ANTINUCLEAR ANTIBODIES (BRANDIE) HEP-2 SUBSTRATE PHC Routine 12/02/2017 12:19 PM CDT SM & SM/SUPERVISOR FINAL ABS Routine 12/02/2017 12:19 PM CDT SJOGRENS SYNDROME-B ANTIBODY Routine 12/02/2017 12:19 PM CDT SJOGRENS SYNDROME-A ANTIBODY Routine 12/02/2017 12:19 PM CDT BRANDIE SCREEN Routine 12/02/2017 12:19 PM CDT documented in this encounter Results * (ABNORMAL) Reflex Antinuclear Antibodies (BRANDIE) HEP-2 Substrate (12/02/2017 12:19 PM CDT) BRANDIE, quant 1:80(H) titer [facility] Comment: A low level BRANDIE titer may be present in pre-clinical autoimmune diseases and normal individuals. ?Reference Range ?<1:40 ?Negative ?1:40-1:80 ?Low Antibody Level ?>1:80 ?Elevated Antibody Level Lab test performed by: Lab Mnemonic: [place] [employer] [place] [id number] [place] [address] BRANDIE, interp HOMOGENEOU S(A) [facility] Comment: Homogeneous pattern is associated with systemic lupus erythematosus (SLE), drug induced lupus and juvenile idiopathic arthritis. Blood specimen (specimen) 12/02/2017 12:19 PM CDT 12/02/2017 3:59 PM CDT Narrative [facility] - 12/05/2017 8:45 AM CDT us Giacomo Black MD LAB BLOOD ORDERABLES Marion hylton Result [facility] [address] [place] [address] * (ABNORMAL) BRANDIE screen (12/02/2017 12:19 PM CDT) RBANDIE, qual POSITIVE( A) NEGATIVE [facility] Comment: Although the specimen was positive for anti- nuclear antibodies (BRANDIE), the presence of cytoplasmic fluorescence was noted on the HEp-2 slide. ??Other reactivities (e.g., anti- mitochondrial antibodies or anti-smooth muscle antibodies) may be responsible for this fluorescence. BRANDIE IFA is a first line screen for detecting the presence of up to approximately 150 autoantibodies in various autoimmune diseases. A positive BRANDIE IFA result is suggestive of autoimmune disease and reflexes to titer and pattern. Further laboratory testing may be considered if clinically indicated. Visit Physician FAQs for interpretation of all antibodies in the [place], prevalence, and association with diseases at [email or web address] [email or web address] ?? Lab test performed by: Lab Mnemonic: [employer] [address] [place] [address] Blood specimen (specimen) 12/02/2017 12:19 PM CDT 12/02/2017 3:59 PM CDT Narrative [facility] - 12/04/2017 2:37 PM CDT Giacomo Black MD LAB BLOOD ORDERABLES aMrion hylton Result [facility] [address] Department [place] [address] * Sjogrens syndrome-B antibody (12/02/2017 12:19 PM CDT) Pathologist [facility] Anti-JUANY, SS-B <1.0 NEG <1.0 NEG Ab Index [facility] Comment: Lab test performed by: Lab Mnemonic: [employer] [address] [place] [address] Blood specimen (specimen) 12/02/2017 12:19 PM CDT 12/02/2017 3:59 PM CDT Narrative [facility] - 12/03/2017 2:02 PM CDT Giacomo Black MD LAB BLOOD ORDERABLES Marion l Result Performing Organization Address City/[facility]/ZIP Co de Phone Number [facility] [address] [facility] [employer] [place], [place] [id number] * Sjogrens syndrome-A antibody (12/02/2017 12:19 PM CDT) Anti-JUANY, SS-A <1.0 NEG <1.0 NEG Ab Index [facility] Comment: Lab test performed by: Lab Mnemonic: [employer] [place] [address] [place] [address] Blood specimen (specimen) 12/02/2017 12:19 PM CDT 12/02/2017 3:59 PM CDT Narrative [facility] - 12/03/2017 2:02 PM CDT Giacomo Black MD LAB BLOOD ORDERABLES Marion l Result Performing Organization Address [facility] Co de Phone Number [facility] [address] [place] [place] [address] * Scl 70 antibodies (12/02/2017 12:19 PM CDT) Pathologist [facility] Anti-Scl-70 <1.0 NEG <1.0 NEG Ab Index [facility] Comment: Lab test performed by: Lab Mnemonic: [employer] [place] [address] [place] [address] Blood specimen (specimen) 12/02/2017 12:19 PM CDT 12/02/2017 3:59 PM CDT Narrative [facility] - 12/03/2017 2:02 PM CDT Giacomo Black MD LAB BLOOD ORDERABLES Marion l Result [facility] [address] Department [employer] [place], [place] [phone] * SM & SM/SUPERVISOR FINAL ABS (12/02/2017 12:19 PM CDT) [facility] Anti-JUANY, SM <1.0 NEG <1.0 NEG Ab Index [facility] JUANY, SM/SUPERVISOR FINAL Ab <1.0 NEG <1.0 NEG Ab Index [facility] Comment: Lab test performed by: Lab Mnemonic: [employer] [place] [address] [facility] [place] [place] [address] Blood specimen (specimen) 12/02/2017 12:19 PM CDT 12/02/2017 3:59 PM CDT Narrative [facility] - 12/03/2017 2:02 PM CDT us Giacomo Black MD LAB BLOOD ORDERABLES Marion l Result [facility] [address] Department [place] [address] * ds DNA (12/02/2017 12:19 PM CDT) [facility] dsDNA Ab 1 [facility] Comment: ? IU/mL ? Interpretation ? < or = 4 ?Negative ? 5-9 ? Indeterminate ? > or = 10 ?? Positive Lab test performed by: Lab Mnemonic: [employer] [place] [address] [facility] [place] [address] Blood specimen (specimen) 12/02/2017 12:19 PM CDT 12/02/2017 3:59 PM CDT Narrative [facility] - 12/03/2017 2:02 PM CDT us Giacomo Black MD LAB BLOOD ORDERABLES Marion hylton Result [facility] [address] Department of Laboratories [place], [place] [phone] documented in this encounter Visit Diagnoses Not on filedocumented in this encounter Care Teams Mellowing Machine Operator Relationship Specialty Start Date End Date No, Physician PCP - General 05/13/17 07/20/24 documented as of this encounter
--- OUTSIDE RECORDS SUMMARY | 2024-08-09 03:15 | XMS_ITS | Encounter Summary ---
Author Organization [facility] Address [address] [place] [address] Care Team Providers Care Trust Mail Clerk Name Role Phone No, Physician Primary Care Provider [phone] Reason for Visit * Reason Onset Date Comments lab results 12/09/2017 Encounter Details Date Type Department Care Team (Late st Contact Info) Description 12/09/2017 Telephone [facility] [address] [place] [phone] Giacomo Black MD [address] [facility] [place] [address] lab results Social History Tobacco Use Types Packs/Day Years Used Date Smoking Tobacco: Never Smokeless Tobacco: Never Alcohol Use Standard Drinks/Week Comments No 0 (1 standard drink = 0.6 oz pure alcohol) caffeine-diet coke, tea, and coffee Comments Unknown Sex and Gender Information Value Date Recorded Sex Assigned at Not on file 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 Getting MRI done at the end of this month. * Telephone Encounter - Denise Rowley MA - 12/09/2017 12:35 PM CDT LMOM for pt to call back for results yin * Telephone Encounter - Denise Rowley MA - 12/09/2017 12:35 PM CDT ----- Message from Giacomo Black MD sent at 12/09/2017 11:54 AM CDT ----- BRANDIE remains only weakly positive and therefore not specific. Records from Dr. Coates have still notbeen received for review. Waiting as well for MRI to be completed. documented in this encounter Plan of Treatment Not on file documented as of this encounter Visit Diagnoses Not on filedocumented in this encounter Care Teams Trust Mail Clerk Relationship Specialty Start Date End Date No, Physician PCP - General 05/13/17 07/20/24 documented as of this encounter
--- OUTSIDE RECORDS SUMMARY | 2024-08-09 03:15 | XMS_ITS | Encounter Summary ---
Author Organization 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 Role Phone No, Physician Primary Care Provider [phone] Reason for Referral * Diagnostic Imaging (Routine) - Closed Specialty Diagnoses / Procedures Referred By Contac t Referred To Contact Radiology Diagnoses Scleritis, unspecified laterality Procedures MRI Brain W WO Contrast Giacomo Black MD Phone: tel: fax: Referral ID Status Reason Start Date Expiration Date Visits Re quested Visits Authorized [id number] Closed 12/02/2017 05/31/2018 1 1 Reason for Visit * Reason Comments Scleritis, unspecified laterality Encounter Details Date Type Department Care Team (Latest Contact Info) Description 12/02/2017 10:15 AM CDT Office Visit [facility] [address] [place] [phone] Giacomo Black MD [address] [place] [address] [address], [place] [address] Positive LADARIUS (antinuclear antibody) (Primary Dx); Scleritis, unspecified laterality; Primary osteoarthritis involving multiple joints; DDD (degenerative disc disease), cervical; DDD (degenerative disc disease), lumbar; Irritable bowel syndrome with constipation; Class 1 obesity due to excess calories without serious comorbidity with body mass index (BMI) of 30.0 to 30.9 in adult Social History Tobacco Use Types Packs/Day Years Used Date Smoking Tobacco: Never Smokeless Tobacco: Never Alcohol Use Standard Drinks/Week Comments No 0 (1 standard drink = 0.6 oz pure alcohol) caffeine-diet coke, tea, and coffee Comments Unknown Sex and Gender Information Value Date Recorded Sex Assigned at Not on file Legal Sex Female 1:23 AM [employer] Gender Identity Not on file Sexual Orientation Not on file documented as of this encounter Last Filed Vital Signs Vital Sign Reading Time Taken Comments Blood Pressure 128/86 12/02/2017 10:53 AM CDT Pulse 72 12/02/2017 10:53 AM CDT Temperature 36.7 ??C (98 ??F) 12/02/2017 10:53 AM CDT Respiratory Rate 16 12/02/2017 10:53 AM CDT Oxygen Saturation - - Inhaled Oxygen Concentration - - Weight 73.3 kg (161 lb 8 oz) 12/02/2017 10:53 AM CDT Height 154.9 cm (5' 1 ) 12/02/2017 10:53 AM CDT Body Mass Index 30.52 12/02/2017 10:53 AM CDT documented in this encounter Patient Instructions * Patient Instructions* Giacomo Black MD - 12/02/2017 10:15 AM CDT Images from the original note were not included. Diagnoses and all orders for this visit: Positive LADARIUS (antinuclear antibody) (Primary) Assessment & Plan: History of positive LADARIUS (1:160) with remaining lab unrevealing. She was initially referred to our office with reported scleritis, though inflammatory eye findings were not confirmed when evaluated byDr. Benny Coates ([facility]). Records have been requested. She has continued orbital pain (previous orbital imaging unrevealing), and now complains of increased facial pain and headache. She reports shewas treated at some time in the past for similar symptoms with suspected trigeminal neuralgia (after diagnosis was suggested as possible here). She has chronic IBS with constipation treated with Linzess by Dr. Uday Tafoya. Repeated evaluations for inflammatory bowel disease have been unremarkable. Will update lab and imaging as per orders. Further therapeutic plans pend same. She may benefit froma neurology consultation pend same. Orders: - CBC with auto differential; Future - Comprehensive metabolic panel; Future - CRP (acute phase); Future - Erythrocyte sedimentation rate; Future - Urinalysis reflex to microscopic and culture Urine, clean voided; Future - mimi ladarius panel - Miscellaneous Test; Future - Differential, auto Scleritis, unspecified laterality Assessment & Plan: See comments above. Orders: - MRI Brain W WO Contrast; Future Primary osteoarthritis involving multiple joints DDD (degenerative disc disease), cervical Comments: Reviewed previous imaging and pain management efforts. DDD (degenerative disc disease), lumbar Comments: Reviewed previous imaging and pain management approaches. Irritable bowel syndrome with constipation Comments: Monitored by Dr. Uday Tafoya Assessment & Plan: See discussion above Orders: - CT Abdomen Pelvis W WO Contrast; Future Class 1 obesity due to excess calories without serious comorbidity with body mass index (BMI) of 30.0 to 30.9 in adult Assessment & Plan: An optimal BMI (body mass index) is between 20 and 25. Encourage weight loss. Each pound of weight lost unloads 3-4 pounds per square inch pressure from weight bearing joints. Diet and exercise are the keys to weight management. Other orders - gabapentin (NEURONTIN) 100 mg capsule; Take 2 capsules (200 mg total) by mouth nightly. - cyclobenzaprine (FLEXERIL) 10 mg tablet; Take 1 tablet (10 mg total) by mouth nightly as needed. [facility] Giacomo Black MD [address] [place] [phone] documented in this encounter Ordered Prescriptions Prescription Sig Dispense Quantity Refills Last Filled Start Date End Date cyclobenzaprine (FLEXERIL) 10 mg tablet Take 1 tablet (10 mg total) by mouth nightly as needed. 12/02/2017 cyclobenzaprine (FLEXERIL) 10 mg tablet Take 1 tablet (10 mg total) by mouth nightly. 30 tablet 12/02/2017 8 gabapentin (NEURONTIN) 100 mg capsule Take 2 capsules (200 mg total) by mouth nightly. 90 capsule 1 12/02/2017 4 documented in this encounter Progress Notes * Giacomo Black MD - 12/02/2017 10:15 AM CDT Images from the original note were not included. [facility] Giacomo Black MD [facility] [address] [phone] 12/02/2017 Maria C Pat 1950 Scleritis, unspecified laterality HPI: Maria C Pat is a 67 y.o. female patient presenting with a chief complaint of Scleritis, unspecified laterality Patient with history of scleritis, positive LADARIUS. She has recently had increased lower back pain andL hip ( [facility]). Lumbar CT myelogram 10/21/2017: IMPRESSION: 1. Post right unilateral laminectomy at L5-S1. 2. Multilevel disc disease process with some facet hypertrophy but mostly pronounced at L4-5 and L5-S1, all described above. Dictated from location [facility]. CT Cervical Spine: IMPRESSION: 1. Post right unilateral laminectomy at L5-S1. 2. Multilevel disc disease process with some facet hypertrophy but mostly pronounced at L4-5 and L5-S1, all described above. She complains of chronic left flank and abdominal pain. She is treated by Dr. Uday Tafoya for IBS. Previous CT abdomen/pelvis 2016: 1. Several very mildly prominent fluid and air-filled proximal small bowel segments with the more distal small bowel nondilated. Question mild ileus. Less likely partial or very low-grade or early small bowel obstruction. 2. Mild fatty infiltration of liver. 3. Status post hysterectomy. 4. Bladder decompressed. No ureteral calculus identified. [id number] Diagnoses and all orders for this visit: Positive LADARIUS (antinuclear antibody) (Primary) Assessment & Plan: History of positive LADARIUS (1:160) with remaining lab unrevealing. She was initially referred to our office with reported scleritis, though inflammatory eye findings were not confirmed when evaluated byDr. Benny Coates ([facility]). Records have been requested. She has continued orbital pain (previous orbital imaging unrevealing), and now complains of increased facial pain and headache. She reports shewas treated at some time in the past for similar symptoms with suspected trigeminal neuralgia (after diagnosis was suggested as possible here). She has chronic IBS with constipation treated with Linzess by Dr. Uday Tafoya. Repeated evaluations for inflammatory bowel disease have been unremarkable. Will update lab and imaging as per orders. Further therapeutic plans pend same. She may benefit froma neurology consultation pend same. Orders: - CBC with auto differential; Future - Comprehensive metabolic panel; Future - CRP (acute phase); Future - Erythrocyte sedimentation rate; Future - Urinalysis reflex to microscopic and culture Urine, clean voided; Future - mimi ladarius panel - Miscellaneous Test; Future - Differential, auto Scleritis, unspecified laterality Assessment & Plan: See comments above. Orders: - MRI Brain W WO Contrast; Future Primary osteoarthritis involving multiple joints DDD (degenerative disc disease), cervical Comments: Reviewed previous imaging and pain management efforts. DDD (degenerative disc disease), lumbar Comments: Reviewed previous imaging and pain management approaches. Irritable bowel syndrome with constipation Comments: Monitored by Dr. Uday Tafoya Assessment & Plan: See discussion above Orders: - CT Abdomen Pelvis W WO Contrast; Future Class 1 obesity due to excess calories without serious comorbidity with body mass index (BMI) of 30.0 to 30.9 in adult Assessment & Plan: An optimal BMI (body mass index) is between 20 and 25. Encourage weight loss. Each pound of weight lost unloads 3-4 pounds per square inch pressure from weight bearing joints. Diet and exercise are the keys to weight management. Other orders - gabapentin (NEURONTIN) 100 mg capsule; Take 2 capsules (200 mg total) by mouth nightly. - cyclobenzaprine (FLEXERIL) 10 mg tablet; Take 1 tablet (10 mg total) by mouth nightly as needed. [id number] MEDICATIONS Current Outpatient Prescriptions Medication Sig Dispense Refill ??? gabapentin (NEURONTIN) 100 mg capsule Take 2 capsules (200 mg total) by mouth nightly. 90 capsule 1 ??? LINZESS 290 mcg capsule Take 290 mcg by mouth daily. ??? naproxen (NAPROSYN,ALEVE) 220 mg tablet Take by mouth 2 (two) times a day with meals. ??? cyclobenzaprine (FLEXERIL) 10 mg tablet Take 1 tablet (10 mg total) by mouth nightly as needed. No current facility-administered medications for this visit. ALLERGIES Amoxicillin; Nut - unspecified; and Potassium Patient Active Problem List Diagnosis ??? Multiple environmental allergies ??? Class 1 obesity due to excess calories without serious comorbidity with body mass index (BMI) of 30.0 to 30.9 in adult ??? Positive LADARIUS (antinuclear antibody) ??? Scleritis ??? Pain of right orbit ??? Primary osteoarthritis involving multiple joints ??? DDD (degenerative disc disease), cervical ??? DDD (degenerative disc disease), lumbar ??? Irritable bowel syndrome with constipation PAST MEDICAL HISTORY Past Medical History: Diagnosis Date ??? HX OTHER MEDICAL PUD; Comments: TITI 08/09/2015 - Past Surgical History: Procedure Laterality Date ??? SECTION x2 ??? DISCECTOMY Discectomy ??? HYSTERECTOMY Hysterectomy ??? OTHER SURGICAL HISTORY PUD: hospitalization ??? OTHER SURGICAL HISTORY Neck surgery x3 ??? OTHER SURGICAL HISTORY Left 2010 laproscopic knee ??? OTHER SURGICAL HISTORY 10/2017 Myelogram Social History Social History ??? Marital status: [...] file Review of Systems Constitutional: Positive for appetite change and fatigue. Negative for activity change, diaphoresisand fever. HENT: Negative for mouth sores and postnasal drip. Facial swelling: facial pain. Eyes: Positive for pain. Negative for redness and visual disturbance. Respiratory: Negative for cough and shortness of breath. Cardiovascular: Negative for chest pain. Gastrointestinal: Positive for abdominal pain, constipation and nausea. Negative for vomiting. Genitourinary: Negative for dysuria and hematuria. Musculoskeletal: Positive for arthralgias and back pain. Negative for joint swelling. Skin: Negative for rash. Neurological: Positive for headaches. Negative for dizziness. Hematological: Negative for adenopathy. Vitals: 12/02/17 1053 BP: 128/86 BP Location: Right arm Patient Position: Sitting Pulse: 72 Resp: 16 Temp: 36.7 ??C (98 ??F) TempSrc: Oral Weight: 73.3 kg (161 [...] are equal, round, and reactive to light. Neck: Normal range of motion. Neck supple. No tracheal deviation present. No thyromegaly present. Cardiovascular: Normal rate and regular rhythm. Exam reveals no gallop and no friction rub. No murmur heard. Pulmonary/Chest: Effort normal and breath sounds normal. She has no wheezes. She has no rales. Abdominal: Soft. She exhibits no mass. Tenderness: mild LUQ tenderness. There is no rebound. Musculoskeletal: She exhibits no tenderness or deformity. Lymphadenopathy: She has no cervical adenopathy. Neurological: She is alert and oriented to person, place, and time. Skin: Skin is warm and dry. No rash noted. Psychiatric: She has a normal mood and affect. Vitals reviewed. LABS: Lab Results Component Value Date GLUCOSE 89 12/02/2017 CALCIUM 10.0 12/02/2017 CO2 25 12/02/2017 CREATININE 0.95 12/02/2017 Lab Results Component Value Date ALT 23 12/02/2017 AST 31 12/02/2017 ALKPHOS 126 12/02/2017 BILITOT 0.4 12/02/2017 Lab Results Component Value Date WBC 5.2 12/02/2017 HGB 14.5 12/02/2017 HCT 44.6 12/02/2017 MCV 94.5 12/02/2017 Lab Results Component Value Date RF <14 05/13/2017 SEDRATE 8 12/02/2017 documented in this encounter Miscellaneous Notes * Assessment & Plan Note - Giacomo Black MD - 12/02/2017 9:20 PM CDT Associated Problem(s): Scleritis See comments above. * Assessment & Plan Note - Giacomo Black MD - 12/02/2017 9:20 PM CDT Associated Problem(s): Irritable bowel syndrome with constipation See discussion above * Assessment & Plan Note - Giacomo Black MD - 12/02/2017 9:20 PM CDT Associated Problem(s): Class 1 obesity due to excess calories without serious comorbidity with bodymass index (BMI) of 30.0 to 30.9 in adult An optimal BMI (body mass index) is between 20 and 25. Encourage weight loss. Each pound of weightlost unloads 3-4 pounds per square inch pressure from weight bearing joints. Diet and exercise are the keys to weight management. * Assessment & Plan Note - Giacomo Black MD - 12/02/2017 9:15 PM CDT Associated Problem(s): Positive LADARIUS (antinuclear antibody) History of positive LADARIUS (1:160) with remaining lab unrevealing. She was initially referred to our office with reported scleritis, though inflammatory eye findings were not confirmed when evaluated byDr. Benny Coates ([facility]). Records have been requested. She has continued orbital pain (previous orbital imaging unrevealing), and now complains of increased facial pain and headache. She reports shewas treated at some time in the past for similar symptoms with suspected trigeminal neuralgia (after diagnosis was suggested as possible here). She has chronic IBS with constipation treated with Linzess by Dr. Uday Tafoya. Repeated evaluations for inflammatory bowel disease have been unremarkable. Will update lab and imaging as per orders. Further therapeutic plans pend same. She may benefit froma neurology consultation pend same. documented in this encounter Plan of Treatment Not on file documented as of this encounter Procedures Procedure Name Priority Date/Time Associated Diagnosis Comments DIFFERENTIAL AUTO Routine 12/02/2017 12: 18 PM CDT Positive LADARIUS (antinuclear antibody) URINALYSIS AND REFLEX TO MICROSCOPIC AND CULTURE Routine 12/02/2017 12:18 PM CDT Positive LADARIUS (antinuclear antibody) CBC WITH AUTO DIFFERENTIAL Routine 12/02/2017 12:18 PM CDT Positive LADARIUS (antinuclear antibody) ERYTHROCYTE SEDIMENTATION RATE Routine 12/02/2017 12:18 PM CDT Positive LADARIUS (antinuclear antibody) CRP (ACUTE PHASE) Routine 12/02/2017 12: 18 PM CDT Positive LADARIUS (antinuclear antibody) COMPREHENSIVE METABOLIC PANEL Routine 12/02/2017 12:18 PM CDT Positive LADARIUS (antinuclear antibody) documented in this encounter Results * MRI [...] by: Sam Avila MD Giacomo Black MD IM MRI PROCEDURES Final Result * Differential, auto (12/02/2017 12:18 PM CDT) Neutrophil abs 2.8 1.7 - 6.5 K/cumm [facility] Imm gran abs 0.0 0.0 - 0.1 K/cumm [facility] Lymphocyte abs 1.8 0.8 - 3.3 K/cumm [facility] Monocyte abs 0.4 0.2 - 0.8 K/cumm [facility] Eosinophil abs 0.1 0.0 - 0.5 K/cumm [facility] Basophil abs 0.0 0.0 - 0.1 K/cumm [facility] Neutrophil pct 53.8 % [facility] Comment: Interpretive Data Percent cell count reference ranges are not reported, since discordance with absolute values may lead to misinterpretation of CBC data. Current Interpretive Data was last revised on 2017. Imm gran pct 0.2 % [facility] Comment: Interpretive Data Percent cell count reference ranges are not reported, since discordance with absolute values may lead to misinterpretation of CBC data. Current Interpretive Data was last revised on 2017. Lymphocyte pct 34.8 % [facility] Comment: Interpretive Data Percent cell count reference ranges are not reported, since discordance with absolute values may lead to misinterpretation of CBC data. Current Interpretive Data was last revised on 2017. Monocyte pct 8.1 % [facility] Comment: Interpretive Data Percent cell count reference ranges are not reported, since discordance with absolute values may lead to misinterpretation of CBC data. Current Interpretive Data was last revised on 2017. Eosinophil pct 2.5 % [facility] Comment: Interpretive Data Percent cell count reference ranges are not reported, since discordance with absolute values may lead to misinterpretation of CBC data. Current Interpretive Data was last revised on 2017. Basophil pct 0.6 % [facility] Comment: Interpretive Data Percent cell count reference ranges are not reported, since discordance with absolute values may lead to misinterpretation of CBC data. Current Interpretive Data was last revised on 2017. Blood specimen (specimen) 12/02/2017 12:18 PM CDT 12/02/2017 3:46 PM CDT Narrative [facility] - 12/02/2017 4:09 PM CDT Giacomo Black MD LAB BLOOD ORDERABLES Marion l Result [facility] [address] Department [place] [address] * Urinalysis reflex to microscopic and culture Urine, clean voided (12/02/2017 12:18 PM CDT) Color, ur Yellow Yellow [facility] Clarity, ur Clear Clear [facility] Specific gravity, ur 1.017 1.010 - 1.025 [facility] pH, urine 5.0 [facility] Protein, ur ql Negative Negative [facility] Glucose, ur ql Negative Negative [facility] Ketones, ur Negative Negative [facility] Bilirubin, ur Negative Negative [facility] Blood, ur Negative Negative [facility] Urobilinogen, ur <2.0 <2.0 mg/dL [facility] Nitrite, ur Negative Negative [facility] Leukocyte esterase, ur Negative Negative [facility] Ascorbic acid, ur Negative Negative [facility] Urine, clean voided 12/02/2017 12:18 PM CDT 12/02/2017 3:46 PM CDT Narrative [facility] - 12/02/2017 4:29 PM CDT us Giacomo Black MD LAB MICROBIOLOGY - GENERA L ORDERABLES Final Result Performing Organization Address City/[facility]/ZIP Co de Phone Number [facility] [address] [facility] [place] [address] * Erythrocyte sedimentation rate (12/02/2017 12:18 PM CDT) Erythrocyte sedimentation rate 8 0 - 20 mm/hr [facility] Blood specimen (specimen) 12/02/2017 12:18 PM CDT 12/02/2017 3:46 PM CDT Narrative [facility] - 12/02/2017 8:03 PM CDT us Giacomo Black MD LAB BLOOD ORDERABLES Marion l Result Performing Organization Address City/[facility]/ZIP Co de Phone Number [facility] [address] Department [email or web address] [address] * CRP (acute phase) (12/02/2017 12:18 PM CDT) CRP 1.70 0.00 - 9.90 mg/L [facility] Blood specimen (specimen) 12/02/2017 12:18 PM CDT 12/02/2017 3:46 PM CDT Narrative [facility] - 12/02/2017 4:33 PM CDT Giacomo Black MD LAB BLOOD ORDERABLES Marion l Result [facility] [address] Department [place] [address] * (ABNORMAL) Comprehensive metabolic panel (12/02/2017 12:18 PM CDT) Sodium 142 135 - 145 mmol/L [facility] Potassium, pl 4.5 3.3 - 4.9 mmol/L [facility] CO2 25 22 - 32 mmol/L [facility] BUN 19 8 - 25 mg/dL [facility] Glucose 89 70 - 199 mg/dL [facility] Comment: Interpretive Data Fasting glucose >/= 126 [...] classification and Diagnosis of Diabetes Diabetes Care 2017;40 (Suppl. 1):S11. Current interpretive data was last revised 2017. Creatinine 0.95 0.60 - 1.10 mg/dL [facility] Calcium 10.0 8.5 - 10.3 mg/dL [facility] Chloride 101 97 - 110 mmol/L [facility] Albumin 5.0 3.5 - 5.0 g/dL [facility] AST 31 10 - 45 Units/L [facility] ALT 23 7 - 45 Units/L [facility] Alk phos 126 40 - 130 Units/L [facility] Bilirubin, total 0.4 0.1 - 1.2 mg/dL [facility] Protein, pl 8.1 6.5 - 8.5 g/dL [facility] Anion gap 16(H) 2 - 15 mmol/L [facility] Blood specimen (specimen) 12/02/2017 12:18 PM CDT 12/02/2017 3:46 PM CDT Narrative [facility] - 12/02/2017 4:33 PM CDT Giacomo Black MD LAB BLOOD ORDERABLES Marion l Result Performing Organization Address [facility]/[employer] Co de Phone Number [facility] [address] [id number] [place], [place] [id number] * CBC with auto differential (12/02/2017 12:18 PM CDT) WBC 5.2 3.8 - 9.9 K/cumm [facility] RBC 4.72 3.90 - 5.20 M/cumm [facility] Hgb 14.5 11.9 - 15.5 g/dL [facility] Hct 44.6 35.6 - 45.5 % [facility] MCV 94.5 81.3 - 96.4 fL [facility] MCH 30.7 27.1 - 33.3 pg [facility] MCHC 32.5 32.3 - 35.7 g/dL [facility] RDW CV 13.3 11.1 - 14.9 % [facility] RDW SD 46.4 35.7 - 48.1 fL [facility] Plt 216 150 - 400 K/cumm [facility] MPV 12.1 9.1 - 12.3 fL [facility] NRBC abs 0.00 0.00 - 0.01 K/cumm [facility] Blood specimen (specimen) 12/02/2017 12:18 PM CDT 12/02/2017 3:46 PM CDT Narrative [facility] - 12/02/2017 4:09 PM CDT Giacomo Black MD LAB BLOOD ORDERABLES Marion l Result Performing Organization Address [facility]/ZIP Co de Phone Number [facility] [address] Department [email or web address] [address] documented in this encounter Visit Diagnoses Diagnosis Positive LADARIUS (antinuclear antibody)- Primary Other and unspecified nonspecific immunological findings Scleritis, unspecified laterality Primary osteoarthritis involving multiple joints DDD (degenerative disc disease), cervical Degeneration of cervical intervertebral disc DDD (degenerative disc disease), lumbar Degeneration of lumbar or lumbosacral intervertebral disc Irritable bowel syndrome with constipation Irritable bowel syndrome Class 1 obesity due to excess calories without serious comorbidity with body mass index (BMI) of 30.0 to 30.9 in adult Scleritis, unspecified laterality documented in this encounter Discontinued Medications Medication Sig Discontinue Reason Start Date End Da te gabapentin (NEURONTIN) 100 mg capsule TAKE THREE CAPSULES BY MOUTH NIGHTLY AT BEDTIME Reorder 09/05/2017 12/02/2017 cyclobenzaprine ER (AMRIX) 15 mg 24 hr capsule 15 mg. Alternate therapy 12/16/2016 12/02/2017 cyclobenzaprine (FLEXERIL) 10 mg tablet Take 1 tablet (10 mg total) by mouth nightly. 12/02/2017 12/02/2017 documented as of this encounter Historical Medications * This list may reflect changes made after this encounter. LINZESS 290 mcg capsule Take 290 mcg by mouth daily. 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
--- OUTSIDE RECORDS SUMMARY | 2024-08-09 03:15 | XMS_ITS | Encounter Summary ---
Author Organization [facility] Healthcare Address [address] [place] [address] Care Team Providers Care Director Of Industrial Relations Name Role Phone No, Physician Primary Care Provider [phone] Encounter Details Date Type Department Care Team (Latest Contact Info) Description 06/17/2017 6:06 PM SHAMPOO ASSISTANT - 06/17/2017 11:59 PM SHAMPOO ASSISTANT Hospital Encounter [facility] [phone] Giacomo Black MD [address] [facility] [address] [place] [address] Discharge Disposition: Discharge to home or self care Social History Tobacco Use Types Packs/Day Years Used Date Smoking Tobacco: Never Smokeless Tobacco: Never Alcohol Use Standard Drinks/Week Comments No 0 (1 standard drink = 0.6 oz pure alcohol) caffeine-diet coke, tea, and coffee Comments Unknown Sex and Gender Information Value Date Recorded Sex Assigned at Not on file Legal Sex Female 1:23 AM SHAMPOO ASSISTANT Gender Identity Not on file Sexual Orientation [...] Associated Diagnosis Comments DISCHARGE LABORATORY CUMULATIVE REPORT 06/17/2017 12:00 AM SHAMPOO ASSISTANT documented in this encounter Results * DISCHARGE LABORATORY CUMULATIVE REPORT (06/17/2017 12:00 AM SHAMPOO ASSISTANT) Narrative 06/17/2017 12:00 AM SHAMPOO ASSISTANT Ordered by an unspecified provider. us Historical Provider LAB BLOOD ORDERABLES Marion l Result documented in this encounter Visit Diagnoses Not on filedocumented in this encounter Care Teams Director Of Industrial Relations Relationship Specialty Start Date End Date No, Physician PCP - General 05/13/17 07/20/24 documented as of this encounter
--- OUTSIDE RECORDS SUMMARY | 2024-08-09 03:15 | XMS_ITS | Encounter Summary ---
Author Organization [facility] Address [address] [facility] [place][note 2] [address] [place] [address] Care Team Providers Care Cutter Wet Machine Name Role Phone No, Physician Primary Care Provider [phone] Encounter Details Date Type Department Care Team (Late st Contact Info) Description 06/23/2017 Telephone [facility] [address] [facility] [address] [place] [address] Giacomo Black MD [address] [place] [address] [address] [place] [address] Social History Tobacco Use Types Packs/Day Years Used Date Smoking Tobacco: Never Smokeless Tobacco: Never Alcohol Use Standard Drinks/Week Comments No 0 (1 standard drink = 0.6 oz pure alcohol) caffeine-diet coke, tea, and coffee Comments Unknown Sex and Gender Information Value Date Recorded Sex Assigned at Not on file Legal Sex Female 1:23 AM CERTIFIED SCRUB TECH Gender Identity Not on file Sexual Orientation Not on file documented as of this encounter Miscellaneous Notes * Telephone Encounter - Antoinette Redmond LPN - 06/23/2017 4:33 PM CST Patient is aware. IFIED SCRUB TECH * Telephone Encounter - Giacomo Black MD - 06/23/2017 4:10 PM CERTIFIED SCRUB TECH We are in the process of appealing IFIED SCRUB TECH * Telephone Encounter - Antoinette Redmond LPN - 06/23/2017 3:15 PM CST Patient received a denial letter from the insurance company for a MRI that was ordered. Please advise. IFIED SCRUB TECH documented in this encounter Plan of Treatment Not on file documented as of this encounter Visit Diagnoses Not on filedocumented in this encounter Care Teams Cutter Wet Machine Relationship Specialty Start Date End Date No, Physician PCP - General 05/13/17 07/20/24 documented as of this encounter
--- OUTSIDE RECORDS SUMMARY | 2024-08-09 03:15 | XMS_ITS | Encounter Summary ---
Author Organization [facility] Healthcare Address [address] [place] [address] Care Team Providers Care Coffee Shop Aide Name Role Phone No, Physician Primary Care Provider [phone] Encounter Details Date Type Department Care Team (Latest Contact Info) Description 09/16/2017 12:14 PM PLIER WORKER - 09/16/2017 11:59 PM PLIER WORKER Hospital Encounter [facility] [address] [place] [phone] Uday Tafoya, DO [address] [place] [address] Dexter Villar MD [address] [place] [address] Constipation by outlet dysfunction Discharge Disposition: Discharge to home or self care Social History Tobacco Use Types Packs/Day Years Used Date Smoking Tobacco: Never Smokeless Tobacco: Never Alcohol Use Standard Drinks/Week Comments No 0 (1 standard drink = 0.6 oz pure alcohol) caffeine-diet coke, tea, and coffee Comments Unknown Sex and Gender Information Value Date Recorded Sex Assigned at Not on file Legal Sex Female 1:23 AM PLIER WORKER Gender Identity Not on file Sexual Orientation Not on file documented as of this encounter Medications at Time of Discharge cyclobenzaprine ER (AMRIX) 15 mg 24 hr capsule 15 mg. 0 0 12/16/2016 12/02/2017 gabapentin (NEURONTIN) 100 mg capsule TAKE THREE CAPSULES BY MOUTH NIGHTLY AT BEDTIME 90 capsule 1 09/05/2017 12/02/2017 naproxen (NAPROSYN,ALEVE) 220 mg tablet Take by mouth 2 (two) times a day with meals. 08/02/2024 documented as of this encounter Discharge Disposition Disposition Code Departure Means Destination Discharge to home or self care documented in this encounter Plan of Treatment Scheduled Orders Name Type Priority Associated Diagnoses Orde r Schedule Anorectal Manometry - GI Routine Constipation by outlet dysfunction Once for 1 Occurrences starting 09/16/2017 until 09/16/2017 documented as of this encounter Visit Diagnoses Diagnosis Constipation by outlet dysfunction documented in this encounter Care Teams Coffee Shop Aide Relationship Specialty Start Date End Date No, Physician PCP - General 05/13/17 07/20/24 documented as of this encounter
--- OUTSIDE RECORDS SUMMARY | 2024-08-09 03:16 | XMS_ITS | Encounter Summary ---
Author Organization [facility] Facility Care Team Providers Care Devulcanizer Head Name Role Phone Unavailable Primary Care Provider Unavailabl e Encounter Details Date Type Department Care Team (Latest Contact Info) Description 09/01/2010 12:37 PM FOREIGN STUDENT ADVISER - 09/01/2010 11:59 PM FOREIGN STUDENT ADVISER Hospital Encounter [facility] Daniel Wilson MD [address] [place] [id number] Displacement of cervical intervertebral disc without myelopathy; Brachial neuritis Social History Tobacco Use Types Packs/Day Years Used Date Smoking Tobacco: Never Assessed Comments Unknown Sex and Gender Information Value Date Recorded Sex Assigned at Not on file Legal Sex Female 1:23 AM FOREIGN STUDENT ADVISER Gender Identity Not on file Sexual Orientation Not on file documented as of this encounter Plan of Treatment Not on file documented as of this encounter Visit Diagnoses Diagnosis Displacement of cervical intervertebral disc without myelopathy Brachial neuritis Brachial neuritis or radiculitis nos documented in this encounter
--- OUTSIDE RECORDS SUMMARY | 2024-08-09 03:16 | XMS_ITS | Encounter Summary ---
Author Organization [facility] Facility Care Team Providers Care Train Director Name Role Phone Unavailable Primary Care Provider Unavailabl e Encounter Details Date Type Department Care Team (Latest Contact Info) Description 09/09/2015 10:41 AM TOOL AND GAUGE INSPECTOR - 09/09/2015 3:29 PM TOOL AND GAUGE INSPECTOR Hospital Encounter [facility] Cindi Norman MD [address] [facility] [address] Strain of other muscles, fascia and tendons at shoulder and upper arm level, left arm, initial encounter; Exposure to other specified factors, initial encounter; Unspecified place or not applicable Social History Tobacco Use Types Packs/Day Years Used Date Smoking Tobacco: Never Assessed Comments Unknown Sex and Gender Information Value Date Recorded Sex Assigned at Not on file Legal Sex Female 1:23 AM TOOL AND GAUGE INSPECTOR Gender Identity Not on file Sexual Orientation Not on file documented as of this encounter Plan of Treatment Not on file documented as of this encounter Procedures Procedure Name Priority Date/Time Associated Diagnosis Comments CHEST, ABDOMINAL, PELVIC COMPUTED TOMOGRAPHY (CT) WITH CONTRAST, PULMONARY EMBOLISM Routine 09/09/2015 2:07 PM TOOL AND GAUGE INSPECTOR URINE MICROSCOPY Routine 09/09/2015 12:2 6 PM TOOL AND GAUGE INSPECTOR PLASMA TROPONIN I Routine 09/09/2015 12: 26 PM TOOL AND GAUGE INSPECTOR PLASMA LIPASE Routine 09/09/2015 12:26 PM TOOL AND GAUGE INSPECTOR PLASMA COMPREHENSIVE METABOLIC PANEL Routine 09/09/2015 12:26 PM TOOL AND GAUGE INSPECTOR BLOOD CELL COUNT (CBC), MORPHOLOGIC EXAM Routine 09/09/2015 12:26 PM TOOL AND GAUGE INSPECTOR URINALYSIS Routine 09/09/2015 6:26 AM TOOL AND GAUGE INSPECTOR URINE MICROBIOLOGY Routine 09/09/2015 12 :00 AM TOOL AND GAUGE INSPECTOR DISCHARGE LABORATORY CUMULATIVE REPORT 09/09/2015 documented in this encounter Results * CHEST, ABDOMINAL, PELVIC COMPUTED TOMOGRAPHY (CT) WITH CONTRAST, PULMONARY EMBOLISM (09/09/2015 2:07 PM TOOL AND GAUGE INSPECTOR) Anatomical Region Laterality Modality N/A Computed Tomogra phy 09/09/2015 2:07 PM TOOL AND GAUGE INSPECTOR Narrative 09/09/2015 2:30 PM TOOL AND GAUGE INSPECTOR CT chest with IV contrast and pulmonary embolus protocol as well as CT abdomen and pelvis dated September 09, 2015. HISTORY: Chest and flank pain. Contrast: 91 mL of Optiray 350. CHEST: No CT evidence to indicate acute pulmonary embolic disease. ??No CT evidence of thoracic aortic aneurysm or dissection. ??No significant mediastinal or hilar adenopathy. ??No pleural or pericardial effusions are identified. ??No consolidation or pleural effusions. IMPRESSION: No CT evidence for acute pulmonary embolic disease or thoracic aortic aneurysm or dissection. CT abdomen and pelvis: Liver and spleen have a normal size and contour. ??There is mild fatty infiltration liver. ??The gallbladder is not distended. ??Aorta is mildly atherosclerotic. ??There is no significant hydronephrosis. ?? There is a tiny umbilical hernia containing fat. ??There is no CT evidence to indicate acute diverticulitis. ??The patient has apparently undergone a hysterectomy. ??No abnormal fluid collections are seen in the lower abdomen or pelvis. ??There are couple of very minimally prominent proximal jejunal loops containing air and fluid. ?? Nonspecific. ??Could be a mild ileus. ??Would be less likely be a low-grade or partial early small bowel obstruction. IMPRESSION: 1. ??Several very mildly prominent fluid and air-filled proximal small bowel segments with the more distal small bowel nondilated. ??Question mild ileus. ??Less likely partial or very low-grade or early small bowel obstruction. 2. ??Mild fatty infiltration of liver. 3. ??Status post hysterectomy. 4. ??Bladder decompressed. ??No ureteral calculus identified. Electronically signed by: Miguel Angel Escalera M.D. Radiologist: MIGUEL ANGEL ESCALERA ?? Attending: ??UNKNOWN, NOTINFILE ?? Requesting: CINDI NORMAN ?? Requesting Fax: ?? N/A Requesting ID: [id number] Attending Fax: ?? Attending ID: ?? [id number] Completed Time: ?? 09/09/2015 2:07 PM Dictated Time: ?09/09/2015 2:30 PM Transcribed Time: 09/09/2015 2:30 PM Signed by: ?MIGUEL ANGEL ESCALERA ?? on 09/09/2015 2:30 PM Report To 1 ID: Report To 1 Name: , Report To 1 FAX: Report To 2 ID: Report To 2 Name: , Report To 2 FAX: Report To 3 ID: Report To 3 Name: , Report To 3 FAX: NextGen Order #: Procedure Note Provider, MD Obdulia - 12/10/2016 CT chest with IV contrast and pulmonary embolus protocol as well as CT abdomen and pelvis dated September 09, 2015. HISTORY: Chest and flank pain. Contrast: 91 mL of Optiray 350. CHEST: No CT evidence to indicate acute pulmonary embolic disease. No CT evidence of thoracic aortic aneurysm or dissection. No significant mediastinal or hilar adenopathy. No pleural or pericardial effusions are identified. No consolidation or pleural effusions. IMPRESSION: No CT evidence for acute pulmonary embolic disease or thoracic aortic aneurysm or dissection. CT abdomen and pelvis: Liver and spleen have a normal size and contour. There is mild fatty infiltration liver. The gallbladder is not distended. Aorta is mildly atherosclerotic. There is no significant hydronephrosis. There is a tiny umbilical hernia containing fat. There is no CT evidence to indicate acute diverticulitis. The patient has apparently undergone a hysterectomy. No abnormal fluid collections are seen in the lower abdomen or pelvis. There are couple of very minimally prominent proximal jejunal loops containing air and fluid. Nonspecific. Could be a mild ileus. Would be less likely be a low-grade or partial early small bowel obstruction. IMPRESSION: 1. Several very mildly prominent fluid and air-filled proximal small bowel segments with the more distal small bowel nondilated. Question mild ileus. Less likely partial or very low-grade or early small bowel obstruction. 2. Mild fatty infiltration of liver. 3. Status post hysterectomy. 4. Bladder decompressed. No ureteral calculus identified. Electronically signed by: Miguel Angel Escalera M.D. Radiologist: MIGUEL ANGEL ESCALERA Attending: TRISTAN, CAROLNFILE Requesting: CINDI NORMAN Requesting Fax: N/A Requesting ID: [id number] Attending Attending ID: [id number] Completed Time: 09/09/2015 2:07 PM Dictated Time: 09/09/2015 2:30 PM Transcribed Time: 09/09/2015 2:30 PM Signed by: MIGUEL ANGEL ESCALERA on 09/09/2015 2:30 PM Report To 1 ID: Report To 1 Name: , Report To 1 FAX: Report To 2 ID: Report To 2 Name: , Report To 2 FAX: Report To 3 ID: Report To 3 Name: , Report To 3 FAX: NextGen Order #: us Historical Provider IMG CT PROCEDURES Final R esult * Urine microscopy (09/09/2015 12:26 PM TOOL AND GAUGE INSPECTOR) RBC, ur 0 - 2 0 - 2 /hpf HISTORICA L RESULTS WBC, ur 0 - 2 0-2,3-5 /hpf HISTORICAL RESULTS Bacteria, ur Trace /hpf HISTORI NATIVIDAD RESULTS Epithelial cells, squamous, ur 21 - 30 /lpf HISTORICAL RESULTS Mucus, ur Trace /lpf HISTORICAL RESULTS Hyaline casts 0 - 2 /lpf HISTOR ICAL RESULTS Urine 09/09/2015 12:2 6 PM TOOL AND GAUGE INSPECTOR Cindi Norman MD LAB BLOOD ORDERABLES Fi nal Result HISTORICAL RESULTS * (ABNORMAL) Blood cell count (CBC), morphologic exam (09/09/2015 12:26 PM TOOL AND GAUGE INSPECTOR) WBC 5.6 4.5 - 11.0 K/cumm HISTORICAL RESULTS RBC 4.80 3.80 - 5.40 M/cumm HISTORICAL RESULTS Hgb 14.2 11.5 - 16.0 g/dl HISTORICAL RESULTS Hct 43.0 34.0 - 48.0 % HISTORICAL RESULTS MCV 89.5 80.0 - 100.0 fl HISTORICAL RESULTS MCH 29.6 27.0 - 33.0 pg HISTORICAL RESULTS MCHC 33.1 32.0 - 36.0 g/dl HISTORICAL RESULTS Rdw 13.2 11.5 - 14.5 % HISTORICAL RESULTS Platelets 211 140 - 400 K/cumm HISTORICAL RESULTS MPV 9.7 7.4 - 10.4 fl HISTORICAL RESULTS Neutrophils 78.6(H) 42.0 - 75.0 % HISTORICAL RESULTS Lymphocytes 12.3(L) 21.0 - 51.0 % HISTORICAL RESULTS Monos 6.4 2.0 - 9.0 % HISTORICAL RESULTS Eosinophils 2.3 0.0 - 10.0 % HISTORICAL RESULTS Basophils 0.4 0.0 - 1.0 % HISTORICAL RESULTS Neutrophils, abs 4.4 1.8 - 7.7 K/cumm HISTORICAL RESULTS Lymphocytes, abs 0.7(L) 1.0 - 4.8 K/cumm HISTORICAL RESULTS Monocytes, absolute 0.4 0.0 - 0.8 K/cumm HISTORICAL RESULTS Eosinophils, abs 0.1 0.0 - 0.5 K/cumm HISTORICAL RESULTS Basophils, abs 0.0 0.0 - 0.2 K/cumm HISTORICAL RESULTS Blood specimen (specimen) 09/09/2015 12:26 PM TOOL AND GAUGE INSPECTOR us Cindi Norman MD LAB BLOOD ORDERABLES Fi nal Result HISTORICAL RESULTS * Plasma comprehensive metabolic panel (09/09/2015 12:26 PM TOOL AND GAUGE INSPECTOR) Pathologist [facility] Sodium 138 136 - 146 mmol/L HISTORICAL RESULTS K, pl 4.6 3.3 - 4.9 mmol/L HISTORICAL RESULTS Chloride 105 98 - 108 mmol/L HISTORICAL RESULTS CO2 25 22 - 33 mmol/L HISTORICAL RESULTS BUN 11 7 - 18 mg/dl HISTORICAL RESULTS Glucose 90 70 - 140 mg/dl HISTORICAL RESULTS Comment: Glucose is assumed to be non-fasting. ?? Fasting Glucose normal ranges are: 0 days - 2 months: ? 40 mg/dL - 100 mg/dL 2 months - 999 years: ?70 mg/dL - 99 mg/dL Creatinine 1.13 0.50 - 1.50 mg/dl HISTORICAL RESULTS eGFR 49 ml/min/1.7 3 m2 HISTORICAL RESULTS Comment: GFR Reference Range: = > 60 mL/min/1.73 m2 This result has been calculated assuming the patient is Non-. ??If the patient is , please multiply this result by 1.21. The GFR value is not recommended for medication dose adjustment for renal function, creatinine clearance values should be used. Calcium 9.6 8.5 - 10.5 mg/dl HISTORICAL RESULTS Bilirubin 0.6 0.1 - 1.2 mg/dl HISTORICAL RESULTS Protein, pl 7.2 6.0 - 8.5 g/dl HISTORICAL RESULTS Alb 4.3 3.4 - 5.0 g/dl HISTORICAL RESULTS Alk phos 109 38 - 126 IUnits/L HISTORICAL RESULTS ALT 17 14 - 54 IUnits/L HISTORICAL RESULTS AST 27 15 - 41 IUnits/L HISTORICAL RESULTS Plasma 09/09/2015 12:2 6 PM TOOL AND GAUGE INSPECTOR Cindi Norman MD LAB BLOOD ORDERABLES Fi nal Result Performing Organization Address [place]/[facility] Co de Phone Number HISTORICAL RESULTS * Plasma troponin I (09/09/2015 12:26 PM TOOL AND GAUGE INSPECTOR) Pathologist [facility] Troponin I <0.01 0.00 - 0.04 ng/ml HISTORICAL RESULTS Comment: < 0.04 ng/mL ??No evidence of myocardial damage. 0.04 - 0.78 ng/mL Indeterminate-repeat analysis assess the possibility of myocardial damage. >0.78 ng/mL ??Consistent with myocardial damage. Plasma 09/09/2015 12:2 6 PM TOOL AND GAUGE INSPECTOR Cindi Norman MD LAB BLOOD ORDERABLES Fi nal Result HISTORICAL RESULTS * Plasma lipase (09/09/2015 12:26 PM TOOL AND GAUGE INSPECTOR) Lip 23 8 - 57 Units/L HISTORICAL RESULTS Plasma 09/09/2015 12:2 6 PM TOOL AND GAUGE INSPECTOR Cindi Norman MD LAB BLOOD ORDERABLES Fi nal Result Performing Organization Address [facility] de Phone Number HISTORICAL RESULTS * (ABNORMAL) Urinalysis (09/09/2015 6:26 AM TOOL AND GAUGE INSPECTOR) Color, ur Yellow Colorless,St raw,Yellow HISTORICAL RESULTS Clarity, ur Clear Clear HISTORIC AL RESULTS Specific gravity, ur 1.018 1.005 - 1.030 HISTORICAL RESULTS pH, ur 6.0 5.0 - 8.0 HISTORICAL RESULTS Leukocyte esterase, ur 250(A) Negative nadeem/mcl HISTORICAL RESULTS Nitrites, ur Negative Negative HISTORI NATIVIDAD RESULTS Protein, ur Negative Negative mg/dl HISTORICAL RESULTS Glucose, ur, quant Normal Normal mg/dl HISTORICAL RESULTS Ketones, ur, quant Negative Negative mg/dl HISTORICAL RESULTS Urobilinogen, quant, ur Normal Normal mg/dl HISTORICAL RESULTS Bilirubin, ur Negative Negative mg/dl HISTORICAL RESULTS U Blood Negative Negative HISTORICAL RESULTS Urine 09/09/2015 6:26 AM TOOL AND GAUGE INSPECTOR Narrative HISTORICAL RESULTS - 09/09/2015 7:24 AM TOOL AND GAUGE INSPECTOR Urine culture was reflexed Cindi Norman MD LAB BLOOD ORDERABLES Fi nal Result Performing Organization Address [facility] de Phone Number HISTORICAL RESULTS * Urine Microbiology (09/09/2015 12:00 AM TOOL AND GAUGE INSPECTOR) 09/09/2015 12:0 0 AM TOOL AND GAUGE INSPECTOR Narrative HISTORICAL RESULTS - 09/10/2015 1:25 PM TOOL AND GAUGE INSPECTOR ? [facility] ?[address] ??[place], [place] ??[address] ? Tele: ?Arielle Hannon M.D. - Information Operator - Richmond Bentley - Administrative ?Director ?? Patient: MARIA C READ ? Admission #: ??[id number] ?? : 1950 ?Location:[facility] ?? Gender: F ?? Admit Date: 09/09/2015 ? = = = = = = = = = = = = = = = = = = = = = = = = = = = = = = = = = = = = = = Urine Culture ? Final ?? Urine ? Clean Voided ?? Collected: ??09/09/2015 12:26 ?? Inoculated: ??09/09/2015 13:24 ?? Report Date: ??09/10/2015 10:57 ? This culture was reflexed from a Urinalysis result ?? Culture Result ?Growth consistent with tato-urethral mar. = = = = = = = = = = = = = = = = = = = = = = = = = = = = = = = = = = = = = ? Physician: ?[facility] Microbiology Report-[facility] ? Historical Provider LAB MICROBIOLOGY - GENERA L ORDERABLES Final Result HISTORICAL RESULTS * DISCHARGE LABORATORY CUMULATIVE REPORT (09/09/2015) Narrative 09/09/2015 Ordered by an unspecified provider. Historical Provider MD LAB BLOOD ORDERABLES Marion l Result documented in this encounter Visit Diagnoses Diagnosis Strain of other muscles, fascia and tendons at shoulder and upper arm level, left arm, initial encounter Exposure to other specified factors, initial encounter Unspecified place or not applicable documented in this encounter
--- OUTSIDE RECORDS SUMMARY | 2024-08-09 03:16 | XMS_ITS | Encounter Summary ---
Author Organization [facility] Facility Care Team Providers Care Record Clerk Salesperson Name Role Phone Unavailable Primary Care Provider Unavailabl e Encounter Details Date Type Department Care Team (Latest Contact Info) Description 09/20/2011 11:52 AM SUPERVISOR DRIED YEAST - 09/20/2011 11:59 PM SUPERVISOR DRIED YEAST Hospital Encounter [facility] Thierno Puri MD [address] [place] [address] [address] Degeneration of cervical intervertebral disc Social History Tobacco Use Types Packs/Day Years Used Date Smoking Tobacco: Never Assessed Comments Unknown Sex and Gender Information Value Date Recorded Sex Assigned at Not on file Legal Sex Female 1:23 AM SUPERVISOR DRIED YEAST Gender Identity Not on file Sexual Orientation Not on file documented as of this encounter Plan of Treatment Not on file documented as of this encounter Visit Diagnoses Diagnosis Degeneration of cervical intervertebral disc documented in this encounter
--- OUTSIDE RECORDS SUMMARY | 2024-08-09 03:16 | XMS_ITS | Encounter Summary ---
Author Organization [facility] Facility Care Team Providers Care Clinical Technician Name Role Phone Unavailable Primary Care Provider Unavailabl e Encounter Details Date Type Department Care Team (Latest Contact Info) Description 11/02/2010 2:29 PM CDT - 11/02/2010 11:59 PM CDT Hospital Encounter [facility] Thierno Puri MD [address] [place] [address] [address] Other specified pre-operative examination; Displacement of cervical intervertebral disc without myelopathy Social History Tobacco Use Types Packs/Day Years Used Date Smoking Tobacco: Never Assessed Comments Unknown Sex and Gender Information Value Date Recorded Sex Assigned at Not on file Legal Sex Female 1:[address]PERVISOR Gender Identity Not on file Sexual Orientation Not on file documented as of this encounter Plan of Treatment Not on file documented as of this encounter Visit Diagnoses Diagnosis Other specified pre-operative examination Displacement of cervical intervertebral disc without myelopathy documented in this encounter
--- OUTSIDE RECORDS SUMMARY | 2024-08-09 03:16 | XMS_ITS | Encounter Summary ---
Author Organization [facility] Facility Care Team Providers Care Pharmacy Intern Name Role Phone Unavailable Primary Care Provider Unavailabl e Encounter Details Date Type Department Care Team (Latest Contact Info) Description 11/23/2010 5:39 AM CDT - 12/01/2010 2:38 PM CDT Hospital Encounter [facility] Thierno Puri MD [address] [place] [address] [id number] Other allied disorders of spine; Degeneration of cervical intervertebral disc; Other specified complications; Disturbance of skin sensation; Other specified surgical operation and procedure causing abnormal patient reaction or later complication; Place of occurrence, residential institution; Hereditary and idiopathic peripheral neuropathy; Other constipation; Pure hypercholesterolemia; Other and unspecified hyperlipidemia Social History Tobacco Use Types Packs/Day Years Used Date Smoking Tobacco: Never Assessed Comments Unknown Sex and Gender Information Value Date Recorded Sex Assigned at Not on file Legal Sex Female 1:23 AM CARCASS WASHER Gender Identity Not on file Sexual Orientation Not on file documented as of this encounter Plan of Treatment Not on file documented as of this encounter Visit Diagnoses Diagnosis Other allied disorders of spine Degeneration of cervical intervertebral disc Other specified complications Disturbance of skin sensation Other specified surgical operation and procedure causing abnormal patient reaction or later complication Place of occurrence, residential institution Hereditary and idiopathic peripheral neuropathy Unspecified hereditary and idiopathic peripheral neuropathy Other constipation Pure hypercholesterolemia Other and unspecified hyperlipidemia documented in this encounter
--- OUTSIDE RECORDS SUMMARY | 2024-08-09 03:16 | XMS_ITS | Encounter Summary ---
Author Organization [facility] Facility Care Team Providers Care Glass Designer Name Role Phone Unavailable Primary Care Provider Unavailabl e Encounter Details Date Type Department Care Team (Latest Contact Info) Description 02/20/2012 5:25 AM CDT - 02/23/2012 3:10 PM CDT Hospital Encounter [facility] Thierno Puri MD [address] [place] [address] [address] [place] [id number] Other mechanical complication of other internal orthopedic device, implant, and graft; Surgical operation with implant of artificial internal device causing abnormal patient reaction, or later complication; Unspecified place of occurrence; Arthrodesis status; Lesion of ulnar nerve; Hereditary and idiopathic peripheral neuropathy; Pure hypercholesterolemia Social History Tobacco Use Types Packs/Day Years Used Date Smoking Tobacco: Never Assessed Comments Unknown Sex and Gender Information Value Date Recorded Sex Assigned at Not on file 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 Gender Identity Not on file Sexual Orientation Not on file documented as of this encounter Last Filed Vital Signs Vital Sign Reading Time Taken Comments Blood Pressure 131/63 02/23/2012 11:15 AM CDT Pulse 86 02/23/2012 11:15 AM CDT Temperature - - Respiratory Rate - - Oxygen Saturation - - Inhaled Oxygen Concentration - - Weight 75 kg (165 lb 5.5 oz) 02/21/2012 11:52 AM CDT Height 154.9 cm (5' 0.98 ) 02/21/2012 11:52 AM C DT Body Mass Index 31.26 02/21/2012 11:52 AM CDT documented in this encounter Plan of Treatment Not on file documented as of this encounter Visit Diagnoses Diagnosis Other mechanical complication of other internal orthopedic device, implant, and graft Surgical operation with implant of artificial internal device causing abnormal patient reaction, or later complication Unspecified place of occurrence Arthrodesis status 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
--- OUTSIDE RECORDS SUMMARY | 2024-08-09 03:16 | XMS_ITS | Encounter Summary ---
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 Name Role Phone Unavailable Primary Care Provider Unavailabl e Encounter Details Date Type Department Care Team (Latest Contact Info) Description 01/02/2011 1:24 PM CDT - 01/02/2011 11:59 PM CDT Hospital Encounter [facility] Giacomo Palacios MD [address] [facility] [address] [place] [address] Pain in joint, lower leg; Effusion of lower leg joint; Synovial cyst of popliteal space; Osteoarthrosis involving lower leg Social History Tobacco Use Types Packs/Day Years Used Date Smoking Tobacco: Never Assessed Comments Unknown Sex and Gender Information Value Date Recorded Sex Assigned at Not on file 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
--- OUTSIDE RECORDS SUMMARY | 2024-08-09 03:16 | XMS_ITS | Encounter Summary ---
Author Organization [facility] Facility Care Team Providers Care Intake Counselor Name Role Phone Unavailable Primary Care Provider Unavailabl e Encounter Details Date Type Department Care Team (Late st Contact Info) Description 07/03/2016 2:43 AM GRAPHICS MANAGER - 07/03/2016 4:58 PM GRAPHICS MANAGER Hospital Encounter [facility] MIGUELANGELCONWill Gerber MD [address] [address] Beto Pavon MD [address] [place] [address] Other intervertebral disc displacement, lumbosacral region; Chronic kidney disease; Arthrodesis status; Allergy status to other drugs, medicaments and biological substances status; Allergy status to other antibiotic agents status; Allergy to other foods; Spondylosis of cervical region without myelopathy or radiculopathy Social History Tobacco Use Types Packs/Day Years Used Date Smoking Tobacco: Never Assessed Comments Unknown Sex and Gender Information Value Date Recorded Sex Assigned at Not on file Legal Sex Female 1:23 AM GRAPHICS MANAGER Gender Identity Not on file Sexual Orientation Not on file documented as of this encounter Last Filed Vital Signs Vital Sign Reading Time Taken Comments Blood Pressure 146/72 07/03/2016 12:31 PM GRAPHICS MANAGER Pulse 75 07/03/2016 12:31 PM GRAPHICS MANAGER Temperature - - Respiratory Rate - - Oxygen Saturation 97% 07/03/2016 12: 31 PM GRAPHICS MANAGER Inhaled Oxygen Concentration - - Weight 73.8 kg (162 lb 10.8 oz) 07/03/2016 3:02 AM GRAPHICS MANAGER Height 154.9 cm (5' 1 ) 07/03/2016 3:02 AM GRAPHICS MANAGER Body Mass Index 30.74 07/03/2016 3:02 AM GRAPHICS MANAGER documented in this encounter Consult Notes * ProviderObdulia MD - 07/02/2016 12:00 AM CST Patient: MARIA C PAT Reg No: [id number] [facility] #: [id number] Admit Dt.: 07/02/2016 : 1950 Room No: Attending: Rigoberto AZAR PhysicianMD Consulting: Silver Briseno MD, PHD Dictating: Beto Joseph M.D. Service Dt: 07/02/2016 CONSULTATION REPORT FACILITY ID: [facility] REQUESTING CONSULTATION Emergency department physicians. CONSULTING SERVICE Neurosurgery. CONSULTING PHYSICIAN Silver Briseno MD. REASON FOR CONSULTATION Worsening sciatica and L5-S1 disk. HISTORY OF PRESENT ILLNESS Mr. Pat is a 65-year-old female with a history of multiple cervical spine surgeries for myelopathy and longstanding sciatica that has worsened over the last several months, culminating today when she experienced numbness throughout her entire right leg, making it very difficult to walk. She states she has intermittent bladder incontinence since September. She has not had any recent falls or strains. She states that her leg was just more painful this morning when she woke up. She has had multiple cervical spine surgeries with Dr. Puri at [facility] but states that she has had difficulty getting in to see him recently. She also was referred to the [facility] by him but has not been able to get in to see them recently, either. She has had several injections of her thoracic spine for other back pain that has not helped recently. She denies any bowel incontinence. She denies any chest pain or shortness of breath. She has not had any recent fevers, chills, or infections. REVIEW OF SYSTEMS Negative, other than as mentioned above. PAST MEDICAL HISTORY Positive for sciatic, cervical myelopathy. PAST SURGICAL HISTORY 1. In November 2010 she had a right C6-C7 decompressive foraminotomy with microdiskectomy. 2. Later in November 2010 she had a C6-C7 ACDF and C6-C7 anterior interbody fusion. 3. In February 2012 she had a C6-C7 decompressive foraminotomy redo and posterior C6-C7 fusion. MEDICATIONS She takes ibuprofen p.r.n. ALLERGIES AMOXICILLIN AND NUTS. IMAGING There are thoracic and lumbar spine MRIs from 07/02/2016 that demonstrate an L5-S1 moderate disk with some protrusion of the thoracic spine. There are no defects or compressive lesions noted. LABS Sodium is 140, creatinine 0.95, potassium 4.5. White count 5.6, hemoglobin 13.9, platelets 206. INR 1.05, PT 12, PTT is 26.7. UA is pending. FAMILY HISTORY Positive for multiple types of cancer. SOCIAL HISTORY She is . She does not smoke. She does not drink. She does not use drugs. She has 3 children. 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 She lives in [place], [place]. ASSESSMENT A 65-year-old female with functioning sciatica that has acutely worsened. She does have a moderate L5-S1 disk. She also has an extensive history of spine surgeries. She does have some stable right-sided weakness, and she sees a [facility] neurosurgeon. PLAN 1. Obtain a postvoid residual, as well as a urinalysis. 2. Consider further imaging of the cervical spine and further records from [facility]. This plan will be discussed with the chief resident, as well as the attending, and further imaging recommendations will be communicated as soon as possible. 3. Pain control per ED. ATTENDING ADDENDUM: 07.03.16 15.00 I have seen and examined this patient and agree with the findings as noted above. Ms. Pat has had a day of acute and severe right leg radiculopathy and her scan does show a possible right L5-S1 fragment although this is not particularly large. She has full power, but her sensation is decreased below the knee in a distribution that is not clearly dermatomal. We discussed that it is likely her issues will resolved with non-surgical management and I advised her to keep her Pain Service appointment for next week, but if this does not resolve in 6-8 weeks I would be happy to see her back in the office to discuss our options. Silver Briseno MD, PhD [employer] Department of Neurological Surgery [phone] Electronically Authenticated and Edited by: Silver Briseno MD On 07/03/2016 05:31 PM GRAPHICS MANAGER Beto Joseph M.D. Silver Briseno MD, PHD CFD:[facility] #[id number] Editing MT: TD: 07/02/2016 11:46 PM cc: Rigoberto AZAR Physician, Carol Garibay MD, PHD documented in this encounter Plan of Treatment Not on file documented as of this encounter Procedures Procedure Name Priority Date/Time Associated Diagnosis Comments XR CONSULT OF OUTSIDE FILMS (PEDS ONLY) Routine 07/03/2016 7:35 AM GRAPHICS MANAGER MRI CERVICAL SPINE WO CONTRAST Routine 07/03/2016 5:00 AM GRAPHICS MANAGER DISCHARGE LABORATORY CUMULATIVE REPORT 07/03/2016 XR CONSULT OF OUTSIDE FILMS (PEDS ONLY) Routine 07/02/2016 10:20 PM GRAPHICS MANAGER BLOOD CHECK SAMPLE Routine 07/02/2016 9: 39 PM GRAPHICS MANAGER PLASMA PROTHROMBIN TIME (PT) Routine 07/02/2016 9:26 PM GRAPHICS MANAGER PLASMA PARTIAL THROMBOPLASTIN TIME (PTT) Routine 07/02/2016 9:26 PM GRAPHICS MANAGER PLASMA BASIC METABOLIC PANEL Routine 07/02/2016 9:26 PM GRAPHICS MANAGER BLOOD CELL COUNT (CBC) Routine 6 9:26 PM GRAPHICS MANAGER BLOOD ABO, RH, INDIRECT AB SCREEN Routine 07/02/2016 9:26 PM GRAPHICS MANAGER BLOOD CELL MORPHOLOGIC EXAM Routine 07/02/2016 9:26 PM GRAPHICS MANAGER documented in this encounter Results * XR Interpretation Of Outside Films (07/03/2016 7:35 AM GRAPHICS MANAGER) Anatomical Region Laterality Modality N/A Radiographic Melissa ging 07/03/2016 7:35 AM GRAPHICS MANAGER Narrative 07/03/2016 8:09 AM GRAPHICS MANAGER OUTSIDE IMAGES TEAR DOWN WORKER, FINAL REPORT ACC# ??Date Time ??Exam [id number] Jul 03, 2016 07:35:00 [id number] [facility] Body MR Reference EXAMINATION: ?Images For Reference Purposes Only IMPRESSION: ?These images have been uploaded for Reference purposes only. ??There will be no separate report generated by a [facility] Radiologist. Requested By: Dictated By: ?? OUTSIDE IMAGES TEAR DOWN WORKER, ?? on Jul 03 2016 ??8:09A This document has been electronically signed by: OUTSIDE IMAGES TEAR DOWN WORKER, ??on Jul 03 2016 ??8:09A [id number] Procedure Note Provider, Obdulia, - 12/17/2016 OUTSIDE IMAGES TEAR DOWN WORKER, FINAL REPORT ACC# Date Time Exam [id number] Jul 03, 2016 07:35:00 [id number] [facility] Body MR Reference EXAMINATION: Images For Reference Purposes Only IMPRESSION: These images have been uploaded for Reference purposes only. There will be no separate report generated by a [facility] Radiologist. Requested By: Dictated By: OUTSIDE IMAGES TEAR DOWN WORKER, on Jul 03 2016 8:09A This document has been electronically signed by: OUTSIDE IMAGES TEAR DOWN WORKER, on Jul 03 2016 8:09A [id number] us Historical Provider IMG XR PROCEDURES Final R esult * MRI Cervical Spine WO Contrast (07/03/2016 5:00 AM GRAPHICS MANAGER) Anatomical Region Laterality Modality Spine N/A Magnetic Resonan ce 07/03/2016 5:00 AM GRAPHICS MANAGER Narrative 07/03/2016 8:42 PM GRAPHICS MANAGER ED MATAMOROS M.D. NADIRA ANDERSON M.D. FINAL REPORT The radiology attending physician has personally reviewed this study, and has reviewed and/or edited this written report and agrees with it. ACC# ??Date Time ??Exam [id number] Jul 03, 2016 05:00:00 [id number] MRI Cervical Spine wo cont EXAMINATION: ?? Magnetic resonance imaging (MRI) of the cervical spine without contrast HISTORY: Myelopathy TECHNIQUE: Multiplanar multi-weighted MRI of the cervical spine was performed without intravenous contrast using the standard cervical spine protocol. COMPARISON: 09/17/2011 FINDINGS: Mild retrolisthesis of C5 on C6 is seen. Posterior instrumented spinal fusion is seen at C6-C7. There is mild disc bulge at every level. Vertebral bodies demonstrate normal signal intensity on all sequences. No acute fracture is identified; however, if trauma is suspected, a CT scan would be a more sensitive examination for fractures. The craniocervical junction is normal. The visualized portions of the skull base and the posterior fossa are normal. The spinal cord demonstrates normal signal intensity on all sequences. Intervertebral disks have normal height and signal intensity. There are no annular fissures identified. No soft tissue abnormality is identified. Normal signal voids are present in the vertebral arteries. C2-C3: There is mild disc bulge. There is severe left and mild right facet arthropathy. There is no uncovertebral joint disease. There is mild left neuroforaminal stenosis. There is no spinal canal stenosis. C3-C4: There is mild disc bulge with a left paracentral disc protrusion. There is moderate left and mild right facet arthropathy. There is mild bilateral uncovertebral joint disease. There is mild bilateral neuroforaminal stenosis. There is mild spinal canal stenosis. C4-C5: There is mild disc bulge with central disc protrusion. There is moderate bilateral facet arthropathy. There is no uncovertebral joint disease. There is no neuroforaminal stenosis. There is no spinal canal stenosis. C5-C6: There is small disc osteophyte complex. There is moderate facet arthropathy. There is moderate uncovertebral joint disease. There is moderate neuroforaminal stenosis. There is mild spinal canal stenosis. C6-C7: There is fusion at this level. There is no facet arthropathy. There is no uncovertebral joint disease. There is no neuroforaminal stenosis. There is no spinal canal stenosis. C7-T1: There is minimal disc bulge. There is no facet arthropathy. There is no uncovertebral joint disease. There is no neuroforaminal stenosis. There is no spinal canal stenosis. IMPRESSION: ?? Mild to moderate degenerative changes of the cervical spine as described in detail above. Requested By: MARLENE SALAZAR M.D. Dictated By: ?? NADIRA ANDERSON M.D. ??on Jul 03 2016 11:16A This document has been electronically signed by: ED MATAMOROS M.D. on Jul 03 2016 ??8:42P [id number] Procedure Note Provider, MD Obdulia - 12/17/2016 ED MATAMOROS M.D. NADIRA ANDERSON M.D. FINAL REPORT The radiology attending physician has personally reviewed this study, and has reviewed and/or edited this written report and agrees with it. ACC# Date Time Exam [id number] Jul 03, 2016 05:00:00 [id number] MRI Cervical Spine wo cont EXAMINATION: Magnetic resonance imaging (MRI) of the cervical spine without contrast HISTORY: Myelopathy TECHNIQUE: Multiplanar multi-weighted MRI of the cervical spine was performed without intravenous contrast using the standard cervical spine protocol. COMPARISON: 09/17/2011 FINDINGS: Mild retrolisthesis of C5 on C6 is seen. Posterior instrumented spinal fusion is seen at C6-C7. There is mild disc bulge at every level. Vertebral bodies demonstrate normal signal intensity on all sequences. No acute fracture is identified; however, if trauma is suspected, a CT scan would be a more sensitive examination for fractures. The craniocervical junction is normal. The visualized portions of the skull base and the posterior fossa are normal. The spinal cord demonstrates normal signal intensity on all sequences. Intervertebral disks have normal height and signal intensity. There are no annular fissures identified. No soft tissue abnormality is identified. Normal signal voids are present in the vertebral arteries. C2-C3: There is mild disc bulge. There is severe left and mild right facet arthropathy. There is no uncovertebral joint disease. There is mild left neuroforaminal stenosis. There is no spinal canal stenosis. C3-C4: There is mild disc bulge with a left paracentral disc protrusion. There is moderate left and mild right facet arthropathy. There is mild bilateral uncovertebral joint disease. There is mild bilateral neuroforaminal stenosis. There is mild spinal canal stenosis. C4-C5: There is mild disc bulge with central disc protrusion. There is moderate bilateral facet arthropathy. There is no uncovertebral joint disease. There is no neuroforaminal stenosis. There is no spinal canal stenosis. C5-C6: There is small disc osteophyte complex. There is moderate facet arthropathy. There is moderate uncovertebral joint disease. There is moderate neuroforaminal stenosis. There is mild spinal canal stenosis. C6-C7: There is fusion at this level. There is no facet arthropathy. There is no uncovertebral joint disease. There is no neuroforaminal stenosis. There is no spinal canal stenosis. C7-T1: There is minimal disc bulge. There is no facet arthropathy. There is no uncovertebral joint disease. There is no neuroforaminal stenosis. There is no spinal canal stenosis. IMPRESSION: Mild to moderate degenerative changes of the cervical spine as described in detail above. Requested By: MARLENE SALAZAR M.D. Dictated By: NADIRA ANDERSON M.D. on Jul 03 2016 11:16A This document has been electronically signed by: ED MATAMOROS M.D. on Jul 03 2016 8:42P [id number] us Historical Provider MD [facility] MRI PROCEDURES Final Result * DISCHARGE LABORATORY CUMULATIVE REPORT (07/03/2016) Narrative 07/03/2016 Ordered by an unspecified provider. us Historical Provider LAB BLOOD ORDERABLES Marion l Result * XR Interpretation Of Outside Films (07/02/2016 10:20 PM GRAPHICS MANAGER) Anatomical Region Laterality Modality N/A Radiographic Melissa ging 07/02/2016 10:2 0 PM GRAPHICS MANAGER Narrative 07/05/2016 9:27 AM GRAPHICS MANAGER BRANDIE GONZALEZ M.D. LUL STRONG M.D. FINAL REPORT The radiology attending physician has personally reviewed this study, and has reviewed and/or edited this written report and agrees with it. ACC# ??Date Time ??Exam [id number] Jul 02, 2016 22:20:00 [id number] ED Consult Neuro CT/MR EXAMINATION: ?? RADIOLOGY CONSULTATION ON OUTSIDE IMAGING STUDY STUDY INITIALLY PERFORMED: ??07/02/2016 at [facility]. ?? TYPE OF STUDY: Multiple MR images of the lumbar spine without intravenous contrast are provided at the time of this interpretation. The protocol was adequate to address the clinical question. The outside final report was available at the time of this second opinion interpretation. TYPE OF CONSULTATION: ??Consult on outside imaging study with images submitted through [facility] DATE OF CONSULTATION: 07/05/2016 HISTORY: ??Right leg pain and weakness, urinary incontinence COMPARISON: None available FINDINGS: The alignment of the lumbar spine is normal. Vertebral bodies demonstrate normal signal intensity on all sequences. There are no compression fractures. The conus medullaris terminates at the level of of. The distal spinal cord signal intensity is normal. There is mild degenerative disc disease throughout the lumbar spine. There are no annular fissures identified. Bilateral neuroforamina are normal. Limited views of the abdomen and pelvis show no soft tissue abnormality. The aorta is normal. L1-L2: There is a minimal disc bulge. There is mild bilateral facet arthropathy. There is no neuroforaminal stenosis. There is no spinal canal stenosis. L2-L3: There is a mild disc bulge. There is mild bilateral facet arthropathy. There is no neuroforaminal stenosis. There is no spinal canal stenosis. L3-L4: There is a mild disc bulge. There is mild bilateral facet arthropathy. There is no neuroforaminal stenosis. There is no spinal canal stenosis. L4-L5: A there is a mild disc bulge. There is severe bilateral facet arthropathy. There is no neuroforaminal stenosis. There is no spinal canal stenosis. L5-S1: There is a right paracentral disc protrusion into the right lateral recess that displaces the right S1 nerve root. There is moderate bilateral facet arthropathy. There is no neuroforaminal stenosis. There is no spinal canal stenosis. IMPRESSION: ?? Right paracentral disc protrusion at L5-S1 that causes displacement of the right S1 nerve root. The findings, conclusions and recommendations within this report do not replace the initial findings, conclusions ??and recommendations made at the facility where the study was performed based upon the imaging and clinical condition at that time. ??Comparison with the prior report and clinical history is necessary. ??The provided images may or may not represent the [facility] source data set and thus may contain changes that may lower the accuracy of this second-opinion interpretation. Requested By: RAINE FABIAN M.D. Dictated By: ?? LUL STRONG M.D. ??on Jul 05 2016 ??9:13A This document has been electronically signed by: BRANDIE GONZALEZ M.D. on Jul 05 2016 ??9:27A [id number] Procedure Note Provider, MD Obdulia - 12/17/2016 BRANDIE GONZALEZ M.D. LUL STRONG M.D. FINAL REPORT The radiology attending physician has personally reviewed this study, and has reviewed and/or edited this written report and agrees with it. ACC# Date Time Exam [id number] Jul 02, 2016 22:20:00 [id number] ED Consult Neuro CT/MR EXAMINATION: RADIOLOGY CONSULTATION ON OUTSIDE IMAGING STUDY STUDY INITIALLY PERFORMED: 07/02/2016 at [facility]. TYPE OF STUDY: Multiple MR images of the lumbar spine without intravenous contrast are provided at the time of this interpretation. The protocol was adequate to address the clinical question. The outside final report was available at the time of this second opinion interpretation. TYPE OF CONSULTATION: Consult on outside imaging study with images submitted through [facility] DATE OF CONSULTATION: 07/05/2016 HISTORY: Right leg pain and weakness, urinary incontinence COMPARISON: None available FINDINGS: The alignment of the lumbar spine is normal. Vertebral bodies demonstrate normal signal intensity on all sequences. There are no compression fractures. The conus medullaris terminates at the level of of. The distal spinal cord signal intensity is normal. There is mild degenerative disc disease throughout the lumbar spine. There are no annular fissures identified. Bilateral neuroforamina are normal. Limited views of the abdomen and pelvis show no soft tissue abnormality. The aorta is normal. L1-L2: There is a minimal disc bulge. There is mild bilateral facet arthropathy. There is no neuroforaminal stenosis. There is no spinal canal stenosis. L2-L3: There is a mild disc bulge. There is mild bilateral facet arthropathy. There is no neuroforaminal stenosis. There is no spinal canal stenosis. L3-L4: There is a mild disc bulge. There is mild bilateral facet arthropathy. There is no neuroforaminal stenosis. There is no spinal canal stenosis. L4-L5: A there is a mild disc bulge. There is severe bilateral facet arthropathy. There is no neuroforaminal stenosis. There is no spinal canal stenosis. L5-S1: There is a right paracentral disc protrusion into the right lateral recess that displaces the right S1 nerve root. There is moderate bilateral facet arthropathy. There is no neuroforaminal stenosis. There is no spinal canal stenosis. IMPRESSION: Right paracentral disc protrusion at L5-S1 that causes displacement of the right S1 nerve root. The findings, conclusions and recommendations within this report do not replace the initial findings, conclusions and recommendations made at the facility where the study was performed based upon the imaging and clinical condition at that time. Comparison with the prior report and clinical history is necessary. The provided images may or may not represent the [facility] source data set and thus may contain changes that may lower the accuracy of this second-opinion interpretation. Requested By: RAINE FABIAN M.D. Dictated By: LUL STRONG M.D. on Jul 05 2016 9:13A This document has been electronically signed by: BRANDIE GONZALEZ M.D. on Jul 05 2016 9:27A [id number] Result [facility] Historical Provider IMG XR PROCEDURES Final R esult * Blood check sample (07/02/2016 9:39 PM GRAPHICS MANAGER) ABO, Rho(D) A Negative CDR HIS TORICAL RESULTS Blood specimen (specimen) 07/02/2016 9:39 PM GRAPHICS MANAGER Result [facility] Historical Provider LAB BLOOD ORDERABLES Marion l Result CDR HISTORICAL RESULTS * Plasma partial thromboplastin time (PTT) (07/02/2016 9:26 PM GRAPHICS MANAGER) APTT 26.7 25.0 - 37.0 seconds CDR HISTORICAL RESULTS Comment: Interpretive Data Therapeutic heparin range:60.0 - 94.0 sec based on correlation with therapeutic heparin activity range of 0.3 -0.7 Units/mL. Current interpretive data was last revised on 2011. Plasma 07/02/2016 9:26 PM GRAPHICS MANAGER Result [facility] Jamari Mckeon MD LAB BLOOD ORDERABLES Final [facility] Performing Organization Address [facility] de Phone Number CDR HISTORICAL RESULTS * (ABNORMAL) Plasma basic metabolic panel (07/02/2016 9:26 PM GRAPHICS MANAGER) Sodium 140 135 - 145 mmol/L CDR HISTORICAL RESULTS K, pl 4.5 3.3 - 4.9 mmol/L CDR HISTORICAL RESULTS Chloride 101 97 - 110 mmol/L CDR HISTORICAL RESULTS CO2 23 22 - 32 mmol/L CDR HISTORICAL RESULTS A. gap 16(H) 2 - 15 mmol/L CDR HISTORICAL RESULTS Glucose 142 70 - 199 mg/dl CDR HISTORICAL RESULTS BUN 18 8 - 25 mg/dl CDR HISTORICAL RESULTS Creatinine 0.95 0.60 - 1.10 mg/dl CDR HISTORICAL RESULTS Calcium 9.9 8.5 - 10.3 mg/dl CDR HISTORICAL RESULTS Plasma 07/02/2016 9:26 PM GRAPHICS MANAGER Jamari Mckeon MD LAB BLOOD ORDERABLES Final [facility] Performing Organization Address [facility] de Phone Number CDR HISTORICAL RESULTS * Plasma prothrombin time (PT) (07/02/2016 9:26 PM GRAPHICS MANAGER) Prothrombin time (PT) 12.0 9.2 - 14.0 seconds CDR HISTORICAL RESULTS INR 1.05 0.81 - 1.22 CDR HIST ORICAL RESULTS Comment: Interpretive Data Inpatient therapeutic ranges* Atrial fibrillation ?2.0-3.0 INR Venous thrombo-embolism ?2.0-3.0 INR Bioprosthetic heart valve ?* Mechanical heart valve, bileaflet or tilting disk,aortic position ? 2.0-3.0 INR All other,or bileaflet or tilting disk, in mitral position ? 2.5-3.5 INR *See the pharmacy resource directory (PHRED) for an updated copy of the Tool Book at [email or web address]://[email or web address]/pharmacy.nsf Current Interpretive Data was last revised 2011. Plasma 07/02/2016 9:26 PM GRAPHICS MANAGER Jamari Mckeon MD LAB BLOOD ORDERABLES Final Re sult Performing Organization Address [facility] Co de Phone Number CDR HISTORICAL RESULTS * Blood cell count (CBC) (07/02/2016 9:26 PM GRAPHICS MANAGER) WBC 5.6 3.8 - 9.9 K/cumm CDR HISTORICAL RESULTS RBC 4.46 3.90 - 5.20 M/cumm CDR HISTORICAL RESULTS Hgb 13.9 11.9 - 15.5 g/dl CDR HISTORICAL RESULTS Hct 40.9 35.6 - 45.5 % CDR HISTORICAL RESULTS MCV 91.7 81.3 - 96.4 fl CDR HISTORICAL RESULTS MCH 31.2 27.1 - 33.3 pg CDR HISTORICAL RESULTS MCHC 34.0 32.3 - 35.7 g/dl CDR HISTORICAL RESULTS Rdw 12.3 11.1 - 14.9 % CDR HISTORICAL RESULTS RDW 41.1 35.7 - 48.1 fl CDR HISTORICAL RESULTS Platelets 206 150 - 400 K/cumm CDR HISTORICAL RESULTS MPV 11.4 9.1 - 12.3 fl CDR HISTORICAL RESULTS NRBC 0.0 0.0 - 0.2 % CDR HIST ORICAL RESULTS NRBC, abs 0.00 0.00 - 0.01 K/cumm CDR HISTORICAL RESULTS Blood specimen (specimen) 07/02/2016 9:26 PM GRAPHICS MANAGER Jamari Mckeon MD LAB BLOOD ORDERABLES Final Re sult CDR HISTORICAL RESULTS * Blood ABO, Rh, indirect ab screen (07/02/2016 9:26 PM GRAPHICS MANAGER) ABO, Rho(D) A Negative CDR HIS TORICAL RESULTS David, indirect Negative CDR HISTORICAL RESULTS Blood specimen (specimen) 07/02/2016 9:26 PM GRAPHICS MANAGER Jamari Mckeon MD LAB BLOOD ORDERABLES Final Re sult Performing Organization Address City/[facility] Co de Phone Number CDR HISTORICAL RESULTS * (ABNORMAL) Blood cell morphologic exam (07/02/2016 9:26 PM GRAPHICS MANAGER) Neutrophils 88.1 % CDR HIST ORICAL RESULTS Immature granulocytes 0.5 % CDR HISTORICAL RESULTS Lymphocytes 10.3 % CDR HIST ORICAL RESULTS Monos 0.9 % CDR HISTOR ICAL RESULTS Eosinophils 0.0 % CDR HIST ORICAL RESULTS Basophils 0.2 % CDR HISTOR ICAL RESULTS Neutrophils, abs 5.0 1.7 - 6.5 K/cumm CDR HISTORICAL RESULTS Immature granulocyte, abs 0.0 0.0 - 0.1 K/cumm CDR HISTORICAL RESULTS Lymphocytes, abs 0.6(L) 0.8 - 3.3 K/cumm CDR HISTORICAL RESULTS Monocytes, absolute 0.0(L) 0.2 - 0.8 K/cumm CDR HISTORICAL RESULTS Eosinophils, abs 0.0 0.0 - 0.5 K/cumm CDR HISTORICAL RESULTS Basophils, abs 0.0 0.0 - 0.1 K/cumm CDR HISTORICAL RESULTS Blood specimen (specimen) 07/02/2016 9:26 PM GRAPHICS MANAGER Jamari Mckeon MD LAB BLOOD ORDERABLES Final Re sult Performing Organization Address [facility] de Phone Number CDR HISTORICAL RESULTS documented in this encounter Visit Diagnoses Diagnosis Other intervertebral disc displacement, lumbosacral region Chronic kidney disease Chronic kidney disease, unspecified Arthrodesis status Allergy status to other drugs, medicaments and biological substances status Allergy status to other antibiotic agents status Allergy to other foods Spondylosis of cervical region without myelopathy or radiculopathy documented in this encounter
--- OUTSIDE RECORDS SUMMARY | 2024-08-09 03:16 | XMS_ITS | Encounter Summary ---
Author Organization [facility] Facility Care Team Providers Care Washer Repairman Name Role Phone Unavailable Primary Care Provider Unavailabl e Encounter Details Date Type Department Care Team (Latest Contact Info) Description 09/17/2011 1:18 PM SECOND CHEF - 09/17/2011 11:59 PM SECOND CHEF Hospital Encounter [facility] Thierno Puri MD [address] [place] [address] [address] Brachial neuritis; Cervicalgia; Pain in soft tissues of limb; Disturbance of skin sensation; Other musculoskeletal symptoms referable to limbs; Other postprocedural states; Arthrodesis status Social History Tobacco Use Types Packs/Day Years Used Date Smoking Tobacco: Never Assessed Comments Unknown Sex and Gender Information Value Date Recorded Sex Assigned at Not on file Legal Sex Female 1:23 AM SECOND CHEF Gender Identity Not on file Sexual Orientation Not on file documented as of this encounter Plan of Treatment Not on file documented as of this encounter Visit Diagnoses Diagnosis Brachial neuritis Brachial neuritis or radiculitis nos Cervicalgia Pain in soft tissues of limb Disturbance of skin sensation Other musculoskeletal symptoms referable to limbs Other postprocedural states Arthrodesis status documented in this encounter
--- OUTSIDE RECORDS SUMMARY | 2024-08-09 03:16 | XMS_ITS | Encounter Summary ---
Author Organization [facility] Facility Care Team Providers Care Plasticator Name Role Phone Unavailable Primary Care Provider Unavailabl e Encounter Details Date Type Department Care Team (Latest Contact Info) Description 09/07/2010 12:53 PM POWER REACTOR OPERATOR - 09/07/2010 11:59 PM POWER REACTOR OPERATOR Hospital Encounter [facility] Boy Sim MD [address] [place] [address] Cervicalgia; Pain in soft tissues of limb; Displacement of cervical intervertebral disc without myelopathy Social History Tobacco Use Types Packs/Day Years Used Date Smoking Tobacco: Never Assessed Comments Unknown Sex and Gender Information Value Date Recorded Sex Assigned at Not on file Legal Sex Female 1:23 AM POWER REACTOR OPERATOR Gender Identity Not on file Sexual Orientation Not on file documented as of this encounter Plan of Treatment Not on file documented as of this encounter Visit Diagnoses Diagnosis Cervicalgia Pain in soft tissues of limb Displacement of cervical intervertebral disc without myelopathy documented in this encounter
== END | disposition other institution (70) ==
PROVIDERS: PCP Family Medicine; Visit Provider Internal Medicine
PROC: (CPT 93454; principal; 2024-08-02 10:00)
PROC: 02703ZZ Dilation of Coronary Artery, One Artery, Percutaneous Approach (ICD-10-PCS; CPT 92920; 2024-08-02 10:00)
DX: I25.110 Atherosclerotic heart disease of native coronary artery with unstable angina pectoris (principal); I97.88 Other intraoperative complications of the circulatory system, not elsewhere classified; I25.42 Coronary artery dissection; Y84.0 Cardiac catheterization as the cause of abnormal reaction of the patient, or of later complication, without mention of misadventure at the time of the procedure; E03.9 Hypothyroidism, unspecified; Z95.5 Presence of coronary angioplasty implant and graft
CPT/HCPCS: 36415; 80048; 85027; 92920; 92978; 93454; A9270; C1725; C1753; C1769; C1874; C1887; C1894; C9600; J0360; J1644; J2003; J2250; J2270; J2305; J2405; J3010; J7030; J7040

== ENCOUNTER 2024-08-09 10:45 | Emergency (ER) | payer MEDICARE, SELFPAY ==
[2024-08-09] VITALS (59 sets, daily range): BP systolic 103–139; BP diastolic 54–87; PULSE 78–108; RESP 9–24; TEMP 36.5; O2SAT 92–100
--- NOTE | ~2024-08-09 | CT_ITS ---
EXAMINATION: CTA abdomen pelvis DATE: 08/09/2024 15:19 INDICATION: Postoperative bleeding. TECHNIQUE: Computed tomographic angiography (CTA) of the abdomen and pelvis was performed with 100 mL Omnipaque-350 intravenous contrast. Automated exposure control and iterative reconstruction techniqu e were employed. The dose-length product was 350.32 mGy-cm. Maximum intensity projection 3D-reconstru ctions of the aorta and other arteries were constructed by the technologist on a separate workstation . COMPARISON: CT abdomen and pelvis 02/16/2024 FINDINGS: The visualized portions of the lung bases demonstrate mild atelectasis. No pleural effusion . The liver, gallbladder, spleen, pancreas, adrenal glands, and kidneys are normal. There are no dila mala loops of bowel. The appendix is normal. There are no pathologically enlarged lymph nodes. There i s no free intraperitoneal fluid. There is a small hematoma around the right common femoral artery. Th ere is severe lower lumbar spondylosis. 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 IMPRESSION: 1. Small hematoma around the right common femoral artery. Reviewed, dictated and finalized at location A. BOTTLING MACHINE OPERATOR
--- NOTE | ~2024-08-09 | US_ITS ---
EXAMINATION: US arterial duplex LE RT DATE: 08/09/2024 15:19 INDICATION: Right common femoral artery pseudoaneurysm and bleeding after cardiac catheterization. TECHNIQUE: Multiple grayscale and Doppler ultrasound images of the right lower limb were obtained. COMPARISON: CTA 08/09/2024 FINDINGS: There is no significant stenosis of right external iliac artery, common femoral artery, or superficial femoral artery. There is a small volume of hematoma adjacent to right superficial femoral artery. No pseudoaneurysm. IMPRESSION: 1. Small volume of hematoma adjacent to the right superficial femoral artery. No pseudoaneurysm. Reviewed, dictated and finalized at location A. INAL SYSTEM OPERATOR IMPRESSION: 1. Small volume of hematoma adjacent to the right superficial femoral artery. N o pseudoaneurysm.
--- NOTE | ~2024-08-09 | XR_ITS ---
EXAMINATION: XR chest 1V portable DATE: 08/09/2024 11:16 INDICATION: Shortness of breath with chest pressure TECHNIQUE: frontal view of the chest was obtained. COMPARISON: Chest radiograph dated 06/12/2022 FINDINGS: The lungs are clear with no focal airspace opacities, pulmonary edema, pleural effusion or pneumothor ax. Heart size is normal. Coronary artery stenting projecting over the left heart border. Combined in strumented C6-C7 anterior and posterior spinal fusion with anterior plate and screw fixation and bila teral vertical nanette and lateral mass screw fixation. IMPRESSION: 1. No acute cardiopulmonary disease. Reviewed, dictated and finalized at location B. S EXPEDITER
--- NOTE | 2024-08-09 10:49 | ECG_ITS ---
Test Date: 2024-08-09 10:51:44 Measurements Intervals [place] Rate: 79 P: 26 CA: 147 QRS: 26 QRSD: 81 T: 74 QT: 373 QTc: 429 Interpretive Statements SINUS RHYTHM artifact Electronically Signed On 08-09-2024 18:10:56 FLYING SQUAD WORKER by Lakeisha Joyner M.D.
[2024-08-09] MEDS: LORazepam INJ (*CRX) 2 MG/ML VIAL 0.5 MG IV PUSH (11:02)
[2024-08-09 11:20] LABS: Basophils Percent Auto 0.5 % (0.2-1.2); Eosinophils Absolute Auto 0.2 K/mm3 (0-0.3); Eosinophils Percent Auto 2.5 % (0-4.4); Hematocrit 26.9 % (37.0-47.0); Hemoglobin 8.6 g/dL (12.0-15.0); Immature Granulocyte Absolute 0.03 K/mm3 (0.00-0.031); Immature Granulocyte Percent A 0.5 % (0-0.5); Mean Corpuscular Hemoglobin 31.6 pg (26-34); Mean Corpuscular Volume 98.9 fl (80-100); Mean Platelet Volume 11.1 fl (7.4-10.4); Monocytes Absolute Auto 0.6 K/mm3 (0.1-0.6); Neutrophils Absolute Auto 3.8 K/mm3 (1.3-6.7); Neutrophils Percent Auto 64.5 % (45.5-73.1); Platelet Count Result 266 k/mm3 (150-375); Red Blood Count 2.72 M/mm3 (4.2-5.4); White Blood Count 5.9 K/mm3 (4.5-10.0)
[2024-08-09 11:32] LABS: Prothrombin Time 13.7 Seconds (11.1-14.7)
[2024-08-09 11:34] LABS: Alanine Aminotransferase 26 U/L (6-35); Alkaline Phosphatase 101 U/L (38-126); Anion Gap 6 mmol/L (4-12); Aspartate Amino Transferase 47 U/L (14-36); Bilirubin,Total 1.2 mg/dL (0.2-1.3); Blood Urea Nitrogen 20 mg/dL (7-17); Calcium 9.5 mg/dL (8.4-10.2); Carbon Dioxide 26 mmol/L (22-30); Chloride 104 mmol/L (98-107); Estimated CRCL calculation 41 ml/min; Estimated Glomerular Filt Rate 55; Glucose 100 mg/dL (65-110); Potassium 3.9 mmol/L (3.4-5.0); Sodium 136 mmol/L (137-145)
[2024-08-09 11:54] LABS: NT Pro B Type Natriuretic Pept 2290 pg/mL (19.9-100)
--- NOTE | 2024-08-09 14:27 | ECG_ITS ---
Test Date: 2024-08-09 14:38:23 Measurements Intervals [place] Rate: 82 P: 29 MT: 183 QRS: 25 QRSD: 86 T: 77 QT: 370 QTc: 433 Interpretive Statements SINUS RHYTHM nonespecific t changes Compared to ECG 08/09/2024 10:51:44 no changes Electronically Signed On 08-09-2024 18:03:12 ACTIVITIES OFFICER by Lakeisha Joyner M.D.
[2024-08-09] MEDS: MORPHINE SULFATE (*CRX) 2 MG/ML INJ IV PUSH (14:45)
--- NOTE | 2024-08-09 15:22 | ED.GENADULT ---
HPI - General Adult General Chief complaint: Chest Pain <Varun Saldviar MD - Last Filed: 08/09/24 17:11> Stated complaint: cp and sob <Varun Saldivar MD - Last Filed: 08/09/24 17:11> Time Seen by Provider: 08/09/24 10:49 <Varun Saldivar MD - Last Filed: 08/09/24 17:11> Source: patient <Varun Saldivar MD - Last Filed: 08/09/24 17:11> Mode of arrival: EMS <Varun Saldivar MD - Last Filed: 08/09/24 17:11> Limitations: no limitations <MD Ivan Cosby Last Filed: 08/09/24 17:11> History of Present Illness HPI narrative: 73-year-old with a history of hypertension, hypothyroidism, status post stents in left circumflex, S/P dissection of OM branch dissection. discharged from [facility] on aug 02 , here with a complaint of chest pain, shortness of breath, tingling sensation in both arms and also right hip pain. Patient states that she was unable to get out of the bed because of severe pain in the hip. She states had a both hands are numb and tingly. She is worried about possible blood clot in her groin after the procedure. She denies any fever or chills. Denies abdominal pain. <Varun Saldivar MD - Last Filed: 08/09/24 17:11> Onset (ago): hour(s) (1) <Varun Saldivar MD - Last Filed: 08/09/24 17:11> Radiation: non-radiation <Varun Saldivar MD - Last Filed: 08/09/24 17:11> Severity: moderate <Varun Saldivar MD - Last Filed: 08/09/24 17:11> Quality: aching <Varun Saldivar MD - Last Filed: 08/09/24 17:11> Pain Consistency: constant <MD Ivan Cosby Last Filed: 08/09/24 17:11> Relieving factors: none <MD Ivan Cosby Last Filed: 08/09/24 17:11> Associated symptoms: denies other symptoms <MD Ivan Cosby Last Filed: 08/09/24 17:11> Related Data Home medications: Home Medications ?Medication ?Instructions ?Recorded ?Confirmed ?Last Taken ?Type amitriptyline 25 mg tablet 25 mg PO QHS IBS 12/04/20 07/30/24 07/30/24 History fluticasone propionate 50 1 spray intranasal BID 12/04/20 07/30/24 07/30/24 History mcg/actuation nasal spray,suspension loratadine 10 mg tablet (Allergy 10 mg PO HS 12/04/20 07/30/24 07/30/24 History Relief (loratadine)) omeprazole 20 mg capsule,delayed 20 mg PO BID 11/19/21 08/02/24 08/02/24 History release calcium 600 mg (as 1 tablet PO BID 12/12/21 07/30/24 07/30/24 History carbonate)-vitamin D3 10 mcg (400 unit) tablet (Calcium 600 + D(3)) aspirin 81 mg tablet,delayed 81 mg PO DAILY 07/28/24 08/02/24 08/02/24 History release methotrexate sodium 2.5 mg tablet 15 mg PO WEEKLY 07/28/24 07/30/24 07/30/24 History metoprolol succinate 25 mg 25 mg PO DAILY 07/28/24 08/02/24 08/02/24 History tablet,extended release 24 hr prednisone 5 mg tablet 5 mg PO DAILY 07/28/24 07/30/24 07/30/24 History rosuvastatin 5 mg tablet (Crestor) 20 mg PO DAILY 07/28/24 08/02/24 08/02/24 History folic acid 1 mg tablet 1 mg PO WEEKLY 07/29/24 08/02/24 08/02/24 History <Varun Saldivar MD - Last Filed: 08/09/24 17:11> Allergies/adverse reactions: Allergies Allergy/AdvReac Type Severity Reaction Status Date / Time amoxicillin Allergy Severe Anaphylaxis Verified 08/09/24 11:01 pecan nut Allergy Unknown Swelling Verified 08/09/24 11:01 of Lip/Tongue/Throat tree nut Allergy Unknown Swelling Verified 08/09/24 11:01 of Lip/Tongue/Throat <Varun Saldivar MD - Last Filed: 08/09/24 17:11> Review of Systems Review of Systems: All systems reviewed & are unremarkable except as noted in HPI and below <Varun Saldivar MD - Last Filed: 08/09/24 17:11> Constitutional: Constitutional: Reports no additional constitutional complaints <Varun Saldivar MD - Last Filed: 08/09/24 17:11> Eyes: Eyes: Reports no additional eye complaints <Varun Saldivar MD - Last Filed: 08/09/24 17:11> ENT: Reports system reviewed and no additional complaints, except as documented <Varun Saldivar MD - Last Filed: 08/09/24 17:11> Cardiovascular: Cardiovascular: Reports as per HPI <Varun Saldivar MD - Last Filed: 08/09/24 17:11> Respiratory: Respiratory: Reports as per HPI <Varun Saldivar MD - Last Filed: 08/09/24 17:11> Gastrointestinal: Gastrointestinal: Reports no additional gastrointestinal complaints <Varun Saldivar MD - Last Filed: 08/09/24 17:11> Musculoskeletal: Musculoskeletal: Reports as per HPI <Varun Saldivar MD - Last Filed: 08/09/24 17:11> Integumentary/Breasts: Skin/Breast: Reports system reviewed and no additional complaints, except as docu <Varun Saldivar MD - Last Filed: 08/09/24 17:11> PMF Past Medical History Medical History: Medical History Lumbar degenerative disc disease Rotator cuff tear Adhesive capsulitis of shoulder Rotator cuff tendonitis Right shoulder pain History of COVID-19 (~05/2022) GERD without esophagitis Abnormal CT of thoracic spine (~10/2021) abnormality noted at T11 - ruled out with bone scan Numbness of right foot Hypothyroidism (acquired) CKD (chronic kidney disease) stage 3, GFR 30-59 ml/min Dyslipidemia Environmental allergies History of Helicobacter pylori infection History of small bowel obstruction Irritable bowel syndrome with constipation <Varun Saldivar MD - Last Filed: 08/09/24 17:11> Surgical History Surgical History: Surgical History S/P right rotator cuff repair History of laparoscopy (~05/2018) 05/2018 - small bowel obstruction History of lumbosacral spine surgery (~2017) 2017 - numbness on the lateral side of right lower extremity since the L-spine surgery. History of cervical spinal surgery (~2011) 2010, 2012 - x3 History of 1977, 1983 History of arthroscopy of left knee (~2009) 2009 - meniscus repair History of hysterectomy (~1985) 1985 <Varun Saldivar MD - Last Filed: 08/09/24 17:11> Family History Family History: Family History Mother Acute myocardial infarction Cerebrovascular accident Family history of malignant neoplasm of breast in first degree relative Family history of hypercholesterolemia Sibling Family history of malignant neoplasm of breast in first degree relative Father Family history of kidney disease Family history of throat cancer <Varun Saldivar MD - Last Filed: 08/09/24 17:11> Social History Social History: Social History Smoking status: Never smoker Second hand tobacco smoke exposure: No Alcohol intake: never Drinks per week: 1 Substance use: never Substance use type: does not use Lack of Transportation: No Lack of Food: Never True Current Housing: I Have Housing Concerned About Future Housing: No Difficulty Paying Gas/Electric Bills: No Difficulty Paying for Meds: No Currently Unemployed: No Education: High School Diploma/GED Difficulty w/ Childcare or Family Care: No Living arrangements: with family Occupation/Education: retired Gender identity (if verbalized by the patient): Female Sexual Orientation (if Verbalized by the Patient): Straight or Heterosexual Spiritual care concerns: No Agree to blood products: Yes <Varun Saldivar MD - Last Filed: 08/09/24 17:11> Exam Narrative: GENERAL: Well-appearing, well-nourished, and in no acute distress., very anxious and hperventilating HEAD: Normocephalic, atraumatic. EYES: PERRLA and EOMI. ENT: Nares clear, no rhinorrhea or epistaxis. Mucous membranes moist. NECK: Supple. CHEST: Clear to auscultation. No respiratory distress. HEART: Regular rate and rhythm. No murmur heard. Normal peripheral pulses. ABDOMEN: Soft, nontender, nondistended, normal active bowel sounds. EXTREMITIES: Normal range of motion. No edema. large bruise in the right groin , painful ROM of RT hip SKIN: Warm, dry, no rash. NEURO: No focal deficits. Alert and oriented x3. PSYCH: Normal mood and affect. <Varun Saldivar MD - Last Filed: 08/09/24 17:11> Course Course Emergency Course: Patient was given Ativan 0.5 mg upon arrival as he was very anxious and hyperventilating we did a she is still concerned about her abdomen as she had a bleed will do a CT of the abdomen and also do cardiac workup. Her tropeolins were elevated , discussed with Cardiology here recommended to be transfer to [facility] as she is a complex pt. discussed with dr. Wall , will accept the pt to [facility] . pt is feeling slightly better after CT was normal informed her that she will be transferring to [facility] . discussed with the Hospitalist Dr. Wagner will accept. the pt. <Varun Saldivar MD - Last Filed: 08/09/24 17:11> Patient was given Ativan 0.5 mg upon arrival as he was very anxious and hyperventilating we did a she is still concerned about her abdomen as she had a bleed will do a CT of the abdomen and also do cardiac workup. Her tropeolins were elevated , discussed with Cardiology here recommended to be transfer to [facility] as she is a complex pt. discussed with dr. Wall , will accept the pt to [facility] . pt is feeling slightly better after CT was normal informed her that she will be transferring to [facility] . discussed with the Hospitalist Dr. Wagner will accept. the pt. (Ferrera) patient signed out to me this morning at 7:00 a.m.. I was told that she is a transfer to [facility] and was pending a bed. Approximately 9:00 a.m., patient tells the nurse that because she is waiting she would like to be re-evaluated and consideration of discharge especially because she has an appointment later this morning that she has been waiting a long time for. I did go to bedside and evaluate the patient. She states that she has not received any of her medications for the past 2 days but she is feeling much better today and is without any complaints at this time. She has eaten breakfast and tolerated this. We reviewed her MyChart which show she has a TTE (transthoracic echo) pending at 11am this morning. She states that Dr Woodard/Rinku (?) had requested she have this done. Given it is a TTE and therefore not invasive, it is okay that she has eaten this morning and I do feel it is reasonable to discharge her so that she can make this appointment and proceed with her workup that had been scheduled. Discharged in stable condition. <Holli Ferrera MD - Last Filed: 08/10/24 09:19> Vital Signs Vital signs: Vital Signs Temperature 97.7 F 08/09/24 10:45 Pulse Rate 80 08/09/24 10:45 Respiratory Rate 20 08/09/24 10:45 Blood Pressure 104/85 08/09/24 10:45 Pulse Oximetry 100 08/09/24 10:45 Oxygen Delivery Room Air 08/09/24 10:45 Temperature 97.7 F 08/09/24 10:45 Pulse Rate 86 08/10/24 06:00 Respiratory Rate 16 08/10/24 06:00 Blood Pressure 100/61 08/10/24 06:00 Pulse Oximetry 100 08/10/24 06:00 Oxygen Delivery Room Air 08/09/24 11:08 <Varun Saldivar MD - Last Filed: 08/09/24 17:11> Vital Signs Temperature 97.7 F 08/09/24 10:45 Pulse Rate 80 08/09/24 10:45 Respiratory Rate 20 08/09/24 10:45 Blood Pressure 104/85 08/09/24 10:45 Pulse Oximetry 100 08/09/24 10:45 Oxygen Delivery Room Air 08/09/24 10:45 Temperature 97.7 F 08/09/24 10:45 Pulse Rate 86 08/10/24 06:00 Respiratory Rate 16 08/10/24 06:00 Blood Pressure 100/61 08/10/24 06:00 Pulse Oximetry 100 08/10/24 06:00 Oxygen Delivery Room Air 08/09/24 11:08 <Holli Ferrera MD - Last Filed: 08/10/24 09:19> Medical Decision Making MDM Narrative Medical decision making narrative: 73-year-old with a history of CAD status post stent and dissection here with a complaint of chest pain, shortness of breath, hip pain. Will do cardiac workup. She was extremely anxious will give her 0.5 of Ativan ,. <Varun Saldivar MD - Last Filed: 08/09/24 17:11> Differential Diagnosis Differential Diagnosis: ACS, intra abdominal bleed, anxiety <Varun Saldivar MD - Last Filed: 08/09/24 17:11> Medical Records Medical records reviewed: Yes I reviewed the external patient's medical records. <Varun Saldivar MD - Last Filed: 08/09/24 17:11> Vital Signs Vital Signs: Vital Signs Temperature 97.7 F 08/09/24 10:45 Pulse Rate 80 08/09/24 10:45 Respiratory Rate 20 08/09/24 10:45 Blood Pressure 104/85 08/09/24 10:45 Pulse Oximetry 100 08/09/24 10:45 Oxygen Delivery Room Air 08/09/24 10:45 Temperature 97.7 F 08/09/24 10:45 Pulse Rate 86 08/10/24 06:00 Respiratory Rate 16 08/10/24 06:00 Blood Pressure 100/61 08/10/24 06:00 Pulse Oximetry 100 08/10/24 06:00 Oxygen Delivery Room Air 08/09/24 11:08 <Varun Saldivar MD - Last Filed: 08/09/24 17:11> Vital Signs Temperature 97.7 F 08/09/24 10:45 Pulse Rate 80 08/09/24 10:45 Respiratory Rate 20 08/09/24 10:45 Blood Pressure 104/85 08/09/24 10:45 Pulse Oximetry 100 08/09/24 10:45 Oxygen Delivery Room Air 08/09/24 10:45 Temperature 97.7 F 08/09/24 10:45 Pulse Rate 86 08/10/24 06:00 Respiratory Rate 16 08/10/24 06:00 Blood Pressure 100/61 08/10/24 06:00 Pulse Oximetry 100 08/10/24 06:00 Oxygen Delivery Room Air 08/09/24 11:08 <Holli Ferrera MD - Last Filed: 08/10/24 09:19> Lab Data Result diagrams: 08/09/24 11:09 08/09/24 11:09 <Varun Saldivar MD - Last Filed: 08/09/24 17:11> Labs: Lab Results 08/09/24 08/09/24 08/09/24 Range/Units 11:09 14:19 17:24 WBC 5.9 (4.5-10.0) K/mm3 RBC 2.72 L (4.2-5.4) M/mm3 Hgb 8.6 L D (12.0-15.0) g/dL Hct 26.9 L (37.0-47.0) % MCV 98.9 (80-100) fl MCH 31.6 (26-34) pg MCHC 32.0 (32-36) g/dl RDW 15.0 H (11.5-14.5) % Plt Count 266 D (150-375) k/mm3 MPV 11.1 H (7.4-10.4) fl Immature Gran % (Auto) 0.5 (0-0.5) % Neut % (Auto) 64.5 (45.5-73.1) % Lymph % (Auto) 22.0 (18.3-44.2) % Vilas % (Auto) 10.0 H (2.6-8.5) % Eos % (Auto) 2.5 (0-4.4) % Baso % (Auto) 0.5 (0.2-1.2) % Lymph # (Auto) 1.30 (0.9-3.2) K/mm3 Vilas # (Auto) 0.6 (0.1-0.6) K/mm3 Eos # (Auto) 0.2 (0-0.3) K/mm3 Baso # (Auto) 0.0 (0.0-0.1) K/mm3 Abs Immat Gran (auto) 0.03 (0.00-0.031) K/mm3 Absolute Neuts (auto) 3.8 (1.3-6.7) K/mm3 Absolute Nucleated RBC 0.000 (0.0-0.012) K/mm3 Nucleated RBC % 0.0 (0.0-0.2) % PT 13.7 (11.1-14.7) Seconds INR 1.0 Sodium 136 L (137-145) mmol/L Potassium 3.9 (3.4-5.0) mmol/L Chloride 104 (98-107) mmol/L Carbon Dioxide 26 (22-30) mmol/L Anion Gap 6 (4-12) mmol/L BUN 20 H (7-17) mg/dL Creatinine 1.00 (0.7-1.0) mg/dL Estim Creat Clear Calc 41 ml/min Estimated GFR 55 L (59 - ) Glucose 100 (65-110) mg/dL Calcium 9.5 (8.4-10.2) mg/dL Total Bilirubin 1.2 (0.2-1.3) mg/dL AST 47 H (14-36) U/L ALT 26 (6-35) U/L Alkaline Phosphatase 101 (38-126) U/L Troponin I 3.540 H* 3.750 H* 3.550 H* (0.000-0.034) ng/mL NT-Pro-B Natriuret Pep 2290 H (19.9-100) pg/mL Total Protein 8.0 (6.3-8.2) g/dL Albumin 4.0 (3.5-5.1) g/dL <Varun Saldivar MD - Last Filed: 08/09/24 17:11> Lab Results 08/09/24 08/09/24 08/09/24 Range/Units 11:09 14:19 17:24 WBC 5.9 (4.5-10.0) K/mm3 RBC 2.72 L (4.2-5.4) M/mm3 Hgb 8.6 L D (12.0-15.0) g/dL Hct 26.9 L (37.0-47.0) % MCV 98.9 (80-100) fl MCH 31.6 (26-34) pg MCHC 32.0 (32-36) g/dl RDW 15.0 H (11.5-14.5) % Plt Count 266 D (150-375) k/mm3 MPV 11.1 H (7.4-10.4) fl Immature Gran % (Auto) 0.5 (0-0.5) % Neut % (Auto) 64.5 (45.5-73.1) % Lymph % (Auto) 22.0 (18.3-44.2) % Vilas % (Auto) 10.0 H (2.6-8.5) % Eos % (Auto) 2.5 (0-4.4) % Baso % (Auto) 0.5 (0.2-1.2) % Lymph # (Auto) 1.30 (0.9-3.2) K/mm3 Vilas # (Auto) 0.6 (0.1-0.6) K/mm3 Eos # (Auto) 0.2 (0-0.3) K/mm3 Baso # (Auto) 0.0 (0.0-0.1) K/mm3 Abs Immat Gran (auto) 0.03 (0.00-0.031) K/mm3 Absolute Neuts (auto) 3.8 (1.3-6.7) K/mm3 Absolute Nucleated RBC 0.000 (0.0-0.012) K/mm3 Nucleated RBC % 0.0 (0.0-0.2) % PT 13.7 (11.1-14.7) Seconds INR 1.0 Sodium 136 L (137-145) mmol/L Potassium 3.9 (3.4-5.0) mmol/L Chloride 104 (98-107) mmol/L Carbon Dioxide 26 (22-30) mmol/L Anion Gap 6 (4-12) mmol/L BUN 20 H (7-17) mg/dL Creatinine 1.00 (0.7-1.0) mg/dL Estim Creat Clear Calc 41 ml/min Estimated GFR 55 L (59 - ) Glucose 100 (65-110) mg/dL Calcium 9.5 (8.4-10.2) mg/dL Total Bilirubin 1.2 (0.2-1.3) mg/dL AST 47 H (14-36) U/L ALT 26 (6-35) U/L Alkaline Phosphatase 101 (38-126) U/L Troponin I 3.540 H* 3.750 H* 3.550 H* (0.000-0.034) ng/mL NT-Pro-B Natriuret Pep 2290 H (19.9-100) pg/mL Total Protein 8.0 (6.3-8.2) g/dL Albumin 4.0 (3.5-5.1) g/dL <Holli Ferrera MD - Last Filed: 08/10/24 09:19> Imaging Data Radiologist's impression: ITS Impressions Chest X-Ray 08/09/24 11:16 IMPRESSION: 1. No acute cardiopulmonary disease. Abdomen/Pelvis CTA 08/09/24 15:19 IMPRESSION: 1. Small hematoma around the right common femoral artery. Duplex Scan Lower Extremity Artery 08/09/24 15:23 IMPRESSION: 1. Small volume of hematoma adjacent to the right superficial femoral artery. No pseudoaneurysm. <Varun Saldivar MD - Last Filed: 08/09/24 17:11> ECG Data EKG #1: ECG completion date: 08/09/24 <Varun Saldivar MD - Last Filed: 08/09/24 17:11> EKG Interpretation: normal rate (79), sinus rhythm, non-specific ST changes, normal QRS, NL axis and no acute changes <Varun Saldivar MD - Last Filed: 08/09/24 17:11> EKG #2: ECG completion date: 08/09/24 <Varun Saldivar MD - Last Filed: 08/09/24 17:11> ECG completion time: 14:38 <Varun Saldivar MD - Last Filed: 08/09/24 17:11> EKG Interpretation: normal rate (82), sinus rhythm, no ST changes, NL axis and no acute changes <Varun Saldivar MD - Last Filed: 08/09/24 17:11> Discharge Plan Discharge Clinical Impression: Elevated troponin I measurement, Anxiety Chest pain Qualifiers: Chest pain type: chest pain due to myocardial ischemia Ischemic chest pain type: angina pectoris with documented coronary spasm Qualified Code(s): I20.1 - Angina pectoris with documented spasm Anemia Qualifiers: Anemia type: unspecified type Qualified Code(s): D64.9 - Anemia, unspecified Acute hip pain Qualifiers: Laterality: right Qualified Code(s): M25.551 - Pain in right hip <Varun Saldivar MD - Last Filed: 08/09/24 17:11> Patient Disposition: Home, Self-Care <Varun Saldivar MD - Last Filed: 08/09/24 17:11> Condition: Stable <Varun Saldivar MD - Last Filed: 08/09/24 17:11> Instructions: Antibiotic Form, Chest Pain (DC), Anemia (ED), Anxiety (ED), Hip Pain (ED), High Troponin Levels (ED) <Varun Saldivar MD - Last Filed: 08/09/24 17:11> Additional Instructions: Because you have been feeling much better consistently overnight and this morning and have an appointment for a transthoracic echocardiogram (TTE) this morning, you are being discharged. Keep this appointment as well as any other follow-up appointments and be sure to follow-up with primary care physician and environmental services director as well as the rest of the members of your care team. Do not hesitate to return to the emergency department with any new or worsening symptoms. <Varun Saldivar MD - Last Filed: 08/09/24 17:11> Patient Language: Mosotho <Varun Saldivar MD - Last Filed: 08/09/24 17:11> Prescriptions: No Action omeprazole 20 mg capsule,delayed release(DR/EC) 20 mg PO BID calcium carbonate-vitamin D3 [Calcium 600 + D(3)] 600 mg-10 mcg (400 unit) tablet 1 tablet PO BID loratadine [Allergy Relief (loratadine)] 10 mg tablet 10 mg PO HS amitriptyline 25 mg tablet 25 mg PO QHS fluticasone propionate 50 mcg/actuation spray,suspension 1 spray intranasal BID Rx Instructions: administer into each nostril aspirin 81 mg tablet,delayed release (DR/EC) 81 mg PO DAILY methotrexate sodium 2.5 mg tablet 15 mg PO WEEKLY metoprolol succinate 25 mg tablet extended release 24 hr 25 mg PO DAILY prednisone 5 mg tablet 5 mg PO DAILY rosuvastatin [Crestor] 5 mg tablet 20 mg PO DAILY ticagrelor 90 mg tablet 90 mg PO Q12H Qty: 90 3RF isosorbide mononitrate 30 mg tablet extended release 24 hr 30 mg PO DAILY Qty: 90 3RF folic acid 1 mg tablet 1 mg PO WEEKLY levothyroxine [Synthroid] 50 mcg tablet 50 mcg PO DAILY Qty: 90 1RF <Varun Saldivar MD - Last Filed: 08/09/24 17:11> Follow-up/Referrals: Shyanne Lepe MD [Primary Care Provider] - <Varun Saldivar MD - Last Filed: 08/09/24 17:11> Stand Alone Forms: Work/School Release IP <Varun Saldivar MD - Last Filed: 08/09/24 17:11> Time of Disposition: 09:18 <Varun Saldivar MD - Last Filed: 08/09/24 17:11> 09:18 <Holli Ferrera MD - Last Filed: 08/10/24 09:19>
[2024-08-09] MEDS: ONDANSETRON INJ 4 MG/2 ML VIAL IV PUSH (16:42)
--- NOTE | 2024-08-09 17:15 | ECG_ITS ---
Test Date: 2024-08-09 17:21:23 Measurements Intervals [place] Rate: 87 P: 27 MS: 168 QRS: 4 QRSD: 96 T: 78 QT: 352 QTc: 424 Interpretive Statements SINUS RHYTHM NONSPECIFIC T-WAVE ABNORMALITY Compared to ECG 08/09/2024 14:38:23 artifact is new Electronically Signed On 08-09-2024 17:54:35 TERMITE CONTROL SERVICE REPRESENTATIVE by Lakeisha Joyner M.D.
[2024-08-10] VITALS (19 sets, daily range): BP systolic 100–113; BP diastolic 58–70; PULSE 80–91; RESP 13–22; O2SAT 93–100
--- NOTE | 2024-08-10 00:42 | PC.NURSE ---
[facility] tranfer center given update on pt condition.
== END 2024-08-10 09:40 | disposition home or self-care (01) ==
PROVIDERS: Family Medicine; Emergency Provider Student in an Organized Health Care Education/Training Program; PCP Family Medicine
DX: I25.111 Atherosclerotic heart disease of native coronary artery with angina pectoris with documented spasm (principal); D64.9 Anemia, unspecified; M25.551 Pain in right hip; R79.89 Other specified abnormal findings of blood chemistry; F41.9 Anxiety disorder, unspecified; I97.630 Postprocedural hematoma of a circulatory system organ or structure following a cardiac catheterization; I12.9 Hypertensive chronic kidney disease with stage 1 through stage 4 chronic kidney disease, or unspecified chronic kidney disease; E03.9 Hypothyroidism, unspecified; K21.9 Gastro-esophageal reflux disease without esophagitis; N18.30 Chronic kidney disease, stage 3 unspecified; K58.1 Irritable bowel syndrome with constipation; Z95.5 Presence of coronary angioplasty implant and graft; Z86.16 Personal history of COVID-19; Z90.710 Acquired absence of both cervix and uterus; Z79.82 Long term (current) use of aspirin; Z79.899 Other long term (current) drug therapy; R94.31 Abnormal electrocardiogram [ECG] [EKG]
CPT/HCPCS: 36415; 71045; 74174; 80053; 83880; 84484; 85025; 85610; 93005; 93926; 96374; 96375; 99284; J2060; J2270; J2405; Q9967